=== PATIENT | female | born 1980 | race Caucasian/White ===

== ENCOUNTER 2019-03-19 12:39 | Outpatient (CLI) | payer SELFPAY ==
--- NOTE | 2019-03-19 12:44 | XR_ITS ---
WS: [id number] PELVIS AND RIGHT HIP HISTORY: RIGHT HIP PAIN COMPARISON: 01/31/2012 Right hip: No acute fracture or dislocation. No destructive bone lesions or soft tissue abnormality. Phlebolith in the RIGHT pelvis. Mild sclerosis involving the SI joints bilaterally. No definite erosi ons. XR/XR hip RT 2-3V wo/w pel* [id number] IMPRESSION: 1. Negative RIGHT hip. 2. Minimal degenerative changes bilateral SI joints.
== END 2019-03-19 12:40 | disposition home or self-care (01) ==
LOC: WPI 12:40
PROVIDERS: Family Provider Internal Medicine; Visit Provider Nurse Practitioner Family
DX: M16.11 Unilateral primary osteoarthritis, right hip (principal); G95.89 Other specified diseases of spinal cord; M25.551 Pain in right hip; R10.2 Pelvic and perineal pain
CPT/HCPCS: 73502

== ENCOUNTER 2019-09-11 09:36 | Emergency (ER) | payer SELFPAY ==
[2019-09-11 09:46] VITALS: BP 126/86; PULSE 92; RESP 18; TEMP 36.6; O2SAT 99; BMI 37.1
--- NOTE | 2019-09-11 10:16 | ED_ITS ---
HPI - Headache General: Chief Complaint: Headache Stated Complaint: H/A X 7 WEKKS Time Seen by Provider: 09/11/19 09:59 Source: patient Mode of arrival: ambulatory Limitations: no limitations History of Present Illness: HPI Narrative: PRATER x 7 weeks Onset description: like a thunderclap Quality & Timing: sharp Relieving factors: dark room Review of Systems General: Reports: 10 or more systems reviewed and unremarkable except in HPI and below Eyes: Reports: eye discomfort (left eye) Neuro: Reports: headache(s); Denies: numbness in extremities, weakness in extremities, difficulty walking, dizziness or seizure-like activity PFS ED PFSH: Social History Smoking and tobacco status: former smoker Physical Exam Const: COMMON NORMALS: no acute distress, patient oriented x3, no limitations and alert GENERAL APPEARANCE: cooperative and comfortable ORIENTATION/CONSCIOUSNESS: Yes awake, Yes oriented to person, Yes oriented to place and Yes oriented to time HENMT: COMMON NORMALS: normocephalic, atraumatic, external ears normal, EAC's normal, TM's normal bilaterally and Normal external nose present HEAD & SCALP: normal to inspection, normocephalic and atraumatic FACE & SINUS: normal facial exam, sinuses nontender and face symmetric NOSE: Normal external nose present, Normal nares present and No nasal discharge present EXTERNAL EAR: Yes external ears normal EXTERNAL AUDITORY CANAL: EAC's normal TYMPANIC MEMBRANE: TM's normal bilaterally MOUTH: Normal oral and palatal mucosa present, lip normal and tongue normal THROAT: posterior oropharynx normal, tonsils normal and uvula midline Eye: COMMON NORMALS: Equal, round and reactive pupils present, EOMs intact josias aterally and conjunctivae normal GENERAL EYE: appearance normal, both eyes and all related structures and normal light reflex EYELID: eyelid abnormality (difficulty with opening/closing; drooping ) left upper eyelid CONJUNCTIVA: Yes conjunctivae normal PUPIL: Yes Equal, round and reactive pupils present EOM: Yes EOM abnormal DIRECT OPHTHALMOSCOPY: Yes normal light reflex Neck/C-Spine: COMMON NORMALS: full ROM, no lymphadenopathy, supple, no meningeal signs, no JVD and Thyroid normal GENERAL: Yes normal visual inspection THYROID: Thyroid normal CERVICAL SPINE: Yes cervical ROM normal and Yes normal cervical lordosis Lymph: LYMPHATIC: no lymphadenopathy noted Chest: COMMONS NORMALS: normal inspection of the chest and normal palpation of entire chest wall Resp: COMMON NORMALS: normal respiratory effort, No retractions and clear to auscultation bilaterally AUSCULTATION: clear to auscultation bilaterally Cardio: COMMON NORMALS: no JVD, regular rate, regular rhythm, S1 normal heart sound present, S2 normal heart sound present, No gallops present (Cardio), No clicks present (Cardio), No murmurs present (Cardio), No rub (Cardio) and Peripheral pulses 2+ throughout RATE: regular rate RHYTHM: regular rhythm HEART SOUNDS: S1 normal heart sound present and S2 normal heart sound present PERIPHERAL PULSES: Peripheral pulses 2+ throughout GI: COMMON NORMALS: Normal to inspection, nondistended, normoactive bowel sounds present, Soft to palpation, non-tender and no masses PALPATION: Yes Soft to palpation : COMMON NORMALS: Yes no CVA tenderness and Yes normal external appearance BLADDER/KIDNEY EXAM: Yes no CVA tenderness Back/Pelvis: COMMON NORMALS: no CVA tenderness, thoracic and lumbar spine normal to inspection, no thoracic nor lumbar tenderness and thoraco-lumbar ROM normal Extremity: COMMON NORMALS: normal to inspection, full ROM, capillary refill normal, no joint enlargement, no clubbing, cyanosis or edema, no calf tenderness and no pedal edema GENERAL: Yes normal exam except as noted Neuro: COMMON NORMALS: patient oriented x3, moves all extremities, no focal motor deficits, no sensory deficits noted and gait normal SENSORIUM/ORIENTATION: Yes alert, Yes oriented to person, Yes oriented to place and Yes oriented to time MENINGEAL SIGNS: Yes no meningeal signs Psych: COMMON NORMALS: mental status grossly normal, Normal thought process present, cooperative, normal affect, speech normal and activity/motor behavior normal SPEECH: Yes normal speech THOUGHT PROCESS: Normal thought process present Skin: COMMON NORMALS: no rashes or lesions noted, no wounds and turgor normal GENERAL SKIN EXAM: no rashes or lesions noted and turgor normal Course ED course: Pt presents with PRATER that has lasted approximately 7 weeks. She has a hx of migraines but has not had any for 6 years. States this is present almost constantly with only a little relief. Notes also that her left eye has some drooping and difficulty with movement. Overall, neurologically she is intact. CT head ordered and migraine cocktail. Reevaluation(s): Reevaluation #1: Pt ct head reveals extensive sinusitis. We will refer to ENT for further tx and will do a round of steroids with antibx. Proceed with DC. Time: 11:59 Vital Signs: Vital signs: Vital Signs Temperature 97.8 F 09/11/19 09:46 Pulse Rate 92 09/11/19 09:46 Respiratory Rate 18 09/11/19 09:46 Blood Pressure 126/86 09/11/19 09:46 Pulse Oximetry 99 09/11/19 09:46 MDM - Headache Imaging Data^: CT Head: Radiologist's impression: [address] [id number] [address] Scan Report Signed Patient: Liliam Fragoso Unit #: [id number] : 1980 Age/Sex: 38 / F ADM Date: 09/11/19 Loc: ER Room/Bed: Attending Dr: Ordering Provider/Ordering MD: Sofia Ritchie NP Date of Service: 09/11/19 Procedure(s): CT head wo con* [id number] Accession Number(s): [id number] Report Number: [id number] WS: [id number] CT HEAD NONCONTRAST HISTORY: severe PRATER / NV TECHNIQUE: Contiguous axial imaging performed through the brain in 2.5 mm zack ging. Bone and soft tissue windows. Sagittal and coronal reformats reviewed. All CT scans at [facility] use at least one of these dose optimization techniques: automated exposure control; mA and/or kV adjustment per patient size (includes targeted exams where dose is matched to clinical indication); or iterative reconstruction. DLP: 763.37 mGy.cm COMPARISON: None available. No acute intracranial hemorrhage, midline shift or mass effect. No atrophy or prior infarcts or herniation. Ventricles: Normal size with no hydrocephalus. Paranasal sinuses: Extensive mucoperiosteal thickening within the visualized sinuses, most significant involving the ethmoid air cells and sphenoid sinuses. Mastoid air cells: Well pneumatized. Calvarium and scalp: Skull is intact with no soft tissue edema or swelling. CT/CT head wo con* [id number] IMPRESSION: 1. Negative head CT. 2. Extensive sinusitis sphenoid and ethmoid air cells. Dictated By: Yesenia Huang DO Signed By: Yesenia Huang DO Signed Date/Time: 08/17 09/04 1153 DD/ 1152 Discharge Plan Discharge Patient Disposition: Home, Self-Care Clinical Impression: Headache, Sinusitis Condition: Stable Prescriptions: New Medrol (Cruzito) 4 mg tablets,dose pack See Rx Instructions .ROUTE .COMPLEX Qty: 21 RF: 0 Cornelia Allergy 180 mg tablet 180 mg PO DAILY Qty: 20 RF: 0 doxycycline hyclate 100 mg capsule 100 mg PO BID 10 Days Qty: 20 RF: 0 No Action Nexium 40 mg Capsule,Delayed Release(Dr/Ec) 40 mg PO DAILY RF: 0 Pulmicort 0.25 mg/2 mL Suspension For Nebulization 0.25 mg INHALATION BID RF: 0 montelukast 10 mg Tablet 10 mg PO DAILY RF: 0 naproxen 500 mg tablet 500 mg PO Q6H PRN (Reason: Pain) RF: 0 Referrals: OSCAR BENSON DO [Primary Care Provider] - Isidro Lacy MD [Physician] - Discharge Diet: Usual diet Discharge Activity: Resume usual activity Coding Level of Care Code ED Senior Ios Developer for Chg Fwd Exam Comprehensive
--- NOTE | 2019-09-11 10:26 | CT_ITS ---
WS: [id number] CT HEAD NONCONTRAST HISTORY: severe PRATER / NV TECHNIQUE: Contiguous axial imaging performed through the brain in 2.5 mm imaging. Bone and soft tiss ue windows. Sagittal and coronal reformats reviewed. All CT scans at [facility] use at ast one of these dose optimization techniques: automated exposure control; mA and/or kV adjustment pe r patient size (includes targeted exams where dose is matched to clinical indication); or iterative r econstruction. DLP: 763.37 mGy.cm COMPARISON: None available. No acute intracranial hemorrhage, midline shift or mass effect. No atrophy or prior infarcts or herniation. Ventricles: Normal size with no hydrocephalus. Paranasal sinuses: Extensive mucoperiosteal thickening within the visualized sinuses, most significan t involving the ethmoid air cells and sphenoid sinuses. Mastoid air cells: Well pneumatized. Calvarium and scalp: Skull is intact with no soft tissue edema or swelling. CT/CT head wo con* [id number] IMPRESSION: 1. Negative head CT. 2. Extensive sinusitis sphenoid and ethmoid air cells.
[2019-09-11] MEDS: sodium chloride 0.9% 500 ML IV (10:34)
[2019-09-11] MEDS: diphenhydrAMINE 50 mg/mL SDV 1mL 25 MG IVP (10:36)
[2019-09-11] MEDS: dexamethasone 4 mg/mL INJ 8 MG IVP (10:39)
[2019-09-11] MEDS: ketorolac 30 mg/mL INJ IVP (10:40)
[2019-09-11] MEDS: metoclopramide 5 mg/mL SDV 2 mL 10 MG IVP (10:41)
[2019-09-11 12:27] VITALS: BP 100/74; PULSE 94; RESP 18; O2SAT 95
== END 2019-09-11 12:26 | disposition home or self-care (01) ==
PROVIDERS: Emergency Provider Nurse Practitioner Family; PCP Internal Medicine
DX: R51 Headache (principal); J32.9 Chronic sinusitis, unspecified; Z87.891 Personal history of nicotine dependence
CPT/HCPCS: 12345; 70450; 96361; 96374; 96375; 99283; J1100; J1200; J1885; J2765; J7040

== ENCOUNTER 2019-10-02 20:07 | Emergency (ER) | payer SELFPAY ==
[2019-10-02 20:22] VITALS: BP 123/82; PULSE 70; RESP 18; TEMP 36.7; O2SAT 98; BMI 37.1
--- NOTE | 2019-10-02 20:40 | W.ED.HA ---
HPI - Headache General: Chief Complaint: Headache Stated Complaint: headache Time Seen by Provider: 10/02/19 20:40 Source: patient Mode of arrival: ambulatory Limitations: no limitations History of Present Illness: HPI Narrative: 38-year-old female comes in today with complaints of left parietal headache. Patient states that she has a history of migraines but had not had them for quite a long time. In August she had to come into the ER for headache and was diagnosed with sinusitis. Patient states that she took steroids and antibiotics and has been put on antihistamines along with her routine medications. Patient reports for the last 3 days she has had a recurrence of her headache with exacerbation. Patient appears well. Patient appears in no acute distress. Patient does appear in mild to moderate pain. MD elicited complaint: headache Review of Systems General: Reports: 10 or more systems reviewed and unremarkable except in HPI and below Neuro: Reports: headache(s) [facility] PFSH: Social History Smoking and tobacco status: former smoker Physical Exam Const: COMMON NORMALS: no acute distress and patient oriented x3 GENERAL APPEARANCE: cooperative HENMT: COMMON NORMALS: normocephalic, TM's normal bilaterally and Normal external nose present HEAD & SCALP: normal to inspection and normocephalic NOSE: Normal external nose present TYMPANIC MEMBRANE: TM's normal bilaterally MOUTH: Normal oral and palatal mucosa present THROAT: posterior oropharynx normal Eye: GENERAL EYE: appearance normal, both eyes and all related structures Neck/C-Spine: COMMON NORMALS: full ROM Lymph: LYMPHATIC: no lymphadenopathy noted Chest: COMMONS NORMALS: normal inspection of the chest Resp: COMMON NORMALS: normal respiratory effort EFFORT & INSPECTION: Yes able to speak in complete sentences Cardio: COMMON NORMALS: regular rate and regular rhythm RATE: regular rate RHYTHM: regular rhythm GI: COMMON NORMALS: non-tender Back/Pelvis: COMMON NORMALS: thoracic and lumbar spine normal to inspection Extremity: COMMON NORMALS: normal to inspection Neuro: COMMON NORMALS: patient oriented x3 and moves all extremities Psych: COMMON NORMALS: mental status grossly normal and cooperative Skin: COMMON NORMALS: no rashes or lesions noted GENERAL SKIN EXAM: no rashes or lesions noted Course Vital Signs: Vital signs: Vital Signs Temperature 98.1 F 10/02/19 20:22 Pulse Rate 70 10/02/19 20:22 Respiratory Rate 18 10/02/19 20:22 Blood Pressure 123/82 10/02/19 20:22 Pulse Oximetry 98 10/02/19 20:22 MDM - Headache MDM Narrative: Medical decision making narrative: Patient comes in today with complaints of headache. Patient appears well. Patient has no focal neural deficits. No sinus tenderness. Bilateral tympanic membranes are clear. Posterior pharynx shows some clear drainage. No anterior lymphadenopathy. Lungs are clear to auscultation. No meningismus is noted. Differential diagnosis includes migraine headache, tension headache, malingering. Patient was treated for migraine headache with Reglan and Benadryl, and Toradol and dexamethasone. Patient had good results for headache relief. Patient was released to home to continue routine care. Patient reports understanding of care plan and need for follow-up. Discharge Plan Discharge Patient Disposition: Home, Self-Care Clinical Impression: Migraine Qualifiers: Migraine type: unspecified Status migrainosus presence: without status migrainosus Intractability: not intractable Qualified Code(s): G43.909 - Migraine, unspecified, not intractable, without status migrainosus Condition: Stable Prescriptions: No Action esomeprazole magnesium [Nexium] 40 mg Capsule,Delayed Release(Dr/Ec) 40 mg PO DAILY RF: 0 budesonide [Pulmicort] 0.25 mg/2 mL Suspension For Nebulization 0.25 mg INHALATION BID RF: 0 montelukast 10 mg Tablet 10 mg PO DAILY RF: 0 naproxen 500 mg tablet 500 mg PO Q6H PRN (Reason: Pain) RF: 0 fexofenadine [Cornelia Allergy] 180 mg tablet 180 mg PO DAILY Qty: 20 RF: 0 albuterol sulfate 90 mcg/actuation Hfa Aerosol Inhaler 1 puff INHALATION QID PRN (Reason: Shortness Of Breath) RF: 0 Ipatropiam [place] See Rx Instructions .ROUTE .COMPLEX RF: 0 Discharge Orders: Discharge Order (Routine); Ordered 10/02/19 Ordered By: Chente Antonio Referrals: OSCAR BENSON DO [Primary Care Provider] - Discharge Diet: Usual diet Discharge Activity: Increase activity as tolerated Patient Instructions: Acute Headache (ED) Activity Restrictions/Additional Instructions: Home and rest. Drink plenty of water. Continue with routine medications. Follow-up with primary care. Return to the ER as needed for new concerns. Coding Level of Care Code ED Water Resources Technical Officer for Chg Fwd Exam Comprehensive
[2019-10-02] MEDS: metoclopramide 5 mg/mL SDV 2 mL 10 MG IVP (21:39)
[2019-10-02] MEDS: diphenhydrAMINE 50 mg/mL SDV 1mL 25 MG IVP (21:45)
[2019-10-02] MEDS: dexamethasone 10 mg/mL INJ IVP (21:45)
[2019-10-02] MEDS: ketorolac 30 mg/mL INJ 15 MG IVP (21:46)
[2019-10-02] MEDS: sodium chloride 0.9% 500 ML 999 ML IV (21:46)
--- NOTE | 2019-10-02 22:11 | PC.NURSE ---
PT FEELS BETTER AFTER MEDS AND FLUIDS GIVEN.
[2019-10-02 22:18] VITALS: BP 141/74; PULSE 69; RESP 17; O2SAT 96
== END 2019-10-02 22:19 | disposition home or self-care (01) ==
PROVIDERS: Emergency Provider Nurse Practitioner Family; PCP Internal Medicine
DX: G43.909 Migraine, unspecified, not intractable, without status migrainosus (principal); Z87.891 Personal history of nicotine dependence
CPT/HCPCS: 12345; 96374; 96375; 99282; 99283; J1100; J1200; J1885; J2765; J7040

== ENCOUNTER 2019-11-28 10:38 | Emergency (ER) | payer SELFPAY ==
--- NOTE | 2019-11-28 10:47 | XRR_ITS ---
PROCEDURE INFORMATION: Exam: XR Chest, 1 View Exam date and time: 11/28/2019 10:49 AM Age: 39 years old Clinical indication: Cough and dyspnea; Additional info: Dyspnea/cough TECHNIQUE: Imaging protocol: XR of the chest Views: 1 view. COMPARISON: CR Chest 1 [place] [id number] 02/19/2019 8:53 PM FINDINGS: Lungs: Unremarkable. No consolidation. Pleural space: Unremarkable. No evidence of pleural effusion or pneumothorax. Heart/Mediastinum: Unremarkable. No cardiomegaly. Bones/joints: Unremarkable. XR/XR chest 1V portable [id number] IMPRESSION: No acute findings.
[2019-11-28 10:58] VITALS: BP 114/78; PULSE 94; RESP 20; TEMP 36.4; O2SAT 98; BMI 40.3
--- NOTE | 2019-11-28 10:59 | ED_ITS ---
HPI - SOB/Dyspnea General: Chief Complaint: Shortness of Breath/Dyspnea Stated Complaint: COUGH, SOB Time Seen by Provider: 11/28/19 10:44 History of Present Illness: HPI Narrative: 39-year-old female presents with complaints of cough for the last 2 days. She has had some myalgias and some shortness of breath. She was started on steroids and antibiotics and a topical cream for her foot recently prednisone Bactrim and mupirocin she describes some open wounds. She has not had any vomiting or diarrhea has had some nausea headaches myalgias. She does have a history of some COPD. Her was swabbed earlier this week and has not gotten the results yet. MD elicited complaint: cough Pertinent past history: COPD Onset (ago): day(s) Timing: constant Severity: moderate Exacerbating factors: exertion and coughing Relieving factors: rest and bronchodilators Known history of: COPD Associated symptoms: Reports chest congestion and cough; Deny abdominal pain, chest pain, diaphoresis, dizziness, extremity pain, fever(s), hemoptysis, lightheadedness, myalgias, nausea, orthopnea, palpitations, paresthesias, polydipsia, polyuria, rash, sense of impending doom, syncope or vomiting Treatment prior to arrival: bronchodilator Review of Systems Const: Denies: fever(s) or diaphoresis ENMT: Denies: throat pain, ear or mastoid pain, nasal discharge or nasal congestion Card: Denies: chest pain, palpitations, lightheadedness, syncope or orthopnea Resp: Reports: chest congestion; Denies: hemoptysis GI: Denies: abdominal pain, nausea or vomiting : Denies: flank pain, difficulty voiding, dysuria, urinary frequency or urinary urgency Musc: Denies: extremity pain Skin/Breast: Denies: rash or pruritus Neuro: Denies: dizziness Endo: Denies: polyuria or polydipsia PFS ED PFSH: Social History Smoking and tobacco status: former smoker Physical Exam Const: COMMON NORMALS: no acute distress GENERAL APPEARANCE: cooperative and comfortable ORIENTATION/CONSCIOUSNESS: Yes awake, Yes oriented to person, Yes oriented to place and Yes oriented to time HENMT: COMMON NORMALS: normocephalic, atraumatic and hearing grossly normal bilaterally HEAD & SCALP: normocephalic and atraumatic Eye: COMMON NORMALS: Equal, round and reactive pupils present, EOMs intact bilaterally, conjunctivae normal and no scleral icterus CONJUNCTIVA: Yes conjunctivae normal PUPIL: Yes Equal, round and reactive pupils present Neck/C-Spine: COMMON NORMALS: full ROM, no lymphadenopathy, supple and no JVD Lymph: LYMPHATIC: no lymphadenopathy noted and no lymphedema noted Resp: COMMON NORMALS: normal respiratory effort, No retractions, No use of accessory muscles and clear to auscultation bilaterally AUSCULTATION: clear to auscultation bilaterally Cardio: COMMON NORMALS: no JVD, regular rate, regular rhythm and No murmurs present (Cardio) RATE: regular rate RHYTHM: regular rhythm GI: COMMON NORMALS: Soft to palpation and No hepatosplenomegaly present AUSCULTATION: Yes normoactive bowel sounds PALPATION: Yes Soft to palpation, No Tenderness to palpation present (GI), No Guarding due to palpation present (GI) and Yes No hepatosplenomegaly present Extremity: COMMON NORMALS: normal to inspection, capillary refill normal, no clubbing, cyanosis or edema, no calf tenderness and no pedal edema Neuro: SENSORIUM/ORIENTATION: Yes oriented to person, Yes oriented to place an d Yes oriented to time Skin: COMMON NORMALS: no rashes or lesions noted GENERAL SKIN EXAM: no r ashes or lesions noted Course Vital Signs: Vital signs: Vital Signs Temperature 97.6 F 11/28/19 10:58 Pulse Rate 86 11/28/19 12:05 Respiratory Rate 18 11/28/19 12:05 Blood Pressure 116/45 11/28/19 12:05 Pulse Oximetry 97 11/28/19 12:05 MDM - SOB/Dyspnea MDM Narrative: Medical decision making narrative: Discharge home patient is stable at this time vital signs are good COVID-19 testing pending as patient to remain self quarantined until results are available Lab Data: Labs: Lab Results 11/28/19 11/28/19 11/28/19 Range/Units 11:23 11:23 11:51 WBC 12.5 H (4.0-10.0) 10^3/ uL RBC 4.66 (4.1-5.3) 10^6/u L Hgb 14.0 (11.5-15.3) g/dL Hct 42.2 (37.0-47.0) % MCV 90.6 (81-99) fL MCH 30.0 (28.0-34.0) pg MCHC 33.2 (30.0-36.0) g/dL RDW 11.9 L (12.1-15.1) % Plt Count 350 (130-400) 10^3/c mm MPV 9.9 (7.4-10.4) fL Neut % (Auto) 78.0 % Lymph % (Auto) 13.5 % [place] % (Auto) 7.1 % Eos % (Auto) 0.6 % Baso % (Auto) 0.4 % Neut # (Auto) 9.77 H (1.8-7.7) 10^3/u L Lymph # (Auto) 1.7 (0.8-4.8) 10^3/u L [place] # (Auto) 0.9 (0.2-0.9) 10^3/u L Eos # (Auto) 0.1 (0.0-0.8) 10^3/u L Baso # (Auto) 0.1 (0.0-0.1) 10^3/u L Nucleated RBC % (a uto) 0 % Nucleated RBCs # 0.0 /100WBC Sodium 135 L (136-145) mmol/L Potassium 4.1 (3.5-5.1) mmol/L Chloride 102 (98-107) mmol/L Carbon Dioxide 22 (22-29) mmol/L Anion Gap 15.1 (5-19) BUN 15 (6-20) mg/dL Creatinine 0.7 (0.5-0.9) mg/dL GFR Calculation 92.7 (90-130) mL/min Glucose 94 (65-115) mg/dL Calculated Osmolal ity 276 L (285-295) mOsm/k g Calcium 8.6 (8.5-10.5) mg/dL Total Bilirubin 0.2 (0.15-1.2) mg/dL AST 15 (0-32) U/L ALT 15 (0-33) U/L Alkaline Phosphata se 82 (35-105) IU/L Total Protein 6.7 (6.6-8.7) g/dL Albumin 4.1 (3.5-5.2) g/dL Globulin 2.6 (1.3-4.6) g/dL SARS-CoV-2 RNA (RT -PCR) Not detected (NOT DETECTED) Discharge Plan Discharge Patient Disposition: Home Clinical Impression: Suspected 2019-nCoV infection Condition: Stable Prescriptions: No Action prednisone 20 mg Tablet 20 mg PO BID RF: 0 sulfamethoxazole-trimethoprim 800-160 mg Tablet 1 tab PO BID RF: 0 Lasix 20 mg Tablet 20 mg PO DAILY RF: 0 mupirocin 2 % Ointment Kit 1 applic TOPICAL BID RF: 0 esomeprazole magnesium [Nexium] 40 mg Capsule,Delayed Release(Dr/Ec) 40 mg PO DAILY RF: 0 budesonide [Pulmicort] 0.25 mg/2 mL Suspension For Nebulization 0.25 mg INHALATION BID RF: 0 montelukast 10 mg Tablet 10 mg PO DAILY RF: 0 naproxen 500 mg tablet 500 mg PO Q6H PRN (Reason: Pain) RF: 0 fexofenadine [Cornelia Allergy] 180 mg tablet 180 mg PO DAILY Qty: 20 RF: 0 albuterol sulfate 90 mcg/actuation Hfa Aerosol Inhaler 1 puff INHALATION QID PRN (Reason: Shortness Of Breath) RF: 0 Ipatropiam [place] See Rx Instructions .ROUTE .COMPLEX RF: 0 Discharge Orders: Discharge Order (Routine); Ordered 11/28/19 Ordered By: Faheem Reid Referrals: Varsha Mccain DO [Primary Care Provider] - Discharge Diet: Usual diet Discharge Activity: Limit activity as instructed Activity Restrictions/Additional Instructions: Your tested for COVID-19. We asked that you remain self quarantine until the results are back. We will call you soon as they are available. If you have any worsening shortness of breath return to the emergency room. Discharge Date/Time: 11/28/19 12:07 Coding Level of Care Code ED Special Events Driver for Maxwell Fwkehinde Exam Comprehensive
[2019-11-28 11:35] VITALS: BP 104/87; PULSE 88; RESP 18; O2SAT 98
[2019-11-28 11:45] LABS: Basophils # 0.1 10^3/uL (0.0-0.1); Basophils % 0.4 %; Eosinophils # 0.1 10^3/uL (0.0-0.8); Eosinophils % 0.6 %; Hematocrit 42.2 % (37.0-47.0); Lymphocytes # 1.7 10^3/uL (0.8-4.8); Lymphocytes % 13.5 %; Mean Corpuscular HGB Conc 33.2 g/dL (30.0-36.0); Mean Corpuscular Volume 90.6 fL (81-99); Mean Platelet Volume 9.9 fL (7.4-10.4); Monocytes # 0.9 10^3/uL (0.2-0.9); Monocytes % 7.1 %; Neutrophils # 9.77 10^3/uL (1.8-7.7); Nucleated Red Blood Cells % 0 %; Platelet Count 350 10^3/cmm (130-400); Red Blood Count 4.66 10^6/uL (4.1-5.3); Red Cell Distribution Width 11.9 % (12.1-15.1); White Blood Count 12.5 10^3/uL (4.0-10.0)
[2019-11-28 11:56] LABS: Alanine Aminotransferase 15 U/L (0-33); Albumin Level 4.1 g/dL (3.5-5.2); Alkaline Phosphatase 82 IU/L (35-105); Anion Gap 15.1 (5-19); Aspartate Amino Transferase 15 U/L (0-32); Blood Urea Nitrogen 15 mg/dL (6-20); Calcium 8.6 mg/dL (8.5-10.5); Carbon Dioxide 22 mmol/L (22-29); Chloride 102 mmol/L (98-107); Globulin 2.6 g/dL (1.3-4.6); Glomerular Filtration Rate 92.7 mL/min (90-130); Glucose 94 mg/dL (65-115); Osmolality Calculated 276 mOsm/kg (285-295); Potassium 4.1 mmol/L (3.5-5.1); Sodium 135 mmol/L (136-145); Total Bilirubin 0.2 mg/dL (0.15-1.2); Total Protein 6.7 g/dL (6.6-8.7)
--- NOTE | 2019-11-28 11:56 | PC.NURSE ---
[facility] COVID swab obtained and sent to lab
[2019-11-28 12:05] VITALS: BP 116/45; PULSE 86; RESP 18; O2SAT 97
[2019-11-30 15:13] LABS: Quest SARS-CoV-2 RNA NOT DETECTED (NOT DETECTED)
== END 2019-11-28 12:07 | disposition home or self-care (01) ==
PROVIDERS: Emergency Provider Family Medicine; PCP Internal Medicine
DX: R05 Cough (principal); R06.02 Shortness of breath; Z87.891 Personal history of nicotine dependence
CPT/HCPCS: 12345; 36415; 71045; 80053; 85025; 87635; 99281; 99283

== ENCOUNTER 2020-03-27 20:58 | Emergency (ER) | payer MEDICAID, SELFPAY ==
[2020-03-27 21:11] VITALS: BP 137/82; PULSE 102; RESP 14; TEMP 36.4; O2SAT 97; BMI 40.3
[2020-03-27 21:28] VITALS: BP 142/107; PULSE 83; RESP 16; O2SAT 97
[2020-03-27] MEDS: sodium chloride 0.9% 500 ML 999 ML IV (21:42)
[2020-03-27] MEDS: dexamethasone 4 mg/mL INJ 8 MG IVP (21:42)
[2020-03-27] MEDS: diphenhydrAMINE 50 mg/mL SDV 1mL 25 MG IVP (21:45)
[2020-03-27] MEDS: metoclopramide 5 mg/mL SDV 2 mL 10 MG IVP (21:46)
[2020-03-27] MEDS: ketorolac 30 mg/mL INJ IVP (21:47)
--- NOTE | 2020-03-27 22:29 | ED_ITS ---
HPI - Headache General: Chief Complaint: Headache Stated Complaint: SEVERE HEADACHE Time Seen by Provider: 03/27/20 21:23 History of Present Illness: HPI Narrative: 39 year old female presents to the ED with MHA - reports present x 24 hours - similar to previous MHA - PRATER not improved with use of Naproxen. MD elicited complaint: headache Pertinent past history: migraines Onset (ago): day(s) (1) Onset description: gradually Location: diffuse, maxillary and band-like Severity: moderate Pain scale (0-10): 5 Quality & Timing: aching, throbbing, squeezing and constant Exacerbating factors: light and noise Relieving factors: NSAIDs Context: occurred at rest Associated symptoms: Reports nausea, photophobia and sound sensitivity; Deny chest pain, confusion, diaphoresis, fever(s), malaise, rash or vomiting Treatments prior to arrival: other (Naproxen) Review of Systems General: Reports: 10 or more systems reviewed and unremarkable except in HPI and below Const: Denies: fever(s), chills, fatigue, malaise or diaphoresis Eyes: Denies: blurry vision, eye discomfort, eye redness or yellow eyes ENMT: Denies: throat pain, dental pain or disequilibrium Card: Denies: chest pain, palpitations or irregular heart rhythm Resp: Denies: dyspnea, productive cough, non-productive cough or wheezing GI: Reports: nausea; Denies: abdominal pain, vomiting, early satiety, diarrhea or constipation : Denies: difficulty voiding or dysuria Musc: Denies: neck pain, back pain, joint pain or joint swelling Skin/Breast: Denies: rash or pruritus Neuro: Denies: headache(s), weakness in extremities, sensory changes, difficulty walking, dizziness, vertigo, confusion, behavioral changes or Slurred speech present Psych: Reports: difficulty concentrating (due to Headache); Denies: anxiety, depression or change in appetite Ruben/Lymph: Denies: easy bruising PFSH ED PFSH: Family History Father Anesthesia complication Heart disease Hyperlipidemia Hypertension Grandfather Diabetes maternal Grandmother Diabetes maternal Breast cancer maternal, diagnosed in her 40's Stroke paternal Thyroid condition maternal Daughter No problems noted. 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 opiates, last used opiates in 2010, Physical Exam Const: COMMON NORMALS: no acute distress, patient oriented x3, healthy appearing, alert and well nourished EXAM LIMITATIONS: no altered mental status, no behavioral limitations and no physical limitations GENERAL APPEARANCE: cooperative, comfortable, well kempt, well developed and well hydrated; not ill appearing and not frail appearing NUTRITIONAL APPEARANCE: overweight ORIENTATION/CONSCIOUSNESS: Yes awake, Yes oriented to person, Yes oriented to place and Yes oriented to time; not confused HENMT: COMMON NORMALS: normocephalic, atraumatic, hearing grossly normal bilaterally, EAC's normal, TM's normal bilaterally, Normal external nose present, moist oral mucous membranes and oropharynx normal HEAD & SCALP: normal to inspection, normocephalic, atraumatic and scalp tenderness; no contusion, no hematoma and no laceration FACE & SINUS: normal facial exam, face symmetric and sinus tenderness maxillary NOSE: Normal external nose present EXTERNAL AUDITORY CANAL: EAC's normal TYMPANIC MEMBRANE: TM's normal bilaterally MOUTH: Normal oral and palatal mucosa present THROAT: posterior oropharynx normal Eye: COMMON NORMALS: Equal, round and reactive pupils present and EOMs intact bilaterally GENERAL EYE: appearance normal, both eyes and all related structures PERIORBITAL: periorbital findings normal EYELID: eyelids normal PUPIL: Yes Equal, round and reactive pupils present DIRECT OPHTHALMOSCOPY: Yes photophobia Neck/C-Spine: COMMON NORMALS: full ROM, no lymphadenopathy and supple GENERAL: Yes normal visual inspection and Yes trachea midline CERVICAL SPINE: Yes cervical ROM normal Lymph: LYMPHATIC: no lymphadenopathy noted Chest: COMMONS NORMALS: normal inspection of the chest and normal palpation of entire chest wall Resp: COMMON NORMALS: normal respiratory effort, No retractions, No use of accessory muscles and clear to auscultation bilaterally EFFORT & INSPECTION: Yes able to speak in complete sentences AUSCULTATION: clear to auscultation bilaterally Cardio: COMMON NORMALS: regular rate, regular rhythm, S1 normal heart sound present, S2 normal heart sound present and Peripheral pulses 2+ throughout RATE: regular rate RHYTHM: regular rhythm HEART SOUNDS: S1 normal heart sound present and S2 normal heart sound present PERIPHERAL PULSES: Peripheral pulses 2+ throughout GI: COMMON NORMALS: Normal to inspection, nondistended, normoactive bowel sounds present, Soft to palpation and non-tender INSPECTION: Yes normal to inspection and Yes central obesity PALPATION: Yes Soft to palpation : COMMON NORMALS: Yes no CVA tenderness BLADDER/KIDNEY EXAM: Yes no CVA tenderness Back/Pelvis: COMMON NORMALS: no CVA tenderness, thoracic and lumbar spine normal to inspection, no thoracic nor lumbar tenderness and thoraco-lumbar ROM normal Extremity: COMMON NORMALS: normal to inspection and capillary refill normal Neuro: COMMON NORMALS: patient oriented x3 and no focal motor deficits SENSORIUM/ORIENTATION: Yes alert, Yes oriented to person, Yes oriented to place and Yes oriented to time SPEECH: speech normal GAIT: Yes Normal gait present MOTOR EXAM: 5/5 motor strength present throughout Right pupil size (mm): 4 Left pupil size (mm): 4 Psych: COMMON NORMALS: mental status grossly normal, Normal thought process present and cooperative APPEARANCE: Yes well kempt ACTIVITY/MOTOR BEHAVIOR: Yes appropriate eye contact THOUGHT PROCESS: Normal thought process present Skin: COMMON NORMALS: no rashes or lesions noted and turgor normal GENERAL SKIN EXAM: no rashes or lesions noted and turgor normal Course ED course: Patient treated with Toradol, Reglan, Benadryl, and dexamethasone, headache resolved. She is requesting to go home if she feels better. She also received 500 cc normal saline here in the ED. Nausea was resolved. She wants to go home and go to bed. Advised to return to the emergency department if she developed worsening pain. Vital Signs: Vital signs: Vital Signs Temperature 97.6 F 03/27/20 21:11 Pulse Rate 84 03/27/20 22:41 Respiratory Rate 16 03/27/20 22:41 Blood Pressure 132/87 03/27/20 22:41 Pulse Oximetry 97 03/27/20 22:41 Discharge Plan Discharge Patient Disposition: Home Clinical Impression: Migraine aura, persistent, intractable Condition: Stable Prescriptions: No Action multivitamin Tablet 1 tab PO DAILY RF: 0 mupirocin 2 % Ointment Kit 1 applic TOPICAL BID RF: 0 esomeprazole magnesium [Nexium] 40 mg Capsule,Delayed Release(Dr/Ec) 40 mg PO DAILY RF: 0 budesonide [Pulmicort] 0.25 mg/2 mL Suspension For Nebulization 0.25 mg INHALATION BID RF: 0 montelukast 10 mg Tablet 10 mg PO DAILY RF: 0 naproxen 500 mg tablet 500 mg PO Q6H PRN (Reason: Pain) RF: 0 fexofenadine [Cornelia Allergy] 180 mg tablet 180 mg PO DAILY Qty: 20 RF: 0 albuterol sulfate 90 mcg/actuation Hfa Aerosol Inhaler 1 puff INHALATION QID PRN (Reason: Shortness Of Breath) RF: 0 Ipatropiam [place] See Rx Instructions .ROUTE .COMPLEX RF: 0 Discharge Orders: Discharge ED (Routine); Ordered 03/27/20 Ordered By: Betty Marino Referrals: Varsha Mccain, [Primary Care Provider] - Discharge Diet: Usual diet Discharge Activity: Limit activity as instructed Patient Instructions: Migraine Headache (ED) Activity Restrictions/Additional Instructions: Return to the emergency department if you develop the worst headache of your life Rest at home today Clear liquid diet then advance as tolerated to help with nausea and upset stomach Coding Level of Care Code ED 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
[2020-03-27 22:41] VITALS: BP 132/87; PULSE 84; RESP 16; O2SAT 97
== END 2020-03-27 22:42 | disposition home or self-care (01) ==
PROVIDERS: Emergency Provider Nurse Practitioner Family; PCP Internal Medicine
DX: G43.519 Persistent migraine aura without cerebral infarction, intractable, without status migrainosus (principal); Z87.891 Personal history of nicotine dependence
CPT/HCPCS: 12345; 96374; 96375; 99283; J1100; J1200; J1885; J2765; J7040

== ENCOUNTER 2020-08-03 07:20 | Emergency (ER) | payer MEDICAID, SELFPAY ==
[2020-08-03 07:29] VITALS: BP 115/95; PULSE 89; RESP 18; TEMP 36.6; O2SAT 97; BMI 37.1
--- NOTE | 2020-08-03 07:29 | W.ED.SOB ---
HPI - SOB/Dyspnea General: Stated Complaint: vomiting blood, sob Time Seen by Provider: 08/03/20 07:24 PFSH ED PFSH: Family History Father Anesthesia complication Heart disease Hyperlipidemia Hypertension Grandfather Diabetes maternal Grandmother Diabetes maternal Breast cancer maternal, diagnosed in her 40's Stroke paternal Thyroid condition maternal Daughter No problems noted. 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 opiates, last used opiates in 2010, Discharge Plan Discharge Prescriptions: No Action multivitamin Tablet 1 tab PO DAILY RF: 0 mupirocin 2 % Ointment Kit 1 applic TOPICAL BID RF: 0 esomeprazole magnesium [Nexium] 40 mg Capsule,Delayed Release(Dr/Ec) 40 mg PO DAILY RF: 0 budesonide [Pulmicort] 0.25 mg/2 mL Suspension For Nebulization 0.25 mg INHALATION BID RF: 0 montelukast 10 mg Tablet 10 mg PO DAILY RF: 0 naproxen 500 mg tablet 500 mg PO Q6H PRN (Reason: Pain) RF: 0 fexofenadine [Cornelia Allergy] 180 mg tablet 180 mg PO DAILY Qty: 20 RF: 0 albuterol sulfate 90 mcg/actuation Hfa Aerosol Inhaler 1 puff INHALATION QID PRN (Reason: Shortness Of Breath) RF: 0 Ipatropiam [place] See Rx Instructions .ROUTE .COMPLEX RF: 0 Coding Level of Care Code ED 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
--- NOTE | 2020-08-03 07:44 | XR_ITS ---
WS: [id number] Portable AP upright chest, 08/03/2020 Clinical Data: SOB; possible hemoptysis Comparison: Portable chest, 11/28/2019. Findings: No nodules, masses or effusions are seen. The heart is normal. The pulmonary vascularity is not increased. No pneumonia or pneumothorax is seen. XR/XR chest 1V portable [id number] Impression: Negative chest.
--- NOTE | 2020-08-03 07:46 | W.ED.GIBLEED ---
HPI - GI Bleed General: Chief complaint: GI Bleed Stated complaint: vomiting blood, sob Time Seen by Provider: 08/03/20 07:24 Source: patient Mode of arrival: ambulatory Limitations: no limitations History of Present Illness: HPI Narrative: Patient is a 39-year-old female who presents to ED today with a complaint of what she believes was blood in an episode of emesis that occurred this morning. She states this morning she became nauseous and had an episode of vomit that was blood-streaked but also had a little bit of black in it . She does complain of some mild epigastric pain. No heavy or long-term NSAID use. She states she used to drink alcohol many many years ago but nothing recently. No history of GI bleeds. She is not on anticoagulation. She tells me over the past 3 days she has noticed her diarrhea is black in color. She states diarrhea is normal for her ever since she had a cholecystectomy. Patient got triaged as a short of breath as well however patient denies this. She tells me she has a history of COPD and states her breathing is at baseline. MD complaint: blood streaked emesis and other (reports black diarrhea) Onset (ago): day(s) Pain Consistency: intermittent Severity: moderate Relieving factors: none Exacerbating factors: none Associated symptoms: Reports abdominal pain, nausea and vomiting; Denies chills, fever(s), headache(s), malaise, rash or syncope Treatments Prior to Arrival: none Review of Systems Const: Denies: fever(s), chills, body aches, change in appetite, change in weight, fatigue or malaise Eyes: Denies: change in vision or blurry vision ENMT: Denies: throat pain, odynophagia, nasal discharge or nasal congestion Card: Denies: chest pain, palpitations, irregular heart rhythm, edema, swelling of feet/ankles, lightheadedness, syncope, pre-syncope, dyspnea on exertion or orthopnea Resp: Reports: dyspnea (chronic-reports COPD/asthma; at baseline), productive cough (chronic) and chest congestion (chronic); Denies: pain on inspiration, change in phlegm color or hemoptysis GI: Reports: abdominal pain, nausea, vomiting, hematemesis, diarrhea and other (watery black stool); Denies: heartburn, early satiety, constipation, bloating, belching, pain on defecation, rectal pain, rectal swelling, rectal itching, hematochezia or mucus in stool : Denies: flank pain, difficulty voiding, dysuria, urinary frequency, urinary urgency or urinary hesitancy Musc: Denies: neck pain, back pain, extremity pain, extremity swelling, joint pain or joint swelling Skin/Breast: Denies: rash Neuro: Denies: headache(s), numbness in extremities, weakness in extremities, sensory changes, lack of coordination, difficulty walking, frequent falls, dizziness, confusion or Slurred speech present PFS ED PFSH: Surgical History S/P cholecystectomy laparoscopic, 04/16/2018 Family History Father Anesthesia complication Heart disease Hyperlipidemia Hypertension Grandfather Diabetes maternal Grandmother Diabetes maternal Breast cancer maternal, diagnosed in her 40's Stroke paternal Thyroid condition maternal Daughter No problems noted. 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 opiates, last used opiates in 2010, Physical Exam Const: COMMON NORMALS: no acute distress, patient oriented x3, no limitations and alert NUTRITIONAL APPEARANCE: obese morbidly obese ORIENTATION/CONSCIOUSNESS: Yes awake, Yes oriented to person, Yes oriented to place and Yes oriented to time HENMT: COMMON NORMALS: normocephalic and atraumatic HEAD & SCALP: normocephalic and atraumatic Chest: COMMONS NORMALS: normal inspection of the chest and normal palpation of entire chest wall Resp: COMMON NORMALS: normal respiratory effort and clear to auscultation bilaterally AUSCULTATION: clear to auscultation bilaterally Cardio: COMMON NORMALS: regular rate and regular rhythm RATE: regular rate RHYTHM: regular rhythm GI: COMMON NORMALS: Normal to inspection, nondistended, normoactive bowel sounds present, Soft to palpation, No hepatosplenomegaly present and no masses PALPATION: Yes Soft to palpation, Yes Tenderness to palpation present (GI) (mainly to epigastric; mild RUQ, mild suprapubic; non-surgical abdomen ) and Yes No hepatosplenomegaly present RECTAL EXAM: heme negative stool OTHER: diarrhea visualized and brown in color; hemoccult negative : COMMON NORMALS: Yes no CVA tenderness BLADDER/KIDNEY EXAM: Yes no CVA tenderness Back/Pelvis: COMMON NORMALS: no CVA tenderness, thoracic and lumbar spine normal to inspection, no thoracic nor lumbar tenderness and thoraco-lumbar ROM normal Extremity: COMMON NORMALS: normal to inspection and full ROM GENERAL: Yes normal exam except as noted Neuro: J[place]ES[place]O COMA SCALE: document GCS findings [place] coma scale eye opening: Spontaneous [place] coma scale verbal response: Orientated [place] coma scale motor response: Obey commands [place] coma scale total score: 15 COMMON NORMALS: patient oriented x3, CN's II-XII intact bilaterally, moves all extremities, no focal motor deficits, no sensory deficits noted and gait normal SENSORIUM/ORIENTATION: Yes alert, Yes oriented to person, Yes oriented to place and Yes oriented to time Skin: NARRATIVE SKIN EXAM: erythematous papular rash to dorsal R forearm and bilateral legs that she states has been present over 8 months now TRAUMA: no lacerations or abrasions Course ED course: Of note patient screened positive on her triage depression/SI screen. She tells me she has a history of bipolar and suicidal thoughts are always in the back of my head . She tells me she does not feel suicidal now. She knows she would never act on these thoughts. She does have a previous attempt 8 mo ago after a family member was diagnosed with cancer. I have consulted with Dr. Gonzalez and he will come evaluate patient. Consultations: Consultation #1: Dr. Gonzalez-will come evaluate patient in ED Vital Signs: Vital signs: Vital Signs Temperature 97.8 F 08/03/20 07:29 Pulse Rate 93 08/03/20 12:35 Respiratory Rate 18 08/03/20 12:35 Blood Pressure 123/87 08/03/20 12:35 Pulse Oximetry 99 08/03/20 12:35 MDM - GI Bleed MDM Narrative: Medical decision making narrative: Patient's vital signs are completely normal. She has a normal H&H. Her stool was hemocculted here and negative. She has had no episodes of bloody emesis here. Abdomen is non-surgical. Discussed placing a referral to GI for evaluation for endoscopy/colonoscopy however patient states she would like to follow-up with PCP Dr. Adán mendoza. Remainder of labs are normal. UA is negative. Will place patient on Carafate and Prilosec. Return to ED precautions discussed. Dr. Gonzalez has evaluated patient in the ED. Please refer to his note for specific details regarding his assessment. We will have CM set her up with services at [facility] and give her information regarding the intake assessment process. Return to ED precautions given. Lab Data: Labs: Lab Results 08/03/20 08/03/20 08/03/20 Range/Units 08:04 08:04 09:26 WBC 11.5 H (4.0-10.0) 10^3/ uL RBC 4.96 (4.1-5.3) 10^6/u L Hgb 14.7 (11.5-15.3) g/dL Hct 43.7 (37.0-47.0) % MCV 88.1 (81-99) fL MCH 29.6 (28.0-34.0) pg MCHC 33.6 (30.0-36.0) g/dL RDW 12.2 (12.1-15.1) % Plt Count 388 (130-400) 10^3/c mm MPV 9.7 (7.4-10.4) fL Neut % (Auto) 78.4 % Lymph % (Auto) 13.5 % [place] % (Auto) 7.1 % Eos % (Auto) 0.3 % Baso % (Auto) 0.4 % Neut # (Auto) 9.02 H (1.8-7.7) 10^3/u L Lymph # (Auto) 1.6 (0.8-4.8) 10^3/u L [place] # (Auto) 0.8 (0.2-0.9) 10^3/u L Eos # (Auto) 0.0 (0.0-0.8) 10^3/u L Baso # (Auto) 0.1 (0.0-0.1) 10^3/u L Nucleated RBC % (a uto) 0 % Nucleated RBCs # 0.0 /100WBC Sodium 138 (136-145) mmol/L Potassium 4.3 (3.5-5.1) mmol/L Chloride 105 (98-107) mmol/L Carbon Dioxide 22 (22-29) mmol/L Anion Gap 15.3 (5-19) BUN 9 (6-20) mg/dL Creatinine 0.6 (0.5-0.9) mg/dL GFR Calculation 110.7 (90-130) mL/min Glucose 110 (65-115) mg/dL Calculated Osmolal ity 285 (285-295) mOsm/k g Calcium 8.4 L (8.5-10.5) mg/dL Total Bilirubin 0.4 (0.15-1.2) mg/dL AST 17 (0-32) U/L ALT 15 (0-33) U/L Alkaline Phosphata se 96 (35-105) IU/L Total Protein 7.3 (6.6-8.7) g/dL Albumin 4.2 (3.5-5.2) g/dL Globulin 3.1 (1.3-4.6) g/dL Lipase 22 (13-60) U/L Urine Color Yellow (Yellow) Urine Appearance Clear (CLEAR) Urine pH 5 (5-7) Ur Specific Gravit y 1.020 (1.005-1.030) Urine Protein Neg (Negative) Urine Glucose (UA) Norm (Normal) Urine Ketones Negative (Negative) Urine Blood Neg (Negative) Urine Nitrate Negative (Negative) Urine Bilirubin Neg (Negative) Urine Urobilinogen Norm (Negative) mg/dL Ur Leukocyte Bhumi ase Negative (Negative) Imaging Data^: CXR: Radiologist's impression: [address] [id number] ReportSigned Patient: Liliam Fragoso #: [id number]: [id number]#:[id number]/Sex: 39 / FADM Date: 08/03/20Loc: ERRoom/Bed:Attending Dr: Ordering Provider/Ordering MD: Day Sales Date of Service: 08/03/20 Procedure(s): XR chest 1V portable [id number] Accession Number(s): [id number] Report Number: [id number] WS: [id number] Portable AP upright chest, 08/03/2020 Clinical Data: SOB; possible hemoptysis Comparison: Portable chest, 11/28/2019. Findings: No nodules, masses or effusions are seen. The heart is normal. The pulmonary vascularity is not increased. No pneumonia or pneumothorax is seen. XR/XR chest 1V portable [id number] Impression: Negative chest. Dictated By:Sarah Gregory MDSigned By:Sarah Gregory MDSigned Date/Time:08/03/20807DD/ 6 Discharge Plan Discharge Patient Disposition: Home Clinical Impression: Hematemesis Qualifiers: Nausea presence: with nausea Qualified Code(s): K92.0 - Hematemesis Condition: Stable Prescriptions: New Carafate 1 gram tablet 1 g PO TID 28 Days Qty: 84 RF: 0 omeprazole 20 mg capsule,delayed release(DR/EC) 20 mg PO DAILY 28 Days Qty: 28 RF: 0 Discontinued esomeprazole magnesium [Nexium] 40 mg Capsule,Delayed Release(Dr/Ec) 40 mg PO DAILY RF: 0 No Action multivitamin Tablet 1 tab PO DAILY RF: 0 mupirocin 2 % Ointment Kit 1 applic TOPICAL BID RF: 0 budesonide [Pulmicort] 0.25 mg/2 mL Suspension For Nebulization 0.25 mg INHALATION BID RF: 0 montelukast 10 mg Tablet 10 mg PO DAILY RF: 0 naproxen 500 mg tablet 500 mg PO Q6H PRN (Reason: Pain) RF: 0 fexofenadine [Cornelia Allergy] 180 mg tablet 180 mg PO DAILY Qty: 20 RF: 0 albuterol sulfate 90 mcg/actuation Hfa Aerosol Inhaler 1 puff INHALATION QID PRN (Reason: Shortness Of Breath) RF: 0 Ipatropiam [place] See Rx Instructions .ROUTE .COMPLEX RF: 0 Discharge Orders: Discharge ED (Routine); Ordered 08/03/20 Ordered By: Day Sales Referrals: Varsha Mccain DO [Primary Care Provider] - Activity Restrictions/Additional Instructions: As we discussed please follow-up with your primary care provider as soon as possible so they can re-evaluate you and refer you to general surgery if indicated. You may return to the emergency department for severe abdominal pain, repetitive episodes of bloody vomit, bloody or black stools, fevers, severe chest pain or shortness of breath or any other concerns you may have. 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
--- NOTE | 2020-08-03 07:47 | PC.NURSE ---
ED provider notified and discussed positive screening with PT. Pt states to nursing staff and ED provider she has NO suicidal thoughts. Pt is not on suicide watch at this time at order of ED provider. will continue to monitor.
[2020-08-03] MEDS: lidocaine 2% viscous 15 ML, aluminum-mag hydrox-simethicon 30 ML, sucralfate oral liq 1 GM PO (08:10)
[2020-08-03 08:12] VITALS: BP 138/89; PULSE 87; RESP 18; O2SAT 98
[2020-08-03 08:14] LABS: Basophils # 0.1 10^3/uL (0.0-0.1); Basophils % 0.4 %; Eosinophils % 0.3 %; Hematocrit 43.7 % (37.0-47.0); Hemoglobin 14.7 g/dL (11.5-15.3); Lymphocytes # 1.6 10^3/uL (0.8-4.8); Lymphocytes % 13.5 %; Mean Corpuscular HGB Conc 33.6 g/dL (30.0-36.0); Mean Corpuscular Hemoglobin 29.6 pg (28.0-34.0); Mean Corpuscular Volume 88.1 fL (81-99); Mean Platelet Volume 9.7 fL (7.4-10.4); Monocytes # 0.8 10^3/uL (0.2-0.9); Monocytes % 7.1 %; Neutrophils # 9.02 10^3/uL (1.8-7.7); Neutrophils % 78.4 %; Nucleated Red Blood Cells % 0 %; Platelet Count 388 10^3/cmm (130-400); Red Blood Count 4.96 10^6/uL (4.1-5.3); Red Cell Distribution Width 12.2 % (12.1-15.1); White Blood Count 11.5 10^3/uL (4.0-10.0)
[2020-08-03 08:33] LABS: Alanine Aminotransferase 15 U/L (0-33); Albumin Level 4.2 g/dL (3.5-5.2); Alkaline Phosphatase 96 IU/L (35-105); Anion Gap 15.3 (5-19); Aspartate Amino Transferase 17 U/L (0-32); Blood Urea Nitrogen 9 mg/dL (6-20); Calcium 8.4 mg/dL (8.5-10.5); Carbon Dioxide 22 mmol/L (22-29); Chloride 105 mmol/L (98-107); Creatinine Clr Calc Pharmacy 152.1154; Globulin 3.1 g/dL (1.3-4.6); Glomerular Filtration Rate 110.7 mL/min (90-130); Glucose 110 mg/dL (65-115); Lipase 22 U/L (13-60); Osmolality Calculated 285 mOsm/kg (285-295); Potassium 4.3 mmol/L (3.5-5.1); Sodium 138 mmol/L (136-145); Total Bilirubin 0.4 mg/dL (0.15-1.2); Total Protein 7.3 g/dL (6.6-8.7)
[2020-08-03 09:33] LABS: Add Urine Microscopic? NO; Charge for UA Resulting for Rev
[2020-08-03 09:43] LABS: Bilirubin Urine Neg (Negative); Blood Urine Neg (Negative); Glucose Urine UA Norm (Normal); Ketones Urine Negative (Negative); Leukocyte Esterase Urine Negative (Negative); Nitrate Urine Negative (Negative); Protein Urine Neg (Negative); Urine Appearance Clear (CLEAR); Urine Color Yellow (Yellow); Urobilinogen Urine Norm (Negative); pH Urine 5 (5-7)
--- NOTE | 2020-08-03 12:00 | PM.PSYCN ---
Providers/Reason for Consult Consulting Physican/Specialty*: Bijan Gonzalez DO Reason for Consult*: History of suicidal thoughts 8 months ago Requesting Physcian: GOLD Yoder Primary Care Provider: Varsha Mccain DO Psych Consult HPI History of Present Illness Liliam Fragoso is a 39 year old female with history of bipolar disorder, cutting behavior, chronic passive suicidal ideation presented to the emergency department with complaint of hematemesis and epigastric discomfort. Patient had no active psychiatric symptoms or complaints and has not been on any psychiatric medication for approximately 7 years although reports intermittent cutting behaviors since age 11 with no history of suicide attempts but reports suicidal gestures to include ingesting food with nuts 18 months ago to try to induce an allergic reaction because she was upset with the family member but states that she quickly made herself throw up and had no intentions of ending her life. Psychiatry consulted because patient answered that she had had suicidal thoughts with no active intent or plan 8 months ago when she became upset and states that she had thoughts of cutting herself. Patient currently denying any suicidal ideation or thoughts about self-harm and reports that she has chronic passive suicidal thoughts but states that she never has had any intention of ending her life. She reports having a history of bipolar 2 disorder and states that she has had hypomanic episodes in the past going back to age 21 in which she would stay up with little need for sleep and worsening impulse control leading to out of control spending and increased goal directed behavior. She reports most recent episode being several weeks ago in which she had put together a few 1000-piece puzzles over the course of a couple days. She denies any recent major depressive episodes or sustained low mood states causing significant impairment. Patient does report having mood lability as well as difficulty with interpersonal relationships and is somewhat labile during interview with intermittent crying and quickly reconstituting and reports unstable self-image and lifelong cutting behaviors and many other traits consistent with borderline personality structure. Psychiatric review of systems is otherwise negative. She reports past history of longstanding methamphetamine use between [id number] every couple of weeks as well as ongoing marijuana use for pain. She reports good family support and states that she recently had her Medicaid reinstated and is looking to reestablish care for mental health counseling. Review of Systems General: Reports: 10 or more systems reviewed and unremarkable except in HPI and below PFSH NPU PFSH: Surgical History S/P cholecystectomy laparoscopic, 04/16/2018 Family History Father Anesthesia complication Heart disease Hyperlipidemia Hypertension Grandfather Diabetes maternal Grandmother Diabetes maternal Breast cancer maternal, diagnosed in her 40's Stroke paternal Thyroid condition maternal Daughter No problems noted. 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 opiates, last used opiates in 2010, Other Psychiatric History: Other Psychiatric History: Reports past mental health treatment but states no contact for past 7 years for medication management Reports seeing a counselor 2 to 3 years ago at [facility] Per above, cutting behavior since age 11 Denies any history of suicide attempts but does report past suicidal gestures Mental Status Exam MSE Comments: Obese, tired appearing, unkempt, sitting up on gurney, calm, cooperative, interactive, good eye contact Psychomotor activity is neither increased or decreased, no agitation Speech is normal rate and volume, spontaneous, clear articulation, not pressured I am okay, for range of affect, patient somewhat labile intermittently crying while sharing history but quickly reconstituting and smiling throughout portions of interview Alert, oriented to person, place, time, situation Memory and concentration appear to be intact per interview Intellectual functioning appears to be average based on vocabulary, interview Thought process, linear, no flight of ideas, no looseness of association Thought content, no delusions, no hallucinations, no suicidal or homicidal ideation Insight and judgment appear to be intact Vitals/I&O/Wt Last Vital Signs Temp 97.8 F 08/03/20 07:29 Pulse 87 08/03/20 08:12 Resp 18 08/03/20 08:12 BP 138/89 08/03/20 08:12 Pulse Ox 98 08/03/20 08:12 Weight last 48 hrs Weight 104.326 kg A&P Assessment and plan (1) No psychiatric diagnosis or condition present: Status: Acute Additional A&P Information Patient with history of chronic passive suicidal ideation but no active intent or plan presented with hematemesis and epigastric discomfort answered on screening questionnaire that she had passive suicidal ideation with no active intent or plan 8 months ago with no subsequent suicidal thoughts or sustained mood symptoms. Patient has history of bipolar 2 disorder although currently does not demonstrate any nicci or hypomania and currently does not demonstrate any stigmata consistent with depression. Patient has past history of polysubstance abuse and continues to use cannabis on a near daily basis although states no use of methamphetamine for over 3 years. Patient has not been on any psychotropic medication for over 7 years and states that she last saw a counselor 2 to 3 years ago with no significant impairment and no hospitalization. Patient does demonstrate maladaptive coping and appears to have some borderline traits to include mood and affect lability and interpersonal difficulties with longstanding history of cutting behavior as a means to maladaptive to cope with mismatches between her expectations and reality. Patient clearly communicates that she has no intent of ending her life and cites multiple reasons to include family/grandchildren. Low to moderate risk of harm to self given no current and no recent suicidal ideation and no active psychiatric symptoms as well as no history of suicide attempts although patient does have past history of polysubstance abuse and ongoing near daily cannabis use which may lead to unexpected, impulsive behavior in the context of her history of maladaptive coping with cutting behavior. Risk mitigation would include providing resources for outpatient therapy/counseling targeting resting her borderline traits, mood and affect lability and interpersonal dynamics as well as education on risk involved with ongoing use of substances which may lead to disinhibition. Patient was able to communicate her understanding of the need to abstain from the use of substances as well as the need for compliance with counseling/therapy targeting the development of more adaptive coping strategies as well as the need for reevaluation on an outpatient basis for any medications to address mood and affect lability and reported past hypomanic episodes. More commonly, suicide risk is typically increased with individuals demonstrating strong personality traits/disorders when they perceive that their medical issues to include worsening pain/somatic complaints are not addressed whether real or imagined. Outpatient primary care follow-up would also further mitigate this risk. Psychiatric hospitalization is not indicated at this time, outpatient counseling targeting the development of more adaptive coping strategies as well as outpatient medication management evaluation for the need to restart any medication of the least restrictive and appropriate level of care at this time. RECOMMEND social work assistant/gearcase assembler provide resources for outpatient counseling/therapy, medication management follow-up. Psychiatry will sign off at this time. Attestations NPU Medical Necessity Statement*: Psychiatric hospitalization is not indicated per above Time Spent in Patient Care: Greater than 35 minutes (>than 50% of time spent in counselling and/or direct pt care on unit). Coding Level of Care Code Acute Controls Engineer for [facility] Fwd Diagnoses No psychiatric diagnosis or condition present
[2020-08-03 12:35] VITALS: BP 123/87; PULSE 93; RESP 18; O2SAT 99
--- NOTE | 2020-08-04 14:59 | DCPLANNER ---
records manager had message to speak with patient about services at [facility]. records manager spoke with patient and explained to patient about how to start services at [facility]. records manager will mail patient the new patient paperwork to fill out and return to [facility].
== END 2020-08-03 12:36 | disposition home or self-care (01) ==
PROVIDERS: Emergency Provider Physician Assistant; PCP Internal Medicine
DX: K92.0 Hematemesis (principal); Z87.891 Personal history of nicotine dependence
CPT/HCPCS: 71045; 80053; 81003; 83690; 85025; 99283

== ENCOUNTER 2020-09-05 19:35 | Emergency (ER) | payer MEDICAID, SELFPAY ==
[2020-09-05 19:46] VITALS: BP 115/80; PULSE 84; RESP 18; TEMP 36.8; O2SAT 95; BMI 37.1
[2020-09-05 20:33] VITALS: PULSE 78
--- NOTE | 2020-09-05 20:34 | ED_ITS ---
HPI - Extremity Problem General: Chief complaint: Extremity Injury, Lower Stated complaint: Hurt Ankle Time Seen by Provider: 09/05/20 20:08 History of Present Illness: HPI Narrative: Patient is a 39-year-old female comes to the ED with left ankle injury. Patient says she rolled her ankle on Saturday. Patient says she was on a float trip when she stepped out of the boat and rolled her ankle. Says the pain was not too bad at first but today when she woke up she had increased swelling in her right ankle and it hurts for her to put weight on it. She denies any reinjury to right ankle since Saturday. She rates her pain currently a 5 out of 10 and says that she has been taking naproxen and ibuprofen at home. She says here in the ED she does not need any current pain meds and says her pain is tolerable right now. Associated symptoms: Deny chest pain, fever(s) or rash Review of Systems Const: Denies: fever(s), chills or fatigue Eyes: Denies: change in vision or eye discomfort ENMT: Denies: throat pain, odynophagia, nasal discharge or nasal congestion Card: Denies: chest pain, palpitations, edema, swelling of feet/ankles, dyspnea on exertion or orthopnea Resp: Denies: dyspnea, productive cough or non-productive cough GI: Denies: abdominal pain, nausea, vomiting, diarrhea, constipation or hematochezia : Denies: flank pain, dysuria or hematuria Musc: Reports: extremity pain (right ankle) and extremity swelling (right ankle); Denies: neck pain or back pain Skin/Breast: Denies: rash or new lesions Neuro: Denies: headache(s), numbness in extremities or weakness in extremities [facility] PFSH: Surgical History S/P cholecystectomy laparoscopic, 04/16/2018 Family History Father Anesthesia complication Heart disease Hyperlipidemia Hypertension Grandfather Diabetes maternal Grandmother Diabetes maternal Breast cancer maternal, diagnosed in her 40's Stroke paternal Thyroid condition maternal Daughter No problems noted. 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 opiates, last used opiates in 2010, Physical Exam Const: COMMON NORMALS: no acute distress, patient oriented x3 and alert GENERAL APPEARANCE: cooperative and comfortable HENMT: COMMON NORMALS: normocephalic HEAD & SCALP: normocephalic MOUTH: Normal oral and palatal mucosa present THROAT: posterior oropharynx normal and uvula midline Neck/C-Spine: COMMON NORMALS: supple GENERAL: Yes normal visual inspection Resp: COMMON NORMALS: normal respiratory effort, No retractions, No use of accessory muscles and clear to auscultation bilaterally AUSCULTATION: clear to auscultation bilaterally Cardio: COMMON NORMALS: regular rate, regular rhythm, S1 normal heart sound present, S2 normal heart sound present, No gallops present (Cardio), No clicks present (Cardio), No murmurs present (Cardio) and Peripheral pulses 2+ throughout RATE: regular rate RHYTHM: regular rhythm HEART SOUNDS: S1 normal heart sound present and S2 normal heart sound present PERIPHERAL PULSES: Peripheral pulses 2+ throughout GI: COMMON NORMALS: Normal to inspection, nondistended, normoactive bowel sounds present, Soft to palpation, non-tender and no masses PALPATION: Yes Soft to palpation : COMMON NORMALS: Yes no CVA tenderness BLADDER/KIDNEY EXAM: Yes no CVA tenderness Back/Pelvis: COMMON NORMALS: no CVA tenderness Extremity: GENERAL: Yes normal exam except as noted RIGHT LOWER EXTREMITY: Yes foot & digits Right ankle: Yes inspection (No visible deformity seen., Some ecchymosis and edema around the ankle), Yes palpation (Tenderness to palpation over the anterior aspect of lateral malleolus), Yes ROM (Minimal due to pain) and Yes neurovascular exam ( intact) Neuro: COMMON NORMALS: patient oriented x3 and moves all extremities SENSORIUM/ORIENTATION: Yes alert Skin: GENERAL SKIN EXAM: dry skin Course Vital Signs: Vital signs: Vital Signs Temperature 98.3 F 09/05/20 19:46 Pulse Rate 77 09/05/20 21:57 Respiratory Rate 18 09/05/20 21:57 Blood Pressure 118/70 09/05/20 21:57 Pulse Oximetry 98 09/05/20 21:57 MDM - Extremity (Nontraumatic) MDM Narrative: Medical decision making narrative: Patient is a 39-year-old female comes to the ED with right ankle injury. Exam findings right ankle showed no signs of deformity. There is some swelling and ecchymosis noted around the ankle. Neurovascular intact. X-ray of right ankle showed no acute fractures or findings. Patient diagnosed with right ankle sprain and discharged home with crutches. Return to ED precautions given. Follow-up with PCP in 7 to 10 days reevaluation. Patient was to agree with plan. Imaging Data^: Xray Ortho: Attestation: I personally reviewed and interpreted this imaging study as follows: Radiologist's impression: [address] [id number] ReportSigned Patient: Liliam Fragoso #: [id number]: [id number]#:[id number]/Sex: 39 / FADM Date: 09/05/20Loc: ERRoom/Bed:Attending Dr: Ordering Provider/Ordering MD: Jose Duarte Date of Service: 09/05/20 Procedure(s): XR ankle RT min 3V* [id number] Accession Number(s): [id number] Report Number: [id number] PROCEDURE INFORMATION: Exam: XR Right Ankle Exam date and time: 09/05/2020 8:45 PM Age: 39 years old Clinical indication: Injury or trauma; Fall; Sprain or strain; Ankle; Right; Injury date: 09/03/2020; Injury details: Pain and swelling; Additional info: Ankle injury with pain and swelling TECHNIQUE: Imaging protocol: XR Right ankle. Views: 3 or more views. COMPARISON: No relevant prior studies available. FINDINGS: No acute fracture or dislocation is demonstrated. There are small plantar and posterior calcaneal enthesophytes. XR/XR ankle RT min 3V* [id number] IMPRESSION: No acute osseous abnormality is demonstrated. Dictated By:Kayley Cano MDSigned By:Kayley Cano MDSigned Date/Time:09/05/20 2233DD/ 2231 Discharge Plan Discharge Patient Disposition: Home Clinical Impression: Ankle sprain and strain Condition: Stable Prescriptions: No Action multivitamin Tablet 1 tab PO DAILY RF: 0 mupirocin 2 % Ointment Kit 1 applic TOPICAL BID RF: 0 budesonide [Pulmicort] 0.25 mg/2 mL Suspension For Nebulization 0.25 mg INHALATION BID RF: 0 montelukast 10 mg Tablet 10 mg PO DAILY RF: 0 naproxen 500 mg tablet 500 mg PO Q6H PRN (Reason: Pain) RF: 0 fexofenadine [Cornelia Allergy] 180 mg tablet 180 mg PO DAILY Qty: 20 RF: 0 albuterol sulfate 90 mcg/actuation Hfa Aerosol Inhaler 1 puff INHALATION QID PRN (Reason: Shortness Of Breath) RF: 0 Ipatropiam Cody See Rx Instructions .ROUTE .COMPLEX RF: 0 Discharge Orders: Discharge ED (Routine); Ordered 09/05/20 Ordered By: Jose Duarte Referrals: Varsha Mccain DO [Primary Care Provider] - Discharge Diet: Regular Discharge Activity: Increase activity as tolerated and Use walker/crutches as instructed Patient Instructions: Ankle Sprain (ED), Ankle Exercises (GEN) Activity Restrictions/Additional Instructions: Follow-up with medical provider as directed. Use crutches for 2 to 3 days to limit weightbearing and allow for healing. Make sure you do your ankle exercises daily to help with range of motion and healing. Rest, ice and elevate right leg as well. Take medications as prescribed. Return to the ER or your medical provider if condition worsens. Please read and understand discharge instructions. Thank you for choosing [facility] for your healthcare needs today. Please realize this is an emergency room and that we are providing you with a medical screening exam and this may not be complete and all inclusive of all the testing and or work up that you may need to determine your ailment or severity of your illness. It is very important that you follow up as instructed or that you return to the Emergency Department should you have concerns or if your condition changes or worsens in any way. Coding Level of Care Code ED Juice Standardizer for [facility] Fwd Exam Comprehensive
--- NOTE | 2020-09-05 20:45 | XRR_ITS ---
PROCEDURE INFORMATION: Exam: XR Right Ankle Exam date and time: 09/05/2020 8:45 PM Age: 39 years old Clinical indication: Injury or trauma; Fall; Sprain or strain; Ankle; Right; Injury date: 09/03/2020; Injury details: Pain and swelling; Additional info: Ankle injury with pain and swelling TECHNIQUE: Imaging protocol: XR Right ankle. Views: 3 or more views. COMPARISON: No relevant prior studies available. FINDINGS: No acute fracture or dislocation is demonstrated. There are small plantar and posterior calcaneal enthesophytes. XR/XR ankle RT min 3V* [id number] IMPRESSION: No acute osseous abnormality is demonstrated.
[2020-09-05 21:57] VITALS: BP 118/70; PULSE 77; RESP 18; O2SAT 98
== END 2020-09-05 21:57 | disposition home or self-care (01) ==
PROVIDERS: Emergency Provider Physician Assistant; PCP Internal Medicine
DX: S93.402A Sprain of unspecified ligament of left ankle, initial encounter (principal); S96.912A Strain of unspecified muscle and tendon at ankle and foot level, left foot, initial encounter; Z87.891 Personal history of nicotine dependence; X50.1XXA Overexertion from prolonged static or awkward postures, initial encounter
CPT/HCPCS: 73610; 99283; E0114

== ENCOUNTER 2020-10-17 14:16 | Outpatient (CLI) | payer MEDICAID, SELFPAY ==
[2020-10-17 14:37] LABS: Basophils # 0.1 10^3/uL (0.0-0.1); Basophils % 0.4 %; Eosinophils # 0.1 10^3/uL (0.0-0.8); Eosinophils % 0.9 %; Hematocrit 42.1 % (37.0-47.0); Hemoglobin 13.8 g/dL (11.5-15.3); Lymphocytes % 16.6 %; Mean Corpuscular HGB Conc 32.8 g/dL (30.0-36.0); Mean Corpuscular Hemoglobin 29.8 pg (28.0-34.0); Mean Corpuscular Volume 90.9 fL (81-99); Mean Platelet Volume 10.1 fL (7.4-10.4); Monocytes # 0.9 10^3/uL (0.2-0.9); Monocytes % 7.6 %; Neutrophils # 8.97 10^3/uL (1.8-7.7); Neutrophils % 73.9 %; Nucleated Red Blood Cells % 0 %; Platelet Count 388 10^3/cmm (130-400); Red Blood Count 4.63 10^6/uL (4.1-5.3); Red Cell Distribution Width 12.3 % (12.1-15.1); White Blood Count 12.1 10^3/uL (4.0-10.0)
[2020-10-18 10:03] LABS: Alpha 1 Antitrypsin 178 mg/dL (83-199)
[2020-10-18 16:17] LABS: Alternaria Alternata (M6) Ige <0.10 kU/L; Alternaria Class 0; Bermuda Class 0; Bermuda Grass (G2) Ige <0.10 kU/L; Cat Dander (E1) Ige <0.10 kU/L; Cat Dander Class 0; Common Ragweed (Short) (W1) Ig <0.10 kU/L; D. Farinae Class 0; Dermatophagoides Class 0; Dermatophagoides Farinae (D2) <0.10 kU/L; Dermatophagoides Pteronyssinus <0.10 kU/L; Dog Dander (E5) Ige <0.10 kU/L; Dog Dander Class 0; Elm (T8) Ige <0.10 kU/L; Elm Class 0; English Plantain (W9) Ige <0.10 kU/L; English Plantain Class 0; House Dust (Greer) (H1) Ige <0.10 kU/L; House Dust (Hollister- Stier) <0.10 kU/L; House Dust Class 0; Immunoglobulin E 8 kU/L (<OR=114); Johnson Grass (G10) Ige <0.10 kU/L; Johnson Grass Cl 0; June Grass Class 0; June Grass(Kentucky Blue) (G8) <0.10 kU/L; Lamb'S Quarters (Goose Foot) <0.10 kU/L; Lamb'S Quarters Class 0; Maple (Box Elder) (T1) Ige <0.10 kU/L; Maple Class 0; Meadow Fescue (G4) Ige <0.10 kU/L; Meadow Fescue Class 0; Mucor Racemosus Class 0; Oak (T7) Ige <0.10 kU/L; Oak Class 0; Orchard Grass (Cocksfoot) (G3) <0.10 kU/L; Penicillium Class 0; Penicillium Notatum (M1) Ige <0.10 kU/L; Perennial Rye Grass (G5) Ige <0.10 kU/L; Perennial Rye Grass Class 0; Ragweeed Class 0; Rough Marsh Elder (W16) Ige <0.10 kU/L; Rough Marsh Elder Class 0; Sweet Vernal Class 0; Sweet Vernal Grass (G1) Ige <0.10 kU/L; Timothy Grass (G6) Ige <0.10 kU/L; Timothy Grass Class 0
[2020-10-21 15:02] LABS: Aspergillus Fumigatus, Igg Ab, 20.9 mg/L (<=102)
== END 2020-10-17 14:17 | disposition home or self-care (01) ==
PROVIDERS: PCP Internal Medicine; Visit Provider Internal Medicine Pulmonary Disease
DX: J44.9 Chronic obstructive pulmonary disease, unspecified (principal); R06.02 Shortness of breath
CPT/HCPCS: 36415; 82103; 82785; 85025; 86003

== ENCOUNTER 2020-11-12 20:22 | Emergency (ER) | payer MEDICAID, SELFPAY ==
[2020-11-12 20:31] VITALS: BP 107/75; PULSE 93; RESP 18; TEMP 36.9; O2SAT 96; BMI 37.1
--- NOTE | 2020-11-12 23:22 | ED_ITS ---
HPI - Abdominal Pain General: Chief Complaint: Abdominal Pain Stated Complaint: GROIN PAIN Time Seen by Provider: 11/12/20 23:21 History of Present Illness: HPI narrative: 39-year-old female comes in today with some complaints of left lower quadrant/inguinal area pain. Patient reports that occasionally she will feel something protrude out that reduces easily. Patient reports that for the last day she has been having coughing a lot more and has had more tenderness and discomfort to the area. Patient appears well. Patient appears no acute distress. Patient has had her tubes tied and also has a history of ovarian cyst. Related Data: Date of Last Menstrual Period: 10/28/20 Review of Systems General: Reports: 10 or more systems reviewed and unremarkable except in HPI and below GI: Reports: abdominal pain PFSH ED PFSH: Medical History (Updated 11/13/20 @ 02:15 by NORBERTO Murillo) Asthma-COPD overlap syndrome COVID-19 Surgical History S/P cholecystectomy laparoscopic, 04/16/2018 Family History Father Anesthesia complication Heart disease Hyperlipidemia Hypertension Grandfather Diabetes maternal Grandmother Diabetes maternal Breast cancer maternal, diagnosed in her 40's Stroke paternal Thyroid condition maternal Daughter No problems noted. Family/Other Diabetes maternal uncle Ovarian cancer maternal aunt Bleeding disorder paternal Uterine cancer maternal great great aunt Mother Stroke Denies family history of Clotting disorder Social History Smoking and tobacco status: former smoker Quit status (tobacco): has quit using tobacco Year quit tobacco: 2018 Former quit date comment: Hx of 3 PPD x 30 Years Second hand smoke exposure: No Smoking risk assessment/counseling performed?: No Alcohol intake: current Alcohol intake frequency: holidays/special occasions only Alcohol type: hard liquor Counseling given: No Desire information about substance/drug rehabilitation?: No Counseling given: No Other details last substance use: 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 opiates, last used opiates in 2010, Lives independently: Yes Household members: family Marital status: Single Current occupational status: unemployed History of recent travel: No Current gender identity: Female Female Reproductive History: Date of last menstrual period: 10/28/20 Physical Exam Const: COMMON NORMALS: no acute distress and patient oriented x3 GENERAL APPEARANCE: cooperative HENMT: COMMON NORMALS: normocephalic and Normal external nose present HEAD & SCALP: normal to inspection and normocephalic NOSE: Normal external nose present MOUTH: Normal oral and palatal mucosa present Eye: GENERAL EYE: appearance normal, both eyes and all related structures Neck/C-Spine: COMMON NORMALS: full ROM Chest: COMMONS NORMALS: normal inspection of the chest Resp: COMMON NORMALS: normal respiratory effort EFFORT & INSPECTION: Yes able to speak in complete sentences AUSCULTATION: wheezes Cardio: COMMON NORMALS: regular rate and regular rhythm RATE: regular rate RHYTHM: regular rhythm GI: PALPATION: Yes Tenderness to palpation present (GI) (Tenderness noted to the left lower quadrant inguinal area, no hernia noted) Details: LLQ : COMMON NORMALS: Yes no CVA tenderness BLADDER/KIDNEY EXAM: Yes no CVA tenderness Back/Pelvis: COMMON NORMALS: no CVA tenderness and thoracic and lumbar spine normal to inspection Extremity: COMMON NORMALS: normal to inspection Neuro: COMMON NORMALS: patient oriented x3 and moves all extremities Psych: COMMON NORMALS: mental status grossly normal and cooperative Skin: COMMON NORMALS: no rashes or lesions noted GENERAL SKIN EXAM: no rashes or lesions noted Course Vital Signs: Vital signs: Vital Signs Temperature 98.1 F 11/13/20 02:36 Pulse Rate 78 11/13/20 02:36 Respiratory Rate 18 11/13/20 02:36 Blood Pressure 118/64 11/13/20 02:36 Pulse Oximetry 96 11/13/20 02:36 MDM - Abdominal Pain MDM Narrative: Medical decision making narrative: 39-year-old female comes in today with complaints of left lower quadrant abdominal pain. Patient reports that she has felt an area of protrusion that reduces when pressure is applied. Patient was concerned she may have a hernia that has become incarcerated due to it being more painful now. On exam patient is alert oriented. Abdomen soft and there is some tenderness in the left lower abdomen inguinal area. No palpable nodule or hernia is noted. No sign of redness or induration is noted to the skin. Differential diagnosis includes but not limited to abscess, hernia with incarcerated bowel, bowel obstruction. Laboratory values were normal. CT of the abdomen pelvis noted no hernia. It was noted on CT patient did have some small cyst to the left ovary and a small amount of fluid in the cul-de-sac. I suspect patient probably had a small ruptured ovarian cyst. There was no sign of a incarcerated hernia at this time so suggested patient follow-up with primary care as needed. Return to the ER for worsening pain or new concerns. Patient reported understanding and agreed to plan. Lab Data: Labs: Lab Results 11/13/20 11/13/20 Range/Units 00:01 00:01 WBC 8.3 (4.0-10.0) 10^3/ uL RBC 4.57 (4.1-5.3) 10^6/u L Hgb 13.5 (11.5-15.3) g/dL Hct 40.7 (37.0-47.0) % MCV 89.1 (81-99) fl MCH 29.5 (28.0-34.0) pg MCHC 33.2 (30.0-36.0) g/dL RDW 12.0 L (12.1-15.1) % Plt Count 334 (130-400) 10^3/c mm MPV 10.0 (7.4-10.4) fL Neut % (Auto) 68.8 % Lymph % (Auto) 18.0 % Wilkin % (Auto) 10.7 % Eos % (Auto) 1.4 % Baso % (Auto) 0.7 % Neut # (Auto) 5.74 (1.8-7.7) 10^3/u L Lymph # (Auto) 1.5 (0.8-4.8) 10^3/u L Wilkin # (Auto) 0.9 (0.2-0.9) 10^3/u L Eos # (Auto) 0.1 (0.0-0.8) 10^3/u L Baso # (Auto) 0.1 (0.0-0.1) 10^3/u L Nucleated RBC % (a uto) 0 % Nucleated RBCs # 0.0 /100WBC Sodium 137 (136-145) mmol/L Potassium 3.9 (3.5-5.1) mmol/L Chloride 102 (98-107) mmol/L Carbon Dioxide 26 (22-29) mmol/L Anion Gap 12.9 (5-19) BUN 10 (6-20) mg/dL Creatinine 0.6 (0.5-0.9) mg/dL GFR Calculation 110.7 (90-130) mL/min Glucose 102 (65-115) mg/dL Calculated Osmolal ity 283 L (285-295) mOsm/k g Calcium 9.0 (8.5-10.5) mg/dL Total Bilirubin 0.2 (0.15-1.2) mg/dL AST 20 (0-32) U/L ALT 12 (0-33) U/L Alkaline Phosphata se 97 (35-105) IU/L Total Protein 6.9 (6.6-8.7) g/dL Albumin 3.9 (3.5-5.2) g/dL Globulin 3.0 (1.3-4.6) g/dL Discharge Plan Discharge Patient Disposition: Home Clinical Impression: Ovarian cyst Qualifiers: Laterality: left Qualified Code(s): N83.202 - Unspecified ovarian cyst, left side Abdominal pain Qualifiers: Abdominal location: left lower quadrant Qualified Code(s): R10.32 - Left lower quadrant pain Condition: Stable Prescriptions: No Action multivitamin Tablet 1 tab PO DAILY RF: 0 budesonide-formoterol [Symbicort] 160-4.5 mcg/actuation HFA aerosol inhaler 2 puff inhalation BID RF: 0 ipratropium-albuterol 0.5 mg-3 mg(2.5 mg base)/3 mL solution for nebulization 3 ml inhalation Q4H PRN (Reason: wheezing) Qty: 90 RF: 3 Spiriva with HandiHaler 18 mcg capsule, w/inhalation device 1 cap inhalation DAILY Qty: 30 RF: 3 mupirocin 2 % Ointment Kit 1 applic TOPICAL BID RF: 0 montelukast 10 mg Tablet 10 mg PO DAILY RF: 0 naproxen 500 mg tablet 500 mg PO Q6H PRN (Reason: Pain) RF: 0 fexofenadine [Cornelia Allergy] 180 mg tablet 180 mg PO DAILY Qty: 20 RF: 0 albuterol sulfate 90 mcg/actuation Hfa Aerosol Inhaler 1 puff INHALATION QID PRN (Reason: Shortness Of Breath) RF: 0 Discharge Orders: Discharge ED (Routine); Ordered 11/13/20 Ordered By: Chente Antonio Referrals: Varsha Mccain DO [Primary Care Provider] - Discharge Diet: Usual diet Discharge Activity: Increase activity as tolerated Patient Instructions: Abdominal Pain (ED), Opioid Safety Activity Restrictions/Additional Instructions: Drink plenty of fluids. Continue with routine care for asthma. Use warm moist packs to the area of pain. Return to the ER for high fever or blood in vomit or stool. Follow-up with primary care for further instructions and evaluation. 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
[2020-11-12 23:25] VITALS: BP 108/70; PULSE 93; RESP 17; O2SAT 97
--- NOTE | 2020-11-12 23:35 | CTR_ITS ---
PROCEDURE INFORMATION: Exam: CT Abdomen And Pelvis With Contrast Exam date and time: 11/12/2020 11:35 PM Age: 39 years old Clinical indication: Abdominal pain; Localized; Left lower quadrant (llq); Prior surgery; Surgery date: 6+ months; Surgery type: Gb; Additional info: Left inguinal tenderness, concern for hernia TECHNIQUE: Imaging protocol: Computed tomography of the abdomen and pelvis with contrast. Radiation optimization: All CT scans at this facility use at least one of these dose optimization techniques: automated exposure control; mA and/or kV adjustment per patient size (includes targeted exams where dose is matched to clinical indication); or iterative reconstruction. Contrast material: OMNI 300; Contrast volume: 95 ml; Contrast route: INTRAVENOUS (IV); COMPARISON: CT abdomen pelvis w con* [id number] 04/03/2018 3:06 PM RADIATION DOSE METRICS: Total DLP (mGy-cm): 1733.63 FINDINGS: Lungs: The lung bases are clear. Liver: Unremarkable. Gallbladder and bile ducts: Prior cholecystectomy, no significant biliary tree dilation. Pancreas: Unremarkable. Spleen: Unremarkable. Adrenal glands: Unremarkable. Kidneys and ureters: Small right intrarenal calculus. No hydronephrosis of either kidney. No visible ureteral calculus. No perinephric fluid. Possible subcentimeter cyst in in each kidney, too small to accurately characterize by CT. Larger on the left measures 8-9 mm. No significant interval change. Stomach and bowel: There are no CT findings to strongly suggest diverticulitis. Appendix: The appendix is visualized and appears normal. Intraperitoneal space: No free air, ascites, or bowel distention. Vasculature: No evidence for abdominal aortic aneurysm. Lymph nodes: No retroperitoneal adenopathy. Urinary bladder: Possibly some mild diffuse urinary bladder wall thickening. Evaluation is somewhat limited, as the bladder is not well distended. While nonspecific, this could indicate evidence for cystitis. Please correlate clinically. Reproductive: The left ovary contains two 11-12 mm dominant follicles versus very small cysts. Significance unlikely due to small size. Trace amount of cul-de-sac fluid. Bones/joints: No significant acute finding. Soft tissues: Small umbilical hernia, containing only fat, similar to the prior exam. No definite evidence for left lower quadrant ventral abdominal or femoral/inguinal region hernia. CT/CT abdomen pelvis w con* [id number] IMPRESSION: 1. No free air or bowel distention. 2. No definite evidence for left lower quadrant ventral abdominal or femoral/inguinal region hernia. 3. Small umbilical hernia, containing only fat, similar to the prior exam. 4. No CT findings to strongly suggest diverticulitis. 5. Normal appendix. 6. Small right intrarenal calculus. No hydronephrosis of either kidney. No visible ureteral calculus. 7. Possible mild urinary bladder wall thickening, see above. 8. The left ovary contains two 11-12 mm dominant follicles versus very small cysts. Significance unlikely due to small size. Trace amount of cul-de-sac fluid. 9. Other findings discussed above. COMMENTS: Consistent with the [place] [employer]'s Incidental Findings Committee white paper (J Am Casey Radiol 2018): Any incidental renal lesion less than 1 cm or classified as too small to characterize, or any incidental cystic renal lesion characterized as simple-appearing, is likely benign. No follow-up imaging is recommended for these lesions per consensus recommendations based on imaging criteria. Radiation Dose CTDIVOL = (mGy): DLP = 1733.63 (mGy-cm)
[2020-11-13 00:10] LABS: Basophils # 0.1 10^3/uL (0.0-0.1); Basophils % 0.7 %; Eosinophils # 0.1 10^3/uL (0.0-0.8); Eosinophils % 1.4 %; Hematocrit 40.7 % (37.0-47.0); Hemoglobin 13.5 g/dL (11.5-15.3); Lymphocytes # 1.5 10^3/uL (0.8-4.8); Mean Corpuscular HGB Conc 33.2 g/dL (30.0-36.0); Mean Corpuscular Hemoglobin 29.5 pg (28.0-34.0); Mean Corpuscular Volume 89.1 fl (81-99); Monocytes # 0.9 10^3/uL (0.2-0.9); Monocytes % 10.7 %; Neutrophils # 5.74 10^3/uL (1.8-7.7); Neutrophils % 68.8 %; Nucleated Red Blood Cells % 0 %; Platelet Count 334 10^3/cmm (130-400); Red Blood Count 4.57 10^6/uL (4.1-5.3); White Blood Count 8.3 10^3/uL (4.0-10.0)
[2020-11-13 00:31] LABS: Alanine Aminotransferase 12 U/L (0-33); Albumin Level 3.9 g/dL (3.5-5.2); Alkaline Phosphatase 97 IU/L (35-105); Anion Gap 12.9 (5-19); Aspartate Amino Transferase 20 U/L (0-32); Blood Urea Nitrogen 10 mg/dL (6-20); Carbon Dioxide 26 mmol/L (22-29); Chloride 102 mmol/L (98-107); Creatinine Clr Calc Pharmacy 152.1154; Glomerular Filtration Rate 110.7 mL/min (90-130); Glucose 102 mg/dL (65-115); Osmolality Calculated 283 mOsm/kg (285-295); Potassium 3.9 mmol/L (3.5-5.1); Sodium 137 mmol/L (136-145); Total Bilirubin 0.2 mg/dL (0.15-1.2); Total Protein 6.9 g/dL (6.6-8.7)
[2020-11-13] MEDS: iohexol 300 mg/mL 100 mL Btl IV (01:02)
[2020-11-13 02:36] VITALS: BP 118/64; PULSE 78; RESP 18; TEMP 36.7; O2SAT 96
== END 2020-11-13 02:38 | disposition home or self-care (01) ==
PROVIDERS: Emergency Provider Nurse Practitioner Family; PCP Internal Medicine
DX: N83.202 Unspecified ovarian cyst, left side (principal); R10.32 Left lower quadrant pain; Z87.891 Personal history of nicotine dependence
CPT/HCPCS: 74177; 80053; 85025; 99282; Q9967

== ENCOUNTER → 2020-12-08 09:30 | Outpatient (BNVA) | payer MEDICAID, SELFPAY | PROVIDERS: PCP Internal Medicine; Visit Provider Internal Medicine Pulmonary Disease | DX: J44.9 Chronic obstructive pulmonary disease, unspecified (principal); Z20.822 Contact with and (suspected) exposure to COVID-19 | CPT/HCPCS: 87635 ==

== ENCOUNTER 2020-12-14 08:18 | Outpatient (CLI) | payer MEDICAID, SELFPAY ==
--- NOTE | 2020-12-14 10:43 | PFTS_ITS ---
Date of Study:12/14/20 Date of Dictation: 12/14/2020 MECHANICS: Postbronchodilator forced vital capacity (FVC) is normal. Postbronchodilator forced expiratory volume in one second (FEV1) is reduced 67%. FEV1/FVC is reduced. There is significant broncho-dilator response FLOW VOLUME LOOP: Severe sloping of expiratory limb suggestive of airway obstruction . LUNG VOLUMES: Total lung capacity (TLC) is normal. Residual volume (RV) is normal . DIFFUSING CAPACITY FOR CARBON MONOXIDE: Normal . INTERPRETATION: The pulmonary function tests suggestive of moderate airflow obstruction with significant bronchodilator response. Lung volumes and gas transfer are normal. Please correlate clinically. MTDD
== END 2020-12-14 08:19 | disposition home or self-care (01) ==
LOC: RT 08:20
PROVIDERS: PCP Internal Medicine; Visit Provider Internal Medicine Pulmonary Disease
DX: J44.9 Chronic obstructive pulmonary disease, unspecified (principal)
CPT/HCPCS: 94060; 94618; 94726; 94729; J7611

== ENCOUNTER 2021-05-06 00:05 | Emergency (ER) | payer MEDICAID, SELFPAY ==
[2021-05-06 00:09] VITALS: PULSE 123; RESP 20; TEMP 36.4; O2SAT 97; BMI 38.7
--- NOTE | 2021-05-06 00:37 | USR_ITS ---
PROCEDURE INFORMATION: Exam: US Duplex Right Lower Extremity Veins, Limited Exam date and time: 05/06/2021 12:37 AM Age: 40 years old Clinical indication: Pain; Leg, lower; Right; Additional info: Right leg pain-no injury, posterior thigh tenderness TECHNIQUE: Imaging protocol: Real-time Duplex ultrasound of the Right Lower Extremity with 2-D chao scale, color Doppler flow and spectral waveform analysis with image documentation. Limited exam was focused on the right lower extremity veins. COMPARISON: US pelvic with transvaginal 07/30/2018 9:27 AM FINDINGS: Right deep veins: Unremarkable. The common femoral, femoral, proximal profunda femoral and popliteal veins are patent without thrombus. Normal Doppler waveforms. Normal compressibility and/or augmentation response. Right superficial veins: Unremarkable. Saphenofemoral junction is patent without thrombus. Soft tissues: Unremarkable. US/[place] [id number] IMPRESSION: No evidence of deep vein thrombosis.
--- NOTE | 2021-05-06 00:37 | XRR_ITS ---
PROCEDURE INFORMATION: Exam: XR Chest Exam date and time: 05/06/2021 12:37 AM Age: 40 years old Clinical indication: Other: Syncope; Patient HX: Syncopal episode. History of copd. TECHNIQUE: Imaging protocol: XR of the chest. Views: 1 view. COMPARISON: CR XR chest 1V portable [id number] 08/03/2020 7:45 AM FINDINGS: Lungs: Unremarkable. No consolidation. Pleural spaces: Unremarkable. No pleural effusion. No pneumothorax. Heart/Mediastinum: Unremarkable. No cardiomegaly. Bones/joints: Unremarkable. XR/XR chest 1V portable [id number] IMPRESSION: No acute findings.
--- NOTE | 2021-05-06 00:37 | ECG_ITS ---
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 Measurements Intervals [place] Rate: 83 P: 58 AR: 126 QRS: 71 QRSD: 89 T: 70 QT: 326 QTc: 383 Interpretive Statements SINUS RHYTHM Compared to ECG 02/19/2019 20:31:19 Sinus arrhythmia no longer present Electronically Signed On 05-08-2021 12:16:09 ASW/ASUW TACTICAL AIR CONTROLLER by Saad Womack M.D. [id number]
--- NOTE | 2021-05-06 00:39 | W.ED.GENADLT ---
HPI - General Adult General: Chief complaint: General Medical Stated complaint: Rt leg pain, fall Time Seen by Provider: 05/06/21 00:08 History of Present Illness: Patient is a 40-year-old female who comes to the ED with multiple complaints. Past medical history of asthma. Patient says she started having right leg pain today. Denies any injury to cause right leg pain. She says the pain is in the back of her thigh just above knee and radiates upwards. She also states she had a syncopal episode just prior to arrival. She was standing at the kitchen sink doing some dishes and then blacked out. was next to her and he was able to lower her onto the ground. She did not fall and hit head. Endorses having some dizziness that she describes as feeling like she is out on a boat and rocking with the waves. denies any chest pain, shortness of breath, diaphoresis or any other symptoms since syncopal episode. Patient admits to marijuana use and smokes some marijuana before coming to the ED. Associated symptoms: Reports syncope; Deny chest pain, dyspnea, headache(s), nausea, rash, palpitations or vomiting Review of Systems Const: Denies: fever(s), chills or fatigue Eyes: Denies: change in vision or eye discomfort ENMT: Denies: throat pain, odynophagia, nasal discharge or nasal congestion Card: Reports: syncope; Denies: chest pain, palpitations, edema, swelling of feet/ankles, dyspnea on exertion or orthopnea Resp: Denies: dyspnea, productive cough or non-productive cough GI: Denies: abdominal pain, nausea, vomiting, diarrhea, constipation or hematochezia : Denies: flank pain, dysuria or hematuria Musc: Reports: extremity pain (non-traumatic posterior thigh pain); Denies: neck pain, back pain or extremity swelling Skin/Breast: Denies: rash or new lesions Neuro: Reports: dizziness; Denies: headache(s), numbness in extremities or weakness in extremities [facility] ED PFSH: Medical History Allergies Asthma-COPD overlap syndrome COVID-19 Surgical History H/O laparoscopy 08/27/2018- Diagnostic laparoscopy, fulguration of endometriotic lesions and lysis of adhesions per Dr. Yousif at [facility] H/O tubal ligation S/P cholecystectomy laparoscopic, 04/16/2018 S/P cryotherapy of skin lesion for cervical dysplasia S/P tonsillectomy Family History Father Anesthesia complication Heart disease Hyperlipidemia Hypertension Grandfather Diabetes maternal Grandmother Diabetes maternal Breast cancer maternal, diagnosed in her 40's Stroke paternal Thyroid condition maternal Daughter No problems noted. Family/Other Diabetes maternal uncle Ovarian cancer maternal aunt Bleeding disorder paternal Uterine cancer maternal great great aunt Mother Stroke Denies family history of Clotting disorder Social History Quit status (tobacco): has quit using tobacco Year quit tobacco: 2017 Former quit date comment: Hx of 3 PPD x 30 Years Second hand smoke exposure: No Smoking risk assessment/counseling performed?: No Alcohol intake: current Alcohol intake frequency: holidays/special occasions only Alcohol type: hard liquor Counseling given: No Desire information about substance/drug rehabilitation?: No Counseling given: No Other details last substance use: 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 opiates, last used opiates in 2010, Lives independently: Yes Household members: family Marital status: Single Current occupational status: unemployed History of recent travel: No Current gender identity: Female Female Reproductive History: Date of last menstrual period: 10/28/20 Physical Exam Const: COMMON NORMALS: no acute distress, patient oriented x3 and alert GENERAL APPEARANCE: cooperative and comfortable HENMT: COMMON NORMALS: normocephalic HEAD & SCALP: normocephalic MOUTH: Normal oral and palatal mucosa present THROAT: posterior oropharynx normal and uvula midline Neck/C-Spine: COMMON NORMALS: supple GENERAL: Yes normal visual inspection Resp: COMMON NORMALS: normal respiratory effort, No retractions, No use of accessory muscles and clear to auscultation bilaterally AUSCULTATION: clear to auscultation bilaterally Cardio: COMMON NORMALS: regular rate, regular rhythm, S1 normal heart sound present, S2 normal heart sound present, No gallops present (Cardio), No clicks present (Cardio), No murmurs present (Cardio) and Peripheral pulses 2+ throughout RATE: regular rate RHYTHM: regular rhythm HEART SOUNDS: S1 normal heart sound present and S2 normal heart sound present PERIPHERAL PULSES: Peripheral pulses 2+ throughout GI: COMMON NORMALS: Normal to inspection, nondistended, normoactive bowel sounds present, Soft to palpation, non-tender and no masses PALPATION: Yes Soft to palpation : COMMON NORMALS: Yes no CVA tenderness BLADDER/KIDNEY EXAM: Yes no CVA tenderness Back/Pelvis: COMMON NORMALS: no CVA tenderness Extremity: COMMON NORMALS: no pedal edema NARRATIVE EXTREMITY EXAM: Tenderness of right posterior thigh just behind the knee Neuro: COMMON NORMALS: patient oriented x3 and moves all extremities SENSORIUM/ORIENTATION: Yes alert Skin: GENERAL SKIN EXAM: dry skin Course Vital Signs: Vital signs: Vital Signs Temperature 97.6 F 05/06/21 00:09 Pulse Rate 123 H 05/06/21 00:09 Respiratory Rate 20 H 05/06/21 00:09 Pulse Oximetry 97 05/06/21 00:09 [facility] - General Adult Medical Decision Making Patient is a 40-year-old female comes to the ED with syncopal episode and nontraumatic right leg pain. Denies any fall or head trauma current syncopal episode. Denies any chest pain, shortness of breath. Patient admits to marijuana use and smokes some marijuana before coming to the ED. Pulse 123 and the rest of vitals are stable. Exam is benign. EKG showed normal sinus rhythm with no ST segment elevation or depression seen. Chest x-ray shows no acute findings. CT of head shows no acute findings. CBC, CMP and troponins were negative. Ultrasound venous duplex of the right lower extremity showed no DVTs or blood clots. Patient was given IV fluids while here in the ED. patient diagnosed with syncope and discharged home. She is to follow-up with her PCP early next week. Return to ED precautions given. Patient understood and agree with plan. Lab Data I reviewed the patient's lab results. : 05/06/21 00:55 05/06/21 00:55 Radiology Impressions Chest X-Ray 05/06/21 00:37 IMPRESSION: No acute findings. Venous Duplex 05/06/21 00:37 IMPRESSION: No evidence of deep vein thrombosis. Head CT 05/06/21 00:44 IMPRESSION: There are no acute intracranial findings. Laboratory Results WBC 9.5 10^3/uL (4.0-10.0) 05/06/21 00:55 RBC 4.69 10^6/uL (4.1-5.3) 05/06/21 00:55 Hgb 13.7 g/dL (11.5-15.3) 05/06/21 00:55 Hct 40.8 % (37.0-47.0) 05/06/21 00:55 MCV 87.0 fl (81-99) 05/06/21 00:55 MCH 29.2 pg (28.0-34.0) 05/06/21 00:55 MCHC 33.6 g/dL (30.0-36.0) 05/06/21 00:55 RDW 11.9 % (12.1-15.1) L 05/06/21 00:55 Plt Count 324 10^3/cmm (130-400) 05/06/21 00:55 MPV 10.2 fL (7.4-10.4) 05/06/21 00:55 Neut % (Auto) 62.6 % 05/06/21 00:55 Lymph % (Auto) 26.1 % 05/06/21 00:55 [place] % (Auto) 8.1 % 05/06/21 00:55 Eos % (Auto) 2.5 % 05/06/21 00:55 Baso % (Auto) 0.5 % 05/06/21 00:55 Neut # (Auto) 5.95 10^3/uL (1.8-7.7) 05/06/21 00:55 Lymph # (Auto) 2.5 10^3/uL (0.8-4.8) 05/06/21 00:55 [place] # (Auto) 0.8 10^3/uL (0.2-0.9) 05/06/21 00:55 Eos # (Auto) 0.2 10^3/uL (0.0-0.8) 05/06/21 00:55 Baso # (Auto) 0.1 10^3/uL (0.0-0.1) 05/06/21 00:55 Nucleated RBC % (auto) 0 % 05/06/21 00:55 Nucleated RBCs # 0.0 /100WBC 05/06/21 00:55 Sodium 136 mmol/L (136-145) 05/06/21 00:55 Potassium 3.6 mmol/L (3.5-5.1) 05/06/21 00:55 Chloride 101 mmol/L (98-107) 05/06/21 00:55 Carbon Dioxide 23 mmol/L (22-29) 05/06/21 00:55 Anion Gap 15.6 (5-19) 05/06/21 00:55 BUN 12 mg/dL (6-20) 05/06/21 00:55 Creatinine 0.7 mg/dL (0.5-0.9) 05/06/21 00:55 GFR Calculation 92.2 mL/min (90-130) 05/06/21 00:55 Glucose 113 mg/dL (65-115) 05/06/21 00:55 Calcium 9.5 mg/dL (8.5-10.5) 05/06/21 00:55 Total Bilirubin 0.2 mg/dL (0.15-1.2) 05/06/21 00:55 AST 11 U/L (0-32) 05/06/21 00:55 ALT 13 U/L (0-33) 05/06/21 00:55 Alkaline Phosphatase 76 IU/L (35-105) 05/06/21 00:55 Troponin T Baseline 6 ng/L (0-10) 05/06/21 00:55 Total Protein 6.6 g/dL (6.6-8.7) 05/06/21 00:55 Albumin 4.3 g/dL (3.5-5.2) 05/06/21 00:55 Globulin 2.3 g/dL (1.3-4.6) 05/06/21 00:55 EKG Data EKG 1: EKG interpretation date: 05/06/21 EKG interpretation time: 00:55 Interpretation: Normal sinus rhythm, no ST segment elevation or depression seen. 83 bpm. Computer generated interpretation: Chest X-Ray 05/06/21 00:37 IMPRESSION: No acute findings. Venous Duplex 05/06/21 00:37 IMPRESSION: No evidence of deep vein thrombosis. Head CT 05/06/21 00:44 IMPRESSION: There are no acute intracranial findings. Discharge Plan Discharge Patient Disposition: Home Clinical Impression: Syncope Qualifiers: Syncope type: vasovagal syncope Qualified Code(s): R55 - Syncope and collapse Condition: Stable Prescriptions: No Action triamcinolone acetonide 0.1 % ointment 1 applic topical BID Qty: 80 2RF Rx Instructions: to hands and feet BID alt. with clobetasol as needed for flares no more than 2 wks/mo mupirocin 2 % ointment 1 applic topical BID Qty: 22 1RF Rx Instructions: Apply to yellow crusty areas until healed clobetasol 0.05 % ointment 1 applic topical BID 14 Days Qty: 60 2RF Rx Instructions: to affected areas on hands and feet no more than 2 wks/mo prn alternating with triamcinolone permethrin 5 % cream 1 applic topical .q 7 days Qty: 60 1RF Rx Instructions: Apply from neck down to feet. Leave on overnight and rinse in the morning. Repeat in 1 week multivitamin Tablet 1 tab PO DAILY 0RF budesonide-formoterol [Symbicort] 160-4.5 mcg/actuation HFA aerosol inhaler 2 puff inhalation BID 0RF ipratropium-albuterol 0.5 mg-3 mg(2.5 mg base)/3 mL solution for nebulization 3 ml inhalation Q4H PRN (Reason: wheezing) Qty: 90 3RF Spiriva with HandiHaler 18 mcg capsule, w/inhalation device 1 cap inhalation DAILY Qty: 30 3RF Rx Instructions: puncture 1 cap using device; one dose = 2 inhalations mupirocin 2 % Ointment Kit 1 applic TOPICAL BID 0RF montelukast 10 mg Tablet 10 mg PO DAILY 0RF naproxen 500 mg tablet 500 mg PO Q6H PRN (Reason: Pain) 0RF fexofenadine [Cornelia Allergy] 180 mg tablet 180 mg PO DAILY Qty: 20 0RF albuterol sulfate 90 mcg/actuation Hfa Aerosol Inhaler 1 puff INHALATION QID PRN (Reason: Shortness Of Breath) 0RF Discharge Orders: Discharge ED (Routine); Ordered 05/06/21 Ordered By: Jose Duarte Referrals: Varsha Mccain DO [Primary Care Provider] - Discharge Diet: Regular Discharge Activity: Increase activity as tolerated Patient Instructions: Syncope (DC) Activity Restrictions/Additional Instructions: Follow-up with your PCP in the next 3 to 5 days for reevaluation. Continue taking all home medications as previously prescribed. Return to the ER or your medical provider if condition worsens. Please read and understand discharge instructions. Thank you for choosing [facility] for your healthcare needs today. Please realize this is an emergency room and that we are providing you with a medical screening exam and this may not be complete and all inclusive of all the testing and or work up that you may need to determine your ailment or severity of your illness. It is very important that you follow up as instructed or that you return to the Emergency Department should you have concerns or if your condition changes or worsens in any way. Coding Level of Care Code ED [employer] for [employer] Exam Comprehensive
--- NOTE | 2021-05-06 00:44 | CTR_ITS ---
PROCEDURE INFORMATION: Exam: CT Head Without Contrast Exam date and time: 05/06/2021 12:44 AM Age: 40 years old Clinical indication: Dizziness and syncope and collapse; Patient HX: Syncopal episode. C/O dizziness. ; Additional info: Dizziness and syncopal episode TECHNIQUE: Imaging protocol: Computed tomography of the head without contrast. Radiation optimization: All CT scans at this facility use at least one of these dose optimization techniques: automated exposure control; mA and/or kV adjustment per patient size (includes targeted exams where dose is matched to clinical indication); or iterative reconstruction. COMPARISON: CT head wo con* [id number] 09/11/2019 11:02 AM RADIATION DOSE METRICS: Total DLP (mGy-cm): 781.63 FINDINGS: Brain: Normal. No hemorrhage. Unremarkable white matter. No mass effect. Cerebral ventricles: No ventriculomegaly. Paranasal sinuses: Mucosal thickening and fluid is seen within the ethmoidal sinuses bilaterally. Mastoid air cells: Visualized mastoid air cells are well aerated. Bones/joints: Unremarkable. No acute fracture. Soft tissues: Unremarkable. CT/CT head wo con* [id number] IMPRESSION: There are no acute intracranial findings.
[2021-05-06] MEDS: sodium chloride 0.9% 1,000 ML 999 ML IV (01:01)
[2021-05-06 01:20] LABS: Basophils # 0.1 10^3/uL (0.0-0.1); Basophils % 0.5 %; Eosinophils # 0.2 10^3/uL (0.0-0.8); Eosinophils % 2.5 %; Hematocrit 40.8 % (37.0-47.0); Hemoglobin 13.7 g/dL (11.5-15.3); Lymphocytes # 2.5 10^3/uL (0.8-4.8); Lymphocytes % 26.1 %; Mean Corpuscular HGB Conc 33.6 g/dL (30.0-36.0); Mean Corpuscular Hemoglobin 29.2 pg (28.0-34.0); Mean Platelet Volume 10.2 fL (7.4-10.4); Monocytes # 0.8 10^3/uL (0.2-0.9); Monocytes % 8.1 %; Neutrophils # 5.95 10^3/uL (1.8-7.7); Neutrophils % 62.6 %; Nucleated Red Blood Cells % 0 %; Platelet Count 324 10^3/cmm (130-400); Red Blood Count 4.69 10^6/uL (4.1-5.3); Red Cell Distribution Width 11.9 % (12.1-15.1); White Blood Count 9.5 10^3/uL (4.0-10.0)
[2021-05-06 01:38] LABS: Troponin(5th) Baseline 6 ng/L (0-10)
[2021-05-06 01:42] LABS: Alanine Aminotransferase 13 U/L (0-33); Albumin Level 4.3 g/dL (3.5-5.2); Alkaline Phosphatase 76 IU/L (35-105); Anion Gap 15.6 (5-19); Aspartate Amino Transferase 11 U/L (0-32); Blood Urea Nitrogen 12 mg/dL (6-20); Calcium 9.5 mg/dL (8.5-10.5); Carbon Dioxide 23 mmol/L (22-29); Chloride 101 mmol/L (98-107); Globulin 2.3 g/dL (1.3-4.6); Glomerular Filtration Rate 92.2 mL/min (90-130); Glucose 113 mg/dL (65-115); Osmolality Calculated 283 mOsm/kg (285-295); Potassium 3.6 mmol/L (3.5-5.1); Sodium 136 mmol/L (136-145); Total Bilirubin 0.2 mg/dL (0.15-1.2); Total Protein 6.6 g/dL (6.6-8.7)
[2021-05-06 02:10] VITALS: BP 106/87; PULSE 85; RESP 14; O2SAT 98
== END 2021-05-06 02:12 | disposition home or self-care (01) ==
PROVIDERS: Emergency Provider Physician Assistant; PCP Internal Medicine
DX: R55 Syncope and collapse (principal); Z87.891 Personal history of nicotine dependence; J44.9 Chronic obstructive pulmonary disease, unspecified
CPT/HCPCS: 70450; 71045; 80053; 84484; 85025; 93005; 93971; 96360; 99283; J7030

== ENCOUNTER 2021-06-22 09:55 | Outpatient (CLI) | payer MEDICAID, SELFPAY ==
--- NOTE | 2021-06-22 10:21 | XR_ITS ---
WS: [id number] LEFT SHOULDER: 3 VIEW(S) TECHNIQUE: Internal and external rotation with Y view. HISTORY: PAIN IN LEFT SHOULDER COMPARISON: None available. No fracture or dislocation or soft tissue abnormality. Mild narrowing of the AC joint. No healing fracture. No callus formation. XR/XR shoulder LT min 2V* [id number] IMPRESSION: Mild AC joint arthritis. No healing or healed fracture identified.
== END 2021-06-22 09:56 | disposition home or self-care (01) ==
PROVIDERS: PCP Internal Medicine; Visit Provider Nurse Practitioner Family
DX: M19.012 Primary osteoarthritis, left shoulder (principal)
CPT/HCPCS: 73030

== ENCOUNTER 2021-08-07 19:07 | Emergency (ER) | payer MEDICAID, SELFPAY ==
[2021-08-07 19:11] VITALS: BP 146/104; PULSE 109; RESP 20; O2SAT 98; BMI 41.9
--- NOTE | 2021-08-07 19:16 | W.ED.CHESTPA ---
HPI - Chest Pain General: Chief Complaint: Chest Pain Stated Complaint: D/CP Time Seen by Provider: 08/07/21 19:09 History of Present Illness: Ms. Fragoso is a 40-year-old lady with history of environmental allergies, asthma COPD overlap syndrome, and marijuana use who presents to the emergency department due to shortness of breath. Overall she has had increased shortness of breath than baseline for a number of weeks now. She was previously diagnosed with pneumonia and treated with antibiotics. Additionally she was treated for asthma exacerbation though she was undergoing patch testing for allergies and therefore cannot do steroids. Despite home treatments her shortness of breath has been worse over the past week and continues to worsen. She has new symptoms including tightness across her chest and pain in her back. She additionally feels worse when laying down which is not typical of her symptoms at baseline. Overall intensity symptoms moderate to severe. Course has been worsening. No other specific changes in health, exacerbating, or alleviating factors identified. Onset (ago): day(s) Timing of current episode: increasing Pain location: substernal Severity: moderate Quality: tightness and heaviness Exacerbating factors: supine Review of Systems General: Reports: 10 or more systems reviewed and unremarkable except in HPI and below PFSH ED PFSH: Medical History Allergies Asthma-COPD overlap syndrome COVID-19 Surgical History H/O laparoscopy 08/27/2018- Diagnostic laparoscopy, fulguration of endometriotic lesions and lysis of adhesions per Dr. Yousif at [facility] H/O tubal ligation S/P cholecystectomy laparoscopic, 04/16/2018 S/P cryotherapy of skin lesion for cervical dysplasia S/P tonsillectomy Family History Father Anesthesia complication Heart disease Hyperlipidemia Hypertension Grandfather Diabetes maternal Grandmother Diabetes maternal Breast cancer maternal, diagnosed in her 40's Stroke paternal Thyroid condition maternal Daughter No problems noted. Family/Other Diabetes maternal uncle Ovarian cancer maternal aunt Bleeding disorder paternal Uterine cancer maternal great great aunt Mother Stroke Denies family history of Clotting disorder Social History Smoking and tobacco status: former smoker Quit status (tobacco): has quit using tobacco Year quit tobacco: 2018 Former quit date comment: Hx of 3 PPD x 30 Years Second hand smoke exposure: No Smoking risk assessment/counseling performed?: No Alcohol intake: current Alcohol intake frequency: holidays/special occasions only Alcohol type: hard liquor Counseling given: No Desire information about substance/drug rehabilitation?: No Counseling given: No Other details last substance use: 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 opiates, last used opiates in 2010, Lives independently: Yes Household members: family Marital status: Single Current occupational status: unemployed History of recent travel: No Current gender identity: Female Female Reproductive History: Date of last menstrual period: 10/28/20 Physical Exam Const: COMMON NORMALS: alert GENERAL APPEARANCE: cooperative, well developed and ill appearing (Mildly) HENMT: COMMON NORMALS: normocephalic and atraumatic HEAD & SCALP: normocephalic and atraumatic THROAT: posterior oropharynx normal Eye: COMMON NORMALS: conjunctivae normal CONJUNCTIVA: Yes conjunctivae normal SCLERA: sclerae normal Neck/C-Spine: COMMON NORMALS: supple GENERAL: Yes trachea midline Resp: EFFORT & INSPECTION: Yes able to speak in complete sentences and Yes tachypneic AUSCULTATION: diminished lung sounds Cardio: COMMON NORMALS: regular rhythm RATE: tachycardic RHYTHM: regular rhythm GI: COMMON NORMALS: Soft to palpation PALPATION: Yes Soft to palpation and No Tenderness to palpation present (GI) PERCUSSION: normal to percussion Extremity: GENERAL: Yes normal exam except as noted and No edema Neuro: COMMON NORMALS: moves all extremities SENSORIUM/ORIENTATION: Yes alert and No Orientation impaired Psych: COMMON NORMALS: mental status grossly normal and Normal thought process present THOUGHT PROCESS: Normal thought process present Course ED course: - Patient was seen and evaluated by me at bedside - Patient placed on cardiac monitors, IV access obtained - Initial evaluation notable for exam as above. - Labs and xrays personally interpreted by me. EKG notable for sinus tachycardia without ST segment abnormalities. -Steroids and RT treatment ordered - Labs notable for leukocytosis, normal hemoglobin. Metabolic panel without acute electrolyte derangement. - Imaging notable for no lobar consolidation or pneumothorax - Upon serial reexamination after treatment the patient was significantly improved - Based on patient history, evaluation, and testing as interpreted the most likely cause of the patient's condition is shortness of breath likely secondary to underlying COPD exacerbation. Also chest pain of uncertain etiology. - The results of ED evaluation were discussed with the patient including prescriptions and/or symptomatic cares (if applicable) including appropriate and responsible use, followup plan, and return precautions. The patient verbalized understanding and felt safe for discharge. - Patient discharged in satisfactory condition. Note: Click bubbles or prepopulated johnson in note writing are used for assistance with data collection and billing and are inherently more limited than narrative and other text portions of this note. Please use narrative for additional clinical history and defer to narrative/free test for any case of contradictory information. If information appears in only free text or click bubble it should be considered present or absent as reported. Please contact note writer producer for clarifications of clinical information or contradictory information. MDM is a brief summary, contradictory or erroneous seeming information should be clarified and full note should be reviewed. Vital Signs: Vital signs: Vital Signs Temperature 98.1 F 08/07/21 22:53 Pulse Rate 94 08/07/21 22:53 Respiratory Rate 18 08/07/21 22:53 Blood Pressure 122/73 08/07/21 22:53 Pulse Oximetry 98 08/07/21 22:53 MDM - Chest Pain Medical Decision Making 40-year-old lady with history of COPD presenting with shortness of breath and chest pain. Patient improved after symptom treatment. No significant abnormality identified on laboratory studies to explain symptoms. Troponins negative. Will be treated with COPD exacerbation. Low risk by heart score. Satisfactory for outpatient management. Medical Records I reviewed the patient's medical records. Lab Data I reviewed the patient's lab results. : 08/07/21 19:24 08/07/21 19:24 Radiology Impressions Chest X-Ray 08/07/21 20:17 IMPRESSION: No acute findings. Laboratory Results WBC 12.8 10^3/uL (4.0-10.0) H 08/07/21 19:24 RBC 4.64 10^6/uL (4.1-5.3) 08/07/21 19:24 Hgb 13.7 g/dL (11.5-15.3) 08/07/21 19:24 Hct 40.6 % (37.0-47.0) 08/07/21 19:24 MCV 87.5 fl (81-99) 08/07/21 19:24 MCH 29.5 pg (28.0-34.0) 08/07/21 19: MCHC 33.7 g/dL (30.0-36.0) 08/07/21 19: RDW 12.0 % (12.1-15.1) L 08/07/21 19: Plt Count 369 10^3/cmm (130-400) 08/07/21 19: MPV 10.2 fL (7.4-10.4) 08/07/21 19:24 Neut % (Auto) 75.5 % 08/07/21 19: Lymph % (Auto) 14.8 % 08/07/21 19: [place] % (Auto) 8.5 % 08/07/21 19: Eos % (Auto) 0.4 % 08/07/21 19: Baso % (Auto) 0.4 % 08/07/21: Neut # (Auto) 9.66 10^3/uL (1.8-7.7) H 08/07/21 19: Lymph # (Auto) 1.9 10^3/uL (0.8-4.8) 08/07/21 19:24 [place] # (Auto) 1.1 10^3/uL (0.2-0.9) H 08/07/21 19: Eos # (Auto) 0.1 10^3/uL (0.0-0.8) 08/07/21 19: Baso # (Auto) 0.1 10^3/uL (0.0-0.1) 08/07/21: Nucleated RBC % (auto) 0 % 08/07/21 19: Nucleated RBCs # 0.0 /100WBC 08/07/21 19:24 PT 13.30 SECONDS (12.1-14.9) 08/07/21 19:47 INR 0.98 (0.8-1.2) 08/07/21: APTT 31.1 SECONDS (23.9-36.7) 08/07/21 19: D-Dimer 0.40 ug/mIFEU (0-0.59) 08/07/21 19:47 Sodium 136 mmol/L (136-145) 08/07/21 19:24 Potassium 3.7 mmol/L (3.5-5.1) 08/07/21 19:24 Chloride 100 mmol/L (98-107) 08/07/21 19:24 Carbon Dioxide 26 mmol/L (22-29) 08/07/21 19:24 Anion Gap 13.7 (5-19) 08/07/21 19:24 BUN 10 mg/dL (6-20) 08/07/21 19:24 Creatinine 0.6 mg/dL (0.5-0.9) 08/07/21 19:24 GFR Calculation 110.2 mL/min (90-130) 08/07/21 19:24 Glucose 121 mg/dL (65-115) H 08/07/21 19:24 Calculated Osmolality 282 mOsm/kg (285-295) L 08/07/21 19:24 Calcium 8.8 mg/dL (8.5-10.5) 08/07/21 19:24 Total Bilirubin 0.3 mg/dL (0.15-1.2) 08/07/21 19:24 AST 12 U/L (0-32) 08/07/21 19:24 ALT 14 U/L (0-33) 08/07/21 19:24 Alkaline Phosphatase 100 IU/L (35-105) 08/07/21 19:24 Troponin T Baseline 6 ng/L (0-10) 08/07/21 19:24 Troponin T 120 Minute 6.00 ng/L (0-10) 08/07/21 21:35 Delta Troponin T 0 ABS# (0-10) 08/07/21 21:35 NT-Pro-B Natriuret Pep 41 pg/mL (0-125) 08/07/21 19:24 Total Protein 7.1 g/dL (6.6-8.7) 08/07/21 19:24 Albumin 4.1 g/dL (3.5-5.2) 08/07/21 19:24 Globulin 3.0 g/dL (1.3-4.6) 08/07/21 19:24 Lipase 24 U/L (13-60) 08/07/21 19:24 Discharge Plan Discharge Patient Disposition: Home Clinical Impression: Shortness of breath, Chest pain Condition: Stable Prescriptions: New albuterol sulfate 90 mcg/actuation HFA aerosol inhaler 2 inh inhalation Q4H PRN (Reason: shortness of breath or wheezing) Qty: 8.5 0RF Rx Instructions: until breathing returns to target peak flow/parameters No Action triamcinolone acetonide 0.1 % ointment 1 applic topical BID Qty: 80 2RF Rx Instructions: to hands and feet BID alt. with clobetasol as needed for flares no more than 2 wks/mo clobetasol 0.05 % ointment 1 applic topical BID 14 Days Qty: 60 2RF Rx Instructions: to affected areas on hands and feet no more than 2 wks/mo prn alternating with triamcinolone multivitamin Tablet 1 tab PO DAILY 0RF budesonide-formoterol [Symbicort] 160-4.5 mcg/actuation HFA aerosol inhaler 2 puff inhalation BID 0RF ipratropium-albuterol 0.5 mg-3 mg(2.5 mg base)/3 mL solution for nebulization 3 ml inhalation Q4H PRN (Reason: wheezing) Qty: 90 3RF Spiriva with HandiHaler 18 mcg capsule, w/inhalation device 1 cap inhalation DAILY Qty: 30 3RF Rx Instructions: puncture 1 cap using device; one dose = 2 inhalations oxybutynin chloride 10 mg tablet extended release 24hr 10 mg PO DAILY 0RF pimecrolimus [Elidel] 1 % cream 1 applic topical BID Qty: 60 3RF Rx Instructions: to hands BID prn montelukast 10 mg Tablet 10 mg PO DAILY 0RF fexofenadine [Cornelia Allergy] 180 mg tablet 180 mg PO DAILY Qty: 20 0RF albuterol sulfate 90 mcg/actuation Hfa Aerosol Inhaler 1 puff INHALATION QID PRN (Reason: Shortness Of Breath) 0RF Discharge Orders: Discharge ED (Routine); Ordered 08/07/21 Ordered By: Ubaldo Weiner Referrals: Varsha Mccain, [Primary Care Provider] - Discharge Diet: Usual diet Discharge Activity: Increase activity as tolerated Patient Instructions: Chest Pain (ED), Shortness of Breath (ED) Activity Restrictions/Additional Instructions: Thank you for visiting the emergency department. You were seen evaluated for shortness of breath and chest pain. The exact cause of your symptoms is unclear though given your underlying asthma/COPD and recent previous treatment you will be treated again for exacerbation. Please use albuterol inhaler 2 puffs scheduled every 4 hours for the next 24 hours followed by 2 puffs every 6 hours for 24 hours followed by 2 puffs every 8 hours for 24 hours and then resume normal schedule. Please follow-up with your primary care provider. Please return to the emergency department for worsening symptoms or anything else that you are concerned about a feel needs emergency department evaluation. Coding Level of Care Code ED Survey Supervisor for Maxwell Baker Exam Comprehensive
--- NOTE | 2021-08-07 19:34 | ECG_ITS ---
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 Measurements Intervals Albin Rate: 102 P: 85 MN: 124 QRS: 84 QRSD: 90 T: 81 QT: 332 QTc: 433 Interpretive Statements SINUS TACHYCARDIA POSSIBLE LEFT ATRIAL ENLARGEMENT [-0.1mV P-WAVE IN V1/V2] ABNORMAL RHYTHM ECG Compared to ECG 05/06/2021 00:49:51 Sinus rhythm no longer present Electronically Signed On 08-08-2021 18:44:49 CDT by Jadyn Donis M.D. [email or web address]
[2021-08-07 19:45] LABS: Basophils # 0.1 10^3/uL (0.0-0.1); Basophils % 0.4 %; Eosinophils # 0.1 10^3/uL (0.0-0.8); Eosinophils % 0.4 %; Hematocrit 40.6 % (37.0-47.0); Hemoglobin 13.7 g/dL (11.5-15.3); Lymphocytes # 1.9 10^3/uL (0.8-4.8); Lymphocytes % 14.8 %; Mean Corpuscular HGB Conc 33.7 g/dL (30.0-36.0); Mean Corpuscular Hemoglobin 29.5 pg (28.0-34.0); Mean Corpuscular Volume 87.5 fl (81-99); Mean Platelet Volume 10.2 fL (7.4-10.4); Monocytes # 1.1 10^3/uL (0.2-0.9); Monocytes % 8.5 %; Neutrophils # 9.66 10^3/uL (1.8-7.7); Neutrophils % 75.5 %; Nucleated Red Blood Cells % 0 %; Platelet Count 369 10^3/cmm (130-400); Red Blood Count 4.64 10^6/uL (4.1-5.3); White Blood Count 12.8 10^3/uL (4.0-10.0)
[2021-08-07] MEDS: ipratropium-albuterol 3 mL Neb INHALATION (20:01)
[2021-08-07 20:02] VITALS: PULSE 89; RESP 16; O2SAT 97
[2021-08-07 20:02] LABS: Troponin(5th) Baseline 6 ng/L (0-10)
[2021-08-07 20:07] LABS: Alanine Aminotransferase 14 U/L (0-33); Albumin Level 4.1 g/dL (3.5-5.2); Alkaline Phosphatase 100 IU/L (35-105); Anion Gap 13.7 (5-19); Aspartate Amino Transferase 12 U/L (0-32); Blood Urea Nitrogen 10 mg/dL (6-20); Calcium 8.8 mg/dL (8.5-10.5); Carbon Dioxide 26 mmol/L (22-29); Chloride 100 mmol/L (98-107); Glomerular Filtration Rate 110.2 mL/min (90-130); Glucose 121 mg/dL (65-115); Lipase 24 U/L (13-60); NT Pro B Type Natriuretic Pept 41 pg/mL (0-125); Osmolality Calculated 282 mOsm/kg (285-295); Potassium 3.7 mmol/L (3.5-5.1); Sodium 136 mmol/L (136-145); Total Bilirubin 0.3 mg/dL (0.15-1.2); Total Protein 7.1 g/dL (6.6-8.7)
[2021-08-07 20:13] LABS: INR 0.98 (0.8-1.2)
--- NOTE | 2021-08-07 20:17 | XRR_ITS ---
PROCEDURE INFORMATION: Exam: XR Chest Exam date and time: 08/07/2021 8:37 PM Age: 40 years old Clinical indication: Cough and shortness of breath; Additional info: Cough, SOB TECHNIQUE: Imaging protocol: XR of the chest. Views: 1 view. COMPARISON: CR XR chest 1V portable [id number] 05/06/2021 12:48 AM FINDINGS: Lungs: Unremarkable. No consolidation. Pleural spaces: Unremarkable. No pleural effusion. No pneumothorax. Heart/Mediastinum: Unremarkable. No cardiomegaly. Bones/joints: Unremarkable. XR/XR chest 1V portable [id number] IMPRESSION: No acute findings.
[2021-08-07 20:48] LABS: Partial Thromboplastin Time 31.1 SECONDS (23.9-36.7)
[2021-08-07 22:21] LABS: Troponin 5 2HR Delta 0 ABS# (0-10)
[2021-08-07] MEDS: ketorolac 30 mg/mL INJ 15 MG IVP (22:34)
[2021-08-07 22:53] VITALS: BP 122/73; PULSE 94; RESP 18; TEMP 36.7; O2SAT 98
== END 2021-08-07 22:55 | disposition home or self-care (01) ==
PROVIDERS: Emergency Provider Emergency Medicine; PCP Internal Medicine
DX: J44.9 Chronic obstructive pulmonary disease, unspecified (principal); R07.9 Chest pain, unspecified; R06.02 Shortness of breath; Z87.891 Personal history of nicotine dependence
CPT/HCPCS: 71045; 80053; 83690; 83880; 84484; 85025; 85378; 85610; 85730; 93005; 94640; 96374; 96375; 99285; J1885; J2930

== ENCOUNTER → 2021-09-12 14:05 | Outpatient (BNVA) | payer MEDICAID, SELFPAY | PROVIDERS: PCP Internal Medicine; Visit Provider Obstetrics & Gynecology | DX: Z12.39 Encounter for other screening for malignant neoplasm of breast (principal); Z12.4 Encounter for screening for malignant neoplasm of cervix | CPT/HCPCS: 87624 ==

== ENCOUNTER 2021-09-19 10:13 | Outpatient (CLI) | payer MEDICAID, SELFPAY ==
--- NOTE | 2021-09-19 10:41 | XRR_ITS ---
PROCEDURE INFORMATION: Exam: XR Cervical Spine Exam date and time: 09/19/2021 10:52 AM Age: 40 years old Clinical indication: Patient HX: History--pendoulous breast causing back pain and neck pain; Additional info: Pendulous breast TECHNIQUE: Imaging protocol: Radiologic exam of the cervical spine. Views: 4 or 5 views. COMPARISON: CR XR thoracic spine min 4V [id number] 09/19/2021 10:49 AM FINDINGS: Bones/joints: No acute fracture. Normal alignment. Disc height loss with moderate endplate degenerative changes centered in the C5-C7 segment. Soft tissues: Unremarkable. XR/XR cervical spine 4-5V [id number] IMPRESSION: Moderate DJD centered in the C5-C7 segment.
--- NOTE | 2021-09-19 10:41 | XRR_ITS ---
PROCEDURE INFORMATION: Exam: XR Thoracic Spine Exam date and time: 09/19/2021 10:49 AM Age: 40 years old Clinical indication: Pain in thoracic spine; Patient HX: History--pendoulous breast causing back pain and neck pain; Additional info: Pendulous breast TECHNIQUE: Imaging protocol: Radiologic exam of the thoracic spine. Views: 3 views. COMPARISON: CR (CHEST, ) 08/07/2021 8:37 PM FINDINGS: Bones/joints: No acute fracture. Normal alignment. Vertebral body and disc heights are preserved. Mild endplate degenerative changes noted in the lower thoracic spine. Soft tissues: Unremarkable. XR/XR thoracic spine min 4V [id number] IMPRESSION: Mild degenerative changes in the lower thoracic spine.
== END 2021-09-19 10:14 | disposition home or self-care (01) ==
PROVIDERS: PCP Nurse Practitioner Family; Visit Provider Nurse Practitioner Family
DX: N64.89 Other specified disorders of breast (principal); M47.894 Other spondylosis, thoracic region; M47.892 Other spondylosis, cervical region; M54.6 Pain in thoracic spine; M54.2 Cervicalgia
CPT/HCPCS: 72050; 72074

== ENCOUNTER 2021-09-28 08:06 | Outpatient (CLI) | payer MEDICAID, SELFPAY ==
--- NOTE | 2021-09-28 08:18 | CT_ITS ---
WS: [id number] CT HEAD NONCONTRAST HISTORY: LOSS OF CONSCIOUSNESS/DIZZY SPELLS TECHNIQUE: Contiguous axial imaging performed through the brain in 2.5 mm imaging. Bone and soft tiss ue windows. Sagittal and coronal reformats reviewed. All CT scans at [facility] use at least one of these dose optimization techniques: automated exposure control; mA and/or kV adjustment per pa tient size (includes targeted exams where dose is matched to clinical indication); or iterative recon struction. DLP: 1035.98 mGy.cm COMPARISON: None available. No acute intracranial hemorrhage, midline shift or mass effect. No atrophy or prior infarcts or herniation. No colloid cyst or obstruction of the third ventricle. Ventricles: Normal size with no hydrocephalus. Paranasal sinuses: As visualized are clear. Mastoid air cells: Well pneumatized. Calvarium and scalp: Skull is intact with no soft tissue edema or swelling. CT/CT head wo con* [id number] IMPRESSION: Negative head CT.
== END 2021-09-28 08:07 | disposition home or self-care (01) ==
LOC: RAD 08:06
PROVIDERS: PCP Nurse Practitioner Family; Visit Provider Nurse Practitioner Family
DX: R42 Dizziness and giddiness (principal); R40.20 Unspecified coma
CPT/HCPCS: 70450

== ENCOUNTER 2021-10-04 11:56 | Outpatient (CLI) | payer MEDICAID, SELFPAY ==
--- NOTE | 2021-10-04 12:03 | MM_ITS ---
WS: [id number] BILATERAL SCREENING DIGITAL BREAST TOMOSYNTHESIS MAMMOGRAM WITH CAD HISTORY: Screening exam. COMPARISON: 01/09/2019 Bilateral CC and MLO views with tomosynthesis and synthetic mammography submitted. Computer aided det ection analyzed. Breast composition: There are scattered areas of fibroglandular density. No suspicious masses, microc alcifications or architectural distortion. MM/[place] [id number] IMPRESSION: BI-RADS: 1-Negative FOLLOW UP: 1 Year Follow-up
== END 2021-10-04 11:57 | disposition home or self-care (01) ==
LOC: RAD 11:58
PROVIDERS: PCP Nurse Practitioner Family; Visit Provider Obstetrics & Gynecology
DX: Z12.31 Encounter for screening mammogram for malignant neoplasm of breast (principal)
CPT/HCPCS: 77063; 77067

== ENCOUNTER 2021-12-07 15:13 | Emergency (ER) | payer MEDICAID, SELFPAY ==
--- NOTE | 2021-12-07 15:17 | XRR_ITS ---
PROCEDURE INFORMATION: Exam: XR Right Foot Exam date and time: 12/07/2021 3:56 PM Age: 41 years old Clinical indication: Right; Patient HX: Pain, blisters on foot and ankle TECHNIQUE: Imaging protocol: Radiologic exam of the Right foot. Views: 3 or more views. COMPARISON: CR XR ankle RT min 3V* [id number] 12/07/2021 3:52 PM FINDINGS: Bones/joints: Normal. Soft tissues: Normal. XR/XR foot RT min 3V* [id number] IMPRESSION: No acute findings.
--- NOTE | 2021-12-07 15:17 | XR_ITS ---
WS: [id number] Right ankle, 3 views, 12/07/2021 Clinical Data: pain Comparison: Right ankle, 09/05/2020 Findings: No fractures or dislocations are seen. The ankle mortise is normal. The talus and calcaneus are unrem arkable. No soft tissue swelling over the medial or lateral malleolus is seen. There is a plantar spur and an Achilles spur. XR/XR ankle RT min 3V* [id number] Impression: Negative right ankle.
[2021-12-07 15:28] VITALS: BP 142/84; PULSE 95; RESP 16; TEMP 36.9; O2SAT 98; BMI 37.4
--- NOTE | 2021-12-07 15:40 | ED_ITS ---
HPI - Extremity Injury (Lower) General: Chief Complaint: Extremity Injury, Lower Stated Complaint: right foot/ankle pain Time Seen by Provider: 12/07/21 15:34 History of Present Illness: 41-year-old female comes in today with complaints of crusting tender lesions to the right ankle. Patient reports noticing lesion starting 2 days ago. Patient since then has been using mupirocin ointment with minimal improvement. Patient denies any high fevers. Patient denies diabetes. Review of Systems Const: Denies: fever(s) Skin/Breast: Reports: sores PFSH ED PFSH: Medical History Allergies Asthma-COPD overlap syndrome COVID-19 Surgical History H/O laparoscopy 08/27/2018- Diagnostic laparoscopy, fulguration of endometriotic lesions and lysis of adhesions per Dr. Yousif at [facility] H/O tubal ligation S/P cholecystectomy laparoscopic, 04/16/2018 S/P cryotherapy of skin lesion for cervical dysplasia S/P tonsillectomy Family History Father Anesthesia complication Heart disease Hyperlipidemia Hypertension Grandfather Diabetes maternal Grandmother Diabetes maternal Breast cancer maternal, diagnosed in her 40's Stroke paternal Thyroid condition maternal Daughter No problems noted. 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, last used opiates in 2010, Current occupational status: unemployed Current gender identity: Female Female Reproductive History: Date of last menstrual period: 10/28/20 Physical Exam Const: COMMON NORMALS: alert HENMT: COMMON NORMALS: normocephalic HEAD & SCALP: normocephalic Neck/C-Spine: COMMON NORMALS: full ROM Resp: COMMON NORMALS: normal respiratory effort and clear to auscultation bilaterally AUSCULTATION: clear to auscultation bilaterally Cardio: COMMON NORMALS: regular rate and regular rhythm RATE: regular rate RHYTHM: regular rhythm Extremity: COMMON NORMALS: full ROM RIGHT LOWER EXTREMITY: Yes foot & digits (Large keratotic plaque with scattered honey crusted lesions) Right ankle: Yes inspection, Yes palpation and Yes ROM Neuro: SENSORIUM/ORIENTATION: Yes alert Skin: NARRATIVE SKIN EXAM: On exam patient has a large keratotic plaque area to the right lateral ankle suggestive of psoriasis. Within the plaque patient has several satellite l esions with honey crusting drainage and some mild erythema. Patient reports a history of eczema. LESIONS: lesion noted (Right ankle.) Course Vital Signs: Vital signs: Vital Signs Temperature 98.4 F 12/07/21 15:28 Pulse Rate 95 12/07/21 15:28 Respiratory Rate 16 12/07/21 15:28 Blood Pressure 142/84 12/07/21 15:28 Pulse Oximetry 98 12/07/21 15:28 Oxygen Delivery Me thod 12/07/21 15:28 MDM - Extremity Injury (Lower) Medical Decision Making Patient comes in today with complaints of draining lesions to the eczematous area of her right ankle. On exam the area appears more like a psoriatic plaque although it may be chronic eczema. Within this plaque there is erythematous honey crusted lesion. Differential diagnosis includes but not limited to cellulitis, impetigo, folliculitis, infected wound. We will start patient on clindamycin to cover for staph and other bacterial and allergy. Patient will continue with her mupirocin ointment. Patient stated understanding of care plan and need for follow-up or return to the ER. Discharge Plan Discharge Patient Disposition: Home Clinical Impression: Impetigo Condition: Stable Prescriptions: New clindamycin HCl 150 mg capsule 450 mg PO Q8H 7 Days Qty: 63 0RF No Action multivitamin Tablet 1 tab PO DAILY budesonide-formoterol [Symbicort] 160-4.5 mcg/actuation HFA aerosol inhaler 2 puff inhalation BID ipratropium-albuterol 0.5 mg-3 mg(2.5 mg base)/3 mL solution for nebulization 3 ml inhalation Q4H PRN (Reason: wheezing) Qty: 90 3RF Spiriva with HandiHaler 18 mcg capsule, w/inhalation device 1 cap inhalation DAILY Qty: 30 3RF Rx Instructions: puncture 1 cap using device; one dose = 2 inhalations oxybutynin chloride 10 mg tablet extended release 24hr 10 mg PO DAILY duloxetine 30 mg capsule,delayed release(DR/EC) PO clobetasol 0.05 % ointment 1 applic topical BID 14 Days Qty: 60 2RF Rx Instructions: to affected areas on hands and feet no more than 2 wks/mo prn alternating with triamcinolone triamcinolone acetonide 0.1 % ointment 1 applic topical BID Qty: 80 2RF Rx Instructions: to hands and feet BID alt. with clobetasol as needed for flares no more than 2 wks/mo pimecrolimus [Elidel] 1 % cream 1 applic topical BID Qty: 60 3RF Rx Instructions: to hands BID prn sucralfate [Carafate] 1 gram tablet 1 g PO TID PRN montelukast 10 mg Tablet 10 mg PO DAILY fexofenadine [Cornelia Allergy] 180 mg tablet 180 mg PO DAILY Qty: 20 0RF albuterol sulfate 90 mcg/actuation HFA aerosol inhaler 2 inh inhalation Q4H PRN (Reason: shortness of breath or wheezing) Qty: 8.5 0RF Rx Instructions: until breathing returns to target peak flow/parameters Discharge Orders: Discharge ED (Routine); Ordered 12/07/21 Ordered By: Chente Antonio Referrals: Zayda Keating DO [Primary Care Provider] - Discharge Diet: Usual diet Discharge Activity: Increase activity as tolerated Patient Instructions: Impetigo (ED) Activity Restrictions/Additional Instructions: Home and rest. Gently wash the wound twice a day with mild soap and water. Apply antibiotic ointment after each cleansing. Take antibiotic 3 capsules 3 times a day for the next 7 days. Drink plenty of water with medication. Monitor for worsening symptoms such as increasing redness, streaking up the leg, fevers greater than 100.4. Coding Level of Care Code ED Electrician Crane Maintenance for Maxwell Baker
[2021-12-07] MEDS: clindamycin 150 mg Capsule 450 MG PO (16:17)
[2021-12-07 16:30] VITALS: BP 116/77; PULSE 98; RESP 16; TEMP 36.9; O2SAT 98
== END 2021-12-07 16:31 | disposition home or self-care (01) ==
PROVIDERS: Emergency Provider Nurse Practitioner Family; PCP Family Medicine
DX: L01.00 Impetigo, unspecified (principal); Z87.891 Personal history of nicotine dependence
CPT/HCPCS: 73610; 73630; 99283

== ENCOUNTER 2022-01-03 21:16 | Emergency (ER) | payer MEDICAID, SELFPAY ==
[2022-01-03 21:34] VITALS: BP 103/67; PULSE 77; RESP 16; TEMP 36.8; O2SAT 96; BMI 37.3
[2022-01-03] MEDS: clindamycin 150 mg Capsule 300 MG PO (22:59)
--- NOTE | 2022-01-04 09:58 | W.ED.WOUNDLC ---
HPI - Wound/Laceration General: Chief Complaint: Wound/Laceration Stated Complaint: post surgery incision open/leaking - right breast Time Seen by Provider: 01/03/22 22:04 History of Present Illness: 41 yo female patient presents to ER with wound pain and leakage 2 weeks post op from breast reduction. Pt states she is noticing yellow oozing from an area on her surgical site. Pt denies any fever. Pt denies any other complaints Associated symptoms: Denies chills, fever(s), nausea, syncope or vomiting Review of Systems Const: Denies: fever(s), chills, body aches, change in appetite, change in weight, fatigue, malaise or diaphoresis Eyes: Denies: change in vision, blurry vision, blind spots, photophobia, eye discomfort, eye discharge, eye redness, floaters or seeing flashes ENMT: Denies: throat pain, uvular edema, enlarged tonsils, odynophagia, hoarseness, mouth pain, swelling of lips/tongue, oral sores, bleeding gums, dental pain, dry mouth, ear or mastoid pain, ear discharge, change in hearing, tinnitus, disequilibrium, nasal discharge, nasal congestion, post nasal drip or sinus pain Card: Denies: chest pain, palpitations, irregular heart rhythm, edema, swelling of feet/ankles, lightheadedness, syncope, pre-syncope, dyspnea on exertion, orthopnea, leg pain with exertion or acrocyanosis Resp: Denies: dyspnea, productive cough, non-productive cough, wheezing, stridor, pain on inspiration, change in phlegm color, hemoptysis or chest congestion GI: Denies: abdominal pain, nausea, vomiting, hematemesis, dysphagia, diarrhea, constipation, GI cramping, change in bowel habits or rectal pain : Denies: flank pain, difficulty voiding, dysuria, urinary frequency, urinary urgency, urinary hesitancy or hematuria Musc: Denies: neck pain, back pain, extremity pain, extremity swelling, joint pain, joint swelling, joint redness, joint warmth or deformity Skin/Breast: Denies: pruritus, erythema, sores, new lesions, changes in skin color or dry skin Neuro: Denies: headache(s), numbness in extremities, weakness in extremities, sensory changes, lack of coordination, difficulty walking, frequent falls, dizziness, vertigo, confusion, behavioral changes, Slurred speech present, difficulty communicating thoughts or seizure-like activity Psych: Denies: anxiety, depression, suicidal ideation or homicidal ideation Endo: Denies: polyuria, polydipsia, tired all the time, cold intolerance, excessive sweating, flushing, hot flashes or heat intolerance Ruben/Lymph: Denies: easy bruising, easy bleeding, petechiae, purpura, enlarged lymph nodes or tender lymph nodes All/Imm: Denies: urticaria, throat swelling, tongue swelling, facial swelling, acute wheezing or itchy eyes PFSH ED PFSH: Medical History Allergies Asthma-COPD overlap syndrome COVID-19 Surgical History H/O laparoscopy 08/27/2018- Diagnostic laparoscopy, fulguration of endometriotic lesions and lysis of adhesions per Dr. Yousif at [facility] H/O tubal ligation S/P cholecystectomy laparoscopic, 04/16/2018 S/P cryotherapy of skin lesion for cervical dysplasia S/P tonsillectomy Family History Father Anesthesia complication Heart disease Hyperlipidemia Hypertension Grandfather Diabetes maternal Grandmother Diabetes maternal Breast cancer maternal, diagnosed in her 40's Stroke paternal Thyroid condition maternal Daughter No problems noted. 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, last used opiates in 2010, Current occupational status: unemployed Current gender identity: Female Female Reproductive History: Date of last menstrual period: 10/28/20 Physical Exam Const: COMMON NORMALS: no acute distress, patient oriented x3, healthy appearing, alert and well nourished GENERAL APPEARANCE: cooperative, comfortable, well kempt and well developed; not ill appearing ORIENTATION/CONSCIOUSNESS: Yes awake, Yes oriented to person, Yes oriented to place and Yes oriented to time HENMT: THROAT: no uvular edema Neck/C-Spine: COMMON NORMALS: full ROM, no lymphadenopathy, supple, no meningeal signs, no JVD and Thyroid normal GENERAL: Yes normal visual inspection and Yes trachea midline THYROID: Thyroid normal CERVICAL SPINE: Yes cervical ROM normal Lymph: LYMPHATIC: no lymphadenopathy noted and no lymphedema noted Chest: COMMONS NORMALS: normal inspection of the chest and normal palpation of entire chest wall Resp: COMMON NORMALS: normal respiratory effort, No retractions, No use of accessory muscles and clear to auscultation bilaterally EFFORT & INSPECTION: Yes able to speak in complete sentences and Yes symmetric chest movement AUSCULTATION: clear to auscultation bilaterally Cardio: COMMON NORMALS: no JVD, regular rate and regular rhythm RATE: regular rate RHYTHM: regular rhythm Neuro: COMMON NORMALS: patient oriented x3, CN's II-XII intact bilaterally, moves all extremities, no focal motor deficits, no sensory deficits noted, deep tendon reflexes 2+ bilaterally and gait normal SENSORIUM/ORIENTATION: Yes alert, Yes oriented to person, Yes oriented to place and Yes oriented to time MENINGEAL SIGNS: Yes no meningeal signs CRANIAL NERVES: Yes CN normal except as noted SPEECH: speech normal GAIT: Yes Normal gait present SENSORY EXAM: Yes extremities MOTOR EXAM: 5/5 motor strength present throughout Psych: COMMON NORMALS: mental status grossly normal, Normal thought process present, cooperative, normal affect, speech normal, activity/motor behavior normal, denies hallucinations, denies homicidal ideation and denies suicidal ideation APPEARANCE: Yes grossly normal and Yes well kempt ATTITUDE: Yes calm ACTIVITY/MOTOR BEHAVIOR: Yes appropriate eye contact SPEECH: Yes normal speech THOUGHT PROCESS: Normal thought process present THOUGHT CONTENT: Yes Normal thought content present ATTENTION/CONCENTRATION: Yes attention grossly intact MEMORY/COGNITION: Yes memory grossly intact INSIGHT: Good insight present (Psych) JUDGEMENT: Good judgement present (Psych) Skin: COMMON NORMALS: no rashes or lesions noted, turgor normal, no jaundice, no petechiae and no mottling GENERAL SKIN EXAM: no rashes or lesions noted and turgor normal Course Vital Signs: Vital signs: Vital Signs Temperature 98.3 F 01/03/22 21:34 Pulse Rate 77 01/03/22 21:34 Respiratory Rate 16 01/03/22 21:34 Blood Pressure 103/67 01/03/22 21:34 Pulse Oximetry 96 01/03/22 21:34 Oxygen Delivery Me thod 01/03/22 21:34 MDM - Wound/Laceration Medical Decision Making Patient is well appearing non toxic and in n Medical Records Patient is well appearing non toxic and in no acute distress. 41 yo female patient presents to ER with wound pain and leakage 2 weeks post op from breast reduction. Pt states she is noticing yellow oozing from an area on her surgical site. Pt denies any fever. Pt denies any other complaints Pt does have some purulent drainage from a dmall area on right breast and left nipple and surgical site there no surrounding erythema. I will start patient onantibiotics and have her follow up with surgeon. there is no evidence of abscess. Discharge Plan Discharge Patient Disposition: Home Clinical Impression: Skin infection Condition: Stable Prescriptions: New clindamycin HCl 300 mg capsule 300 mg PO BID 7 Days Qty: 14 0RF No Action multivitamin Tablet 1 tab PO DAILY budesonide-formoterol [Symbicort] 160-4.5 mcg/actuation HFA aerosol inhaler 2 puff inhalation BID ipratropium-albuterol 0.5 mg-3 mg(2.5 mg base)/3 mL solution for nebulization 3 ml inhalation Q4H PRN (Reason: wheezing) Qty: 90 3RF Spiriva with HandiHaler 18 mcg capsule, w/inhalation device 1 cap inhalation DAILY Qty: 30 3RF Rx Instructions: puncture 1 cap using device; one dose = 2 inhalations oxybutynin chloride 10 mg tablet extended release 24hr 10 mg PO DAILY duloxetine 30 mg capsule,delayed release(DR/EC) PO clobetasol 0.05 % ointment 1 applic topical BID 14 Days Qty: 60 2RF Rx Instructions: to affected areas on hands and feet no more than 2 wks/mo prn alternating with triamcinolone triamcinolone acetonide 0.1 % ointment 1 applic topical BID Qty: 80 2RF Rx Instructions: to hands and feet BID alt. with clobetasol as needed for flares no more than 2 wks/mo pimecrolimus [Elidel] 1 % cream 1 applic topical BID Qty: 60 3RF Rx Instructions: to hands BID prn sucralfate [Carafate] 1 gram tablet 1 g PO TID PRN montelukast 10 mg Tablet 10 mg PO DAILY fexofenadine [Cornelia Allergy] 180 mg tablet 180 mg PO DAILY Qty: 20 0RF albuterol sulfate 90 mcg/actuation HFA aerosol inhaler 2 inh inhalation Q4H PRN (Reason: shortness of breath or wheezing) Qty: 8.5 0RF Rx Instructions: until breathing returns to target peak flow/parameters Discharge Orders: Discharge ED (Routine); Ordered 01/03/22 Ordered By: Araceli Brownlee Referrals: Zayda Keating DO [Primary Care Provider] - Discharge Diet: Advance as tolerated Discharge Activity: Increase activity as tolerated Patient Instructions: Opioid Safety, Pain Management Activity Restrictions/Additional Instructions: Please take your medications as prescribed Please keep your follow up appointment as scheduled Please keep post op site clean and dry Return to ER with any worsening of symptoms Coding Level of Care Code ED Perfect Binder Operator for Maxwell Baker
== END 2022-01-03 23:14 | disposition home or self-care (01) ==
PROVIDERS: Emergency Provider Registered Nurse; PCP Family Medicine
DX: T81.41XA Infection following a procedure, superficial incisional surgical site, initial encounter (principal); Z87.891 Personal history of nicotine dependence
CPT/HCPCS: 99283

== ENCOUNTER → 2022-01-30 12:35 | Outpatient (BNVA) | payer MEDICAID, SELFPAY | PROVIDERS: PCP Family Medicine; Visit Provider Registered Nurse Neonatal Intensive Care | DX: R50.9 Fever, unspecified (principal); J10.1 Influenza due to other identified influenza virus with other respiratory manifestations | CPT/HCPCS: 87400 ==

== ENCOUNTER 2022-05-18 14:07 | Outpatient (CLI) | payer MEDICAID, SELFPAY ==
[2022-05-18 14:41] LABS: Basophils % 0.3 %; Eosinophils % 0.2 %; Hematocrit 39.2 % (37.0-47.0); Hemoglobin 12.9 g/dL (11.5-15.3); Lymphocytes # 2.6 10^3/uL (0.8-4.8); Lymphocytes % 21.1 %; Mean Corpuscular HGB Conc 32.9 g/dL (30.0-36.0); Mean Corpuscular Hemoglobin 28.5 pg (28.0-34.0); Mean Corpuscular Volume 86.5 fl (81-99); Mean Platelet Volume 9.6 fL (7.4-10.4); Monocytes # 0.5 10^3/uL (0.2-0.9); Monocytes % 4.4 %; Neutrophils % 73.7 %; Nucleated Red Blood Cells % 0 %; Platelet Count 364 10^3/cmm (130-400); Red Blood Count 4.53 10^6/uL (4.1-5.3); White Blood Count 12.2 10^3/uL (4.0-10.0)
[2022-05-18 14:56] LABS: Alanine Aminotransferase 11 U/L (0-33); Albumin Level 4.1 g/dL (3.5-5.2); Alkaline Phosphatase 94 U/L (35-105); Anion Gap 15.8 (5-19); Aspartate Amino Transferase 11 U/L (0-32); Blood Urea Nitrogen 11 mg/dL (6-20); Calcium 8.9 mg/dL (8.5-10.5); Carbon Dioxide 24 mmol/L (22-29); Chloride 102 mmol/L (98-107); Globulin 2.6 g/dL (1.3-4.6); Glomerular Filtration Rate 109.6 mL/min (90-130); Glucose 142 mg/dL (65-115); Osmolality Calculated 288 mOsm/kg (285-295); Potassium 3.8 mmol/L (3.5-5.1); Sodium 138 mmol/L (136-145); Total Bilirubin 0.2 mg/dL (0.15-1.2); Total Protein 6.7 g/dL (6.6-8.7)
[2022-05-18 15:25] LABS: HIV 1 & 2 Antibody Non-Reactive (Non-Reactiv); HIV 1 & 2 Antigen Non-Reactive (Non-Reactiv)
[2022-05-18 15:26] LABS: Hepatitis A Antibody IgM Non-Reactive (Nonreactive); Hepatitis B Core AB, Total Non-Reactive (Nonreactive); Hepatitis B Surface AB 3.5 (11.5-1000); Hepatitis B Surface Antigen Non-Reactive (Nonreactive); Hepatitis C Virus Antibody Non-Reactive (Nonreactive)
[2022-05-21 12:29] LABS: Quantiferon Mitogen >10.00 IU/mL; Quantiferon Nil 0.02 IU/mL; Quantiferon TB Gold NEGATIVE (NEGATIVE)
== END 2022-05-18 14:08 | disposition home or self-care (01) ==
LOC: LAB 14:11
PROVIDERS: PCP Family Medicine; Visit Provider Dermatology
DX: L20.9 Atopic dermatitis, unspecified (principal); Z79.899 Other long term (current) drug therapy
CPT/HCPCS: 36415; 80053; 85025; 86480; 86705; 86706; 86709; 86803; 87340; 87806

== ENCOUNTER 2022-06-02 16:21 | Emergency (ER) | payer MEDICAID, SELFPAY ==
[2022-06-02] VITALS (8 sets, daily range): BP systolic 111–162; BP diastolic 79–98; PULSE 76–98; RESP 16–20; TEMP 36.7; O2SAT 92–96; BMI 35.2
--- NOTE | 2022-06-02 16:30 | ECG_ITS ---
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
--- NOTE | 2022-06-02 18:24 | XRR_ITS ---
PROCEDURE INFORMATION: Exam: XR Chest Exam date and time: 06/02/2022 6:32 PM Age: 41 years old Clinical indication: Pain; Chest pressure; Additional info: Cp TECHNIQUE: Imaging protocol: Radiologic exam of the chest. Views: 1 view. COMPARISON: CR XR chest 1V portable [id number] 08/07/2021 8:37 PM FINDINGS: Lungs: Unremarkable. No consolidation. Pleural spaces: Unremarkable. No pleural effusion. No pneumothorax. Heart/Mediastinum: Unremarkable. No cardiomegaly. Bones/joints: Unremarkable. XR/XR chest 1V portable [id number] IMPRESSION: No acute findings.
--- NOTE | 2022-06-02 18:26 | W.ED.CHESTPA ---
HPI - Chest Pain General: Chief Complaint: Chest Pain Stated Complaint: CP, SOB Time Seen by Provider: 06/02/22 18:11 Source: patient History of Present Illness: 41-year-old female with no prior history of coronary disease. She does have a history of asthma and anxiety. She presents with greater than 24 hours of episodic pain to the chest. She says it feels like someone is trying to pull the front of her chest through the backside of her chest. It radiates into her right arm. She is short of breath with this. She still wheezing. She just got off 2 weeks of prednisone 4 days ago. No fevers. No sputum production. MD complaint: chest pain Pertinent past history: asthma Onset (ago): hour(s) Timing of current episode: episodic Prior episodes: Yes Onset: during rest Pain location: substernal Pain radiation: right arm Severity: moderate Quality: tearing Relieving factors: nothing Exacerbating factors: nothing Associated symptoms: Reports dyspnea; Deny abdominal pain, diaphoresis, fever(s), leg edema, nausea or vomiting Review of Systems Const: Denies: fever(s) or diaphoresis ENMT: Denies: throat pain Card: Denies: chest pain Resp: Reports: dyspnea GI: Denies: abdominal pain, nausea or vomiting Neuro: Denies: headache(s) PFSH ED PFSH: Medical History Allergies Asthma-COPD overlap syndrome COVID-19 Surgical History H/O laparoscopy 08/27/2018- Diagnostic laparoscopy, fulguration of endometriotic lesions and lysis of adhesions per Dr. Yousif at [facility] H/O tubal ligation Hx of breast reduction, elective S/P cholecystectomy laparoscopic, 04/16/2018 S/P cryotherapy of skin lesion for cervical dysplasia S/P tonsillectomy Family History Father Anesthesia complication Heart disease Hyperlipidemia Hypertension Grandfather Diabetes maternal Grandmother Diabetes maternal Breast cancer maternal, diagnosed in her 40's Stroke paternal Thyroid condition maternal Daughter No problems noted. 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, last used opiates in 2010, Current occupational status: unemployed Current gender identity: Female Physical Exam Const: COMMON NORMALS: no acute distress GENERAL APPEARANCE: cooperative; not ill appearing and not frail appearing HENMT: COMMON NORMALS: normocephalic, atraumatic and Normal external nose present HEAD & SCALP: normocephalic and atraumatic FACE & SINUS: normal facial exam and face symmetric NOSE: Normal external nose present Eye: COMMON NORMALS: Equal, round and reactive pupils present and EOMs intact bilaterally PUPIL: Yes Equal, round and reactive pupils present Neck/C-Spine: GENERAL: Yes trachea midline Chest: CHEST: Yes Symmetrical chest wall rise Resp: COMMON NORMALS: normal respiratory effort, No retractions, No use of accessory muscles and clear to auscultation bilaterally AUSCULTATION: clear to auscultation bilaterally Cardio: COMMON NORMALS: regular rate and regular rhythm RATE: regular rate RHYTHM: regular rhythm GI: COMMON NORMALS: Normal to inspection, nondistended, normoactive bowel sounds present Extremity: COMMON NORMALS: no pedal edema Neuro: JOSESITO COMA SCALE: document GCS findings Josesito coma scale eye opening: Spontaneous Josesito coma scale verbal response: Orientated Josesito coma scale motor response: Obey commands [place] coma scale total score: 15 SENSORY EXAM: Yes extremities (intact) Psych: COMMON NORMALS: speech normal SPEECH: Yes normal speech Skin: COMMON NORMALS: no rashes or lesions noted GENERAL SKIN EXAM: no rashes or lesions noted Course Vital Signs: Vital signs: Vital Signs Temperature 98.0 F 06/02/22 16:26 Pulse Rate 76 06/02/22 20:36 Respiratory Rate 18 06/02/22 20:36 Blood Pressure 111/81 06/02/22 20:36 Pulse Oximetry 92 06/02/22 20:36 Oxygen Delivery Me thod 06/02/22 20:32 [facility] - Chest Pain Medical Decision Making 41-year-old female here with intermittent chest pain. Her vitals are good. Chest x-ray is normal. White blood cell count is 12. Troponin is 6. BNP is 36. She is not hypoxic and nontachycardic. She is wheezing on exam and a nebulizer treatment was ordered. Her chest is quite tender on exam. This is likely chest wall inflammation, possibly related to her asthma. She will be given short course of tramadol given her aspirin allergy and acetaminophen allergy. To return if worsening. Lab Data 06/02/22 18:35 06/02/22 18:35 Radiology Impressions Chest X-Ray 06/02/22 18:24 IMPRESSION: No acute findings. Laboratory Results WBC 12.2 10^3/uL (4.0-10.0) H 06/02/22 18:35 RBC 4.70 10^6/uL (4.1-5.3) 06/02/22 18:35 Hgb 13.8 g/dL (11.5-15.3) 06/02/22 18:35 Hct 42.1 % (37.0-47.0) 06/02/22 18:35 MCV 89.6 fl (81-99) 06/02/22 18:35 MCH 29.4 pg (28.0-34.0) 06/02/22 18:35 MCHC 32.8 g/dL (30.0-36.0) 06/02/22 18:35 RDW 12.4 % (12.1-15.1) 06/02/22 18:35 Plt Count 324 10^3/cmm (130-400) 06/02/22 18:35 MPV 10.2 fL (7.4-10.4) 06/02/22 18:35 Neut % (Auto) 68.3 % 06/02/22 18:35 Lymph % (Auto) 22.7 % 06/02/22 18:35 Brooks % (Auto) 7.6 % 06/02/22 18:35 Eos % (Auto) 0.7 % 06/02/22 18:35 Baso % (Auto) 0.5 % 06/02/22 18:35 Neut # (Auto) 8.33 10^3/uL (1.8-7.7) H 06/02/22 18:35 Lymph # (Auto) 2.8 10^3/uL (0.8-4.8) 06/02/22 18:35 Brooks # (Auto) 0.9 10^3/uL (0.2-0.9) 06/02/22 18:35 Eos # (Auto) 0.1 10^3/uL (0.0-0.8) 06/02/22 18:35 Baso # (Auto) 0.1 10^3/uL (0.0-0.1) 06/02/22 18:35 Nucleated RBC % (auto) 0 % 06/02/22 18:35 Nucleated RBCs # 0.0 /100WBC 06/02/22 18:35 Sodium 138 mmol/L (136-145) 06/02/22 18:35 Potassium 4.2 mmol/L (3.5-5.1) 06/02/22 18:35 Chloride 100 mmol/L (98-107) 06/02/22 18:35 Carbon Dioxide 27 mmol/L (22-29) 06/02/22 18:35 Anion Gap 15.2 (5-19) 06/02/22 18:35 BUN 13 mg/dL (6-20) 06/02/22 18:35 Creatinine 0.6 mg/dL (0.5-0.9) 06/02/22 18:35 GFR Calculation 109.6 mL/min (90-130) 06/02/22 18:35 Glucose 105 mg/dL (65-115) 06/02/22 18:35 Calculated Osmolality 286 mOsm/kg (285-295) 06/02/22 18:35 Calcium 9.5 mg/dL (8.5-10.5) 06/02/22 18:35 Total Bilirubin 0.2 mg/dL (0.15-1.2) 06/02/22 18:35 AST 11 U/L (0-32) 06/02/22 18:35 ALT 14 U/L (0-33) 06/02/22 18:35 Alkaline Phosphatase 82 U/L (35-105) 06/02/22 18:35 Troponin T Baseline 6 ng/L (0-10) 06/02/22 18:35 Troponin T 120 Minute 6.00 ng/L (0-10) 06/02/22 20:20 Delta Troponin T 0 ABS# (0-10) 06/02/22 20:20 NT-Pro-B Natriuret Pep 36 pg/mL (0-125) 06/02/22 18:35 Total Protein 6.6 g/dL (6.6-8.7) 06/02/22 18:35 Albumin 4.3 g/dL (3.5-5.2) 06/02/22 18:35 Globulin 2.3 g/dL (1.3-4.6) 06/02/22 18:35 Discharge Plan Discharge Patient Disposition: Home Clinical Impression: Atypical chest pain, Acute costochondritis Condition: Stable Prescriptions: New tramadol 50 mg tablet 50 mg PO Q8H PRN (Reason: pain) Qty: 10 0RF No Action multivitamin Tablet 1 tab PO DAILY ipratropium-albuterol 0.5 mg-3 mg(2.5 mg base)/3 mL solution for nebulization 3 ml inhalation Q4H PRN (Reason: wheezing) Qty: 90 3RF Spiriva with HandiHaler 18 mcg capsule, w/inhalation device 1 cap inhalation DAILY Qty: 30 3RF Rx Instructions: puncture 1 cap using device; one dose = 2 inhalations lidocaine-epinephrine 1 %-1:100,000 solution 1 ml SUBCUT ONCE Qty: 20 0RF pimecrolimus [Elidel] 1 % cream 1 applic topical BID Qty: 60 3RF Rx Instructions: to hands BID prn sucralfate [Carafate] 1 gram tablet 1 g PO TID PRN prednisone 20 mg tablet 20 mg PO DAILY budesonide [Pulmicort] 0.5 mg/2 mL suspension for nebulization 0.5 mg inhalation DAILY triamcinolone acetonide 0.1 % ointment 1 applic topical BID Qty: 80 2RF Rx Instructions: to hands and feet BID alt. with clobetasol as needed for flares no more than 2 wks/mo clobetasol 0.05 % ointment 1 applic topical BID 14 Days Qty: 60 2RF Rx Instructions: to affected areas on hands and feet no more than 2 wks/mo prn alternating with triamcinolone Dupixent Pen 300 mg/2 mL pen injector 600 mg SUBCUT ONCE Qty: 4 0RF Rx Instructions: Loading dose: inject 600mg SC divided in 2 sites x 1 Dupixent Pen 300 mg/2 mL pen injector 300 mg SUBCUT .q2 weeks Qty: 4 4RF Rx Instructions: For maintenance starting 2 weeks after loading dose Adbry 150 mg/mL syringe 300 mg SUBCUT Q14D Qty: 4 2RF Rx Instructions: 600mg divided in 4 sites on day 1. then 300mg divided in 2 sites every 2 weeks montelukast 10 mg Tablet 10 mg PO DAILY fexofenadine [Cornelia Allergy] 180 mg tablet 180 mg PO DAILY Qty: 20 0RF albuterol sulfate 90 mcg/actuation HFA aerosol inhaler 2 inh inhalation Q4H PRN (Reason: shortness of breath or wheezing) Qty: 8.5 0RF Rx Instructions: until breathing returns to target peak flow/parameters Discharge Orders: Discharge ED (Routine); Ordered 06/02/22 Ordered By: Brian Riddle Referrals: Zayda Keating DO [Primary Care Provider] - 1-3 days Patient Instructions: Chest Pain (ED), Chest Wall Pain (ED), Opioid Safety, Pain Management Activity Restrictions/Additional Instructions: Return for worsening pain despite treatment, worsening shortness of breath, fever, other concerning symptoms. Coding Level of Care Code ED Unix Consultant for Maxwell Baker
--- NOTE | 2022-06-02 18:48 | PC.NURSE ---
PT PLACED ON CONTINUOUS SPO2, NIBP, AND CM.
[2022-06-02] MEDS: morphine 4 mg/mL SDV 1 mL IVP (18:49)
[2022-06-02] MEDS: ondansetron 2 mg/ML SDV 2 mL 4 MG IVP (18:49)
--- NOTE | 2022-06-02 18:56 | PC.NURSE ---
REPORT GIVEN TO NARAYAN CLEMENTE ASSUMED CARE.
[2022-06-02 18:57] LABS: Basophils # 0.1 10^3/uL (0.0-0.1); Basophils % 0.5 %; Eosinophils # 0.1 10^3/uL (0.0-0.8); Eosinophils % 0.7 %; Hematocrit 42.1 % (37.0-47.0); Hemoglobin 13.8 g/dL (11.5-15.3); Lymphocytes # 2.8 10^3/uL (0.8-4.8); Lymphocytes % 22.7 %; Mean Corpuscular HGB Conc 32.8 g/dL (30.0-36.0); Mean Corpuscular Hemoglobin 29.4 pg (28.0-34.0); Mean Corpuscular Volume 89.6 fl (81-99); Mean Platelet Volume 10.2 fL (7.4-10.4); Monocytes # 0.9 10^3/uL (0.2-0.9); Monocytes % 7.6 %; Neutrophils # 8.33 10^3/uL (1.8-7.7); Neutrophils % 68.3 %; Nucleated Red Blood Cells % 0 %; Platelet Count 324 10^3/cmm (130-400); Red Cell Distribution Width 12.4 % (12.1-15.1); White Blood Count 12.2 10^3/uL (4.0-10.0)
[2022-06-02 19:26] LABS: Troponin(5th) Baseline 6 ng/L (0-10)
[2022-06-02 19:32] LABS: Alanine Aminotransferase 14 U/L (0-33); Albumin Level 4.3 g/dL (3.5-5.2); Alkaline Phosphatase 82 U/L (35-105); Anion Gap 15.2 (5-19); Aspartate Amino Transferase 11 U/L (0-32); Blood Urea Nitrogen 13 mg/dL (6-20); Calcium 9.5 mg/dL (8.5-10.5); Carbon Dioxide 27 mmol/L (22-29); Chloride 100 mmol/L (98-107); Creatinine Clr Calc Pharmacy 149.9847; Globulin 2.3 g/dL (1.3-4.6); Glomerular Filtration Rate 109.6 mL/min (90-130); Glucose 105 mg/dL (65-115); NT Pro B Type Natriuretic Pept 36 pg/mL (0-125); Osmolality Calculated 286 mOsm/kg (285-295); Potassium 4.2 mmol/L (3.5-5.1); Sodium 138 mmol/L (136-145); Total Bilirubin 0.2 mg/dL (0.15-1.2); Total Protein 6.6 g/dL (6.6-8.7)
[2022-06-02] MEDS: ipratropium-albuterol 3 mL Neb INHALATION (20:25)
--- NOTE | 2022-06-02 20:41 | ECG_ITS ---
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
[2022-06-02 20:52] LABS: Troponin 5 2HR Delta 0 ABS# (0-10)
== END 2022-06-02 21:07 | disposition home or self-care (01) ==
PROVIDERS: Emergency Provider Emergency Medicine; PCP Family Medicine
DX: M94.0 Chondrocostal junction syndrome [Tietze] (principal); I25.10 Atherosclerotic heart disease of native coronary artery without angina pectoris; J45.909 Unspecified asthma, uncomplicated
CPT/HCPCS: 36415; 71045; 80053; 83880; 84484; 85025; 93005; 94640; 96374; 96375; 99285; J2270; J2405

== ENCOUNTER 2022-06-13 21:05 | Emergency (ER) | payer MEDICAID, SELFPAY ==
[2022-06-13 21:09] VITALS: BP 117/81; PULSE 88; RESP 16; TEMP 37; O2SAT 98; BMI 36.8
--- NOTE | 2022-06-13 21:10 | XRR_ITS ---
PROCEDURE INFORMATION: Exam: XR Left Ankle Exam date and time: 06/13/2022 9:19 PM Age: 41 years old Clinical indication: Injury or trauma; Fall TECHNIQUE: Imaging protocol: Radiologic exam of the left ankle. Views: 3 or more views. COMPARISON: No relevant prior studies available. FINDINGS: Bones/joints: There is a well corticated calcific body distal to the tip of the lateral malleolus which could be small accessory ossicle or old ununited avulsion fragment. There is small plantar calcaneal spur. No acute fracture is identified. Soft tissues: There is mild soft tissue swelling in the region. XR/XR ankle LT min 3V* [id number] IMPRESSION: No acute fracture is identified.
--- NOTE | 2022-06-13 23:08 | ED_ITS ---
HPI - Extremity Problem General: Chief complaint: Extremity Injury, Lower Stated complaint: fall,left ankle injury, right buttock pain, Time Seen by Provider: 06/13/22 22:08 History of Present Illness: 41-year-old female comes in today for evaluation of injury sustained during a fall. Patient was walking out in the rehman for spouse when she twisted her left ankle causing her to fall and rolled down an embankment. Patient suffered some abrasions and bruises. Incident occurred ab out 2 hours prior to arrival to the ER. Patient appears nontoxic. Patient appears in moderate pain. Patient has a history of asthma. Associated symptoms: Deny chest pain or fever(s) Review of Systems Const: Denies: fever(s) Card: Denies: chest pain Resp: Denies: dyspnea Musc: Reports: extremity pain Skin/Breast: Reports: new lesions PFSH ED PFSH: Medical History Allergies Asthma-COPD overlap syndrome COVID-19 Surgical History H/O laparoscopy 08/27/2018- Diagnostic laparoscopy, fulguration of endometriotic lesions and lysis of adhesions per Dr. Yousif at [facility] H/O tubal ligation Hx of breast reduction, elective S/P cholecystectomy laparoscopic, 04/16/2018 S/P cryotherapy of skin lesion for cervical dysplasia S/P tonsillectomy Family History Father Anesthesia complication Heart disease Hyperlipidemia Hypertension Grandfather Diabetes maternal Grandmother Diabetes maternal Breast cancer maternal, diagnosed in her 40's Stroke paternal Thyroid condition maternal Daughter No problems noted. 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, last used opiates in 2010, Current occupational status: unemployed Current gender identity: Female Physical Exam Const: COMMON NORMALS: alert HENMT: COMMON NORMALS: normocephalic HEAD & SCALP: normocephalic Neck/C-Spine: COMMON NORMALS: full ROM Resp: COMMON NORMALS: normal respiratory effort and clear to auscultation bilaterally AUSCULTATION: clear to auscultation bilaterally Cardio: COMMON NORMALS: regular rate and regular rhythm RATE: regular rate RHYTHM: regular rhythm Back/Pelvis: COMMON NORMALS: thoracic and lumbar spine normal to inspection Extremity: RIGHT LOWER EXTREMITY: Yes hip joint (Hematoma to the right buttocks) Right hip: Yes ROM (Normal range of motion) LEFT LOWER EXTREMITY: Yes foot & digits (Guarded range of motion, lateral swelling and abrasion) Left foot and digits: Yes inspection, Yes palpation and Yes ROM Neuro: SENSORIUM/ORIENTATION: Yes alert Skin: TRAUMA: abrasion (Multiple abrasions to elbows, knees, ankle) Course Vital Signs: Vital signs: Vital Signs Temperature 98.6 F 06/13/22 21:09 Pulse Rate 88 06/13/22 21:09 Respiratory Rate 16 06/13/22 21:09 Blood Pressure 117/81 06/13/22 21:09 Pulse Oximetry 98 06/13/22 21:09 Oxygen Delivery Me thod 06/13/22 21:09 MDM - Extremity (Nontraumatic) Medical Decision Making Patient comes in for evaluation of a fall and roll down in the basement. On exam patient has a hematoma to her right buttocks. Patient also has an abrasion to her left lateral ankle swelling. Patient is guarded with weightbearing to the left ankle. Patient also has some various abrasions to her knees and elbows. No signs of obvious deformity is noted. Distal pulses and cap refill is intact. Differential diagnosis includes fracture, contusions, sprain, dislocation. X-ray of the ankle was negative for fracture. Reviewed exam with patient with recommendations for treatment of abrasions with bacitracin ointment. Recommend use of naproxen that she can tolerate for her pain and inflammation. Patient also requested something stronger which she is able to tolerate tramadol. Prescriptions were written and given to patient with recommendations for follow-up for persistent or worsening symptoms. Patient stated understanding. Lab Data Radiology Impressions Ankle X-Ray 06/13/22 21:10 IMPRESSION: No acute fracture is identified. Discharge Plan Discharge Patient Disposition: Home Clinical Impression: Abrasions of multiple sites Ankle sprain Qualifiers: Encounter type: initial encounter Involved ligament of ankle: unspecified ligament Laterality: left Qualified Code(s): S93.402A - Sprain of unspecified ligament of left ankle, initial encounter Traumatic hematoma of buttock Qualifiers: Encounter type: initial encounter Qualified Code(s): S30.0XXA - Contusion of lower back and pelvis, initial encounter Condition: Stable Prescriptions: New naproxen 500 mg tablet 500 mg PO BID PRN (Reason: pain) Qty: 20 0RF tramadol 50 mg tablet 50 mg PO Q6H PRN (Reason: pain (scale score 7-10)) Qty: 10 0RF bacitracin 500 unit/gram ointment 1 applic topical BID Qty: 28.4 2RF No Action multivitamin Tablet 1 tab PO DAILY ipratropium-albuterol 0.5 mg-3 mg(2.5 mg base)/3 mL solution for nebulization 3 ml inhalation Q4H PRN (Reason: wheezing) Qty: 90 3RF Spiriva with HandiHaler 18 mcg capsule, w/inhalation device 1 cap inhalation DAILY Qty: 30 3RF Rx Instructions: puncture 1 cap using device; one dose = 2 inhalations lidocaine-epinephrine 1 %-1:100,000 solution 1 ml SUBCUT ONCE Qty: 20 0RF methotrexate sodium 2.5 mg tablet 7.5 mg PO .once weekly Qty: 12 0RF Rx Instructions: Take 3 tabs PO once weekly folic acid 1 mg tablet 1 mg PO DAILY Qty: 30 2RF Rx Instructions: Take 1 tab by mouth daily on days not taking the methotrexate (6 days/week) pimecrolimus [Elidel] 1 % cream 1 applic topical BID Qty: 60 3RF Rx Instructions: to hands BID prn sucralfate [Carafate] 1 gram tablet 1 g PO TID PRN prednisone 20 mg tablet 20 mg PO DAILY budesonide [Pulmicort] 0.5 mg/2 mL suspension for nebulization 0.5 mg inhalation DAILY triamcinolone acetonide 0.1 % ointment 1 applic topical BID Qty: 80 2RF Rx Instructions: to hands and feet BID alt. with clobetasol as needed for flares no more than 2 wks/mo clobetasol 0.05 % ointment 1 applic topical BID 14 Days Qty: 60 2RF Rx Instructions: to affected areas on hands and feet no more than 2 wks/mo prn alternating with triamcinolone montelukast 10 mg Tablet 10 mg PO DAILY fexofenadine [Cornelia Allergy] 180 mg tablet 180 mg PO DAILY Qty: 20 0RF albuterol sulfate 90 mcg/actuation HFA aerosol inhaler 2 inh inhalation Q4H PRN (Reason: shortness of breath or wheezing) Qty: 8.5 0RF Rx Instructions: until breathing returns to target peak flow/parameters tramadol 50 mg tablet 50 mg PO Q8H PRN (Reason: pain) Qty: 10 0RF Discharge Orders: Discharge ED (Routine); Ordered 06/13/22 Ordered By: Chente Antonio Referrals: Rusty Lane MD [Primary Care Provider] - Discharge Diet: Usual diet Discharge Activity: Increase activity as tolerated Patient Instructions: Ankle Sprain (ED), Abrasion (ED) Activity Restrictions/Additional Instructions: Use ice and heat to the areas of pain for comfort. Use naproxen to help control pain routinely. Use tramadol for severe pain. Drink plenty of water with medication. Use elastic bandage to ankle and crutches until he can bear weight comfortably on the ankle. Use ice to the bruising. Use antibiotic ointment bacitracin to the abrasions until healed. Follow-up with primary care in 1 week for recheck. Return to ED for new concerns. Coding Level of Care Code ED Warp Tying Machine Tender for Maxwell Baker
[2022-06-13] MEDS: TRAMadol 50 mg Tablet PO (23:22)
[2022-06-13] MEDS: ketorolac 30 mg/mL INJ IM (23:22)
[2022-06-13 23:35] VITALS: BP 132/96; PULSE 116; RESP 18
== END 2022-06-13 23:36 | disposition home or self-care (01) ==
PROVIDERS: Emergency Provider Nurse Practitioner Family; PCP Family Medicine Adult Medicine
DX: S93.402A Sprain of unspecified ligament of left ankle, initial encounter (principal); S30.0XXA Contusion of lower back and pelvis, initial encounter; S90.512A Abrasion, left ankle, initial encounter; S80.212A Abrasion, left knee, initial encounter; S80.211A Abrasion, right knee, initial encounter; S50.312A Abrasion of left elbow, initial encounter; S50.311A Abrasion of right elbow, initial encounter; Z87.891 Personal history of nicotine dependence; W17.81XA Fall down embankment (hill), initial encounter
CPT/HCPCS: 73610; 96372; 99284; E0114; J1885

== ENCOUNTER → 2022-08-23 08:02 | Outpatient (BNVA) | payer MEDICAID, SELFPAY | PROVIDERS: PCP Family Medicine Adult Medicine; Visit Provider Psychiatry & Neurology Neurology | DX: R25.2 Cramp and spasm (principal); R41.3 Other amnesia | CPT/HCPCS: 36415; 82306; 82607; 82746; 83090; 83735; 83921; 84155; 84165; 84439; 84443; 84481; 86140; 86160; 86162; 86235; 86255; 86334; 86376; 86431; 86617; 86780 ==

== ENCOUNTER 2022-09-14 07:29 | Outpatient (CLI) | payer MEDICAID, SELFPAY ==
--- NOTE | 2022-09-14 07:45 | USCV_ITS ---
Liliam Fragoso Age: 41 Gender: F : 1980 Exam Date: 09/14/2022 07:52 Ordering Phys: Jason Levy MD Technologist: CT Exam Location: [facility]_ Indication: memory problems, dizziness Risk Factors: Previous Vascular Surgery: Right Brachial BP: / Left Brachial BP: / Right Left Velocity (cm/s) Spectral Plaque Velocity (cm/s) Spectral Plaque Syst/Diast Broadening Syst/Diast Broadening 126.00/27.10 Prox CCA 135.00/ 29.00 127.30/35.20 Mid CCA 126.90/ 31.40 108.30/29.80 Distal CCA 112.70/ 31.40 101.20/44.40 Prox ICA 115.00/ 39.60 102.20/37.40 Mid ICA 95.20 / 38.30 98.90/ 40.60 Distal ICA 105.70/ 37.00 120.50 ECA 112.70 0.80 ICA/CCA 0.85 Antegrade Vertebral Antegrade 42.90/ 12.70 cm/s 59.30/ 19.00 cm/s Tri Subclavian Tri 124.0 178.3 0 0 FINDINGS Comparison: none available. No significant elevation of systolic or diastolic velocities. Waveforms are normal. No significant amount of calcified plaque or intimal thickening identified. Antegrade vertebral arteries. CONCLUSIONS Normal carotid doppler ultrasound. Dr. Yesenia Huang DO (Electronically Signed) Final Date: 14 September 2022 08:24 S
--- NOTE | 2022-09-14 11:00 | MR_ITS ---
WS: [id number] MRI HEAD WITH CONTRAST TECHNIQUE: Sagittal T1, T2 axial, T2 axial FLAIR, axial susceptibility weighted imaging, axial diffus ion weighted images, and coronal T2 images were obtained. Pre and post-T1 axial and post T1 coronal i mages. ADC and FSPGR images. CLINICAL INFORMATION: R25.2 - Cramp and spasm COMPARISON: CT head September 28, 2021 FINDINGS: No evidence of restricted diffusion to suggest acute ischemia. Ventricular system and basal cisterns are patent. No hemosiderin on susceptibly weighted images. Mild patchy supratentorial periventricular and subcortical white matter changes nonspecific in a patient this age. Normal posterior fossa. Normal vascular flow voids at the skull base. No extra axial fluid collection s. No mass or mass effect. Paranasal sinuses are well aerated. Mastoid air cells are well aerated. No hemosiderin on susceptibly weighted images. Normal optic chiasm and pituitary infundibulum. Temporal lobes and hippocampal formations are normal in appearance. No abnormal gadolinium enhancement. Normal visualized dural venous sinuses. MR/MR head wo/w con [id number] IMPRESSION: 1. No evidence of restricted diffusion to suggest acute ischemia. 2. Mild patchy supratentorial white matter changes nonspecific in a patient th is age but can be seen with hypertension, diabetes, collagen vascular disease, and less likely demyelinating disease. Corpus callosum appears normal. 3. No abnormal gadolinium enhancement. 4. No significant parenchymal volume loss. 5. No hemosiderin on susceptibly weighted images.
[2022-09-14] MEDS: gadobenate dimeglumine 20 mL vial IV (11:29)
== END 2022-09-14 07:30 | disposition home or self-care (01) ==
PROVIDERS: PCP Family Medicine Adult Medicine; Visit Provider Psychiatry & Neurology Neurology
DX: R25.2 Cramp and spasm (principal); R41.3 Other amnesia; M79.609 Pain in unspecified limb; R20.2 Paresthesia of skin; R56.9 Unspecified convulsions; R90.82 White matter disease, unspecified
CPT/HCPCS: 36415; 70553; 82306; 82607; 82746; 83090; 83735; 83921; 84155; 84165; 84439; 84443; 84481; 86140; 86160; 86162; 86235; 86255; 86334; 86376; 86431; 86617; 86780; 93880; A9577

== ENCOUNTER 2022-10-09 10:54 | Outpatient (CLI) | payer MEDICAID, SELFPAY ==
--- NOTE | 2022-10-09 11:00 | MM_ITS ---
WS: [id number] BILATERAL SCREENING DIGITAL TOMOSYNTHESIS MAMMOGRAM WITH CAD HISTORY: SCREENING COMPARISON: 10/04/2021 and 01/09/2019 Bilateral CC and MLO views with tomosynthesis and synthetic mammography submitted. Computer aided det ection analyzed. Breast composition: There are scattered areas of fibroglandular density. No suspicious masses, microc alcifications or architectural distortion. MM/[place] [id number] IMPRESSION: BI-RADS: 1-Negative FOLLOW UP: 1 Year Follow-up
== END 2022-10-09 10:55 | disposition home or self-care (01) ==
LOC: RAD 10:55 → MOBLMAM 10:58
PROVIDERS: PCP Family Medicine Adult Medicine; Visit Provider Family Medicine Adult Medicine
DX: Z12.31 Encounter for screening mammogram for malignant neoplasm of breast (principal)
CPT/HCPCS: 77063; 77067

== ENCOUNTER → 2022-10-10 15:25 | Outpatient (BNVA) | payer MEDICAID, SELFPAY | PROVIDERS: PCP Family Medicine Adult Medicine; Visit Provider Obstetrics & Gynecology | DX: N93.9 Abnormal uterine and vaginal bleeding, unspecified (principal); D25.9 Leiomyoma of uterus, unspecified | CPT/HCPCS: 76830 ==

== ENCOUNTER 2022-10-17 16:52 | Emergency (ER) | payer MEDICAID, SELFPAY ==
[2022-10-17 16:57] VITALS: BP 156/92; PULSE 88; RESP 20; O2SAT 98
--- NOTE | 2022-10-17 17:48 | XRR_ITS ---
PROCEDURE INFORMATION: Exam: XR Chest Exam date and time: 10/17/2022 5:57 PM Age: 41 years old Clinical indication: Pain; Chest pressure; Additional info: Cp TECHNIQUE: Imaging protocol: Radiologic exam of the chest. Views: 1 view. COMPARISON: CR XR chest 1V portable [id number] 06/02/2022 6:32 PM FINDINGS: Lungs: Unremarkable. No consolidation. Pleural spaces: Unremarkable. No pleural effusion. No pneumothorax. Heart/Mediastinum: Unremarkable. No cardiomegaly. Bones/joints: Unremarkable. XR/XR chest 1V portable [id number] IMPRESSION: No acute findings.
--- NOTE | 2022-10-17 17:48 | ECG_ITS ---
[facility] Test Date: 2022-10-17 Pat Name: Liliam Fragoso Department: Room: Gender: Female Creative Writer: : 1980 Requested By: Jenny Gary Order Number: [id number] Noé MD: Jadyn Donis M.D. Measurements Intervals [place] Rate: 78 P: 61 WA: 135 QRS: 71 QRSD: 89 T: 70 QT: 357 QTc: 408 Interpretive Statements SINUS RHYTHM WITH SINUS ARRHYTHMIA Compared to ECG 06/02/2022 20:41:00 No significant changes Electronically Signed On 10-17-2022 23:27:07 CDT by Jadyn Donis M.D. [id number]
[2022-10-17 18:38] LABS: Basophils # 0.1 10^3/uL (0.0-0.1); Basophils % 0.7 %; Eosinophils % 0.4 %; Hematocrit 40.3 % (37.0-47.0); Hemoglobin 13.6 g/dL (11.5-15.3); Lymphocytes # 2.2 10^3/uL (0.8-4.8); Mean Corpuscular HGB Conc 33.7 g/dL (30.0-36.0); Mean Corpuscular Hemoglobin 29.4 pg (28.0-34.0); Mean Corpuscular Volume 87.2 fl (81-99); Mean Platelet Volume 9.8 fL (7.4-10.4); Monocytes # 0.7 10^3/uL (0.2-0.9); Monocytes % 7.2 %; Neutrophils % 69.5 %; Nucleated Red Blood Cells % 0 %; Platelet Count 365 10^3/cmm (130-400); Red Blood Count 4.62 10^6/uL (4.1-5.3); White Blood Count 10.1 10^3/uL (4.0-10.0)
[2022-10-17 18:50] LABS: INR 0.98 (0.8-1.2)
[2022-10-17 18:59] LABS: Alanine Aminotransferase 10 U/L (0-33); Albumin Level 4.1 g/dL (3.5-5.2); Alkaline Phosphatase 88 U/L (35-105); Anion Gap 14.1 (5-19); Aspartate Amino Transferase 10 U/L (0-32); Blood Urea Nitrogen 10 mg/dL (6-20); Calcium 9.3 mg/dL (8.5-10.5); Carbon Dioxide 25 mmol/L (22-29); Chloride 105 mmol/L (98-107); Globulin 2.1 g/dL (1.3-4.6); Glomerular Filtration Rate 109.6 mL/min (90-130); Glucose 93 mg/dL (65-115); Osmolality Calculated 289 mOsm/kg (285-295); Potassium 4.1 mmol/L (3.5-5.1); Sodium 140 mmol/L (136-145); Total Bilirubin 0.2 mg/dL (0.15-1.2); Total Protein 6.2 g/dL (6.6-8.7)
[2022-10-17 19:02] LABS: Troponin(5th) Baseline 6 ng/L (0-10)
--- NOTE | 2022-10-17 21:11 | ED_ITS ---
HPI - Chest Pain General: Chief Complaint: Chest Pain Stated Complaint: chest pain Time Seen by Provider: 10/17/22 21:02 History of Present Illness: Patient is a 41-year-old female comes to the ED with chest pain. Patient has a history of anxiety and is bipolar. She has been under a lot of emotional stress this past week. She states that today she was having a tough conversation while sitting with her at around 2:30 PM today and she started developing chest pain. She describes the chest pain as a ripping/tearing pain in the middle of her chest. Here in the ED she rates the pain currently a 2 out of 10. She says the chest pain was not like any of her past anxiety attacks. She thinks that the chest pain is likely due to a lot of emotional stress but wanted to get checked out just to make sure it is not cardiac related. Denies any other symptoms. Associated symptoms: Deny abdominal pain, dyspnea, fever(s), nausea, palpi tations or vomiting Review of Systems Const: Denies: fever(s), chills or fatigue Eyes: Denies: change in vision or eye discomfort ENMT: Denies: throat pain, odynophagia, nasal discharge or nasal congestion Card: Reports: chest pain; Denies: palpitations, edema, swelling of feet/ankles, dyspnea on exertion or orthopnea Resp: Denies: dyspnea, productive cough or non-productive cough GI: Denies: abdominal pain, nausea, vomiting, diarrhea, constipation or hematochezia : Denies: flank pain, dysuria or hematuria Musc: Denies: neck pain, back pain or extremity swelling Skin/Breast: Denies: rash or new lesions Neuro: Denies: headache(s), numbness in extremities or weakness in extremities PFSH ED PFSH: Medical History Allergies Anxiety and depression Asthma-COPD overlap syndrome Atopic dermatitis in adult Bipolar 2 disorder COVID-19 Endometriosis determined by laparoscopy Mixed urge and stress incontinence Smoker Quit cigarettes in 2018 Surgical History H/O laparoscopy 08/27/2018- Diagnostic laparoscopy, fulguration of endometriotic lesions and lysis of adhesions per Dr. Yousif at [facility] H/O tubal ligation Hx of breast reduction, elective S/P cholecystectomy laparoscopic, 04/16/2018 S/P cryotherapy of skin lesion for cervical dysplasia S/P tonsillectomy Family History Father Anesthesia complication Heart disease Hyperlipidemia Hypertension Grandfather Diabetes maternal Grandmother Diabetes maternal Breast cancer maternal, diagnosed in her 40's Stroke paternal Thyroid condition maternal Daughter No problems noted. Family/Other Diabetes maternal uncle Ovarian cancer maternal aunt Bleeding disorder paternal Uterine cancer maternal great great aunt Mother Stroke Denies family history of Clotting disorder Social History Smoking and tobacco status: former smoker Quit status (tobacco): has quit using tobacco Second hand smoke exposure: No Smoking risk assessment/counseling performed?: No Alcohol intake: current Alcohol intake frequency: holidays/special occasions only Alcohol type: wine Desire information about alcohol rehabilitation?: No Counseling given: No Substance/Drug Use: current Substance/Drug use frequency: daily Desire information about substance/drug rehabilitation?: No Counseling given: No Other details last substance use: 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 opiates, last used opiates in 2010, Current occupational status: unemployed Do you think of yourself as: Straight/Heterosexual Current gender identity: Female Physical Exam Const: COMMON NORMALS: no acute distress, patient oriented x3 and alert OTHER: Patient got a little tearful when talking about some of her current family/relationship issues. HENMT: COMMON NORMALS: normocephalic HEAD & SCALP: normocephalic MOUTH: Normal oral and palatal mucosa present THROAT: posterior oropharynx normal and uvula midline Neck/C-Spine: COMMON NORMALS: supple GENERAL: Yes normal visual inspection Resp: COMMON NORMALS: normal respiratory effort, No retractions, No use of accessory muscles and clear to auscultation bilaterally AUSCULTATION: clear to auscultation bilaterally Cardio: COMMON NORMALS: regular rate, regular rhythm, S1 normal heart sound present, S2 normal heart sound present, No gallops present (Cardio), No clicks present (Cardio), No murmurs present (Cardio) and Peripheral pulses 2+ throughout RATE: regular rate RHYTHM: regular rhythm HEART SOUNDS: S1 normal heart sound present and S2 normal heart sound present PERIPHERAL PULSES: Peripheral pulses 2+ throughout GI: COMMON NORMALS: Normal to inspection, nondistended, normoactive bowel sounds present, Soft to palpation, non-tender and no masses PALPATION: Yes Soft to palpation : COMMON NORMALS: Yes no CVA tenderness BLADDER/KIDNEY EXAM: Yes no CVA tenderness Back/Pelvis: COMMON NORMALS: no CVA tenderness Extremity: COMMON NORMALS: normal to inspection Neuro: COMMON NORMALS: patient oriented x3 SENSORIUM/ORIENTATION: Yes alert GAIT: Yes Normal gait present Skin: GENERAL SKIN EXAM: dry skin Course Vital Signs: Vital signs: Vital Signs Pulse Rate 74 10/17/22 22:30 Respiratory Rate 24 H 10/17/22 22:30 Blood Pressure 123/87 10/17/22 22:30 Pulse Oximetry 100 10/17/22 22:30 Oxygen Delivery Me thod Room Air 10/17/22 22:02 MDM - Chest Pain Medical Decision Making Patient is a 41-year-old female comes to the ED with chest pain. Patient has a history of anxiety and is bipolar. She has been under a lot of emotional stress this past week. She states that today she was having a tough conversation while sitting with her at around 2:30 PM today and she started developing chest pain. She describes the chest pain as a ripping/tearing pain in the middle of her chest. Here in the ED she rates the pain currently a 2 out of 10. She says the chest pain was not like any of her past anxiety attacks. She thinks that the chest pain is likely due to a lot of emotional stress but wanted to get checked out just to make sure it is not cardiac related. Denies any other symptoms. Vital stable. Exam of patient is benign she appears nontoxic and in no acute distress or pain. She does get a little tearful when talking about some of her family issues. Rest of exam is benign. Labs are all unr emarkable. Troponin negative. Chest x-ray shows no acute findings. EKG shows sinus rhythm with no ST segment elevation or depression seen. I placed order with case management for patient be referred to high school social studies tutor for follow-up. She was diagnosed with atypical chest pain and was stable for discharge home. Strict return ED precautions given. Patient understood and agreed with plan. Dr. Gary reviewed case and agreed with plan. Lab Data I reviewed the patient's lab results. 10/17/22 18:19 10/17/22 18:19 Radiology Impressions Chest X-Ray 10/17/22 17:48 IMPRESSION: No acute findings. Laboratory Results WBC 10.1 10^3/uL (4.0-10.0) H 10/17/22 18:19 RBC 4.62 10^6/uL (4.1-5.3) 10/17/22 18:19 Hgb 13.6 g/dL (11.5-15.3) 10/17/22 18:19 Hct 40.3 % (37.0-47.0) 10/17/22 18:19 MCV 87.2 fl (81-99) 10/17/22 18:19 MCH 29.4 pg (28.0-34.0) 10/17/22 18:19 MCHC 33.7 g/dL (30.0-36.0) 10/17/22 18:19 RDW 12.0 % (12.1-15.1) L 10/17/22 18:19 Plt Count 365 10^3/cmm (130-400) 10/17/22 18:19 MPV 9.8 fL (7.4-10.4) 10/17/22 18:19 Neut % (Auto) 69.5 % 10/17/22 18:19 Lymph % (Auto) 22.0 % 10/17/22 18:19 [place] % (Auto) 7.2 % 10/17/22 18:19 Eos % (Auto) 0.4 % 10/17/22 18:19 Baso % (Auto) 0.7 % 10/17/22 18:19 Neut # (Auto) 7.00 10^3/uL (1.8-7.7) 10/17/22 18:19 Lymph # (Auto) 2.2 10^3/uL (0.8-4.8) 10/17/22 18:19 [place] # (Auto) 0.7 10^3/uL (0.2-0.9) 10/17/22 18:19 Eos # (Auto) 0.0 10^3/uL (0.0-0.8) 10/17/22 18:19 Baso # (Auto) 0.1 10^3/uL (0.0-0.1) 10/17/22 18:19 Nucleated RBC % (auto) 0 % 10/17/22 18:19 Nucleated RBCs # 0.0 /100WBC 10/17/22 18:19 PT 13.30 SECONDS (12.1-14.9) 10/17/22 18:19 INR 0.98 (0.8-1.2) 10/17/22 18:19 Sodium 140 mmol/L (136-145) 10/17/22 18:19 Potassium 4.1 mmol/L (3.5-5.1) 10/17/22 18:19 Chloride 105 mmol/L (98-107) 10/17/22 18:19 Carbon Dioxide 25 mmol/L (22-29) 10/17/22 18:19 Anion Gap 14.1 (5-19) 10/17/22 18:19 BUN 10 mg/dL (6-20) 10/17/22 18:19 Creatinine 0.6 mg/dL (0.5-0.9) 10/17/22 18:19 GFR Calculation 109.6 mL/min (90-130) 10/17/22 18:19 Glucose 93 mg/dL (65-115) 10/17/22 18:19 Calculated Osmolality 289 mOsm/kg (285-295) 10/17/22 18:19 Calcium 9.3 mg/dL (8.5-10.5) 10/17/22 18:19 Total Bilirubin 0.2 mg/dL (0.15-1.2) 10/17/22 18:19 AST 10 U/L (0-32) 10/17/22 18:19 ALT 10 U/L (0-33) 10/17/22 18:19 Alkaline Phosphatase 88 U/L (35-105) 10/17/22 18:19 Troponin T Baseline 6 ng/L (0-10) 10/17/22 18:19 Troponin T 120 Minute 6.00 ng/L (0-10) 10/17/22 21:22 Delta Troponin T 0 ABS# (0-10) 10/17/22 21:22 Total Protein 6.2 g/dL (6.6-8.7) L 10/17/22 18:19 Albumin 4.1 g/dL (3.5-5.2) 10/17/22 18:19 Globulin 2.1 g/dL (1.3-4.6) 10/17/22 18:19 EKG Data EKG 1: EKG interpretation date: 10/17/22 Interpretation: Sinus rhythm, no ST segment elevation or depression seen, 78 bpm Discharge Plan Discharge Patient Disposition: Home Clinical Impression: Atypical chest pain Condition: Stable Prescriptions: No Action ipratropium-albuterol 0.5 mg-3 mg(2.5 mg base)/3 mL solution for nebulization 3 ml inhalation Q4H PRN (Reason: wheezing) Qty: 90 3RF pantoprazole [Protonix] 20 mg tablet,delayed release (DR/EC) 20 mg PO DAILY epinephrine 0.3 mg/0.3 mL auto-injector 0.3 mg IM Q4H PRN lidocaine-epinephrine 1 %-1:100,000 solution 1 ml SUBCUT ONCE Qty: 20 0RF sucralfate [Carafate] 1 gram tablet 1 g PO TID PRN budesonide [Pulmicort] 0.5 mg/2 mL suspension for nebulization 0.5 mg inhalation DAILY Spiriva Respimat 2.5 mcg/actuation mist 2 puff inhalation DAILY triamcinolone acetonide 0.1 % ointment 1 applic topical BID Qty: 80 2RF Rx Instructions: to hands and feet BID alt. with clobetasol as needed for flares no more than 2 wks/mo clobetasol 0.05 % ointment 1 applic topical BID 14 Days Qty: 60 2RF Rx Instructions: to affected areas on hands and feet no more than 2 wks/mo prn alternating with triamcinolone Adbry 150 mg/mL syringe 300 mg SUBCUT Q14D Qty: 4 2RF Rx Instructions: 600mg divided in 4 sites on day 1. then 300mg divided in 2 sites every 2 weeks albuterol sulfate 90 mcg/actuation HFA aerosol inhaler 2 inh inhalation Q4H PRN (Reason: shortness of breath or wheezing) Qty: 8.5 0RF Rx Instructions: until breathing returns to target peak flow/parameters montelukast 10 mg Tablet 10 mg PO DAILY fexofenadine [Cornelia Allergy] 180 mg tablet 180 mg PO DAILY Qty: 20 0RF naproxen 500 mg tablet 500 mg PO BID PRN (Reason: pain) Qty: 20 0RF Discharge Orders: Discharge ED (Routine); Ordered 10/17/22 Ordered By: Jose Duarte Referrals: Rusty Lane MD [Primary Care Provider] - Discharge Diet: Regular Discharge Activity: Increase activity as tolerated Patient Instructions: Chest Pain (ED) Activity Restrictions/Additional Instructions: Follow-up with medical provider as directed. Case management should be contacted in the next several days to set up an appointment with high school social studies tutor for follow-up. Continue taking all home medications as previously prescribed. Return to the ER or your medical provider if condition worsens. Please read and understand discharge instructions. Thank you for choosing [facility] for your healthcare needs today. Please realize this is an emergency room and that we are providing you with a medical screening exam and this may not be complete and all inclusive of all the testing and or work up that you may need to determine your ailment or severity of your illness. It is very important that you follow up as instructed or that you return to the Emergency Department should you have concerns or if your c ondition changes or worsens in any way. Coding Level of Care Code ED Tab Cutting Machine Operator for Maxwell Baker
[2022-10-17 22:02] VITALS: BP 131/76; PULSE 82; RESP 21; O2SAT 98
[2022-10-17 22:12] LABS: Troponin 5 2HR Delta 0 ABS# (0-10)
[2022-10-17 22:30] VITALS: BP 123/87; PULSE 74; RESP 24; O2SAT 100
--- NOTE | 2022-10-17 23:48 | ECG_ITS ---
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 Measurements Intervals [place] Rate: 59 P: 59 WA: 143 QRS: 79 QRSD: 87 T: 67 QT: 392 QTc: 390 Interpretive Statements SINUS BRADYCARDIA WITH SINUS ARRHYTHMIA Compared to ECG 10/17/2022 17:06:07 Sinus rhythm no longer present Electronically Signed On 10-17-2022 23:38:28 CDT by Jadyn Donis M.D. [id number]
--- NOTE | 2022-10-18 12:20 | DCPLANNER ---
Addendum entered by Hina Galan 11/16/22 10:40: This appointment has been rescheduled Addendum entered by Hina Galan 10/23/22 07:46: Patient has a follow up appointment scheduled for October at 11:[address] Donis at [facility]. Original Note: manager studio had message to schedule a follow up appointment for patient with cardiology. manager studio sent patients information to the front office staff at [facility]. Patients information will be printed and reviewed. Clinic will call patient with appointment information.
== END 2022-10-17 22:35 | disposition home or self-care (01) ==
PROVIDERS: Emergency Medicine; Emergency Provider Physician Assistant; PCP Family Medicine Adult Medicine
DX: R07.89 Other chest pain (principal); F41.9 Anxiety disorder, unspecified; J44.9 Chronic obstructive pulmonary disease, unspecified; Z79.899 Other long term (current) drug therapy; Z86.16 Personal history of COVID-19; Z87.891 Personal history of nicotine dependence
CPT/HCPCS: 36415; 71045; 80053; 84484; 85025; 85610; 93005; 99285

== ENCOUNTER 2022-11-08 06:56 | Outpatient (CLI) | payer MEDICAID, SELFPAY ==
--- NOTE | 2022-11-08 07:15 | MR_ITS ---
WS: [id number] MRA ANGIOGRAPHY [place] RESERVATION OF GOMEZ HISTORY: R53.1 - Weakness COMPARISON: 09/14/2022 TECHNIQUE: 3-D MR angiography is performed of the false pass of Gomez. All images are reviewed including source images. Distal vertebral and basilar arteries are intact with no significant stenosis or plaque. Posterior ce rebral arteries are normal course and caliber. Posterior communicating arteries are both patent. Pers istent circulation on the LEFT. Intracranial portion of the internal carotid arteries are normal course and caliber. No significant a therosclerosis, stenosis or aneurysm identified. Middle and anterior cerebral arteries are both paten t with no significant disease. Anterior communicating artery is also normal. IMPRESSION: Normal MRA false pass of Gomez.
== END 2022-11-08 06:57 | disposition home or self-care (01) ==
LOC: RAD 06:57
PROVIDERS: PCP Family Medicine Adult Medicine; Visit Provider Psychiatry & Neurology Neurology
DX: R53.1 Weakness (principal); R29.6 Repeated falls; R56.9 Unspecified convulsions
CPT/HCPCS: 70544

== ENCOUNTER 2022-12-06 06:43 | Outpatient (CLI) | payer MEDICAID, SELFPAY ==
--- NOTE | 2022-12-06 07:00 | USCV_ITS ---
Liliam Fragoso Age: 42 Gender: F : 1980 Exam Date: 12/06/2022 07:13 Ordering Phys: Jadyn Donis MD ([email or web address]) Technologist: TRENT [place] [facility] [place]ication: CHEST PAIN BP: 112 / 70 HR: 68 Rhythm: Sinus Technical Quality: Suboptimal MEASUREMENTS (Male / Female) Normal Values 2D ECHO LVOT Diameter 2.0 cm LV Ejection Fraction MOD 2C 59.2 % LV Ejection Fraction 2C AL 60.4 % LA Diameter 2.6 cm LA Width 2.3 cm LA Height 3.9 cm RA Width 3.1 cm RA Height 3.7 cm Aorta at Sinotubular Diameter 2.2 cm IVC Diameter 1.2 cm M-MODE Aortic Annulus Diameter 2.8 cm LA Ao Ratio MM 1.0 MV E Point Septal Separation 0.5 cm DOPPLER AV Peak Velocity 115.0 cm/s LVOT Peak Velocity 102.0 cm/s AV Area Cont Eq vti 3.1 cm squared AV Area Cont Eq pk 2.8 cm squared MV Peak Velocity 82.0 cm/s MV Area PHT 3.2 cm squared Mitral E to A Ratio 1.4 MV E' Velocity 42.5 cm/s Mitral E to MV E' Ratio 4.4 Mitral E to LV E' Lateral Ratio 3.7 Mitral E to LV E' Septal Ratio 5.5 TR Peak Velocity 196.8 cm/s TR Peak Gradient 15.5 mmHg TR Mean Velocity 149.1 cm/s TR Mean Gradient 9.6 mmHg TR Velocity Time Integral 49.1 cm TV Peak E Velocity 60.0 cm/s Right Atrial Pressure 3.0 mmHg Pulmonary Artery Systolic Pressu 18.5 mmHg FINDINGS Left Ventricle Normal left ventricular size and systolic function, EF 57 %. No regional wall motion abnormalities. Right Ventricle The right ventricle is normal in size and function. Right Atrium The right atrium is normal in size. Left Atrium The left atrium is normal in size. Mitral Valve No gross abnormalities noted Aortic Valve No gross abnormalities noted Tricuspid Valve No gross abnormalities noted Pulmonic Valve Structurally normal pulmonic valve without significant stenosis. There is no pulmonic regurgitation. Pericardium No pericardial effusion. Aorta Normal ascending aorta dimension. IVC The inferior vena cava appears normal. CONCLUSIONS Normal left ventricular size and systolic function, EF 57 %. No regional wall motion abnormalities. Normal cardiac chamber sizes. No gross valvular abnormalities noted. Technically difficult study because of the poor ultrasonic window. Possibly small to moderate pericardial effusion Dr Jadyn Donis MD FACC (Electronically Signed) Final Date: 07 December 2022 15:58 S
== END 2022-12-06 06:44 | disposition home or self-care (01) ==
PROVIDERS: PCP Family Medicine Adult Medicine; Visit Provider Internal Medicine Cardiovascular Disease
DX: R06.09 Other forms of dyspnea (principal); R07.9 Chest pain, unspecified
CPT/HCPCS: 93306

== ENCOUNTER 2023-03-18 19:12 | Emergency (ER) | payer MEDICAID, SELFPAY ==
[2023-03-18 19:24] VITALS: BP 155/108; PULSE 101; RESP 16; TEMP 36.6; O2SAT 98; BMI 38.0
[2023-03-18 19:47] VITALS: PULSE 100; RESP 18; O2SAT 97
--- NOTE | 2023-03-18 19:52 | CTR_ITS ---
PROCEDURE INFORMATION: Exam: CT Cervical Spine Without Contrast Exam date and time: 03/18/2023 8:12 PM Age: 42 years old Clinical indication: Injury or trauma; Fall; Concussion/head injury; Additional info: Fall, pain TECHNIQUE: Imaging protocol: Computed tomography of the cervical spine without contrast. Axial, coronal and sagittal reformatted images were created and reviewed. Radiation optimization: All CT scans at this facility use at least one of these dose optimization techniques: automated exposure control; mA and/or kV adjustment per patient size (includes targeted exams where dose is matched to clinical indication); or iterative reconstruction. REPORTING DATA: Count of CT and Cardiac NM exams in prior 12 months: This patient has received 0 known CTs and 0 known cardiac nuclear medicine studies in the 12 months prior to the current study. COMPARISON: CR XR cervical spine 4-5V [id number] 09/19/2021 10:52 AM RADIATION DOSE METRICS: Total DLP (mGy-cm): 615.17 FINDINGS: Bones/joints: Straightening of the normal cervical lordosis. No CT evidence of acute fracture, dislocation or subluxation. Alignment anatomic. Minimal levoscoliosis. Vertebral body heights maintained. Mild multilevel degenerative changes, characterized by disc space narrowing, osteophytosis and uncovertebral and facet joint hypertrophy. Mild multilevel spinal canal and neural foraminal narrowing, predominantly at C5-C6 and C6-C7 on the left. Lungs: Grossly unremarkable. Soft tissues: Grossly unremarkable. CT/CT cervical spin wo con* [id number] IMPRESSION: 1. No CT evidence of acute cervical spine traumatic injury. 2. Additional findings, as above.
--- NOTE | 2023-03-18 19:52 | CTR_ITS ---
PROCEDURE INFORMATION: Exam: CT Chest With Contrast; Diagnostic Exam date and time: 03/18/2023 8:15 PM Age: 42 years old Clinical indication: Injury or trauma; Fall; Abdominal wall; Blunt trauma (contusions or hematomas); Additional info: Fall, pain TECHNIQUE: Imaging protocol: Diagnostic computed tomography of the chest with contrast. Axial, coronal and sagittal reformatted images were created and reviewed. Radiation optimization: All CT scans at this facility use at least one of these dose optimization techniques: automated exposure control; mA and/or kV adjustment per patient size (includes targeted exams where dose is matched to clinical indication); or iterative reconstruction. Contrast material: OMNI 350; Contrast volume: 100 ml; Contrast route: INTRAVENOUS (IV); REPORTING DATA: Count of CT and Cardiac NM exams in prior 12 months: This patient has received 0 known CTs and 0 known cardiac nuclear medicine studies in the 12 months prior to the current study. COMPARISON: CR XR chest 1V portable [id number] 10/17/2022 5:57 PM RADIATION DOSE METRICS: Total DLP (mGy-cm): 1526.49 FINDINGS: Lungs: Unremarkable. No consolidation. No mass. Pleural spaces: Unremarkable. No pneumothorax. No pleural effusion. Heart: No cardiomegaly. Trace pericardial effusion. Lymph nodes: No pathologically enlarged lymph nodes. Vasculature: Unremarkable. No aortic aneurysm. Diaphragm: Elevated left hemidiaphragm. Bones/joints: No acute osseous abnormality. Mild degenerative changes. Soft tissues: Unremarkable. PROCEDURE INFORMATION: Exam: CT Abdomen And Pelvis With Contrast Exam date and time: 03/18/2023 8:15 PM Age: 42 years old Clinical indication: Injury or trauma; Fall; Abdominal wall; Blunt trauma (contusions or hematomas); Additional info: Fall, pain TECHNIQUE: Imaging protocol: Computed tomography of the abdomen and pelvis with contrast. Axial, coronal and sagittal reformatted images were created and reviewed. Radiation optimization: All CT scans at this facility use at least one of these dose optimization techniques: automated exposure control; mA and/or kV adjustment per patient size (includes targeted exams where dose is matched to clinical indication); or iterative reconstruction. Contrast material: OMNI 350; Contrast volume: 100 ml; Contrast route: INTRAVENOUS (IV); REPORTING DATA: Count of CT and Cardiac NM exams in prior 12 months: This patient has received 0 known CTs and 0 known cardiac nuclear medicine studies in the 12 months prior to the current study. COMPARISON: CT abdomen pelvis w con* [id number] 11/13/2020 12:57 AM RADIATION DOSE METRICS: Total DLP (mGy-cm): 1526.49 FINDINGS: Liver: Unremarkable. Gallbladder and bile ducts: Status post cholecystectomy. No biliary ductal dilatation. Pancreas: Unremarkable. Spleen: Unremarkable. Adrenal glands: Normal. No mass. Kidneys and ureters: Subcentimeter low-density renal lesions, measuring up to 7 mm, too small to characterize. Nonobstructing right renal calculus. No hydronephrosis. Stomach and bowel: No bowel wall thickening. No obstruction. No pneumatosis. Appendix: Normal. Intraperitoneal space: No free fluid. No organized fluid collection. No free air. Vasculature: Unremarkable. No aneurysm. Lymph nodes: No pathologically enlarged lymph nodes. Urinary bladder: Unremarkable as visualized. Reproductive: Unremarkable. Bones/joints: No acute osseous abnormality. Mild degenerative changes. Soft tissues: Diastasis of the rectus abdominis musculature with a small associated fat containing umbilical hernia. CT/CT chest abdpel w/*[id number] IMPRESSION: 1. No CT evidence of acute intrathoracic traumatic injury. 2. Additional findings, as above. IMPRESSION: 1. No CT evidence of acute intra-abdominal or pelvic traumatic injury. 2. Additional findings, as above. COMMENTS: Consistent with the [employer]'s Incidental Findings Committee white paper (J Am Casey Radiol 2018): Any incidental renal lesion less than 1 cm or classified as too small to characterize, or any incidental cystic renal lesion characterized as simple-appearing, is likely benign. No follow-up imaging is recommended for these lesions per consensus recommendations based on imaging criteria.
--- NOTE | 2023-03-18 19:52 | CTR_ITS ---
PROCEDURE INFORMATION: Exam: CT Head Without Contrast Exam date and time: 03/18/2023 8:09 PM Age: 42 years old Clinical indication: Injury or trauma; Fall; Concussion/head injury; Consciousness not specified; Additional info: Fall, pain TECHNIQUE: Imaging protocol: Computed tomography of the head without contrast. Axial, coronal and sagittal reformatted images were created and reviewed. Radiation optimization: All CT scans at this facility use at least one of these dose optimization techniques: automated exposure control; mA and/or kV adjustment per patient size (includes targeted exams where dose is matched to clinical indication); or iterative reconstruction. REPORTING DATA: Count of CT and Cardiac NM exams in prior 12 months: This patient has received 0 known CTs and 0 known cardiac nuclear medicine studies in the 12 months prior to the current study. COMPARISON: MR angio head wo con [id number] 11/08/2022 7:06 AM RADIATION DOSE METRICS: Total DLP (mGy-cm): 947.18 FINDINGS: Brain: No CT evidence of acute intracranial hemorrhage or acute territorial infarction. No significant mass effect or midline shift. Basal cisterns patent. Cerebral ventricles: Normal in size and configuration. Paranasal sinuses: Unremarkable. No fluid levels. Mastoid air cells: Grossly unremarkable. Bones/joints: No acute osseous abnormality. Soft tissues: Grossly unremarkable. CT/CT head wo con* [id number] IMPRESSION: No CT evidence of acute intracranial pathology.
[2023-03-18] MEDS: iohexol 350 mg/mL 500 mL Btl (per mL) IV (20:19)
[2023-03-18 20:25] VITALS: BP 150/74
--- NOTE | 2023-03-18 20:43 | ED_ITS ---
HPI - Fall General: Chief Complaint: Fall Stated Complaint: fall head back legs Time Seen by Provider: 03/18/23 19:26 History of Present Illness: Patient is a 42-year-old female that presents to the emergency department with complaints of head neck rib and hip pain. Onset of symptoms this evening after a fall from standing. Patient states she was getting out of the bathtub and does not recall events clearly. She states her memory is like a skipping DVD . She denies anticoagulant use. Patient reports pain in his head, neck, ribs, bilateral shoulders, right hip. She was ambulatory here Associated symptoms-after fall: Reports neck pain; Denies abdominal pain, chest pain, confusion, difficulty walking, headache(s) or hematuria Review of Systems General: Reports: 10 or more systems reviewed and unremarkable except in HPI and below Const: Denies: fever(s), chills, change in appetite, change in weight, fatigue or malaise Eyes: Denies: change in vision, eye discomfort, eye discharge or eye redness ENMT: Denies: throat pain, enlarged tonsils, odynophagia, hoarseness, ear or mastoid pain, ear discharge, change in hearing, tinnitus, nasal discharge, nasal congestion, post nasal drip or sinus pain Card: Denies: chest pain, palpitations, irregular heart rhythm, edema, dyspnea on exertion, orthopnea or leg pain with exertion Resp: Denies: dyspnea, productive cough, non-productive cough, wheezing, stridor or chest congestion GI: Denies: abdominal pain, nausea, vomiting, dysphagia, diarrhea, constipation, bloating, GI cramping or hematochezia : Denies: flank pain, difficulty voiding, dysuria, urinary frequency, urinary urgency, urinary hesitancy, oliguria or hematuria Musc: Reports: neck pain, back pain, extremity pain and joint pain; Denies: joint swelling, joint redness, joint warmth or muscle weakness Skin/Breast: Denies: rash, pruritus, erythema, photosensitivity or new lesions Neuro: Reports: frequent falls; Denies: headache(s), numbness in extremities, weakness in extremities, sensory changes, lack of coordination, difficulty walking, dizziness, confusion, Slurred speech present, difficulty communicating thoughts, seizure-like activity or involuntary movements Endo: Denies: polyuria, polydipsia or tired all the time Ruben/Lymph: Denies: easy bruising or easy bleeding PFSH ED PFSH: Medical History BMI 40.0-44.9, adult Pain in left leg Upper respiratory infection with cough and congestion Falls frequently Family history of brain aneurysm Family history of aneurysm Headache Mixed urge and stress incontinence Anxiety and depression Bipolar 2 disorder Endometriosis determined by laparoscopy Atopic dermatitis in adult Marijuana smoker Smoker Quit cigarettes in 2018, still Marijuana Asthma-COPD overlap syndrome Surgical History Hx of breast reduction, elective S/P tonsillectomy H/O tubal ligation H/O laparoscopy 08/27/2018- Diagnostic laparoscopy, fulguration of endometriotic lesions and lysis of adhesions per Dr. Yousif at [facility] S/P cryotherapy of skin lesion for cervical dysplasia S/P cholecystectomy laparoscopic, 04/16/2018 Family History Father Anesthesia complication Heart disease Hyperlipidemia Hypertension Grandfather , Due to Aneurysm Diabetes maternal Aneurysm Grandmother Diabetes maternal Breast cancer maternal, diagnosed in her 40's Stroke paternal Thyroid disease maternal Daughter No problems noted. Family/Other Diabetes maternal uncle Ovarian cancer maternal aunt Bleeding disorder paternal Uterine cancer maternal great great aunt Mother Stroke Denies family history of Clotting disorder Social History Smoking and tobacco/nicotine status: former use of tobacco/nicotine Quit status (tobacco/nicotine): has quit using Second hand smoke exposure: No Alcohol intake: current Alcohol intake frequency: holidays/special occasions only Alcohol type: wine Substance/Drug Use: current Substance/Drug use frequency: daily Current occupational status: unemployed Do you think of yourself as: Straight/Heterosexual Current gender identity: Female Physical Exam Const: COMMON NORMALS: no acute distress, patient oriented x3 and alert GENERAL APPEARANCE: cooperative ORIENTATION/CONSCIOUSNESS: Yes awake, Yes oriented to person, Yes oriented to place and Yes oriented to time HENMT: COMMON NORMALS: normocephalic and atraumatic HEAD & SCALP: normocephalic and atraumatic FACE & SINUS: normal facial exam MOUTH: Normal oral and palatal mucosa present THROAT: posterior oropharynx normal Eye: COMMON NORMALS: Equal, round and reactive pupils present, EOMs intact bilaterally, conjunctivae normal and no scleral icterus GENERAL EYE: appearance normal, both eyes and all related structures ALIGNMENT: Yes alignment normal PERIORBITAL: periorbital findings normal CONJUNCTIVA: Yes conjunctivae normal PUPIL: Yes Equal, round and reactive pupils present Neck/C-Spine: COMMON NORMALS: full ROM GENERAL: Yes normal visual inspection OTHER: No midline cervical tenderness to palpation however she has paraspinous muscle tightness and discomfort with palpation Lymph: LYMPHATIC: no lymphadenopathy noted Chest: COMMONS NORMALS: normal inspection of the chest Breast/axilla inspection: Yes no chest deformity, asymmetry, normal contours, no nodules, masses, tenderness Resp: COMMON NORMALS: normal respiratory effort, No retractions, No use of accessory muscles and clear to auscultation bilaterally EFFORT & INSPECTION: Yes able to speak in complete sentences and Yes symmetric chest movement AUSCULTATION: clear to auscultation bilaterally Cardio: COMMON NORMALS: regular rate, regular rhythm and Peripheral pulses 2+ throughout RATE: regular rate RHYTHM: regular rhythm PERIPHERAL PULSES: Peripheral pulses 2+ throughout GI: COMMON NORMALS: Normal to inspection, nondistended, normoactive bowel sounds present, Soft to palpation, non-tender and No hepatosplenomegaly present INSPECTION: Yes normal to inspection AUSCULTATION: Yes normoactive bowel sounds PALPATION: Yes Soft to palpation and Yes No hepatosplenomegaly present RECTAL EXAM: deferred Back/Pelvis: COMMON NORMALS: thoracic and lumbar spine normal to inspection, thoraco-lumbar ROM normal and straight leg raise negative bilaterally OTHER: Patient has tenderness over scapula and shoulders. Denies tenderness over humerus elbows or forearms She has tenderness over the right lateral hip She has no pain in pelvis with internal/external rotation of legs Full active range of motion of shoulders and elbows She is nontender to palpation over the chest but has some muscle tenderness over her back. She describes rib inferior chest wall but no crepitus felt Extremity: COMMON NORMALS: normal to inspection GENERAL: Yes normal exam except as noted OTHER: Bilateral upper extremity: Skin is clean dry intact She has tenderness to anterior shoulders Full active range of motion of shoulder, elbow, wrist. Is able to give a thumbs up, make an okay sign, cross fingers, abduct fingers and make a fist Sensation intact light touch in axillary, radial, median, ulnar nerve distribution Radial pulses palpable and cap refills less than 3 seconds Bilateral lower extremities: Patient has tenderness to palpation over right groin and lateral hip No tender to palpation of the left hip Patient is able to internally externally rotate the legs without pain She is able to flex her hip flexor extend her leg, dorsiflex plantarflex her ankle and dorsiflex great toe Sensation intact to light touch medial, lateral, dorsal, plantar surface of the foot and first webspace DP pulses palpable and cap refills less than 3 seconds Neuro: COMMON NORMALS: patient oriented x3 SENSORIUM/ORIENTATION: Yes alert, Yes oriented to person, Yes oriented to place and Yes oriented to time CRANIAL NERVES: Yes CN normal except as noted Psych: COMMON NORMALS: mental status grossly normal, Normal thought process present, cooperative, activity/motor behavior normal, denies homicidal ideation and denies suicidal ideation THOUGHT PROCESS: Normal thought process present Skin: COMMON NORMALS: no rashes or lesions noted, no wounds and turgor normal GENERAL SKIN EXAM: no rashes or lesions noted and turgor normal Course Vital Signs: Vital signs: Vital Signs Temperature 98 F 03/18/23 19:24 Pulse Rate 105 H 03/18/23 21:56 Respiratory Rate 17 03/18/23 21:56 Blood Pressure 117/92 03/18/23 21:56 Pulse Oximetry 97 03/18/23 21:56 Oxygen Delivery Me thod Room Air 03/18/23 21:56 MDM - Fall Medical Decision Making Patient was evaluated in the emergency department for multiple complaints f ollowing a fall in which there was a questionable LOC. She underwent CT head, cervical spine, chest abdomen pelvis along with bilateral shoulders. Exams were grossly unremarkable. Her CT did reveal subcentimeter renal lesions. This is an incidental finding. She also has a number of nonobstructing renal calculi. I provided a copy of the report to the patient and have advised her to follow-up with her primary care doctor. She verbalizes understanding The only XR that has not been read 5 radiologist is the left shoulder x-ray. Acute fractures identified on that. Reviewed all diagnostics with the patient. She does have a neurologist that she has been seen for these frequent falls. I encouraged her to follow-up with her primary care as needed but also discussed with neurology as needed. Patient is going to be given a dose of Toradol. She does have an aspirin allergy but tolerates other NSAIDs. Patient is going to use rest, NSAIDs and follow-up as needed. All questions answered Lab Data Radiology Impressions Cervical Spine CT 03/18/23 19:[address]: [address] evidence of acute cervical spine traumatic injury. 2. Additional findings, as above. Chest/Abdomen/Pelvis CT 03/18/23 19:52 IMPRESSION: 1. No CT evidence of acute intrathoracic traumatic injury. 2. Additional findings, as above. IMPRESSION: 1. No CT evidence of acute intra-abdominal or pelvic traumatic injury. 2. Additional findings, as above. COMMENTS: Consistent with the [employer]'s Incidental Findings Committee white paper (J Am Casey Radiol 2018): Any incidental renal lesion less than 1 cm or classified as too small to characterize, or any incidental cystic renal lesion characterized as simple-appearing, is likely benign. No follow-up imaging is recommended for these lesions per consensus recommendations based on imaging criteria. Head CT 03/18/23 19:52 IMPRESSION: No CT evidence of acute intracranial pathology. Shoulder X-Ray 03/18/23 20:45 IMPRESSION: No acute radiographic findings. All radiology interpretation(s) finalized by discharge Discharge Plan Discharge Patient Disposition: Home Clinical Impression: Falls frequently, Fall, Contusion, Concussion Condition: Stable Prescriptions: No Action ipratropium-albuterol 0.5 mg-3 mg(2.5 mg base)/3 mL solution for nebulization 3 ml inhalation Q4H PRN (Reason: wheezing) Qty: 90 3RF pantoprazole [Protonix] 20 mg tablet,delayed release (DR/EC) 20 mg PO DAILY epinephrine 0.3 mg/0.3 mL auto-injector 0.3 mg IM Q4H PRN sucralfate [Carafate] 1 gram tablet 1 g PO TID PRN budesonide [Pulmicort] 0.5 mg/2 mL suspension for nebulization 0.5 mg inhalation DAILY Spiriva Respimat 2.5 mcg/actuation mist 2 puff inhalation DAILY pimecrolimus [Elidel] 1 % cream 1 applic topical BID Gaviscon 95-358 mg/15 mL suspension 15 ml PO DAILY lidocaine 4 % adhesive patch,medicated 1 patch topical DAILY PRN ciclopirox 0.77 % gel 1 applic topical BID clarithromycin 500 mg tablet 500 mg PO BID Qty: 14 0RF Rx Instructions: make cause metal taste benzonatate 150 mg capsule 150 mg PO TID PRN (Reason: cough) Qty: 30 0RF triamcinolone acetonide 0.1 % ointment 1 applic topical BID Qty: 80 2RF Rx Instructions: to hands and feet BID alt. with clobetasol as needed for flares no more than 2 wks/mo clobetasol 0.05 % ointment 1 applic topical BID 14 Days Qty: 60 2RF Rx Instructions: to affected areas on hands and feet no more than 2 wks/mo prn alternating with triamcinolone Adbry 150 mg/mL syringe 300 mg SUBCUT Q14D Qty: 4 2RF Rx Instructions: 600mg divided in 4 sites on day 1. then 300mg divided in 2 sites every 2 weeks albuterol sulfate 90 mcg/actuation HFA aerosol inhaler 2 inh inhalation Q4H PRN (Reason: shortness of breath or wheezing) Qty: 8.5 0RF Rx Instructions: until breathing returns to target peak flow/parameters montelukast 10 mg Tablet 10 mg PO DAILY fexofenadine [Cornelia Allergy] 180 mg tablet 180 mg PO DAILY Qty: 20 0RF naproxen 500 mg tablet 500 mg PO BID PRN (Reason: pain) Qty: 20 0RF Discharge Orders: Discharge ED (Routine); Ordered 03/18/23 Ordered By: Fuad Mckay [facility] [place] [facility] [place] Referrals: Rusty Lane MD [Primary Care Provider] - Discharge Diet: Advance as tolerated Discharge Activity: Resume usual activity Patient Instructions: Pain Management, Fall Prevention (ED), Concussion/Head Injury - Adult, Contusion in Adults (ED) Activity Restrictions/Additional Instructions: Please follow-up with your primary care. Please return to the emergency department for new concerning or worsening symptoms. You do have incidental findings on your CT abdomen and pelvis which reveals small renal lesions that are too small to characterize. Need to follow-up with your primary care doctor to further evaluate. Copies of your x-rays and CT reports have been provided Coding Level of Care Code ED Collection Manager for Maxwell Baker
--- NOTE | 2023-03-18 20:45 | XRR_ITS ---
PROCEDURE INFORMATION: Exam: XR Right Shoulder Exam date and time: 03/18/2023 9:03 PM Age: 42 years old Clinical indication: Injury or trauma; Fall; Blunt trauma (contusions or hematomas); Shoulder; Right; Additional info: Pain TECHNIQUE: Imaging protocol: Radiologic exam of the right shoulder. Views: 2 or more views. COMPARISON: CT chest abdpel w/*[id number] 03/18/2023 8:15 PM FINDINGS: Bones/joints: No radiographic evidence of acute fracture or dislocation. Alignment anatomic. Joint spaces preserved. Soft tissues: Grossly unremarkable. XR/XR shoulder RT min 2V* [id number] IMPRESSION: No acute radiographic findings.
--- NOTE | 2023-03-18 20:45 | XRR_ITS ---
PROCEDURE INFORMATION: Exam: XR Left Shoulder Exam date and time: 03/18/2023 9:06 PM Age: 42 years old Clinical indication: Injury or trauma; Fall; Blunt trauma (contusions or hematomas); Shoulder; Left; Additional info: Pain TECHNIQUE: Imaging protocol: Radiologic exam of the left shoulder. Views: 2 or more views. COMPARISON: CT chest abdpel w/*[id number] 03/18/2023 8:15 PM FINDINGS: Bones/joints: No fracture. Mild degenerative changes in the left acromioclavicular joint. Soft tissues: Normal. XR/XR shoulder LT min 2V* [id number] IMPRESSION: No fracture.
[2023-03-18 21:56] VITALS: BP 117/92; PULSE 105; RESP 17; O2SAT 97
[2023-03-18 22:00] VITALS: O2SAT 98
[2023-03-18] MEDS: ketorolac 30 mg/mL INJ IVP (22:04)
[2023-03-18 22:12] VITALS: BP 150/108; PULSE 100; RESP 17; O2SAT 96
== END 2023-03-18 22:14 | disposition home or self-care (01) ==
PROVIDERS: Emergency Provider Nurse Practitioner; PCP Family Medicine Adult Medicine
DX: S06.0XAA Concussion with loss of consciousness status unknown, initial encounter (principal); S70.01XA Contusion of right hip, initial encounter; S20.211A Contusion of right front wall of thorax, initial encounter; W18.2XXA Fall in (into) shower or empty bathtub, initial encounter; J44.9 Chronic obstructive pulmonary disease, unspecified; Z87.891 Personal history of nicotine dependence
CPT/HCPCS: 70450; 71260; 72125; 73030; 74177; 96374; 99285; J1885; Q9967

== ENCOUNTER 2023-04-30 14:15 | Outpatient (CLI) | payer MEDICAID, SELFPAY ==
--- NOTE | 2023-04-30 14:18 | MM_ITS ---
WS: [id number] DIAGNOSTIC LEFT DIGITAL TOMOSYNTHESIS MAMMOGRAPHY WITH CAD. LEFT breast ultrasound, limited HISTORY: N63.20 - Unspecified lump in the left breast, unspecified... COMPARISON: 10/09/2022, 10/04/2021 Technique: CC, MLO and ML views. Spot compression LEFT CC and MLO. Breast composition: There are scattered areas of fibroglandular density. There is a band of asymmetry in the central LEFT breast extending towards the chest wall. This is closely associated with the mar kers placed at the area of pain and nodularity. This may be associated with the mammoplasty scar site . These changes are very similar to prior studies. LEFT breast ultrasound, limited. Ultrasound is directed along the 9:00 axis at the area of pain. There is no abnormality identified. N o shadowing. No solid or cystic mass. IMPRESSION: MM/[place] [id number] BI-RADS: 2-Benign FOLLOW UP: 1 Year Follow-up No mammographic or ultrasound abnormality noted in the area of pain.
--- NOTE | 2023-04-30 15:30 | US_ITS ---
WS: [id number] DIAGNOSTIC LEFT DIGITAL TOMOSYNTHESIS MAMMOGRAPHY WITH CAD. LEFT breast ultrasound, limited HISTORY: N63.20 - Unspecified lump in the left breast, unspecified... COMPARISON: 10/09/2022, 10/04/2021 Technique: CC, MLO and ML views. Spot compression LEFT CC and MLO. Breast composition: There are scattered areas of fibroglandular density. There is a band of asymmetry in the central LEFT breast extending towards the chest wall. This is closely associated with the mar kers placed at the area of pain and nodularity. This may be associated with the mammoplasty scar site . These changes are very similar to prior studies. LEFT breast ultrasound, limited. Ultrasound is directed along the 9:00 axis at the area of pain. There is no abnormality identified. N o shadowing. No solid or cystic mass. IMPRESSION: US/US breast LT limited* [id number] BI-RADS: 2-Benign FOLLOW UP: 1 Year Follow-up No mammographic or ultrasound abnormality noted in the area of pain.
== END 2023-04-30 14:16 | disposition home or self-care (01) ==
LOC: RAD 14:15
PROVIDERS: PCP Family Medicine Adult Medicine; Visit Provider Obstetrics & Gynecology
DX: N63.25 Unspecified lump in the left breast, overlapping quadrants (principal); R92.322 Mammographic fibroglandular density, left breast; N64.89 Other specified disorders of breast; Z98.890 Other specified postprocedural states
CPT/HCPCS: 76642; 77061; G0279

== ENCOUNTER → 2023-06-13 12:40 | Outpatient (BNVA) | payer MEDICAID, SELFPAY | PROVIDERS: PCP Family Medicine Adult Medicine; Visit Provider Internal Medicine Cardiovascular Disease | DX: R07.9 Chest pain, unspecified (principal) | CPT/HCPCS: 93005 ==

== ENCOUNTER 2023-08-02 10:11 | Emergency (ER) | payer MEDICAID, SELFPAY ==
[2023-08-02 10:16] VITALS: BP 123/84; PULSE 104; RESP 20; TEMP 36.6; O2SAT 97; BMI 39.3
--- NOTE | 2023-08-02 11:01 | CT_ITS ---
WS: [id number] CT ABDOMEN PELVIS TECHNIQUE: Contrast-enhanced CT of the abdomen and pelvis with coronal and sagittal reformatted image s. CLINICAL INFORMATION: abdominal pain, diarrhea, +hemoccult COMPARISON: None. DLP: 1124.[address] scans at [facility] use at least one of these dose optimization techniques: automated e xposure control; mA and/or kV adjustment per patient size (includes targeted exams where dose is matc hed to clinical indication); or iterative reconstruction. FINDINGS: Normal appendix the RIGHT lower quadrant. No evidence of acute appendicitis. Diffuse fatty infiltrati on of the liver. Cholecystectomy clips. Mild splenomegaly. Normal GE junction. Normal portal vein and splenic vein. Normal pancreas. Cholecystectomy clips. Lung bases are well aerated. A few small subce ntimeter nodules in the RIGHT middle lobe and LEFT lower lobe. Adrenal glands are normal. Normal renal parenchymal enhancement. No hydronephrosis in either kidney. Normal caliber abdominal aorta. Celiac and SMA are patent. Few sigmoid diverticuli. Few prominent lymph nodes along the central mesentery and RIGHT lower quadra nt. Mild diffuse thickening with induration and submucosal enhancement involving the RIGHT hepatic fl exure and transverse colon extending to the LEFT descending colon. Recommend correlation for infectio us or inflammatory colitis symptoms. Tiny fat-containing umbilical hernia. No other acute findings. CT/CT abdomen pelvis w con* [id number] IMPRESSION: 1. Suggestion of mild infectious or inflammatory colitis involving the hepatic flexure transverse colon and descending LEFT colon. 2. Normal appendix. 3. No hydronephrosis in either kidney. 4. A few small subcentimeter nodules in the RIGHT middle lobe and LEFT lower l obe. Recommend 6-month chest CT follow-up 5. No other acute findings.
--- NOTE | 2023-08-02 11:02 | ED_ITS ---
HPI - Nausea/Vomiting/Diarrhea 2 General: Chief complaint: GI Bleed Stated complaint: diarrhea Time Seen by Provider: 08/02/23 10:13 Source: patient Mode of arrival: ambulatory Limitations: no limitations History of Present Illness: Patient is a 42-year-old female presents to ED today with complaint of nausea, vomiting, diarrhea, and abdominal pain. Patient states symptoms been present over the past 5 days. She states she will vomit anytime she attempts to eat anything. Patient states she is having a watery diarrhea stool proximately every 2-3 hours. She states yesterday the diarrhea seem to be dark/black in color which concerned her thus prompting her emergency evaluation today. She is complaining of diffuse abdominal pain. She rates this is fairly constant with exacerbations in the cramping prior to defecation. She has not been running fevers. No history of GI bleed. She is not on anticoagulation. She is not having any urinary symptoms. MD elicited complaint: nausea, vomiting, diarrhea and abdominal pain Onset (ago): day(s) Description of diarrhea: watery and other (black) Associated nausea: Yes Associated abdominal pain: Yes Location of pain: Diffuse Radiation: diffuse Pain consistency: constant Severity: moderate Quality: cramping Exacerbating factors: eating Relieving factors: none Associated symtoms: Reports no associated symptoms and nausea; Denies change in vision, chest pain, dizziness, dysuria, fatigue, headache(s), malaise, palpitations or syncope Review of Systems 2 Const: Denies: fever(s), chills, body aches, fatigue or malaise Eyes: Denies: change in vision or blurry vision Card: Denies: chest pain, palpitations, irregular heart rhythm, lightheadedness, syncope or dyspnea on exertion Resp: Denies: dyspnea, productive cough or pain on inspiration GI: Reports: abdominal pain, nausea, vomiting, diarrhea, GI cramping and melena; Denies: heartburn or rectal pain : Denies: flank pain, difficulty voiding, dysuria, urinary frequency or urinary urgency Musc: Denies: neck pain, back pain, extremity pain or joint pain Skin/Breast: Denies: rash Neuro: Denies: headache(s) or dizziness PFSH ED 2 PFSH: Medical History Dysequilibrium Muscle weakness of extremity Bursitis of right shoulder Endometriosis determined by laparoscopy Bilateral lower extremity edema Bilateral leg cramps Fibroids, intramural BMI 40.0-44.9, adult Family history of brain aneurysm Family history of aneurysm Headache Mixed urge and stress incontinence Anxiety and depression Bipolar 2 disorder Atopic dermatitis in adult Marijuana smoker Smoker Quit cigarettes in 2018, still Marijuana Asthma-COPD overlap syndrome Surgical History Hx of breast reduction, elective S/P tonsillectomy H/O tubal ligation H/O laparoscopy 08/27/2018- Diagnostic laparoscopy, fulguration of endometriotic lesions and lysis of adhesions per Dr. Yousif at [facility] S/P cryotherapy of skin lesion for cervical dysplasia S/P cholecystectomy laparoscopic, 04/16/2018 Family History Father Anesthesia complication Heart disease Hyperlipidemia Hypertension Grandfather , Due to Aneurysm Diabetes maternal Aneurysm Grandmother Diabetes maternal Breast cancer maternal, diagnosed in her 40's Stroke paternal Thyroid disease maternal Daughter No problems noted. Family/Other Diabetes maternal uncle Ovarian cancer maternal aunt Bleeding disorder paternal Uterine cancer maternal great great aunt Mother Stroke Denies family history of Clotting disorder Social History Smoking and tobacco/nicotine status: former use of tobacco/nicotine Quit status (tobacco/nicotine): has quit using Second hand smoke exposure: No Alcohol intake: current Alcohol intake frequency: holidays/special occasions only Alcohol type: wine Substance/Drug Use: current Substance/Drug use frequency: daily Current occupational status: unemployed Do you think of yourself as: Straight/Heterosexual Current gender identity: Female Female Reproductive History: Date of last menstrual period: 07/31/23 Physical Exam 2 Const: COMMON NORMALS: no acute distress, patient oriented x3, no limitations, alert and well nourished GENERAL APPEARANCE: cooperative NUTRITIONAL APPEARANCE: obese ORIENTATION/CONSCIOUSNESS: Yes awake, Yes oriented to person, Yes oriented to place and Yes oriented to time HENMT: COMMON NORMALS: normocephalic and atraumatic HEAD & SCALP: normal to inspection, normocephalic and atraumatic Eye: COMMON NORMALS: no scleral icterus Neck/C-Spine: COMMON NORMALS: full ROM, no lymphadenopathy, supple and no meningeal signs Chest: COMMONS NORMALS: normal inspection of the chest Resp: COMMON NORMALS: normal respiratory effort and clear to auscultation bilaterally AUSCULTATION: clear to auscultation bilaterally Cardio: COMMON NORMALS: regular rate and regular rhythm RATE: regular rate RHYTHM: regular rhythm GI: COMMON NORMALS: Normal to inspection, nondistended, normoactive bowel sounds present, Soft to palpation and no masses INSPECTION: Yes normal to inspection AUSCULTATION: Yes normoactive bowel sounds PALPATION: Yes Soft to palpation, Yes Tenderness to palpation present (GI) (diffusely), No Guarding due to palpation present (GI) and No Rigid due to palpation : COMMON NORMALS: Yes no CVA tenderness BLADDER/KIDNEY EXAM: Yes no CVA tenderness Back/Pelvis: COMMON NORMALS: no CVA tenderness and thoracic and lumbar spine normal to inspection Extremity: COMMON NORMALS: normal to inspection GENERAL: Yes normal exam except as noted Neuro: JOSESITO COMA SCALE: document GCS findings Josesito coma scale eye opening: Spontaneous Josesito coma scale verbal response: Orientated Josesito coma scale motor response: Obey commands [place] coma scale total score: 15 COMMON NORMALS: patient oriented x3, moves all extremities, no focal motor deficits and no sensory deficits noted SENSORIUM/ORIENTATION: Yes alert, Yes oriented to person, Yes oriented to place and Yes oriented to time MENINGEAL SIGNS: Yes no meningeal signs Skin: COMMON NORMALS: no rashes or lesions noted GENERAL SKIN EXAM: no rashes or lesions noted Course 2 Vital Signs: Vital signs: Vital Signs Temperature 97.9 F 08/02/23 10:16 Pulse Rate 100 08/02/23 11:41 Respiratory Rate 20 H 08/02/23 10:16 Blood Pressure 142/86 08/02/23 11:41 Pulse Oximetry 96 08/02/23 11:41 Oxygen Delivery Me thod Room Air 08/02/23 11:41 MDM - Nausea/Vomiting/Diarrhea Medical Decision Making Patient is a 42-year-old here for nausea, vomiting, diarrhea, abdominal pain. Her vital signs are stable upon arrival. Blood work overall is unremarkable-H/H normal. Her UA most likely contaminated with blood given her current menstrual cycle but did have 2+ leuks and 15-25 WBCs. Squamous cells were actually low (0-4) so she still could have infection. CT scan showing inflammatory/infectious colitis. She will be placed on Cipro and Flagyl for this. Cipro cover for the possible UTI. Will culture her urine. Incidentaloma's regarding lung nodules found-patient made aware of these and will follow up with legal referee. Will have her follow up with general surgery for possible need for EGD/colonoscopy. Return precautions given. Medical Records I reviewed the patient's medical records. Lab Data I reviewed the patient's lab results. 08/02/23 10:50 08/02/23 10:50 Radiology Impressions Abdomen/Pelvis CT 08/02/23 11:01 IMPRESSION: 1. Suggestion of mild infectious or inflammatory colitis involving the hepatic flexure transverse colon and descending LEFT colon. 2. Normal appendix. 3. No hydronephrosis in either kidney. 4. A few small subcentimeter nodules in the RIGHT middle lobe and LEFT lower lobe. Recommend 6-month chest CT follow-up 5. No other acute findings. Laboratory Results WBC 11.47 10^3/uL (3.29-11.43) H 08/02/23 10:50 RBC 5.00 10^6/uL (3.85-5.65) 08/02/23 10:50 Hgb 14.30 g/dL (11.27-16.99) 08/02/23 10:50 Hct 42.1 % (36-47) 08/02/23 10:50 MCV 84.2 fl (85-98) L 08/02/23 10:50 MCH 28.6 pg (27-33) 08/02/23 10:50 MCHC 34.0 g/dL (30-55) 08/02/23 10:50 RDW 12.4 % (12.1-15.1) 08/02/23 10:50 Plt Count 356 10^3/cmm (157-399) 08/02/23 10:50 MPV 9.6 fL (7.4-10.4) 08/02/23 10:50 Neut % (Auto) 82.4 % 08/02/23 10:50 Lymph % (Auto) 8.5 % 08/02/23 10:50 Guthrie % (Auto) 8.5 % 08/02/23 10:50 Eos % (Auto) 0.1 % 08/02/23 10:50 Baso % (Auto) 0.3 % 08/02/23 10:50 Neut # (Auto) 9.47 10^3/uL (1.8-7.7) H 08/02/23 10:50 Lymph # (Auto) 1.0 10^3/uL (0.8-4.8) 08/02/23 10:50 Guthrie # (Auto) 1.0 10^3/uL (0.2-0.9) H 08/02/23 10:50 Eos # (Auto) 0.0 10^3/uL (0.0-0.8) 08/02/23 10:50 Baso # (Auto) 0.0 10^3/uL (0.0-0.1) 08/02/23 10:50 Nucleated RBC % (auto) 0 % 08/02/23 10:50 Nucleated RBCs # 0.0 /100WBC 08/02/23 10:50 Sodium 137 mmol/L (136-145) 08/02/23 10:50 Potassium 3.5 mmol/L (3.5-5.1) 08/02/23 10:50 Chloride 102 mmol/L (98-107) 08/02/23 10:50 Carbon Dioxide 22 mmol/L (22-29) 08/02/23 10:50 Anion Gap 16.5 (5-19) 08/02/23 10:50 BUN 12 mg/dL (6-20) 08/02/23 10:50 Creatinine 0.7 mg/dL (0.5-0.9) 08/02/23 10:50 GFR Calculation 91.3 mL/min (90-130) 08/02/23 10:50 Glucose 103 mg/dL (65-115) 08/02/23 10:50 Calculated Osmolality 284 mOsm/kg (285-295) L 08/02/23 10:50 Calcium 9.0 mg/dL (8.5-10.5) 08/02/23 10:50 Total Bilirubin 0.4 mg/dL (0.15-1.2) 08/02/23 10:50 AST 14 U/L (0-32) 08/02/23 10:50 ALT 15 U/L (0-33) 08/02/23 10:50 Alkaline Phosphatase 99 U/L (35-105) 08/02/23 10:50 Total Protein 7.3 g/dL (6.6-8.7) 08/02/23 10:50 Albumin 4.2 g/dL (3.5-5.2) 08/02/23 10:50 Globulin 3.1 g/dL (1.3-4.6) 08/02/23 10:50 Lipase 25 U/L (13-60) 08/02/23 10:50 HCG, Qual Negative (Negative) 08/02/23 10:50 Urine Color Yellow (Yellow) 08/02/23 11:24 Urine Appearance Cloudy (CLEAR) A 08/02/23 11:24 Urine pH 5 (5-7) 08/02/23 11:24 Ur Specific [place] 1.025 (1.005-1.030) 08/02/23 11:24 Urine Protein 1+ (Negative) H 08/02/23 11:24 Urine Glucose (UA) Norm (Normal) 08/02/23 11:24 Urine Ketones 1+ (Negative) H 08/02/23 11:24 Urine Blood 3+ (Negative) H 08/02/23 11:24 Urine Nitrate Negative (Negative) 08/02/23 11:24 Urine Bilirubin 1+ (Negative) H 08/02/23 11:24 Urine Urobilinogen Norm mg/dL (Negative) 08/02/23 11:24 Ur Leukocyte Esterase 2+ (Negative) H 08/02/23 11:24 Urine RBC >100 /hpf (0-2) H 08/02/23 11:24 Urine WBC 15-25 /hpf (0-5) H 08/02/23 11:24 Ur Squamous Epith Cells 0-4 /hpf (0-5) H 08/02/23 11:24 Amorphous Sediment Not Reportable 08/02/23 11:24 Urine Bacteria 1+ /hpf (NONE) H 08/02/23 11:24 All radiology interpretation(s) finalized by discharge Discharge Plan Discharge Patient Disposition: Home Clinical Impression: Colitis Acute cystitis Qualifiers: Hematuria presence: with hematuria Qualified Code(s): N30.01 - Acute cystitis with hematuria Condition: Stable Prescriptions: New metronidazole 500 mg tablet 500 mg PO BID 7 Days Qty: 14 0RF Cipro 500 mg tablet 500 mg PO Q12H Qty: 14 0RF ondansetron 4 mg tablet,disintegrating 4 mg PO Q8H PRN (Reason: nausea and vomiting) Qty: 14 0RF No Action ipratropium-albuterol 0.5 mg-3 mg(2.5 mg base)/3 mL solution for nebulization 3 ml inhalation Q4H PRN (Reason: wheezing) Qty: 90 3RF pantoprazole [Protonix] 20 mg tablet,delayed release (DR/EC) 20 mg PO DAILY epinephrine 0.3 mg/0.3 mL auto-injector 0.3 mg IM Q4H PRN (Reason: Allergic Reaction) cholecalciferol (vitamin D3) [Vitamin D3] 125 mcg (5,000 unit) tablet 125 mcg PO DAILY loratadine 10 mg tablet 10 mg PO DAILY Qty: 90 2RF clobetasol 0.05 % ointment 1 applic topical BID budesonide [Pulmicort] 0.5 mg/2 mL suspension for nebulization 0.5 mg inhalation DAILY pimecrolimus [Elidel] 1 % cream 1 applic topical BID Gaviscon 95-358 mg/15 mL suspension 15 ml PO DAILY lidocaine 4 % adhesive patch,medicated 1 patch topical DAILY PRN (Reason: Pain) ciclopirox 0.77 % gel 1 applic topical BID potassium chloride 8 mEq capsule, extended release 8 meq PO DAILY Qty: 30 5RF Adbry 150 mg/mL syringe 300 mg SUBCUT Q14D Qty: 4 2RF Rx Instructions: 600mg divided in 4 sites on day 1. then 300mg divided in 2 sites every 2 weeks albuterol sulfate 90 mcg/actuation HFA aerosol inhaler 2 inh inhalation Q4H PRN (Reason: shortness of breath or wheezing) Qty: 8.5 0RF montelukast 10 mg Tablet 10 mg PO QPM naproxen 500 mg tablet 500 mg PO BID PRN (Reason: pain) Qty: 20 0RF ropinirole 1 mg tablet 1 mg PO BID amlodipine 2.5 mg tablet 2.5 mg PO DAILY furosemide 20 mg tablet 20 mg PO QAM Discharge Orders: Discharge ED (Routine); Ordered 08/02/23 Ordered By: Day Sales Referrals: Rusty Lane MD [Primary Care Provider] - Patient Instructions: Gastrointestinal Bleeding (ED), Urinary Tract Infection in Women (DC), Colitis (ED) Activity Restrictions/Additional Instructions: As we discussed your CT scan today showing infectious/inflammatory colitis. I am placing you on 2 different antibiotics for this. The antibiotics will also cover for the urinary tract infection that your urine looks suspicious for. You need to return to the emergency department for worsening abdominal pain, fevers, inability to hold down your antibiotics, continued black or bloody stools. We will have case management set you up with general surgery for further evaluation and possible need for EGD/colonoscopy. As we discussed there were some incidental findings on your CT scan involving the lung nodules to your right and left lungs. They are recommending 6-month chest CT follow-up. Please discuss this with your primary care provider or legal referee. 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
[2023-08-02 11:05] LABS: Basophils % 0.3 %; Eosinophils % 0.1 %; Hematocrit 42.1 % (36-47); Lymphocytes % 8.5 %; Mean Corpuscular Hemoglobin 28.6 pg (27-33); Mean Corpuscular Volume 84.2 fl (85-98); Mean Platelet Volume 9.6 fL (7.4-10.4); Monocytes % 8.5 %; Neutrophils # 9.47 10^3/uL (1.8-7.7); Neutrophils % 82.4 %; Nucleated Red Blood Cells % 0 %; Platelet Count 356 10^3/cmm (157-399); Red Cell Distribution Width 12.4 % (12.1-15.1); White Blood Count 11.47 10^3/uL (3.29-11.43)
[2023-08-02] MEDS: iohexol 350 mg/mL 500 mL Btl (per mL) IV (11:12)
[2023-08-02 11:21] LABS: Alanine Aminotransferase 15 U/L (0-33); Albumin Level 4.2 g/dL (3.5-5.2); Alkaline Phosphatase 99 U/L (35-105); Anion Gap 16.5 (5-19); Aspartate Amino Transferase 14 U/L (0-32); Blood Urea Nitrogen 12 mg/dL (6-20); Carbon Dioxide 22 mmol/L (22-29); Chloride 102 mmol/L (98-107); Creatinine Clr Calc Pharmacy 130.5694; Globulin 3.1 g/dL (1.3-4.6); Glomerular Filtration Rate 91.3 mL/min (90-130); Glucose 103 mg/dL (65-115); Lipase 25 U/L (13-60); Osmolality Calculated 284 mOsm/kg (285-295); Potassium 3.5 mmol/L (3.5-5.1); Sodium 137 mmol/L (136-145); Total Bilirubin 0.4 mg/dL (0.15-1.2); Total Protein 7.3 g/dL (6.6-8.7)
[2023-08-02 11:22] LABS: HCG, Serum Qual Negative (Negative)
[2023-08-02] MEDS: sodium chloride 0.9% 1,000 ML 999 ML IV (11:39)
[2023-08-02 11:41] VITALS: BP 142/86; PULSE 100; O2SAT 96
[2023-08-02 12:01] LABS: Add Urine Microscopic? YES; Bilirubin Urine 1+ (Negative); Blood Urine 3+ (Negative); Glucose Urine UA Norm (Normal); Ketones Urine 1+ (Negative); Leukocyte Esterase Urine 2+ (Negative); Nitrate Urine Negative (Negative); Protein Urine 1+ (Negative); Specific Gravity, Urine 1.025 (1.005-1.030); Urine Appearance Cloudy (CLEAR); Urine Color Yellow (Yellow); Urobilinogen Urine Norm (Negative); pH Urine 5 (5-7)
[2023-08-02 12:04] LABS: Add Urine Culture? Yes; Bacteria Urine 1+ /hpf; RBC Urine >100 /hpf (0-2); Squamous Epithelial Cell Urine 0-4 /hpf (0-5); WBC Urine 15-25 /hpf (0-5)
[2023-08-02 12:39] VITALS: BP 121/89; PULSE 93; O2SAT 97
--- NOTE | 2023-08-05 05:54 | DCPLANNER ---
message sent to Gen surgery for follow up
== END 2023-08-02 12:40 | disposition home or self-care (01) ==
PROVIDERS: Emergency Provider Physician Assistant; PCP Family Medicine Adult Medicine
DX: N30.01 Acute cystitis with hematuria (principal); Z87.891 Personal history of nicotine dependence
CPT/HCPCS: 74177; 80053; 81001; 83690; 84703; 85025; 87086; 99285; J7030; Q9967

== ENCOUNTER 2023-08-28 08:38 | Outpatient (CLI) | payer MEDICAID, SELFPAY ==
--- NOTE | 2023-08-28 08:45 | MR_ITS ---
WS: [id number] MRI THORACIC SPINE with and without contrast HISTORY: R56.9 - Unspecified convulsions COMPARISON: None available. TECHNIQUE: Multiplanar sequences are performed in sagittal and axial planes. Postcontrast imaging 20 mL MultiHance. Survey image demonstrates C5-6 small central disc protrusion contacting the cervical cord. Mild long curvature RIGHT scoliosis of the thoracic spine. No fractures or marrow edema. Disc spaces are well-maintained. Signal within the cord is normal. There are no masses. No cord atrophy or enlarg ement. Conus tapers normally towards L1. No discitis or osteomyelitis. No nerve sheath tumor or abnor mal enhancement. Paravertebral soft tissues are negative. No central or foraminal stenosis. No disc p rotrusions. There is very slight facet joint arthritis in the mid to lower thoracic spine. Greatest a t T11-12. MR/MR thoracic spine wo/w [id number] IMPRESSION: 1. Mild RIGHT curvature thoracic spine. 2. No cord atrophy or enlargement. No mass. 3. No significant central or foraminal stenosis. 4. Central C5-6 disc protrusion contacting the cervical cord.
[2023-08-28] MEDS: gadobenate dimeglumine 20 mL vial IV (09:19)
== END 2023-08-28 08:39 | disposition home or self-care (01) ==
LOC: RAD 08:38
PROVIDERS: PCP Family Medicine Adult Medicine; Visit Provider Psychiatry & Neurology Neurology
DX: R56.9 Unspecified convulsions (principal); R51.9 Headache, unspecified; M50.20 Other cervical disc displacement, unspecified cervical region
CPT/HCPCS: 72157; A9577

== ENCOUNTER 2023-09-17 15:22 | Observation (INO) | payer MEDICAID, SELFPAY ==
[2023-09-12 10:53] LABS: Add Urine Microscopic? NO; Charge for UA Resulting for Rev
[2023-09-12 10:57] LABS: Urine Appearance Clear (CLEAR); Urine Color Yellow (Yellow)
[2023-09-12 10:58] LABS: Bilirubin Urine Neg (Negative); Blood Urine Neg (Negative); Glucose Urine UA Norm (Normal); Ketones Urine Negative (Negative); Leukocyte Esterase Urine Negative (Negative); Nitrate Urine Negative (Negative); Protein Urine Neg (Negative); Specific Gravity, Urine 1.015 (1.005-1.030); Urobilinogen Urine Norm (Negative); pH Urine 6 (5-7)
[2023-09-12 10:59] LABS: Basophils % 0.4 %; Eosinophils # 0.1 10^3/uL (0.0-0.8); Eosinophils % 0.5 %; Hematocrit 40.3 % (36-47); Lymphocytes # 1.5 10^3/uL (0.8-4.8); Lymphocytes % 16.7 %; Mean Corpuscular HGB Conc 32.8 g/dL (30-55); Mean Corpuscular Hemoglobin 27.7 pg (27-33); Mean Corpuscular Volume 84.7 fl (85-98); Mean Platelet Volume 9.3 fL (7.4-10.4); Monocytes # 0.6 10^3/uL (0.2-0.9); Monocytes % 6.2 %; Neutrophils # 6.92 10^3/uL (1.8-7.7); Neutrophils % 75.9 %; Nucleated Red Blood Cells % 0 %; Platelet Count 351 10^3/cmm (157-399); Red Blood Count 4.76 10^6/uL (3.85-5.65); Red Cell Distribution Width 11.9 % (12.1-15.1); White Blood Count 9.14 10^3/uL (3.29-11.43)
[2023-09-12 11:00] LABS: OR HCG Qualitative Urine Negative (Negative)
[2023-09-12 11:28] LABS: Alanine Aminotransferase 21 U/L (0-33); Albumin Level 4.3 g/dL (3.5-5.2); Alkaline Phosphatase 104 U/L (35-105); Anion Gap 13.4 (5-19); Aspartate Amino Transferase 12 U/L (0-32); Blood Urea Nitrogen 10 mg/dL (6-20); Carbon Dioxide 28 mmol/L (22-29); Chloride 101 mmol/L (98-107); Globulin 2.9 g/dL (1.3-4.6); Glomerular Filtration Rate 91.3 mL/min (90-130); Glucose 100 mg/dL (65-115); Osmolality Calculated 285 mOsm/kg (285-295); Potassium 4.4 mmol/L (3.5-5.1); Sodium 138 mmol/L (136-145); Total Bilirubin 0.3 mg/dL (0.15-1.2); Total Protein 7.2 g/dL (6.6-8.7)
[2023-09-17] VITALS (18 sets, daily range): BP systolic 101–146; BP diastolic 61–89; PULSE 77–112; RESP 16–22; TEMP 36.4–37.7; O2SAT 94–98; BMI 40.3
[2023-09-17 12:48] LABS: OR HCG Qualitative Urine Negative (Negative)
--- NOTE | 2023-09-17 13:20 | ANES.PREANE2 ---
Pre-Anesthetic Assessment Height/Weight: Height 1.68 m Weight 113.398 kg Temp Pulse Resp BP Pulse Ox O2 Del Method 97.6 F 83 16 101/66 96 Room Air 09/17/23 13:01 09/17/23 13:09/17/23 13:01 09/17/23 13:01 09/17/23 13:01 09/17/23 13:01 Preop Diagnosis: Uterine fibroid, abnormal uterine bleeding, cystocele, urinary incontinence Operation Date: 09/17/23 14:05 Proposed Procedures p Total Vaginal Hysterectomy, Bilateral salpingo-oophorectomy(Not Applicable) - Juan Francisco Yousif MD s Anterior Repair Anterior Colporrhaphy(Not Applicable) - Juan Francisco Yousif MD s Sling Single Incision Midurethral Sling(Not Applicable) - Juan Francisco Yousif MD Familial anesthetic complications: none Was Beta Estefania taken within 24 hours: N/A Was Clonidine taken within 24 hours: N/A Last intake: Intake Last Liquid Date 09/17/23 Last Liquid Time 08:00 Last Solid Date 09/16/23 Last Solid Time 19:00 Social Tobacco (Smokes tiffanie) and No alcohol Exam alert, oriented x 3 and regular rate & rhythm Airway Submandibular: within normal limits Cervical ROM: within normal limits Mallampati: Class II Dentition: chipped (lower) and false (upper) Pulmonary Asthma and Chronic Obstructive Pulmonary Disease CV/HEM Hypertension GI Gastroesophageal Reflux Disease Metabolic Diabetes Mellitus and Morbid Obesity Neuropsych Anxiety, Depression and Seizure Anesthetic Plan ASA status: 3 Anesthesia: General Other: PONV Medications/Allergies Home Medications Medication Instructions Recorded Confirmed Last Taken Type montelukast 10 mg tablet 10 mg PO QPM 09/11/19 09/12/23 09/16/23 History ipratropium 0.5 mg-albuterol 3 mg 3 ml inhalation Q4H PRN wheezing 10/17/20 09/12/23 09/17/23 Rx (2.5 mg base)/3 mL nebulization #90 mL soln budesonide 0.5 mg/2 mL suspension 0.5 mg inhalation DAILY 05/18/22 09/12/23 09/17/23 History for nebulization (Pulmicort) tralokinumab-ldrm 150 mg/mL 300 mg (2 mL) SUBCUT Q14D #4 mL 06/26/22 09/12/2309/10/24 Rx subcutaneous syringe (Adbry) epinephrine 0.3 mg/0.3 mL 0.3 mg IM Q4H PRN Allergic Reaction 09/14/22 09/12/23 Unknown History injection, auto-injector pimecrolimus 1 % topical cream 1 applic topical BID 10/22/22 09/12/23 08/02/23 History (Elidel) ciclopirox 0.77 % topical gel 1 applic topical BID 11/27/22 09/12/23 08/02/23 History loratadine 10 mg tablet 10 mg PO DAILY #90 tabs 03/20/23 09/12/23 09/12/23 Rx albuterol sulfate 90 mcg/actuation 2 inh inhalation Q4H PRN shortness 05/10/23 09/12/23 09/17/23 Rx aerosol inhaler of breath or wheezing #8.5 grams potassium chloride 8 mEq 8 meq PO DAILY #30 caps 06/05/23 09/12/23 09/16/23 Rx capsule,extended release clobetasol 0.05 % topical ointment 1 applic topical BID 07/17/23 09/12/23 08/02/23 History amlodipine 2.5 mg tablet 2.5 mg PO DAILY 08/02/23 09/12/23 09/17/23 History furosemide 20 mg tablet 20 mg PO QAM 08/02/23 09/12/23 09/16/23 History ondansetron 4 mg disintegrating 4 mg PO Q8H PRN nausea and 08/02/23 09/12/23 09/09/23 Rx tablet vomiting #14 tabs ropinirole 1 mg tablet 1 mg PO BID 08/02/23 09/12/23 09/12/23 History bisacodyl 5 mg tablet,delayed 5 mg PO DAILY #4 tabs 08/19/23 09/12/23 Unknown Rx release (Dulcolax (bisacodyl)) magnesium citrate 300 ml PO DAILY PRN constipation 08/19/23 09/12/23 Unknown Rx #296 mL pantoprazole 40 mg tablet,delayed 40 mg PO BID 6 weeks #84 tabs 08/19/23 09/12/23 09/17/23 Rx release (Protonix) oxycodone 5 mg tablet 5 mg PO Q8H PRN pain 30 days #60 08/29/23 09/12/23 09/17/23 Rx tabs hydroxyzine HCl 25 mg tablet 25 mg PO TID anxiety #270 tabs 09/10/23 09/12/23 09/17/23 Rx benzonatate 200 mg capsule 200 mg PO PRN cough 09/12/23 09/12/23 Unknown History cholecalciferol (vitamin D3) 125 125 mcg PO DAILY 09/12/23 09/12/23 09/12/23 History mcg (5,000 unit) tablet (Vitamin D3) triamcinolone acetonide 0.1 % 1 applic topical DAILY PRN flare 09/12/23 09/12/23 09/12/23 History topical ointment Allergies Allergy/AdvReac Type Severity Reaction Status Date / Time acetaminophen Allergy ALGY-Anaphy Verified 09/09/23 08:31 laxis aspirin Allergy ALGY-Difficulty Verified 09/09/23 08:31 Breathing Bleach (Sodium Hypochlorite) Allergy asthma Verified 09/09/23 08:31 attack calamine Allergy ALGY-Difficulty Verified 09/09/23 08:31 Breathing nut - unspecified Allergy ALGY-Difficulty Verified 09/09/23 08:31 Swallowing Penicillins Allergy ALGY-Anaphy Verified 09/09/23 08:31 laxis shellfish derived Allergy ALGY-Swell Verified 09/09/23 08:31 Lip/Tongue/Throat sulfamethoxazole Allergy ALGY-Rash Verified 09/09/23 08:31 [From Bactrim] trimethoprim [From Bactrim] Allergy ALGY-Rash Verified 09/09/23 08:31 methotrexate AdvReac ADR-Diarrhe Verified 09/09/23 08:31 a chlorine Allergy hives Uncoded 09/09/23 08:31 [facility] Anesthesia Medical History Lung nodule seen on imaging study Muscle weakness of extremity Dysequilibrium Bursitis of right shoulder Endometriosis determined by laparoscopy Bilateral lower extremity edema Bilateral leg cramps Fibroids, intramural BMI 40.0-44.9, adult Family history of brain aneurysm Family history of aneurysm Headache Mixed urge and stress incontinence Anxiety and depression Bipolar 2 disorder Atopic dermatitis in adult Marijuana smoker Smoker Quit cigarettes in 2018, still Marijuana Asthma-COPD overlap syndrome Surgical History Hx of colonoscopy 2007 Hx of breast reduction, elective S/P tonsillectomy H/O tubal ligation H/O laparoscopy 08/27/2018- Diagnostic laparoscopy, fulguration of endometriotic lesions and lysis of adhesions per Dr. Yousif at [facility] S/P cryotherapy of skin lesion for cervical dysplasia S/P cholecystectomy laparoscopic, 04/16/2018 Family History Father Anesthesia complication Heart disease Hyperlipidemia Hypertension Grandfather , Due to Aneurysm Diabetes maternal Aneurysm Grandmother Diabetes maternal Breast cancer maternal, diagnosed in her 40's Stroke paternal Thyroid disease maternal Daughter No problems noted. Family/Other Diabetes maternal uncle Ovarian cancer maternal aunt Bleeding disorder paternal Uterine cancer maternal great great aunt Mother Stroke Denies family history of Clotting disorder Social History Smoking and tobacco/nicotine status: former use of tobacco/nicotine Quit status (tobacco/nicotine): has quit using Second hand smoke exposure: No Alcohol intake: current Alcohol intake frequency: holidays/special occasions only Alcohol type: wine Substance/Drug Use: current Substance/Drug use frequency: daily Current occupational status: unemployed Do you think of yourself as: Straight/Heterosexual Current gender identity: Female Female Reproductive History Date of last menstrual period: 08/28/23 Data Anesthesia 09/12/23 10:55 09/12/23 10:55 Cardiac Studies: Echocardiogram 12/06/22 Cardiac Event Monitor 11/28/22
[2023-09-17] MEDS: sodium chloride 0.9% 500 ML IV (13:26)
[2023-09-17] MEDS: diphenhydrAMINE 50 mg/mL SDV 1mL 12.5 MG IVP (13:35)
[2023-09-17] MEDS: ondansetron 2 mg/ML SDV 2 mL 4 MG IVP (13:35)
[2023-09-17] MEDS: fentaNYL 50 mcg/mL INJ 2mL IVP (13:56)
[2023-09-17] MEDS: sodium chloride 0.9% 1,000 ML 30 ML IV (13:57)
[2023-09-17] MEDS: vancomycin 1,000 MG in sodium chloride 0.9% 250 ML 250 MG IV (14:05)
--- NOTE | 2023-09-17 15:32 | W.PM.OPSUD ---
Surgery/Procedure H&P Update DATE OF PROCEDURE: September 17, 2023 DATE H&P PERFORMED: 09/09/23 H&P UPDATE INFORMATION: I have reviewed H&P completed within last 30 days, I have examined patient prior to procedure and No changes to prior documentation PREOP DIAGNOSIS: Uterine fibroid, abnormal uterine bleeding, cystocele, urinary incontinence PLANNED PROCEDURE: Operation Date: 09/17/23 14:05 Proposed Procedures p Total Vaginal Hysterectomy, Bilateral salpingo-oophorectomy(Not Applicable) - Juan Francisco Yousif MD s Anterior Repair Anterior Colporrhaphy(Not Applicable) - Juan Francisco Yousif MD s Sling Single Incision Midurethral Sling(Not Applicable) - Juan Francisco Yousif MD
[2023-09-17] MEDS: levofloxacin-dextrose 5 % 500 MG/100 ML PREMIX 100 MG IV (15:36)
[2023-09-17] MEDS: lidocaine-epi 2% PF 1:200,000 20 mL SDV XX (16:23)
--- NOTE | 2023-09-17 17:39 | P.OP_ITS ---
Operative Report Date of procedure: September 17, 2023 Pre-op diagnosis: Uterine fibroid Abnormal uterine bleeding Cystocele Mixed incontinence Post-op diagnosis: same Procedure done: Total vaginal hysterectomy with right salpingo-oophorectomy Anterior colporrhaphy Mid urethral sling Cystoscopy Specimens removed/disposition: Uterus Right fallopian tube and ovary Surgeon: Juan Francisco Yousif MD Estimated blood loss (mL): 200 IV fluids (mL): 1,000 Urine output (mL): 500 Complications: None Findings: Enlarged uterus Procedure: After informed consent and risks, benefits, indications and alternatives reviewed with the patient was taken to the operating room. The patient was placed in dorsal lithotomy position prepped, and draped in the usual sterile fashion. The pre-procedure timeout verifying the correct patient, procedure, site and side, could not requirements was performed and acknowledge by the OR team. A Cosme catheter was placed. A Bookwalter vaginal retractor was placed into the vagina in usual manner visualize the cervix. Cervix was grasped with a single tooth tenaculum and circumferentially infiltrated with 2% lidocaine with epinephrine. Then cervix was circumferentially incised with bovie and the bladder was dissected off the pubovesical cervical fascia anteriorly with a sponge stick and Metzenbaum scissors. The anterior peritoneal reflection was identified and the anterior cul-de-sac was entered sharply with Metzenbaum scissors. The same procedure was performed posteriorly and a posterior colpotomy was made through the posterior cul-de-sac space without difficulty and the posterior blade of the Bookwalter vaginal retractor was advanced posteriorly into the cul-de-sac. At this time, the left and right uterosacral ligaments were isolated and ligated with 0 Vicryl. The LigaSure device was placed over the uterosacral ligaments on either side and was then used in a serial fashion up through the cardinal ligaments bilaterally cross-clamped, cut, and sealed with the LigaSure device. Finally, the uterine arteries were cross-clamped, cut, sealed and ligated with the LigaSure device. Hemostasis was assured. The broad ligaments were then serially clamped, sealed and cut with the LigaSure device on both sides. Excellent hemostasis was visualized. Both cornua were clamped, sealed and cut with the LigaSure device. Then the pedicles were then suture ligated with excellent hemostasis. The uterus was excised and submitted for pathologic evaluation. No other abnormalities were noted in the pelvic cavity. Then the right side Infundibular ligament was identified. The ureter was confirmed along the pelvic side wall and peristalsis was noted. The LigaSure device was then used to clamp, sealed and transcepted at middistance, again being sure to be clear of the ureter and the fallopian tube and ovary were removed. The left ovary and fallopian tube could not be identified and could not be excised. The peritoneum was then closed in a pursestring fashion with 0 Vicryl suture. The vaginal cuff angles were closed with [id number] #0 Vicryl suture on both sides and transfixed with the ipsilateral cardinal and uterosacral ligaments. The remainder of the vaginal cuff was closed with #0 Vicryl in a running locked fashion. Then the mid urethral sling was followed. A vertical midline incision was made beneath the midurethra, nearly 1.5 cm length. Careful submucosal dissection was performed bilaterally up to the interior portion of the inferior pubic ramus. The insertion of adductor longus tendon on the patient?s pubic ramus was identified as reference land brit. Palpated the notch along the internal edge of ischiopubic ramus where the adductor longus tendon and the inferior pubic ramus meet. The Altis single incision sling (SIS) was selected. Then the needle of the SIS inserted aiming at the location of this notch. One of the integrated self- fixating tips place onto the needle by sliding it over the end of the needle. The needle/sling assembly was inserted toward the location of identified reference notch making sure that the flat of the handle is perpendicular to the desired path. The needle was tracked along the posterior surface of the ischiopubic ramus until the midline brit on the mesh is approximately at the midline position under the urethra. The needle was removed and the same was repeated on the contralateral side until the appropriate sling tension under the urethra was achieved ensuring that the mesh lays flat. The needle was removed and vaginal incision was closed in a running interlocking fashion with 2-0 Vicryl. Then proceeded to perform the anterior colporrhaphy. An anterior repair was then performed. The medial portion of the anterior vaginal wall was grasped with two Allis clamps and the mucosa was infiltrated with the previous vasopressin solution. The Metzenbaum scissors were used to dissect and undermine a plane medially up to the point of reflexion anteriorly of the bladder. The vaginal mucosa was incised medially. This tissue was then grasped with Jocelyn clamps and dissected away with a combination of sharp and blunt dissection on both sides. A suture of 2-0 vicryl was then used to connect the lateral pubovesical connective tissue on either side together in a series of bites that was repeated in two layers. The excess vaginal mucosa was trimmed and the incision repaired with a locked suture of 0 vicryl. Bludigo IV was given. At this time, instruments were removed from the vagina at hemostasis assured. Then the Cosme catheter was removed and cystoscope was inserted. The bladder was filled with sterile water. Complete evaluation of the bladder mucosa was performed noting no lacerations, dimpling, tears, bleeding of the mucosa or muscular layers. Both ureteral orifices were identified. Prompt excretion of urine from both ureteral orifices was noted. Cystoscope was withdrawn. Cosme catheter was then placed yielding clear jay urine. A vaginal packing with Premarin cream was placed and the patient was taken out of dorsal lithotomy position and awakened from the general anesthesia. The patient tolerated the procedure well and was taken to the PACU recovery room in a stable condition. Sponge, lap, needle and instruments counts were correct x3.
--- NOTE | 2023-09-17 17:58 | ANE.PACU2 ---
Inpatient post-anesthesia follow up: Airway intact: Yes Vital signs: Temperature 97.6 F Pulse Rate 83 Respiratory Rate 16 Blood Pressure 101/66 Pulse Oximetry 96 Oxygen Delivery Me thod Room Air Oxygen Flow Rate Fraction of Inspir ed Oxygen Hydration adequate: Yes Nausea and vomiting: No Pain level: 3 Mental status: Baseline
[2023-09-17] MEDS: ketorolac 30 mg/mL INJ IVP (20:47)
[2023-09-17] MEDS: dextrose 5%-lactated ringers 1,000 ML 125 ML IV (20:47)
[2023-09-17] MEDS: montelukast sodium 10 mg Tablet PO (20:48)
[2023-09-17] MEDS: ropinirole 1 mg Tablet PO (20:48)
[2023-09-17] MEDS: pantoprazole DR 40 mg Tablet PO (20:48)
[2023-09-17] MEDS: docusate sodium 100 mg Capsule PO (20:48)
[2023-09-17] MEDS: hyDROXYzine 25 mg Capsule PO (20:49)
[2023-09-17] MEDS: oxyCODONE 5 mg IR Tab/Cap PO (23:59)
[2023-09-18] VITALS (8 sets, daily range): BP systolic 98–139; BP diastolic 59–88; PULSE 68–92; RESP 16–18; TEMP 36.4–37; O2SAT 94–99
[2023-09-18] MEDS: ketorolac 30 mg/mL INJ IVP ×2 (03:00→10:04)
[2023-09-18] MEDS: dextrose 5%-lactated ringers 1,000 ML 125 ML IV (03:03)
[2023-09-18] MEDS: FUROsemide 20 mg Tablet PO (05:22)
--- NOTE | 2023-09-18 06:04 | PC.NURSE ---
0515- Pt was informed that this nurse was to discontinue the olsen catheter and vaginal packing. Process explained and all questions answered. Pt tolerated the removal both well. Scant vaginal bleeding noted. Pt instructed to inform nurse when she was able to void so this nurse could perform a PVR (post-void residual). Pt states understanding.
[2023-09-18 06:17] LABS: Hematocrit 36.5 % (36-47); Mean Corpuscular HGB Conc 33.2 g/dL (30-55); Mean Corpuscular Hemoglobin 28.3 pg (27-33); Mean Corpuscular Volume 85.5 fl (85-98); Mean Platelet Volume 9.5 fL (7.4-10.4); Platelet Count 337 10^3/cmm (157-399); Red Blood Count 4.27 10^6/uL (3.85-5.65); Red Cell Distribution Width 12.1 % (12.1-15.1); White Blood Count 14.36 10^3/uL (3.29-11.43)
[2023-09-18] MEDS: ipratropium-albuterol 3 mL Neb INHALATION (07:44)
[2023-09-18] MEDS: budesonide 0.5 mg/2 mL Neb INHALATION (07:44)
[2023-09-18] MEDS: cholecalciferol (vitamin D3) 5,000 unit Tablet 5000 UNIT PO (10:02)
[2023-09-18] MEDS: bisacodyl 5 mg Tablet PO (10:02)
[2023-09-18] MEDS: hyDROXYzine 25 mg Capsule PO (10:02)
[2023-09-18] MEDS: pantoprazole DR 40 mg Tablet PO (10:03)
[2023-09-18] MEDS: loratadine 10 mg Tablet PO (10:03)
[2023-09-18] MEDS: docusate sodium 100 mg Capsule PO (10:03)
[2023-09-18] MEDS: ropinirole 1 mg Tablet PO (10:03)
--- NOTE | 2023-09-18 10:11 | PM.OBGYDC ---
Discharge Providers DESULFURIZER HAND Date of Admission: 09/17/23 15:22 Date of Discharge: 09/18/23 Attending Provider at Admission: Juan Francisco Yousif MD Attending Provider at Discharge: Juan Francisco Yousif MD Primary Care Provider: Rusty Lane MD Reason for Visit Reason for Visit: [id number] Hospital Course Hospital Course Mrs. Fragoso 42-year-old female admitted for planned total vaginal hysterectomy, anterior colporrhaphy, and mid urethral sling. The procedures were performed without complication. Overnight observation was uneventful. She is afebrile and hemodynamically stable postoperative day 1. PVR within normal limits. Tolerating diet well. Ambulating without difficulty. She was counseled regarding pelvic rest for 6 weeks (no sex, no tampons, no vaginal douches). Return to the emergency room if any fever, increased bleeding or pain. Physical Exam Narrative: GA: Alert and oriented ?3. HEENT: WNL. Heart: Regular rate and rhythm. Lungs: Clear to auscultation bilaterally. Abdomen: Bowel sounds present, nontender, minimal tenderness, incision clean and dry, no redness, pain or edema. CLINICAL INFORMATICS EDUCATOR: Spotting bleeding. Extremities: No edema, no cyanosis, no calves pain. Urinary Catheter Management: Cosme: Cath Placed During This Visit: yes, but has since been removed by the nurse Reason for Continuing Indwelling Catheter: Perioperative Use in Selected Surgeries Urinary Catheter Date of Insertion: 09/17/23 Urinary Catheter Time of Insertion: 16:00 Date Urinary Catheter Removed: 09/18/23 Time Urinary Catheter Discontinued: 05:15 History History History 9 Term 4 1 Miscarriages/Ectopic 4 Living Children 4 Discharge Data Studies Completed and Pending Pending at discharge Category Date Time Status Pathology: Surgical [PTH] Routine Pth 09/17/23 17:10 Received Laboratory Results WBC 14.36 10^3/uL (3.29-11.43) H 09/18/23 05:53 RBC 4.27 10^6/uL (3.85-5.65) 09/18/23 05:53 Hgb 12.10 g/dL (11.27-16.99) 09/18/23 05:53 Hct 36.5 % (36-47) 09/18/23 05:53 MCV 85.5 fl (85-98) 09/18/23 05:53 MCH 28.3 pg (27-33) 09/18/23 05:53 MCHC 33.2 g/dL (30-55) 09/18/23 05:53 RDW 12.1 % (12.1-15.1) 09/18/23 05:53 Plt Count 337 10^3/cmm (157-399) 09/18/23 05:53 MPV 9.5 fL (7.4-10.4) 09/18/23 05:53 Neut % (Auto) 75.9 % 09/12/23 10:55 Lymph % (Auto) 16.7 % 09/12/23 10:55 Henry % (Auto) 6.2 % 09/12/23 10:55 Eos % (Auto) 0.5 % 09/12/23 10:55 Baso % (Auto) 0.4 % 09/12/23 10:55 Neut # (Auto) 6.92 10^3/uL (1.8-7.7) 09/12/23 10:55 Lymph # (Auto) 1.5 10^3/uL (0.8-4.8) 09/12/23 10:55 Henry # (Auto) 0.6 10^3/uL (0.2-0.9) 09/12/23 10:55 Eos # (Auto) 0.1 10^3/uL (0.0-0.8) 09/12/23 10:55 Baso # (Auto) 0.0 10^3/uL (0.0-0.1) 09/12/23 10:55 Nucleated RBC % (auto) 0 % 09/12/23 10:55 Nucleated RBCs # 0.0 /100WBC 09/12/23 10:55 Sodium 138 mmol/L (136-145) 09/12/23 10:55 Potassium 4.4 mmol/L (3.5-5.1) 09/12/23 10:55 Chloride 101 mmol/L (98-107) 09/12/23 10:55 Carbon Dioxide 28 mmol/L (22-29) 09/12/23 10:55 Anion Gap 13.4 (5-19) 09/12/23 10:55 BUN 10 mg/dL (6-20) 09/12/23 10:55 Creatinine 0.7 mg/dL (0.5-0.9) 09/12/23 10:55 GFR Calculation 91.3 mL/min (90-130) 09/12/23 10:55 Glucose 100 mg/dL (65-115) 09/12/23 10:55 Calculated Osmolality 285 mOsm/kg (285-295) 09/12/23 10:55 Calcium 9.0 mg/dL (8.5-10.5) 09/12/23 10:55 Total Bilirubin 0.3 mg/dL (0.15-1.2) 09/12/23 10:55 AST 12 U/L (0-32) 09/12/23 10:55 ALT 21 U/L (0-33) 09/12/23 10:55 Alkaline Phosphatase 104 U/L (35-105) 09/12/23 10:55 Total Protein 7.2 g/dL (6.6-8.7) 09/12/23 10:55 Albumin 4.3 g/dL (3.5-5.2) 09/12/23 10:55 Globulin 2.9 g/dL (1.3-4.6) 09/12/23 10:55 Urine Color Yellow (Yellow) 09/12/23 10:24 Urine Appearance Clear (CLEAR) 09/12/23 10:24 Urine pH 6 (5-7) 09/12/23 10:24 Ur Specific Davison 1.015 (1.005-1.030) 09/12/23 10:24 Urine Protein Neg (Negative) 09/12/23 10:24 Urine Glucose (UA) Norm (Normal) 09/12/23 10:24 Urine Ketones Negative (Negative) 09/12/23 10:24 Urine Blood Neg (Negative) 09/12/23 10:24 Urine Nitrate Negative (Negative) 09/12/23 10:24 Urine Bilirubin Neg (Negative) 09/12/23 10:24 Urine Urobilinogen Norm mg/dL (Negative) 09/12/23 10:24 Ur Leukocyte Esterase Negative (Negative) 09/12/23 10:24 Urine HCG, Qual Negative (Negative) 09/17/23 12:40 Blood Type A Positive 09/17/23 13:15 Rho(D) Type Rh positive 09/17/23 13:15 Antibody Screen Negative 09/17/23 13:15 Vitals Last Vital Signs Temp 98.3 F 09/18/23 08:32 Pulse 77 09/18/23 08:32 Resp 18 09/18/23 08:32 BP 98/59 09/18/23 08:32 Pulse Ox 94 09/18/23 08:32 O2 Del Method Room Air 09/18/23 08:32 Results Labs OB ([facility]): Blood Type A Positive 09/17/23 Antibody Screen Negative 09/17/23 Hct 36.5 % (36-47) 09/18/23 Hgb 12.10 g/dL (11.27-16.99) 09/18/23 Rho(D) Type Rh positive 09/17/23 Plt Count 337 10^3/cmm (157-399) 09/18/23 Hep Bs Antigen Non-reactive (Nonreactive) 05/18/22 Hep B Core Total Ab Non-reactive (Nonreactive) 05/18/22 Hep Bs Antibody 3.5 (11.5-1000) L 05/18/22 Hepatitis C Antibody Non-reactive (Nonreactive) 05/18/22 T.pallidum Ab (FTA-ABS) Non-reactive (NON-REACTIVE) 08/23/22 HIV 1&2 Ab & HIV 1 Ag Non-reactive (Non-Reactiv) 05/18/22 TSH 1.73 uIU/mL (0.27-4.20) 08/23/22 Free T4 1.15 ng/dL (0.82-1.77) 08/23/22 HCG, Qual Negative (Negative) 08/02/23 Micro Urine Specimen 08/02/23 Pap Smear Interpret See note 09/12/21 Discharge Plan Discharge Patient Disposition: Home Condition: Stable Prescriptions: New oxycodone 10 mg tablet 10 mg PO Q12H PRN (Reason: pain) Qty: 30 0RF Continued ipratropium-albuterol 0.5 mg-3 mg(2.5 mg base)/3 mL solution for nebulization 3 ml inhalation Q4H PRN (Reason: wheezing) Qty: 90 3RF epinephrine 0.3 mg/0.3 mL auto-injector 0.3 mg IM Q4H PRN (Reason: Allergic Reaction) loratadine 10 mg tablet 10 mg PO DAILY Qty: 90 2RF clobetasol 0.05 % ointment 1 applic topical BID pantoprazole [Protonix] 40 mg tablet,delayed release (DR/EC) 40 mg PO BID 42 Days Qty: 84 1RF magnesium citrate Solution 300 ml PO DAILY PRN (Reason: constipation) Qty: 296 2RF Rx Instructions: take as directed for colonoscopy bisacodyl [Dulcolax (bisacodyl)] 5 mg tablet,delayed release (DR/EC) 5 mg PO DAILY Qty: 4 0RF Rx Instructions: take as directed for colonoscopy budesonide [Pulmicort] 0.5 mg/2 mL suspension for nebulization 0.5 mg inhalation DAILY pimecrolimus [Elidel] 1 % cream 1 applic topical BID ciclopirox 0.77 % gel 1 applic topical BID potassium chloride 8 mEq capsule, extended release 8 meq PO DAILY Qty: 30 5RF Adbry 150 mg/mL syringe 300 mg SUBCUT Q14D Qty: 4 2RF Rx Instructions: 600mg divided in 4 sites on day 1. then 300mg divided in 2 sites every 2 weeks albuterol sulfate 90 mcg/actuation HFA aerosol inhaler 2 inh inhalation Q4H PRN (Reason: shortness of breath or wheezing) Qty: 8.5 0RF oxycodone 5 mg tablet 5 mg PO Q8H PRN (Reason: pain) 30 Days Qty: 60 0RF Rx Instructions: Can refill on or after 30 days hydroxyzine HCl 25 mg tablet 25 mg PO TID Qty: 270 0RF Rx Instructions: Take 1 tab in the morning and 2 one hr before bedtime montelukast 10 mg Tablet 10 mg PO QPM ropinirole 1 mg tablet 1 mg PO BID amlodipine 2.5 mg tablet 2.5 mg PO DAILY furosemide 20 mg tablet 20 mg PO QAM ondansetron 4 mg tablet,disintegrating 4 mg PO Q8H PRN (Reason: nausea and vomiting) Qty: 14 0RF benzonatate 200 mg capsule 200 mg PO PRN triamcinolone acetonide 0.1 % Ointment 1 applic TOPICAL DAILY PRN (Reason: flare) Vitamin D3 125 mcg (5,000 unit) Tablet 125 mcg PO DAILY Discharge Orders: Discharge Order (Routine); Ordered 09/18/23 Ordered By: Juan Francisco Yousif Referrals: Juan Francisco Yousif MD [Physician] - 2 weeks Discharge Diet: Usual diet Discharge Activity: Limit activity as instructed Patient Instructions: Acute Wound Care (DC), Bladder Sling for Women (GEN), Vaginal Hysterectomy (GEN), Anterior Vaginal Repair (GEN), Opioid Safety, Post Anesthesia Care Activity Restrictions/Additional Instructions: 1. Please call [facility] on next working day to make your post-operative appointment in 2 weeks. 2. Please stay home until you come back to the clinic on first post-hospatilization check up. 3. Please follow instructions on your medications CAREFULLY. 4. If you have abdominal incision, do not cover it unless dressing is necessary because of drainage. OK to shower, but avoid bath. Leave steri-strips until they fall off. If they are still on one week after surgery, you may remove them. 5. If you had vaginal surgery or vaginal repair, Dr. Yousif may instruct you to take SITZ bath. 6. Yellow, blood tinged odorous vaginal discharge is usually normal after hysterectomy or vaginal surgeries. 7. No SEXUAL INTERCOURSE, tampons, or douches until you are completely released from the post-operative care. 8. Avoid constipation by eating right and maybe using some Metamucil or Milk of Magnesia. 9. All prescription refills are given during the working hours. Please do no wait till it runs out. Call the clinic at [phone] before your medication runs out. The clinic will get in touch with your doctor to prescribe medications if necessary. 10. Please remain within 40 mile radius from our hospital because emergencies do happen now and then during the post-operative period. 11. If you have stairs at home, take one step at a time slowly and minimize the number of trips. It helps to stay in one floor for the next few days. No lifting except what you can lift by one hand until you are released from the post-operative care. 12. Driving is discouraged until you are well healed. It may be 3-4 weeks before you feel strong enough to drive. You should be able to turn and look through the rear window without pain and you should be able to push the brake pedal very hard without pain before you drive. No fast rules, but SAFETY should be your primary concern. DO NOT drive if you are on sedating medications such as narcotics. 13. Call the clinic (during working hours) to make urgent appointment or go to the Emergency room, if any of the following occurs: i. Vaginal bleeding becomes heavy, more than a period. ii. Incision becomes red and sore, or drains pus. iii. Your TEMPERATURE is over 100.4F or you have chill. iv. IV site becomes red and swollen (a little ``knot?? is usually OK) v. Persistent nausea and vomiting vi. Persistent constipation or diarrhea vii. Rash or allergic reaction to medications. Discharge Attestations DESULFURIZER HAND Time Spent in Discharge Care*: greater than 30 min Coding Level of Care Code Acute Code for Chg Fwd
[2023-09-18] MEDS: amlodipine 5 mg Tablet 2.5 MG PO (10:12)
--- NOTE | 2023-09-18 12:33 | PC.NURSE ---
Discussed discharge orders with patient and spouse at 1227. Went over Dr. Yousif's instructions explicitly. Patient did verbalize understanding. Discussed medications with patient and spouse as well.
== END 2023-09-18 12:47 | disposition home or self-care (01) ==
LOC: MEDSURG 15:23
PROVIDERS: Anesthesiology; Admitting Provider Obstetrics & Gynecology; PCP Family Medicine Adult Medicine; Visit Provider Obstetrics & Gynecology
PROC: (CPT 57240; principal; 2023-09-17 13:55)
PROC: 0JQC0ZZ Repair Pelvic Region Subcutaneous Tissue and Fascia, Open Approach (ICD-10-PCS; CPT 57240; 2023-09-17 13:55)
PROC: (CPT 57288; 2023-09-17 13:55)
PROC: 0TJB8ZZ Inspection of Bladder, Via Natural or Artificial Opening Endoscopic (ICD-10-PCS; CPT 52000; 2023-09-17 13:55)
DX: D25.9 Leiomyoma of uterus, unspecified (principal); N81.10 Cystocele, unspecified; N39.46 Mixed incontinence; J44.9 Chronic obstructive pulmonary disease, unspecified; I10 Essential (primary) hypertension; K21.9 Gastro-esophageal reflux disease without esophagitis; E11.9 Type 2 diabetes mellitus without complications; E66.01 Morbid (severe) obesity due to excess calories; Z68.41 Body mass index [BMI] 40.0-44.9, adult; Z87.891 Personal history of nicotine dependence
CPT/HCPCS: 57240; 57288; 58262; 36415; 51702; 80053; 81003; 81025; 85025; 85027; 86850; 86900; 88307; 94640; C1713; G0378; J1200; J1885; J1956; J2250; J2405; J2704; J3010; J3370; J3490; J7030; J7040; J7050; J7121; J7626

== ENCOUNTER 2023-09-20 19:50 | Emergency (ER) | payer MEDICAID, SELFPAY ==
[2023-09-20 19:55] VITALS: BP 125/85; PULSE 100; RESP 16; TEMP 36.6; O2SAT 97; BMI 40.6
--- NOTE | 2023-09-20 20:18 | XRR_ITS ---
PROCEDURE INFORMATION: Exam: XR Abdomen Exam date and time: 09/20/2023 8:23 PM Age: 42 years old Clinical indication: Abdominal pain; Other: Ruq; Prior surgery; Surgery date: Post-operative (0-2 days); Surgery type: Complete hysterectomy; Additional info: Abd pain/mult abd surgeries TECHNIQUE: Imaging protocol: Radiologic exam of the abdomen. Views: Frontal supine view of the abdomen. 1 View. COMPARISON: CT abdomen pelvis w con* [id number] 08/02/2023 11:12 AM FINDINGS: Gastrointestinal tract: No small bowel dilation or free air identified. Organs: Absent gallbladder. Bones/joints: Unremarkable. XR/XR KUB portable [id number] IMPRESSION: No acute finding.
--- NOTE | 2023-09-20 20:23 | ED_ITS ---
HPI - General Adult 2 General: Chief complaint: General Medical Stated complaint: 4 day Post op having chills and feverish Time Seen by Provider: 09/20/23 20:11 Source: patient Mode of arrival: ambulatory Limitations: no limitations History of Present Illness: Patient is a 42-year-old female presenting to the emergency department complaining of fever onset today. Patient had anterior vaginal repair with bladder sling placement and vaginal hysterectomy on 09/[address] Yousif, states that she has been okay up until today when she started developing chills and subjective fever at home. She has not taken her temperature. She has been taking pain medications prescribed and states that she has still had abdominal pain, however it is to the right upper quadrant. She does have history of cholecystectomy. She has felt nauseous but has not thrown up. She states that she has had constant diarrhea, no blood. No vomiting at this time. No other symptoms to report at this time. MD complaint: Postop fever Onset (ago): hour(s) Associated symptoms: Reports nausea; Deny chest pain, dyspnea, headache(s), rash, palpitations or vomiting Review of Systems 2 General: Reports: 10 or more systems reviewed and unremarkable except in HPI and below Const: Reports: fever(s), chills and fatigue Eyes: Denies: change in vision ENMT: Denies: throat pain, ear or mastoid pain or nasal discharge Card: Denies: chest pain, palpitations, swelling of feet/ankles or lightheadedness Resp: Denies: dyspnea, productive cough or wheezing GI: Reports: abdominal pain, nausea and diarrhea; Denies: vomiting or constipation : Denies: flank pain, difficulty voiding, dysuria or urinary frequency Musc: Denies: neck pain, back pain or joint pain Skin/Breast: Denies: rash Neuro: Denies: headache(s), numbness in extremities or weakness in extremities PFSH ED 2 PFSH: Medical History Lung nodule seen on imaging study Muscle weakness of extremity Dysequilibrium Bursitis of right shoulder Endometriosis determined by laparoscopy Bilateral lower extremity edema Bilateral leg cramps Fibroids, intramural BMI 40.0-44.9, adult Family history of brain aneurysm Family history of aneurysm Headache Mixed urge and stress incontinence Anxiety and depression Bipolar 2 disorder Atopic dermatitis in adult Marijuana smoker Smoker Quit cigarettes in 2018, still Marijuana Asthma-COPD overlap syndrome Surgical History Hx of colonoscopy 2007 Hx of breast reduction, elective S/P tonsillectomy H/O tubal ligation H/O laparoscopy 08/27/2018- Diagnostic laparoscopy, fulguration of endometriotic lesions and lysis of adhesions per Dr. Yousif at [facility] S/P cryotherapy of skin lesion for cervical dysplasia S/P cholecystectomy laparoscopic, 04/16/2018 Family History Father Anesthesia complication Heart disease Hyperlipidemia Hypertension Grandfather , Due to Aneurysm Diabetes maternal Aneurysm Grandmother Diabetes maternal Breast cancer maternal, diagnosed in her 40's Stroke paternal Thyroid disease maternal Daughter No problems noted. Family/Other Diabetes maternal uncle Ovarian cancer maternal aunt Bleeding disorder paternal Uterine cancer maternal great great aunt Mother Stroke Denies family history of Clotting disorder Social History Smoking and tobacco/nicotine status: former use of tobacco/nicotine Quit status (tobacco/nicotine): has quit using Second hand smoke exposure: No Alcohol intake: current Alcohol intake frequency: holidays/special occasions only Alcohol type: wine Substance/Drug Use: current Substance/Drug use frequency: daily Current occupational status: unemployed Do you think of yourself as: Straight/Heterosexual Current gender identity: Female Physical Exam 2 Const: COMMON NORMALS: no acute distress, patient oriented x3, no limitations, alert and well nourished GENERAL APPEARANCE: cooperative and appears older than stated age NUTRITIONAL APPEARANCE: obese morbidly obese O RIENTATION/CONSCIOUSNESS: Yes awake HENMT: COMMON NORMALS: normocephalic, atraumatic, hearing grossly normal bilaterally, external ears normal, Normal external nose present, Normal nasal mucous membranes and turbinates present and moist oral mucous membranes HEAD & SCALP: normocephalic and atraumatic NOSE: Normal external nose present and Normal nasal mucous membranes and turbinates present EXTERNAL EAR: Yes external ears normal Eye: COMMON NORMALS: Equal, round and reactive pupils present, EOMs intact bilaterally, conjunctivae normal and normal visual johnson by confrontation C ONJUNCTIVA: Yes conjunctivae normal PUPIL: Yes Equal, round and reactive pupils present Neck/C-Spine: COMMON NORMALS: full ROM, supple, no meningeal signs and no JVD Resp: COMMON NORMALS: normal respiratory effort, No retractions, No use of accessory muscles and clear to auscultation bilaterally AUSCULTATION: clear to auscultation bilaterally, no crackles, no rales, no rhonchi and no wheezes Cardio: COMMON NORMALS: no JVD, regular rate, regular rhythm, S1 normal heart sound present, S2 normal heart sound present, No gallops present (Cardio), No clicks present (Cardio), No murmurs present (Cardio), No rub (Cardio) and Peripheral pulses 2+ throughout RATE: regular rate RHYTHM: regular rhythm HEART SOUNDS: S1 normal heart sound present and S2 normal heart sound present PERIPHERAL PULSES: Peripheral pulses 2+ throughout GI: COMMON NORMALS: Soft to palpation, No hepatosplenomegaly present and no masses INSPECTION: Yes central obesity AUSCULTATION: Yes normoactive bowel sounds PALPATION: Yes Soft to palpation, Yes Tenderness to palpation present (GI) (Right upper quadrant tenderness to palpation), No Guarding due to palpation present (GI), No Rigid due to palpation and Yes No hepatosplenomegaly present RECTAL EXAM: deferred : COMMON NORMALS: Yes no CVA tenderness BLADDER/KIDNEY EXAM: Yes no CVA tenderness Back/Pelvis: COMMON NORMALS: no CVA tenderness Extremity: COMMON NORMALS: normal to inspection and full ROM Neuro: COMMON NORMALS: patient oriented x3, moves all extremities, no focal motor deficits and no sensory deficits noted SENSORIUM/ORIENTATION: Yes alert MENINGEAL SIGNS: Yes no meningeal signs Psych: COMMON NORMALS: mental status grossly normal, cooperative and speech normal SPEECH: Yes normal speech Skin: COMMON NORMALS: no rashes or lesions noted GENERAL SKIN EXAM: no rashes or lesions noted Course 2 Vital Signs: Vital signs: Vital Signs Temperature 97.8 F 09/20/23 19:55 Pulse Rate 89 09/20/23 21:30 Respiratory Rate 16 09/20/23 21:30 Blood Pressure 138/81 09/20/23 21:30 Pulse Oximetry 100 09/20/23 21:30 Oxygen Delivery Me thod Room Air 09/20/23 21:30 MDM - General Adult Medical Decision Making Patient is 4 days postop removed from vaginal hysterectomy with sling placement. Symptoms reported were all related to illness/she stated she had nausea, diarrhea, and fever and chills at home. She does have history of cholecystectomy and was noting some abdominal pain. Her lab work shows either improvement from prior or is normal, as there are no signs of infection or blood loss anemia. Her urinalysis is negative. KUB was obtained to rule out any postop adhesions/bowel obstruction, this was negative. I discussed patient's care with Dr. Mendoza, who agrees with that patient can be discharged home at this time and follow-up with OB surgery as scheduled. I explained the patient that her lab work and imaging are all unremarkable and that her symptoms are likely physiologic and normal due to her period and postop timeframe. She has Zofran at home already I instructed her to drink plenty fluids. Strict return precautions were given and she does agree with discharge home at this time. She is can be discharged after IV fluids. Lab Data 09/20/23 20:26 09/20/23 20:26 Radiology Impressions KUB X-Ray 09/20/23 20:18 IMPRESSION: No acute finding. Laboratory Results WBC 12.48 10^3/uL (3.29-11.43) H 09/20/23 20: RBC 4.43 10^6/uL (3.85-5.65) 09/20/23 20: Hgb 12.60 g/dL (11.27-16.99) 09/20/23 20: Hct 37.6 % (36-47) 09/20/23 20: MCV 84.9 fl (85-98) L 09/20/23 20: MCH 28.4 pg (27-33) 09/20/23 20: MCHC 33.5 g/dL (30-55) 09/20/23 20:26 RDW 12.2 % (12.1-15.1) 09/20/23 20: Plt Count 332 10^3/cmm (157-399) 09/20/23 20: MPV 9.1 fL (7.4-10.4) 09/20/23 20:26 Neut % (Auto) 73.9 % 09/20/23 20: Lymph % (Auto) 17.1 % 09/20/23 20: [place] % (Auto) 7.1 % 09/20/23 20:26 Eos % (Auto) 1.0 % 09/20/23 20:26 Baso % (Auto) 0.5 % 09/20/23 20: Neut # (Auto) 9.22 10^3/uL (1.8-7.7) H 09/20/23 20:26 Lymph # (Auto) 2.1 10^3/uL (0.8-4.8) 09/20/23 20: [place] # (Auto) 0.9 10^3/uL (0.2-0.9) 09/20/23 20: Eos # (Auto) 0.1 10^3/uL (0.0-0.8) 09/20/23 20: Baso # (Auto) 0.1 10^3/uL (0.0-0.1) 09/20/23 20: Nucleated RBC % (auto) 0 % 09/20/23 20: Nucleated RBCs # 0.0 /100WBC 09/20/23 20: Sodium 139 mmol/L (136-145) 09/20/23 20: Potassium 3.6 mmol/L (3.5-5.1) 09/20/23 20: Chloride 101 mmol/L (98-107) 09/20/23 20: Carbon Dioxide 28 mmol/L (22-29) 09/20/23 20:26 Anion Gap 13.6 (5-19) 09/20/23 20:26 BUN 9 mg/dL (6-20) 09/20/23 20: Creatinine 0.6 mg/dL (0.5-0.9) 09/20/23 20:26 GFR Calculation 109.1 mL/min (90-130) 09/20/23 20:26 Glucose 96 mg/dL (65-115) 09/20/23 20: Calculated Osmolality 287 mOsm/kg (285-295) 09/20/23 20: Lactic Acid 1.0 mmol/L (0.5-2.2) 09/20/23 20: Calcium 9.0 mg/dL (8.5-10.5) 09/20/23 20: Total Bilirubin 0.4 mg/dL (0.15-1.2) 09/20/23 20:26 AST 24 U/L (0-32) 09/20/23 20:26 ALT 28 U/L (0-33) 09/20/23 20:26 Alkaline Phosphatase 106 U/L (35-105) H 09/20/23 20:26 C-Reactive Protein 16.1 mg/L (0.0-4.9) H 09/20/23 20:26 Total Protein 6.9 g/dL (6.6-8.7) 09/20/23 20: Albumin 4.2 g/dL (3.5-5.2) 09/20/23 20: Globulin 2.7 g/dL (1.3-4.6) 09/20/23 20: Lipase 23 U/L (13-60) 09/20/23 20:26 Procalcitonin 0.03 ng/mL (0-0.5) 09/20/23 20:26 Urine Color Yellow (Yellow) 09/20/23 21:10 Urine Appearance Clear (CLEAR) 09/20/23 21:10 Urine pH 9 (5-7) H 09/20/23 21:10 Ur Specific [place] 1.015 (1.005-1.030) 09/20/23 21:10 Urine Protein Neg (Negative) 09/20/23 21:10 Urine Glucose (UA) Norm (Normal) 09/20/23 21:10 Urine Ketones Negative (Negative) 09/20/23 21:10 Urine Blood Neg (Negative) 09/20/23 21:10 Urine Nitrate Negative (Negative) 09/20/23 21:10 Urine Bilirubin Neg (Negative) 09/20/23 21:10 Urine Urobilinogen Neg mg/dL (Negative) 09/20/23 21:10 Ur Leukocyte Esterase 1+ (Negative) H 09/20/23 21:10 Urine RBC 0-4 /hpf (0-2) H 09/20/23 21:10 Urine WBC 5-10 /hpf (0-5) H 09/20/23 21:10 Ur Squamous Epith Cells 5-10 /hpf (0-5) H 09/20/23 21:10 Amorphous Sediment Not Reportable 09/20/23 21:10 Urine Bacteria 1+ /hpf (NONE) H 09/20/23 21:10 All radiology interpretation(s) finalized by discharge Discharge Plan Discharge Patient Disposition: Home Clinical Impression: Postoperative nausea Condition: Stable Prescriptions: No Action ipratropium-albuterol 0.5 mg-3 mg(2.5 mg base)/3 mL solution for nebulization 3 ml inhalation Q4H PRN (Reason: wheezing) Qty: 90 3RF epinephrine 0.3 mg/0.3 mL auto-injector 0.3 mg IM Q4H PRN (Reason: Allergic Reaction) loratadine 10 mg tablet 10 mg PO DAILY Qty: 90 2RF clobetasol 0.05 % ointment 1 applic topical BID pantoprazole [Protonix] 40 mg tablet,delayed release (DR/EC) 40 mg PO BID 42 Days Qty: 84 1RF magnesium citrate Solution 300 ml PO DAILY PRN (Reason: constipation) Qty: 296 2RF Rx Instructions: take as directed for colonoscopy bisacodyl [Dulcolax (bisacodyl)] 5 mg tablet,delayed release (DR/EC) 5 mg PO DAILY Qty: 4 0RF Rx Instructions: take as directed for colonoscopy budesonide [Pulmicort] 0.5 mg/2 mL suspension for nebulization 0.5 mg inhalation DAILY pimecrolimus [Elidel] 1 % cream 1 applic topical BID ciclopirox 0.77 % gel 1 applic topical BID potassium chloride 8 mEq capsule, extended release 8 meq PO DAILY Qty: 30 5RF Adbry 150 mg/mL syringe 300 mg SUBCUT Q14D Qty: 4 2RF Rx Instructions: 600mg divided in 4 sites on day 1. then 300mg divided in 2 sites every 2 weeks albuterol sulfate 90 mcg/actuation HFA aerosol inhaler 2 inh inhalation Q4H PRN (Reason: shortness of breath or wheezing) Qty: 8.5 0RF oxycodone 5 mg tablet 5 mg PO Q8H PRN (Reason: pain) 30 Days Qty: 60 0RF Rx Instructions: Can refill on or after 30 days hydroxyzine HCl 25 mg tablet 25 mg PO TID Qty: 270 0RF Rx Instructions: Take 1 tab in the morning and 2 one hr before bedtime montelukast 10 mg Tablet 10 mg PO QPM ropinirole 1 mg tablet 1 mg PO BID amlodipine 2.5 mg tablet 2.5 mg PO DAILY furosemide 20 mg tablet 20 mg PO QAM ondansetron 4 mg tablet,disintegrating 4 mg PO Q8H PRN (Reason: nausea and vomiting) Qty: 14 0RF benzonatate 200 mg capsule 200 mg PO PRN triamcinolone acetonide 0.1 % Ointment 1 applic TOPICAL DAILY PRN (Reason: flare) Vitamin D3 125 mcg (5,000 unit) Tablet 125 mcg PO DAILY oxycodone 10 mg tablet 10 mg PO Q12H PRN (Reason: pain) Qty: 30 0RF Discharge Orders: Discharge ED (Routine); Ordered 09/20/23 Ordered By: Satish Burris Referrals: Rusty Lane MD [Primary Care Provider] - Discharge Diet: As Directed Discharge Activity: Increase activity as tolerated Patient Instructions: High Fiber Diet (ED), Opioid Safety, Pain Management Activity Restrictions/Additional Instructions: Zofran at home. Plenty of fluids. High-fiber diet. Imodium [id number] as needed. Please follow-up with Dr. Yousif as scheduled. Return with any new or worsening symptoms may have. 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
[2023-09-20 20:33] LABS: Basophils # 0.1 10^3/uL (0.0-0.1); Basophils % 0.5 %; Eosinophils # 0.1 10^3/uL (0.0-0.8); Hematocrit 37.6 % (36-47); Lymphocytes # 2.1 10^3/uL (0.8-4.8); Lymphocytes % 17.1 %; Mean Corpuscular HGB Conc 33.5 g/dL (30-55); Mean Corpuscular Hemoglobin 28.4 pg (27-33); Mean Corpuscular Volume 84.9 fl (85-98); Mean Platelet Volume 9.1 fL (7.4-10.4); Monocytes # 0.9 10^3/uL (0.2-0.9); Monocytes % 7.1 %; Neutrophils # 9.22 10^3/uL (1.8-7.7); Neutrophils % 73.9 %; Nucleated Red Blood Cells % 0 %; Platelet Count 332 10^3/cmm (157-399); Red Blood Count 4.43 10^6/uL (3.85-5.65); Red Cell Distribution Width 12.2 % (12.1-15.1); White Blood Count 12.48 10^3/uL (3.29-11.43)
[2023-09-20 20:50] LABS: Alanine Aminotransferase 28 U/L (0-33); Albumin Level 4.2 g/dL (3.5-5.2); Alkaline Phosphatase 106 U/L (35-105); Anion Gap 13.6 (5-19); Aspartate Amino Transferase 24 U/L (0-32); Blood Urea Nitrogen 9 mg/dL (6-20); C Reactive Protein 16.1 mg/L (0.0-4.9); Carbon Dioxide 28 mmol/L (22-29); Chloride 101 mmol/L (98-107); Creatinine Clr Calc Pharmacy 155.1701; Globulin 2.7 g/dL (1.3-4.6); Glomerular Filtration Rate 109.1 mL/min (90-130); Glucose 96 mg/dL (65-115); Lipase 23 U/L (13-60); Osmolality Calculated 287 mOsm/kg (285-295); Potassium 3.6 mmol/L (3.5-5.1); Sodium 139 mmol/L (136-145); Total Bilirubin 0.4 mg/dL (0.15-1.2); Total Protein 6.9 g/dL (6.6-8.7)
[2023-09-20 20:56] LABS: Procalcitonin 0.03 ng/mL (0-0.5)
[2023-09-20] MEDS: ondansetron 2 mg/ML SDV 2 mL 4 MG IVP (21:15)
[2023-09-20 21:30] VITALS: BP 138/81; PULSE 89; RESP 16; O2SAT 100
[2023-09-20] MEDS: sodium chloride 0.9% 1,000 ML 999 ML IV (21:30)
[2023-09-20 21:34] LABS: Urine Appearance Clear (CLEAR); Urine Color Yellow (Yellow)
[2023-09-20 21:35] LABS: Add Urine Microscopic? YES; Bacteria Urine 1+ /hpf; Bilirubin Urine Neg (Negative); Blood Urine Neg (Negative); Glucose Urine UA Norm (Normal); Ketones Urine Negative (Negative); Leukocyte Esterase Urine 1+ (Negative); Nitrate Urine Negative (Negative); Protein Urine Neg (Negative); RBC Urine 0-4 /hpf (0-2); Specific Gravity, Urine 1.015 (1.005-1.030); Urobilinogen Urine Neg (Negative); pH Urine 9 (5-7)
[2023-09-20 22:11] VITALS: BP 140/82; PULSE 86; RESP 16; TEMP 36.6; O2SAT 100
== END 2023-09-20 22:09 | disposition home or self-care (01) ==
PROVIDERS: Emergency Provider Physician Assistant; PCP Family Medicine Adult Medicine
DX: R11.0 Nausea (principal); J44.89 Other specified chronic obstructive pulmonary disease; Z79.899 Other long term (current) drug therapy; Z87.891 Personal history of nicotine dependence; Z90.710 Acquired absence of both cervix and uterus; Z90.49 Acquired absence of other specified parts of digestive tract
CPT/HCPCS: 36415; 74018; 80053; 81001; 83605; 83690; 84145; 85025; 86140; 96374; 99284; J2405; J7030

== ENCOUNTER 2023-10-02 05:58 | Day surgery (SDC) | payer MEDICAID, SELFPAY ==
[2023-10-02] VITALS (8 sets, daily range): BP systolic 104–154; BP diastolic 72–106; PULSE 79–97; RESP 14–20; TEMP 36.2–36.5; O2SAT 97–100; BMI 40.1
[2023-10-02] MEDS: sodium chloride 0.9% 1,000 ML 30 ML IV (06:21)
--- NOTE | 2023-10-02 06:29 | P.ANESASSM_ITS ---
Pre-Anesthetic Assessment Height/Weight: Height 1.68 m Weight 112.945 kg Temp Pulse Resp BP Pulse Ox O2 Del Method 97.7 F 91 16 104/72 97 Room Air 10/02/23 06:12 10/02/23 06:12 10/02/23 06:12 10/02/23 06:12 10/02/23 06:12 10/02/23 06:12 Operation Date: 10/02/23 07:00 Proposed Procedures p EGD 04042, 83575, G0105, K92.2, K21.9, K52.9(Not Applicable) - Alex Low DO s Colonoscopy(Not Applicable) - Alex Low DO Familial anesthetic complications: None Was Beta Estefania taken within 24 hours: N/A Was Clonidine taken within 24 hours: N/A Last intake: Intake Last Liquid Date 10/02/23 Last Liquid Time 00:00 Last Solid Date 09/30/23 Last Solid Time 20:00 Social Tobacco (THC daily) and No alcohol Exam alert, oriented x 3, clear to auscultation bilaterally and regular rate & rhythm Airway Submandibular: within normal limits Cervical ROM: within normal limits Mallampati: Class II Dentition: chipped and false History/ROS No significant history except as noted and No significant complaints Pulmonary Asthma, Chronic Obstructive Pulmonary Disease, Cough and Exertional Dyspnea Lung nodules, repeat CT next year CV/HEM Stable Angina and Hypertension CONCLUSIONS Normal left ventricular size and systolic function, EF 57 %. No regional wall motion abnormalities. Normal cardiac chamber sizes. No gross valvular abnormalities noted. Technically difficult study because of the poor ultrasonic window. Possibly small to moderate pericardial effusion Lesions on kidneys Hepatic None reported GI Gastroesophageal Reflux Disease Metabolic Morbid Obesity [facility] [place] Lower Back Pain, Osteoarthritis/DJD, Scoliosis and Weakness (Right sided weakness more than left) Neuropsych Anxiety, Depression, Neuropathy and Seizure (Following with meurology) Anesthetic Plan ASA status: 3 Anesthesia: Anesthesia Evaluation, General and MAC Risk of > 500 ml blood loss (7ml/kg in children): No Medications/Allergies Home Medications Medication Instructions Recorded Confirmed Last Taken Type montelukast 10 mg tablet 10 mg PO QPM 09/11/19 10/02/23 10/01/23 History ipratropium 0.5 mg-albuterol 3 mg 3 ml inhalation Q4H PRN wheezing 10/17/20 10/02/2324 Rx (2.5 mg base)/3 mL nebulization #90 mL soln budesonide 0.5 mg/2 mL suspension 0.5 mg inhalation DAILY 05/18/22 10/02/23 10/01/23 History for nebulization (Pulmicort) tralokinumab-ldrm 150 mg/mL 300 mg (2 mL) SUBCUT Q14D #4 mL 06/26/22 10/02/23 09/25/23 Rx subcutaneous syringe (Adbry) epinephrine 0.3 mg/0.3 mL 0.3 mg IM Q4H PRN Allergic Reaction 09/14/22 10/02/23 Unknown History injection, auto-injector pimecrolimus 1 % topical cream 1 applic topical BID 10/22/22 10/02/23 09/30/23 History (Elidel) ciclopirox 0.77 % topical gel 1 applic topical BID 11/27/22 10/02/23 09/30/23 History loratadine 10 mg tablet 10 mg PO DAILY #90 tabs 03/20/23 10/02/23 10/01/23 Rx albuterol sulfate 90 mcg/actuation 2 inh inhalation Q4H PRN shortness 05/10/23 10/02/23 09/28/23 Rx aerosol inhaler of breath or wheezing #8.5 grams potassium chloride 8 mEq 8 meq PO DAILY #30 caps 06/05/23 10/02/23 10/01/23 Rx capsule,extended release clobetasol 0.05 % topical ointment 1 applic topical BID 07/17/23 10/02/23 08/02/23 History amlodipine 2.5 mg tablet 2.5 mg PO DAILY 08/02/23 10/02/23 10/02/23 History furosemide 20 mg tablet 20 mg PO QAM 08/02/23 10/02/23 10/01/23 History ondansetron 4 mg disintegrating 4 mg PO Q8H PRN nausea and 08/02/23 10/02/23 09/29/23 Rx tablet vomiting #14 tabs ropinirole 1 mg tablet 1 mg PO BID 08/02/23 10/02/23 09/30/23 History bisacodyl 5 mg tablet,delayed 5 mg PO DAILY #4 tabs 08/19/23 10/02/23 09/30/23 Rx release (Dulcolax (bisacodyl)) magnesium citrate 300 ml PO DAILY PRN constipation 08/19/23 10/02/23 Unknown Rx #296 mL pantoprazole 40 mg tablet,delayed 40 mg PO BID 6 weeks #84 tabs 08/19/23 10/02/23 09/30/23 Rx release (Protonix) hydroxyzine HCl 25 mg tablet 25 mg PO TID anxiety #270 tabs 09/10/23 10/02/23 0 10/01/23 Rx benzonatate 200 mg capsule 200 mg PO PRN cough 09/12/23 10/02/23 09/30/23 History cholecalciferol (vitamin D3) 125 125 mcg PO DAILY 09/12/23 10/02/23 10/01/23 History mcg (5,000 unit) tablet (Vitamin D3) triamcinolone acetonide 0.1 % 1 applic topical DAILY PRN flare 09/12/23 10/02/23 09/30/23 History topical ointment oxycodone 5 mg tablet 5 mg PO Q8H PRN pain 14 days #40 09/27/23 10/02/23 10/02/23 Rx tabs Allergies Allergy/AdvReac Type Severity Reaction Status Date / Time acetaminophen Allergy ALGY-Anaphy Verified 09/30/23 08:51 laxis aspirin Allergy ALGY-Difficulty Verified 09/30/23 08:51 Breathing Bleach (Sodium Hypochlorite) Allergy asthma Verified 09/30/23 08:51 attack calamine Allergy ALGY-Difficulty Verified 09/30/23 08:51 Breathing nut - unspecified Allergy ALGY-Difficulty Verified 09/30/23 08:51 Swallowing Penicillins Allergy ALGY-Anaphy Verified 09/30/23 08:51 laxis shellfish derived Allergy ALGY-Swell Verified 09/30/23 08:51 Lip/Tongue/Throat sulfamethoxazole Allergy ALGY-Rash Verified 09/30/23 08:51 [From Bactrim] trimethoprim [From Bactrim] Allergy ALGY-Rash Verified 09/30/23 08:51 methotrexate AdvReac ADR-Diarrhe Verified 09/30/23 08:51 a chlorine Allergy hives Uncoded 09/30/23 08:51 Current Medications Generic Name Dose Route Start Last Admin Trade Name Freq PRN Reason Stop Dose Admin Sodium Chloride 1,000 mls @ 30 mls/hr 10/02/23 06:00 10/02/23 06:21 Sodium Chloride 0.9% IV 10/03/23 05:59 30 mls/hr .Q24H [place] Administration PFSH Anesthesia Medical History (Updated 09/28/23 @ 00:01 by MELISSA Swan) POP-Q stage 2 cystocele Surgery 09/17/[address] Yousif Lung nodule seen on imaging study Dysequilibrium Bursitis of right shoulder Bilateral lower extremity edema Bilateral leg cramps BMI 40.0-44.9, adult Family history of brain aneurysm Family history of aneurysm Mixed urge and stress incontinence Anxiety and depression Bipolar 2 disorder Atopic dermatitis in adult Marijuana smoker Smoker Quit cigarettes in 2018, still Marijuana Asthma-COPD overlap syndrome Surgical History (Updated 09/27/23 @ 14:[address] MD) S/P vaginal hysterectomy vaginal hysterectomy with Rt salpingo-oophorectomy 09/17/2023 Dr. Yousif with mid pelvic (lift)swing Hx of colonoscopy 2007 Hx of breast reduction, elective S/P tonsillectomy H/O tubal ligation H/O laparoscopy 08/27/2018- Diagnostic laparoscopy, fulguration of endometriotic lesions and lysis of adhesions per Dr. Yousif at [facility] S/P cryotherapy of skin lesion for cervical dysplasia S/P cholecystectomy laparoscopic, 04/16/2018 Family History Father Anesthesia complication Heart disease Hyperlipidemia Hypertension Grandfather , Due to Aneurysm Diabetes maternal Aneurysm Grandmother Diabetes maternal Breast cancer maternal, diagnosed in her 40's Stroke paternal Thyroid disease maternal Daughter No problems noted. Family/Other Diabetes maternal uncle Ovarian cancer maternal aunt Bleeding disorder paternal Uterine cancer maternal great great aunt Mother Stroke Denies family history of Clotting disorder Social History Smoking and tobacco/nicotine status: former use of tobacco/nicotine Quit status (tobacco/nicotine): has quit using Second hand smoke exposure: No Alcohol intake: current Alcohol intake frequency: holidays/special occasions only Alcohol type: wine Substance/Drug Use: current Substance/Drug use frequency: daily Current occupational status: unemployed Do you think of yourself as: Straight/Heterosexual Current gender identity: Female Data Anesthesia Cardiac Studies: Echocardiogram 12/06/22 Cardiac Event Monitor 11/28/22
--- NOTE | 2023-10-02 06:55 | PM.HP ---
Providers/Chief Complaint Primary Care Provider: Rusty Lane MD Chief Complaint: K92.2, K21.9, K52.9 History of Present Illness Liliam Fragoso is a 42 year old female Review of Systems General: Reports: 10 or more systems reviewed and unremarkable except in HPI and below Medications/Allergies Home Medications Medication Instructions Recorded Confirmed Last Taken Type montelukast 10 mg tablet 10 mg PO QPM 09/11/19 10/02/23 10/01/23 History ipratropium 0.5 mg-albuterol 3 mg 3 ml inhalation Q4H PRN wheezing 10/17/20 10/02/23 09/30/23 Rx (2.5 mg base)/3 mL nebulization #90 mL soln budesonide 0.5 mg/2 mL suspension 0.5 mg inhalation DAILY 05/18/22 10/02/23 10/01/23 History for nebulization (Pulmicort) tralokinumab-ldrm 150 mg/mL 300 mg (2 mL) SUBCUT Q14D #4 mL 06/26/22 10/02/23 09/25/23 Rx subcutaneous syringe (Adbry) epinephrine 0.3 mg/0.3 mL 0.3 mg IM Q4H PRN Allergic Reaction 09/14/22 10/02/23 Unknown History injection, auto-injector pimecrolimus 1 % topical cream 1 applic topical BID 10/22/22 10/02/23 09/30/23 History (Elidel) ciclopirox 0.77 % topical gel 1 applic topical BID 11/27/22 10/02/23 09/30/23 History loratadine 10 mg tablet 10 mg PO DAILY #90 tabs 03/20/23 10/02/23 10/01/23 Rx albuterol sulfate 90 mcg/actuation 2 inh inhalation Q4H PRN shortness 05/10/23 10/02/23 09/28/23 Rx aerosol inhaler of breath or wheezing #8.5 grams potassium chloride 8 mEq 8 meq PO DAILY #30 caps 06/05/23 10/02/23 10/01/23 Rx capsule,extended release clobetasol 0.05 % topical ointment 1 applic topical BID 07/17/23 10/02/23 08/02/23 History amlodipine 2.5 mg tablet 2.5 mg PO DAILY 08/02/23 10/02/23 10/02/23 History furosemide 20 mg tablet 20 mg PO QAM 08/02/23 10/02/23 10/01/23 History ondansetron 4 mg disintegrating 4 mg PO Q8H PRN nausea and 08/02/23 10/02/23 09/29/23 Rx tablet vomiting #14 tabs ropinirole 1 mg tablet 1 mg PO BID 08/02/23 10/02/23 09/30/23 History bisacodyl 5 mg tablet,delayed 5 mg PO DAILY #4 tabs 08/19/23 10/02/23 09/30/23 Rx release (Dulcolax (bisacodyl)) magnesium citrate 300 ml PO DAILY PRN constipation 08/19/23 10/02/23 Unknown Rx #296 mL pantoprazole 40 mg tablet,delayed 40 mg PO BID 6 weeks #84 tabs 08/19/23 10/02/23 09/30/23 Rx release (Protonix) hydroxyzine HCl 25 mg tablet 25 mg PO TID anxiety #270 tabs 09/10/23 10/02/23 10/01/23 Rx benzonatate 200 mg capsule 200 mg PO PRN cough 09/12/23 10/02/23 09/30/23 History cholecalciferol (vitamin D3) 125 125 mcg PO DAILY 09/12/23 10/02/23 10/01/23 History mcg (5,000 unit) tablet (Vitamin D3) triamcinolone acetonide 0.1 % 1 applic topical DAILY PRN flare 09/12/23 10/02/23 09/30/23 History topical ointment oxycodone 5 mg tablet 5 mg PO Q8H PRN pain 14 days #40 09/27/23 10/02/23 10/02/23 Rx tabs Allergies Allergy/AdvReac Type Severity Reaction Status Date / Time acetaminophen Allergy ALGY-Anaphy Verified 09/30/23 08:51 laxis aspirin Allergy ALGY-Difficulty Verified 09/30/23 08:51 Breathing Bleach (Sodium Hypochlorite) Allergy asthma Verified 09/30/23 08:51 attack calamine Allergy ALGY-Difficulty Verified 09/30/23 08:51 Breathing nut - unspecified Allergy ALGY-Difficulty Verified 09/30/23 08:51 Swallowing Penicillins Allergy ALGY-Anaphy Verified 09/30/23 08:51 laxis shellfish derived Allergy ALGY-Swell Verified 09/30/23 08:51 Lip/Tongue/Throat sulfamethoxazole Allergy ALGY-Rash Verified 09/30/23 08:51 [From Bactrim] trimethoprim [From Bactrim] Allergy ALGY-Rash Verified 09/30/23 08:51 methotrexate AdvReac ADR-Diarrhe Verified 09/30/23 08:51 a chlorine Allergy hives Uncoded 09/30/23 08:51 PFSH Acute PFSH: Medical History (Updated 09/28/23 @ 00:01 by MELISSA Swan) POP-Q stage 2 cystocele Surgery 09/17/[address] Yousif Lung nodule seen on imaging study Dysequilibrium Bursitis of right shoulder Bilateral lower extremity edema Bilateral leg cramps BMI 40.0-44.9, adult Family history of brain aneurysm Family history of aneurysm Mixed urge and stress incontinence Anxiety and depression Bipolar 2 disorder Atopic dermatitis in adult Marijuana smoker Smoker Quit cigarettes in 2018, still Marijuana Asthma-COPD overlap syndrome Surgical History (Updated 09/27/23 @ 14:[address] MD) S/P vaginal hysterectomy vaginal hysterectomy with Rt salpingo-oophorectomy 09/17/2023 Dr. Yousif with mid pelvic (lift)swing Hx of colonoscopy 2007 Hx of breast reduction, elective S/P tonsillectomy H/O tubal ligation H/O laparoscopy 08/27/2018- Diagnostic laparoscopy, fulguration of endometriotic lesions and lysis of adhesions per Dr. Yousif at [facility] S/P cryotherapy of skin lesion for cervical dysplasia S/P cholecystectomy laparoscopic, 04/16/2018 Family History Father Anesthesia complication Heart disease Hyperlipidemia Hypertension Grandfather , Due to Aneurysm Diabetes maternal Aneurysm Grandmother Diabetes maternal Breast cancer maternal, diagnosed in her 40's Stroke paternal Thyroid disease maternal Daughter No problems noted. Family/Other Diabetes maternal uncle Ovarian cancer maternal aunt Bleeding disorder paternal Uterine cancer maternal great great aunt Mother Stroke Denies family history of Clotting disorder Social History Smoking and tobacco/nicotine status: former use of tobacco/nicotine Quit status (tobacco/nicotine): has quit using Second hand smoke exposure: No Alcohol intake: current Alcohol intake frequency: holidays/special occasions only Alcohol type: wine Substance/Drug Use: current Substance/Drug use frequency: daily Current occupational status: unemployed Do you think of yourself as: Straight/Heterosexual Current gender identity: Female Vitals/I&O/Wt Last Vital Signs Temp 97.7 F 10/02/23 06:12 Pulse 91 10/02/23 06:12 Resp 16 10/02/23 06:12 BP 104/72 10/02/23 06:12 Pulse Ox 97 10/02/23 06:12 O2 Del Method Room Air 10/02/23 06:12 Weight last 48 hrs Weight 249 lb A&P Assessment and plan (1) GERD (gastroesophageal reflux disease): (2) Chronic diarrhea: Plan EGD Diagnostic colonoscopy with random biopsies Attestations Medical Necessity Statement*: Home Coding Level of Care Code Acute Code for Chg Fwd Diagnoses GERD (gastroesophageal reflux disease) K21.9 Chronic diarrhea K52.9
[2023-10-02] MEDS: EPINEPHrine 1 mg/mL INJ XX (07:12)
--- NOTE | 2023-10-02 08:04 | PC.NURSE ---
0734 - Patient shaking in bed, unresponsive, MARSHALL Anand at bedside. Patient has a history of seizures.
--- NOTE | 2023-10-02 08:06 | PC.NURSE ---
0750 - Patient on [facility], states I need to use the bathroom. Pt ambulated to bathroom x 2 assist. 0754 - patient had second seizure on toliet. shaking - non responsive. Anesthesia notified. 0756 - Seizure ended - patient assisted back to [facility] and placed on left side. Simple mask applied at 8 liters.
--- NOTE | 2023-10-02 08:27 | PM.MISC ---
Miscellaneous Note Purpose of Documentation: Seizure-like episodes Note: called twice to GI lab for reports of patient seizure. First episode was told patient had been shaking/shivering and lost consciousness/awareness. I arrived very shortly after versed had been administered and was told patient was already starting to respond. Patient did not appear to have any injuries such as bitten tongue. Instructed patient to be kept on O2 and monitored. Less than half an hour later called again for seizure, arrived to find patient sitting up on toilet, where she apparently was when he had the seizure, which she did not fall off of. She was awake and talking, though confused and with slow words. Both episodes showed no signs of desaturation while on her pulse ox or thereafter. No appreciably significant postictal state that I could determine with either episodes. Instructed to return patient to bed, pad bed with blankets, keep in left lafteral decubitus position, and on oxygen and pulse ox. Obtaining Utox (remote history drug use) and sending to ER for further evaluation and possible need for keppra loading.
--- NOTE | 2023-10-02 08:30 | PC.NURSE ---
0827 - Patient straight cath - sent urine to lab.
[2023-10-02 08:51] LABS: Amphetamines Screen Urine Negative (Negative); Barbiturates Screen Urine Negative (Negative); Benzodiazepines Screen Urine Negative (Negative); Cocaine Screen Urine Negative (Negative); Opiate Screen Urine Negative (Negative); PCP Screen Urine Negative (Negative); THC Screen Urine Positive (Negative)
--- NOTE | 2023-10-02 08:51 | PC.NURSE ---
0845 - Report called to ER - patient transported to ER with all personal belongings accompanied by signee.
[2023-10-02 10:21] LABS: C.Diff PCR (Lab) POSITIVE (Negative)
[2023-10-02 10:22] LABS: Clostridioides Difficile Toxin NEGATIVE (Negative)
--- NOTE | 2023-10-02 12:59 | PC.NURSE ---
0840 - Zofran 4 mg pulled - patient no longer nauseated.
== END 2023-10-02 08:45 | disposition home or self-care (01) ==
PROVIDERS: Anesthesiology; PCP Family Medicine Adult Medicine; Visit Provider Surgery
PROC: 0DJ08ZZ Inspection of Upper Intestinal Tract, Via Natural or Artificial Opening Endoscopic (ICD-10-PCS; CPT 43235; principal; 2023-10-02 07:00)
PROC: 0DJD8ZZ Inspection of Lower Intestinal Tract, Via Natural or Artificial Opening Endoscopic (ICD-10-PCS; CPT 45378; 2023-10-02 07:00)
DX: K52.9 Noninfective gastroenteritis and colitis, unspecified (principal); K21.9 Gastro-esophageal reflux disease without esophagitis; R56.9 Unspecified convulsions; Z87.891 Personal history of nicotine dependence; K31.7 Polyp of stomach and duodenum; J44.9 Chronic obstructive pulmonary disease, unspecified; E66.01 Morbid (severe) obesity due to excess calories; Z68.41 Body mass index [BMI] 40.0-44.9, adult
CPT/HCPCS: 43239; 45380; 80306; 82274; 83630; 87045; 87177; 87209; 87324; 87427; 87449; 87493; 88305; J0171; J2250; J2371; J2704; J7030

== ENCOUNTER 2023-10-02 08:48 | Emergency (ER) | payer MEDICAID, SELFPAY ==
[2023-10-02 08:50] VITALS: BP 127/74; PULSE 85; RESP 18; TEMP 36.8; O2SAT 96; BMI 40.5
[2023-10-02 09:25] VITALS: BP 123/74; PULSE 87; RESP 26; O2SAT 97
[2023-10-02 09:28] LABS: Basophils # 0.1 10^3/uL (0.0-0.1); Basophils % 0.5 %; Eosinophils # 0.1 10^3/uL (0.0-0.8); Eosinophils % 0.4 %; Hematocrit 39.8 % (36-47); Lymphocytes # 1.4 10^3/uL (0.8-4.8); Lymphocytes % 10.7 %; Mean Corpuscular HGB Conc 32.7 g/dL (30-55); Mean Corpuscular Volume 85.8 fl (85-98); Mean Platelet Volume 9.1 fL (7.4-10.4); Monocytes # 0.7 10^3/uL (0.2-0.9); Monocytes % 5.6 %; Neutrophils # 10.52 10^3/uL (1.8-7.7); Neutrophils % 82.5 %; Nucleated Red Blood Cells % 0 %; Platelet Count 331 10^3/cmm (157-399); Red Blood Count 4.64 10^6/uL (3.85-5.65); Red Cell Distribution Width 12.1 % (12.1-15.1); White Blood Count 12.74 10^3/uL (3.29-11.43)
[2023-10-02 09:41] LABS: Alanine Aminotransferase 15 U/L (0-33); Albumin Level 4.1 g/dL (3.5-5.2); Alkaline Phosphatase 109 U/L (35-105); Anion Gap 17.8 (5-19); Aspartate Amino Transferase 13 U/L (0-32); Blood Urea Nitrogen 11 mg/dL (6-20); Calcium 8.4 mg/dL (8.5-10.5); Carbon Dioxide 22 mmol/L (22-29); Chloride 103 mmol/L (98-107); Creatinine Clr Calc Pharmacy 116.1182; Globulin 3.1 g/dL (1.3-4.6); Glomerular Filtration Rate 78.3 mL/min (90-130); Glucose 101 mg/dL (65-115); Osmolality Calculated 288 mOsm/kg (285-295); Potassium 3.8 mmol/L (3.5-5.1); Sodium 139 mmol/L (136-145); Total Bilirubin 0.3 mg/dL (0.15-1.2); Total Protein 7.2 g/dL (6.6-8.7)
--- NOTE | 2023-10-02 09:52 | ED_ITS ---
HPI - Seizure 2 General: Chief Complaint: Seizure Stated Complaint: SEIZURE Time Seen by Provider: 10/02/23 08:51 Source: patient Mode of arrival: other (Gurney) History of Present Illness: HPI Narrative: 42-year-old female presents emergency ro om from the GI lab. She is a colonoscopy swelling after colonoscopy she had some kind of neurologic event is brief she did not have any postictal phase. She has seen neurology recently and there evaluating her for seizures. There was some concern that these were functional events. She is not postictal now. She relates 1 episode while she was lying in bed another while she was sitting on the toilet where she is count of became dazed for short period of time anesthesiology seen her after this she was not postictal MD complaint: possible seizure Onset (ago): minute(s) Witnessed: Yes - by Bystander Trauma: No Seizure History: Yes Place: gi lab Possible Precipitating Event: other (Anesthesia) Associated symptoms: Deny chest pain, chills, confusion, cough, diaphoresis, fever(s), anorexia, malaise, rash, short of breath, syncope or weakness Treatments prior to arrival: none Review of Systems 2 Const: Denies: fever(s), chills, malaise or diaphoresis Card: Denies: chest pain or syncope Resp: Denies: dyspnea GI: Denies: abdominal pain : Denies: dysuria, urinary frequency or urinary urgency Musc: Denies: neck pain or back pain Skin/Breast: Denies: rash Neuro: Denies: confusion PFSH ED 2 PFSH: Medical History POP-Q stage 2 cystocele Surgery 09/17/[address] Yousif Lung nodule seen on imaging study Dysequilibrium Bursitis of right shoulder Bilateral lower extremity edema Bilateral leg cramps BMI 40.0-44.9, adult Family history of brain aneurysm Family history of aneurysm Mixed urge and stress incontinence Anxiety and depression Bipolar 2 disorder Atopic dermatitis in adult Marijuana smoker Smoker Quit cigarettes in 2018, still Marijuana Asthma-COPD overlap syndrome Surgical History S/P vaginal hysterectomy vaginal hysterectomy with Rt salpingo-oophorectomy 09/17/2023 Dr. Yousif with mid pelvic (lift)swing Hx of colonoscopy 2007 Hx of breast reduction, elective S/P tonsillectomy H/O tubal ligation H/O laparoscopy 08/27/2018- Diagnostic laparoscopy, fulguration of endometriotic lesions and lysis of adhesions per Dr. Yousif at [facility] S/P cryotherapy of skin lesion for cervical dysplasia S/P cholecystectomy laparoscopic, 04/16/2018 Family History Father Anesthesia complication Heart disease Hyperlipidemia Hypertension Grandfather , Due to Aneurysm Diabetes maternal Aneurysm Grandmother Diabetes maternal Breast cancer maternal, diagnosed in her 40's Stroke paternal Thyroid disease maternal Daughter No problems noted. Family/Other Diabetes maternal uncle Ovarian cancer maternal aunt Bleeding disorder paternal Uterine cancer maternal great great aunt Mother Stroke Denies family history of Clotting disorder Social History Smoking and tobacco/nicotine status: former use of tobacco/nicotine Quit status (tobacco/nicotine): has quit using Second hand smoke exposure: No Alcohol intake: current Alcohol intake frequency: holidays/special occasions only Alcohol type: wine Substance/Drug Use: current Substance/Drug use frequency: daily Current occupational status: unemployed Do you think of yourself as: Straight/Heterosexual Current gender identity: Female Physical Exam 2 Const: COMMON NORMALS: no acute distress GENERAL APPEARANCE: cooperative and comfortable ORIENTATION/CONSCIOUSNESS: Yes awake, Yes oriented to person, Yes oriented to place and Yes oriented to time HENMT: COMMON NORMALS: normocephalic, atraumatic and hearing grossly normal bilaterally HEAD & SCALP: normocephalic and atraumatic Resp: COMMON NORMALS: normal respiratory effort, No retractions, No use of accessory muscles and clear to auscultation bilaterally AUSCULTATION: clear to auscultation bilaterally Cardio: COMMON NORMALS: regular rate, regular rhythm and No murmurs present (Cardio) RATE: regular rate RHYTHM: regular rhythm GI: COMMON NORMALS: Soft to palpation and No hepatosplenomegaly present A USCULTATION: Yes normoactive bowel sounds PALPATION: Yes Soft to palpation, No Tenderness to palpation present (GI), No Guarding due to palpation present (GI) and Yes No hepatosplenomegaly present Extremity: COMMON NORMALS: normal to inspection, capillary refill normal, no clubbing, cyanosis or edema, no calf tenderness and no pedal edema Neuro: SENSORIUM/ORIENTATION: Yes oriented to person, Yes oriented to place and Yes oriented to time Skin: COMMON NORMALS: no rashes or lesions noted GENERAL SKIN EXAM: no rashes or lesions noted Course 2 Vital Signs: Vital signs: Vital Signs Temperature 98.2 F 10/02/23 08:50 Pulse Rate 87 10/02/23 09:25 Respiratory Rate 26 H 10/02/23 09:25 Blood Pressure 123/74 10/02/23 09:25 Pulse Oximetry 97 10/02/23 09:25 Oxygen Delivery Me thod Room Air 10/02/23 08:50 MDM - Seizure MDM Narrative Medical decision making narrative: Patient seen and evaluated emergency room labs and imaging reviewed. She did complete her colonoscopy they called while she was in the emergency room that she had tested positive for C. difficile eye contact Dr. Low's not previously been treated he recommends vancomycin 125 4 times daily. Give her 14-day course she can follow-up to extend if needed. Recommend for now that she continue to follow-up through Dr. Levy to further evaluate these neurologic episodes reviewed Dr. Levy's note there but still evaluate whether not she having seizures or functional neurologic events. Anesthesia reported that there was no postictal phase with the events today Lab Data 10/02/23 09:19 10/02/23 09:19 Labs: Laboratory Results WBC 12.74 10^3/uL (3.29-11.43) H 10/02/23 09:19 RBC 4.64 10^6/uL (3.85-5.65) 10/02/23 09:19 Hgb 13.00 g/dL (11.27-16.99) 10/02/23 09:19 Hct 39.8 % (36-47) 10/02/23 09:19 MCV 85.8 fl (85-98) 10/02/23 09:19 MCH 28.0 pg (27-33) 10/02/23 09:19 MCHC 32.7 g/dL (30-55) 10/02/23 09:19 RDW 12.1 % (12.1-15.1) 10/02/23 09:19 Plt Count 331 10^3/cmm (157-399) 10/02/23 09:19 MPV 9.1 fL (7.4-10.4) 10/02/23 09:19 Neut % (Auto) 82.5 % 10/02/23 09:19 Lymph % (Auto) 10.7 % 10/02/23 09:19 [place] % (Auto) 5.6 % 10/02/23 09:19 Eos % (Auto) 0.4 % 10/02/23 09:19 Baso % (Auto) 0.5 % 10/02/23 09:19 Neut # (Auto) 10.52 10^3/uL (1.8-7.7) H 10/02/23 09:19 Lymph # (Auto) 1.4 10^3/uL (0.8-4.8) 10/02/23 09:19 [place] # (Auto) 0.7 10^3/uL (0.2-0.9) 10/02/23 09:19 Eos # (Auto) 0.1 10^3/uL (0.0-0.8) 10/02/23 09:19 Baso # (Auto) 0.1 10^3/uL (0.0-0.1) 10/02/23 09:19 Nucleated RBC % (auto) 0 % 10/02/23 09:19 Nucleated RBCs # 0.0 /100WBC 10/02/23 09:19 Sodium 139 mmol/L (136-145) 10/02/23 09:19 Potassium 3.8 mmol/L (3.5-5.1) 10/02/23 09:19 Chloride 103 mmol/L (98-107) 10/02/23 09:19 Carbon Dioxide 22 mmol/L (22-29) 10/02/23 09:19 Anion Gap 17.8 (5-19) 10/02/23 09:19 BUN 11 mg/dL (6-20) 10/02/23 09:19 Creatinine 0.8 mg/dL (0.5-0.9) 10/02/23 09:19 GFR Calculation 78.3 mL/min (90-130) L 10/02/23 09:19 Glucose 101 mg/dL (65-115) 10/02/23 09:19 Calculated Osmolality 288 mOsm/kg (285-295) 10/02/23 09:19 Calcium 8.4 mg/dL (8.5-10.5) L 10/02/23 09:19 Total Bilirubin 0.3 mg/dL (0.15-1.2) 10/02/23 09:19 AST 13 U/L (0-32) 10/02/23 09:19 ALT 15 U/L (0-33) 10/02/23 09:19 Alkaline Phosphatase 109 U/L (35-105) H 10/02/23 09:19 Total Protein 7.2 g/dL (6.6-8.7) 10/02/23 09:19 Albumin 4.1 g/dL (3.5-5.2) 10/02/23 09:19 Globulin 3.1 g/dL (1.3-4.6) 10/02/23 09:19 Urine Color Yellow (Yellow) 10/02/23 09:59 Urine Appearance Clear (CLEAR) 10/02/23 09:59 Urine pH 5 (5-7) 10/02/23 09:59 Ur Specific [place] 1.005 (1.005-1.030) 10/02/23 09:59 Urine Protein Neg (Negative) 10/02/23 09:59 Urine Glucose (UA) Norm (Normal) 10/02/23 09:59 Urine Ketones Negative (Negative) 10/02/23 09:59 Urine Blood Neg (Negative) 10/02/23 09:59 Urine Nitrate Negative (Negative) 10/02/23 09:59 Urine Bilirubin Neg (Negative) 10/02/23 09:59 Urine Urobilinogen Norm mg/dL (Negative) 10/02/23 09:59 Ur Leukocyte Esterase Trace (Negative) H 10/02/23 09:59 Urine RBC None /hpf (0-2) 10/02/23 09:59 Urine WBC 0-4 /hpf (0-5) H 10/02/23 09:59 Ur Squamous Epith Cells 0-4 /hpf (0-5) H 10/02/23 09:59 Amorphous Sediment Not Reportable 10/02/23 09:59 Urine Bacteria 1+ /hpf (NONE) H 10/02/23 09:59 No radiology studies performed this visit Discharge Plan Discharge Patient Disposition: Home Clinical Impression: Seizure, C. difficile colitis Condition: Stable Prescriptions: New vancomycin 125 mg capsule 125 mg PO QID 14 Days Qty: 56 0RF No Action ipratropium-albuterol 0.5 mg-3 mg(2.5 mg base)/3 mL solution for nebulization 3 ml inhalation Q4H PRN (Reason: wheezing) Qty: 90 3RF epinephrine 0.3 mg/0.3 mL auto-injector 0.3 mg IM Q4H PRN (Reason: Allergic Reaction) loratadine 10 mg tablet 10 mg PO DAILY Qty: 90 2RF clobetasol 0.05 % ointment 1 applic topical BID pantoprazole [Protonix] 40 mg tablet,delayed release (DR/EC) 40 mg PO BID 42 Days Qty: 84 1RF magnesium citrate Solution 300 ml PO DAILY PRN (Reason: constipation) Qty: 296 2RF Rx Instructions: take as directed for colonoscopy bisacodyl [Dulcolax (bisacodyl)] 5 mg tablet,delayed release (DR/EC) 5 mg PO DAILY Qty: 4 0RF Rx Instructions: take as directed for colonoscopy oxycodone 5 mg tablet 5 mg PO Q8H PRN (Reason: pain) 14 Days Qty: 40 0RF Rx Instructions: Can refill on or after 14 days budesonide [Pulmicort] 0.5 mg/2 mL suspension for nebulization 0.5 mg inhalation DAILY pimecrolimus [Elidel] 1 % cream 1 applic topical BID ciclopirox 0.77 % gel 1 applic topical BID potassium chloride 8 mEq capsule, extended release 8 meq PO DAILY Qty: 30 5RF Adbry 150 mg/mL syringe 300 mg SUBCUT Q14D Qty: 4 2RF Rx Instructions: 600mg divided in 4 sites on day 1. then 300mg divided in 2 sites every 2 weeks albuterol sulfate 90 mcg/actuation HFA aerosol inhaler 2 inh inhalation Q4H PRN (Reason: shortness of breath or wheezing) Qty: 8.5 0RF hydroxyzine HCl 25 mg tablet 25 mg PO TID Qty: 270 0RF Rx Instructions: Take 1 tab in the morning and 2 one hr before bedtime montelukast 10 mg Tablet 10 mg PO QPM ropinirole 1 mg tablet 1 mg PO BID amlodipine 2.5 mg tablet 2.5 mg PO DAILY furosemide 20 mg tablet 20 mg PO QAM ondansetron 4 mg tablet,disintegrating 4 mg PO Q8H PRN (Reason: nausea and vomiting) Qty: 14 0RF benzonatate 200 mg capsule 200 mg PO PRN triamcinolone acetonide 0.1 % Ointment 1 applic TOPICAL DAILY PRN (Reason: flare) cholecalciferol (vitamin D3) [Vitamin D3] 125 mcg (5,000 unit) Tablet 125 mcg PO DAILY Discharge Orders: Discharge ED (Routine); Ordered 10/02/23 Ordered By: Faheem Reid Referrals: Rusty Lane MD [Primary Care Provider] - Discharge Diet: Usual diet Discharge Activity: Increase activity as tolerated Patient Instructions: Opioid Safety, Pain Management Activity Restrictions/Additional Instructions: Thank you for choosing [facility] for your healthcare needs today. It is very important that you follow up as instructed or that you return to the Emergency Department should you have concerns or if your condition changes or worsens in any way. You were seen today after a possible seizure-like event after your colonoscopy. No significant abnormality noted in the lab evaluation. Screening of your stool done during colonoscopy was positive for C. difficile you are given a prescription above and follow-up with the surgeon. As to these possible seizure-like events recommend you continue to follow-up with Dr. Levy to complete the evaluation. Coding Level of Care Code ED Instructor Psychiatric Aide for Maxwell Baker
--- NOTE | 2023-10-02 10:05 | ECG_ITS ---
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 Measurements Intervals [place] Rate: 73 P: 62 HI: 149 QRS: 81 QRSD: 89 T: 69 QT: 381 QTc: 421 Interpretive Statements SINUS RHYTHM WITH SINUS ARRHYTHMIA Compared to ECG 06/13/2023 12:54:27 Sinus tachycardia no longer present Ventricular premature complex(es) no longer present Electronically Signed On 10-02-2023 16:40:10 CDT by Cheng Quiñones M.D. [email or web address]
[2023-10-02 10:18] LABS: Urine Color Yellow (Yellow)
[2023-10-02 10:19] LABS: Add Urine Microscopic? YES; Bilirubin Urine Neg (Negative); Blood Urine Neg (Negative); Glucose Urine UA Norm (Normal); Ketones Urine Negative (Negative); Leukocyte Esterase Urine Trace (Negative); Nitrate Urine Negative (Negative); Protein Urine Neg (Negative); Specific Gravity, Urine 1.005 (1.005-1.030); Urine Appearance Clear (CLEAR); Urobilinogen Urine Norm (Negative); pH Urine 5 (5-7)
[2023-10-02 10:20] LABS: Add Urine Culture? No; Bacteria Urine 1+ /hpf; Squamous Epithelial Cell Urine 0-4 /hpf (0-5); WBC Urine 0-4 /hpf (0-5)
== END 2023-10-02 11:21 | disposition home or self-care (01) ==
PROVIDERS: Emergency Provider Family Medicine; PCP Family Medicine Adult Medicine
DX: R56.9 Unspecified convulsions (principal); A04.72 Enterocolitis due to Clostridium difficile, not specified as recurrent; Z87.891 Personal history of nicotine dependence; J44.9 Chronic obstructive pulmonary disease, unspecified
CPT/HCPCS: 36415; 80053; 81001; 85025; 93005; 99284

== ENCOUNTER 2023-10-04 11:57 | Outpatient (CLI) | payer MEDICAID, SELFPAY ==
--- NOTE | 2023-10-04 12:05 | ECG_ITS ---
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
[2023-10-04 12:07] VITALS: BMI 40.5
[2023-10-04 12:37] VITALS: BP 131/59; PULSE 96
== END 2023-10-04 11:58 | disposition home or self-care (01) ==
PROVIDERS: PCP Family Medicine Adult Medicine; Visit Provider Internal Medicine Cardiovascular Disease
DX: R07.89 Other chest pain (principal); R06.02 Shortness of breath
CPT/HCPCS: 93017

== ENCOUNTER 2023-10-20 09:37 | Emergency (ER) | payer MEDICAID, SELFPAY ==
[2023-10-20 09:42] VITALS: BP 121/99; PULSE 100; RESP 20; TEMP 36.5; O2SAT 98
--- NOTE | 2023-10-20 09:55 | CTR_ITS ---
PROCEDURE INFORMATION: Exam: CT Abdomen And Pelvis With Contrast Exam date and time: 10/20/2023 10:53 AM Age: 42 years old Clinical indication: Abdominal pain; Prior surgery; Surgery date: 6+ months; Surgery type: Gallbladder, hysterectomy; Additional info: Abd pain TECHNIQUE: Imaging protocol: Computed tomography of the abdomen and pelvis with contrast. Radiation optimization: All CT scans at this facility use at least one of these dose optimization techniques: automated exposure control; mA and/or kV adjustment per patient size (includes targeted exams where dose is matched to clinical indication); or iterative reconstruction. Contrast material: [id number]; Contrast volume: 100 ml; Contrast route: INTRAVENOUS (IV); COMPARISON: CT abdomen pelvis w con* [id number] 08/02/2023 11:12 AM RADIATION DOSE METRICS: Total DLP (mGy-cm): 1115.36 FINDINGS: Lungs: 3-4 mm nodule is noted involving the right middle lobe unchanged when compared to prior exam. Liver: There is mild fatty infiltration of the liver. Small indeterminate low-density focus is noted involving the right lobe of the liver measuring 6-7 mm in size. This was not definitely present on prior exam. The liver is otherwise normal. Gallbladder and biliary ducts: There are surgical clips within the gallbladder fossa. Pancreas: Normal. No ductal dilation. Spleen: Normal. No splenomegaly. Adrenal glands: Normal. No mass. Kidneys and ureters: There are small benign-appearing renal cysts. Nonobstructing renal calculus is noted on the right. The kidneys are otherwise normal. Stomach and bowel: Unremarkable. No obstruction. No mucosal thickening. Appendix: No evidence of appendicitis. Intraperitoneal space: There is trace free fluid within the pelvis. No free air is identified. Vasculature: Unremarkable. No abdominal aortic aneurysm. Lymph nodes: Unremarkable. No enlarged lymph nodes. Urinary bladder: Unremarkable as visualized. Reproductive: The uterus is not definitely identified. Bones/joints: Unremarkable. No acute fracture. Soft tissues: There is a small fat filled periumbilical hernia. CT/CT abdomen pelvis w con* [id number] IMPRESSION: 1. Fatty infiltration of the liver. 2. 4 mm nodule right middle lobe. Previous recommendation was for six-month CT chest follow-up from date of prior exam which was 08/02/2023 3. Small indeterminate low-density lesion within the right lobe of the liver not present on prior exam. MRI of the liver with without IV contrast liver mass protocol potentially may add additional information. 4. Nephrolithiasis on the right. COMMENTS: Consistent with the [employer]'s Incidental Findings Committee white paper (J Am Casey Radiol 2018): Any incidental renal lesion less than 1 cm or classified as too small to characterize, or any incidental cystic renal lesion characterized as simple-appearing, is likely benign. No follow-up imaging is recommended for these lesions per consensus recommendations based on imaging criteria.
--- NOTE | 2023-10-20 10:00 | ED_ITS ---
HPI - Abdominal Pain 2 General: Chief Complaint: Abdominal Pain Stated Complaint: Blood in stool Time Seen by Provider: 10/20/23 09:53 History of Present Illness: 42-year-old female presents emergency ro om complaining of hematochezia. She feels like she has pressure in the rectal area. She recently underwent vaginal hysterectomy and subsequently had a colonoscopy was reported as essentially normal although she was found to have C. difficile. She recently finished antibiotics about 4 days ago. She had a fair amount of blood in the stool today she is thinks it is from hemorrhoids that have been oozing she has been using some [id number] hemorrhoid treatment with out significant improvement. Associated Symptoms: Reports hematochezia; Denies chills, dysuria and fever(s) Review of Systems 2 Const: Denies: fever(s) or chills Card: Denies: chest pain Resp: Denies: dyspnea GI: Reports: hematochezia; Denies: abdominal pain : Denies: dysuria, urinary frequency or urinary urgency Musc: Denies: neck pain or back pain Skin/Breast: Denies: rash PFSH ED 2 PFSH: Medical History POP-Q stage 2 cystocele Surgery 09/17/[address] Yousif Lung nodule seen on imaging study Dysequilibrium Bursitis of right shoulder Bilateral lower extremity edema Bilateral leg cramps BMI 40.0-44.9, adult Family history of brain aneurysm Family history of aneurysm Mixed urge and stress incontinence Anxiety and depression Bipolar 2 disorder Atopic dermatitis in adult Marijuana smoker Smoker Quit cigarettes in 2018, still Marijuana Asthma-COPD overlap syndrome Surgical History S/P vaginal hysterectomy (~09/17/23) vaginal hysterectomy with Right salpingo-oophorectomy with mid urethral sling Dr. Yousif. Left tube and ovary were not found therefore not removed. Benign pathology. Hx of colonoscopy 2007 Hx of breast reduction, elective S/P tonsillectomy H/O tubal ligation H/O laparoscopy 08/27/2018- Diagnostic laparoscopy, fulguration of endometriotic lesions and lysis of adhesions per Dr. Yousif at [facility] S/P cryotherapy of skin lesion for cervical dysplasia S/P cholecystectomy laparoscopic, 04/16/2018 Family History Father Anesthesia complication Heart disease Hyperlipidemia Hypertension Grandfather , Due to Aneurysm Diabetes maternal Aneurysm Grandmother Diabetes maternal Breast cancer maternal, diagnosed in her 40's Stroke paternal Thyroid disease maternal Daughter No problems noted. Family/Other Diabetes maternal uncle Ovarian cancer maternal aunt Bleeding disorder paternal Uterine cancer maternal great great aunt Mother Stroke Denies family history of Clotting disorder Physical Exam 2 Const: COMMON NORMALS: no acute distress GENERAL APPEARANCE: cooperative and comfortable ORIENTATION/CONSCIOUSNESS: Yes awake, Yes oriented to person, Yes oriented to place and Yes oriented to time HENMT: COMMON NORMALS: normocephalic, atraumatic and hearing grossly normal bilaterally HEAD & SCALP: normocephalic and atraumatic Resp: COMMON NORMALS: normal respiratory effort, No retractions, No use of accessory muscles and clear to auscultation bilaterally AUSCULTATION: clear to auscultation bilaterally Cardio: COMMON NORMALS: regular rate, regular rhythm and No murmurs present (Cardio) RATE: regular rate RHYTHM: regular rhythm GI: COMMON NORMALS: Soft to palpation and No hepatosplenomegaly present A USCULTATION: Yes normoactive bowel sounds PALPATION: Yes Soft to palpation, No Tenderness to palpation present (GI), No Guarding due to palpation present (GI) and Yes No hepatosplenomegaly present OTHER: Rectal exam noninflamed hemorrhoidal tags no active bleeding no fissures no laceration no abnormality Extremity: COMMON NORMALS: normal to inspection, capillary refill normal, no clubbing, cyanosis or edema, no calf tenderness and no pedal edema Neuro: SENSORIUM/ORIENTATION: Yes oriented to person, Yes oriented to place and Yes oriented to time Skin: COMMON NORMALS: no rashes or lesions noted GENERAL SKIN EXAM: no rashes or lesions noted Course 2 Vital Signs: Vital signs: Vital Signs Temperature 97.7 F 10/20/23 09:42 Pulse Rate 83 10/20/23 11:58 Respiratory Rate 20 H 10/20/23 09:42 Blood Pressure 121/99 10/20/23 09:42 Pulse Oximetry 96 10/20/23 11:58 Oxygen Delivery Me thod Room Air 10/20/23 11:58 MDM - Abdominal Pain Medical Decision Making Hemoglobin stable. Patient recently had colonoscopy which reviewed in the chart no significant findings noted. At this point continue the hemorrhoid treatment she may have some internal hemorrhoids although none are mentioned in the colonoscopy report. CT did not show signs of any abscess or perforation or diverticulitis. Patient stated that the stools have started to firm options of treatment with vancomycin for the C. difficile. Given she was recently treated and will likely have some residual toxin even after the treatment for months we did not repeat at this time since she is not having further diarrhea. Recommend she follow-up with her primary care doc and/or her surgeon within the next week. Lab Data 10/20/23 10:28 10/20/23 10:28 Labs/Radiology: Radiology Impressions Abdomen/Pelvis CT 10/20/23 09:55 IMPRESSION: 1. Fatty infiltration of the liver. 2. 4 mm nodule right middle lobe. Previous recommendation was for six-month CT chest follow-up from date of prior exam which was 08/02/2023 3. Small indeterminate low-density lesion within the right lobe of the liver not present on prior exam. MRI of the liver with without IV contrast liver mass protocol potentially may add additional information. 4. Nephrolithiasis on the right. COMMENTS: Consistent with the [employer]'s Incidental Findings Committee white paper (J Am Casey Radiol 2018): Any incidental renal lesion less than 1 cm or classified as too small to characterize, or any incidental cystic renal lesion characterized as simple-appearing, is likely benign. No follow-up imaging is recommended for these lesions per consensus recommendations based on imaging criteria. Laboratory Results WBC 8.87 10^3/uL (3.29-11.43) 10/20/23 10:28 RBC 4.73 10^6/uL (3.85-5.65) 10/20/23 10:28 Hgb 13.10 g/dL (11.27-16.99) 10/20/23 10:28 Hct 39.3 % (36-47) 10/20/23 10:28 MCV 83.1 fl (85-98) L 10/20/23 10:28 MCH 27.7 pg (27-33) 10/20/23 10:28 MCHC 33.3 g/dL (30-55) 10/20/23 10:28 RDW 12.0 % (12.1-15.1) L 10/20/23 10:28 Plt Count 349 10^3/cmm (157-399) 10/20/23 10:28 MPV 9.3 fL (7.4-10.4) 10/20/23 10:28 Neut % (Auto) 69.2 % 10/20/23 10:28 Lymph % (Auto) 21.8 % 10/20/23 10:28 Twiggs % (Auto) 6.9 % 10/20/23 10:28 Eos % (Auto) 0.9 % 10/20/23 10:28 Baso % (Auto) 0.7 % 10/20/23 10:28 Neut # (Auto) 6.15 10^3/uL (1.8-7.7) 10/20/23 10:28 Lymph # (Auto) 1.9 10^3/uL (0.8-4.8) 10/20/23 10:28 [place]gs # (Auto) 0.6 10^3/uL (0.2-0.9) 10/20/23 10:28 Eos # (Auto) 0.1 10^3/uL (0.0-0.8) 10/20/23 10:28 Baso # (Auto) 0.1 10^3/uL (0.0-0.1) 10/20/23 10:28 Nucleated RBC % (auto) 0 % 10/20/23 10: Nucleated RBCs # 0.0 /100WBC 10/20/23 10:28 PT 12.40 SECONDS (12.1-14.9) 10/20/23 10:28 INR 0.90 (0.8-1.2) 10/20/23 10:28 APTT 28.1 SECONDS (23.9-36.7) 10/20/23 10:28 Sodium 137 mmol/L (136-145) 10/20/23 10:28 Potassium 4.0 mmol/L (3.5-5.1) 10/20/23 10: Chloride 102 mmol/L (98-107) 10/20/23 10:28 Carbon Dioxide 22 mmol/L (22-29) 10/20/23 10:28 Anion Gap 17.0 (5-19) 10/20/23 10:28 BUN 11 mg/dL (6-20) 10/20/23 10:28 Creatinine 0.5 mg/dL (0.5-0.9) 10/20/23 10:28 GFR Calculation 134.7 mL/min (90-130) H 10/20/23 10:28 Glucose 93 mg/dL (65-115) 10/20/23 10:28 Calculated Osmolality 283 mOsm/kg (285-295) L 10/20/23 10:28 Calcium 9.0 mg/dL (8.5-10.5) 10/20/23 10:28 Total Bilirubin 0.2 mg/dL (0.15-1.2) 10/20/23 10:28 AST 16 U/L (0-32) 10/20/23 10:28 ALT 16 U/L (0-33) 10/20/23 10:28 Alkaline Phosphatase 90 U/L (35-105) 10/20/23 10:28 Total Protein 6.8 g/dL (6.6-8.7) 10/20/23 10:28 Albumin 3.9 g/dL (3.5-5.2) 10/20/23 10:28 Globulin 2.9 g/dL (1.3-4.6) 10/20/23 10:28 All radiology interpretation(s) finalized by discharge Discharge Plan Discharge Patient Disposition: Home Clinical Impression: Rectal bleeding Condition: Stable Prescriptions: New Anucort-HC 25 mg suppository 25 mg ID TID Qty: 24 0RF No Action ipratropium-albuterol 0.5 mg-3 mg(2.5 mg base)/3 mL solution for nebulization 3 ml inhalation Q4H PRN (Reason: wheezing) Qty: 90 3RF epinephrine 0.3 mg/0.3 mL auto-injector 0.3 mg IM Q4H PRN (Reason: Allergic Reaction) loratadine 10 mg tablet 10 mg PO DAILY Qty: 90 2RF clobetasol 0.05 % ointment 1 applic topical BID pantoprazole [Protonix] 40 mg tablet,delayed release (DR/EC) 40 mg PO BID 42 Days Qty: 84 1RF magnesium citrate Solution 300 ml PO DAILY PRN (Reason: constipation) Qty: 296 2RF Rx Instructions: take as directed for colonoscopy bisacodyl [Dulcolax (bisacodyl)] 5 mg tablet,delayed release (DR/EC) 5 mg PO DAILY Qty: 4 0RF Rx Instructions: take as directed for colonoscopy oxycodone 5 mg tablet 5 mg PO Q8H PRN (Reason: pain) 14 Days Qty: 40 0RF Rx Instructions: Can refill on or after 14 days budesonide [Pulmicort] 0.5 mg/2 mL suspension for nebulization 0.5 mg inhalation DAILY pimecrolimus [Elidel] 1 % cream 1 applic topical BID ciclopirox 0.77 % gel 1 applic topical BID potassium chloride 8 mEq capsule, extended release 8 meq PO DAILY Qty: 30 5RF Adbry 150 mg/mL syringe 300 mg SUBCUT Q14D Qty: 4 2RF Rx Instructions: 600mg divided in 4 sites on day 1. then 300mg divided in 2 sites every 2 weeks albuterol sulfate 90 mcg/actuation HFA aerosol inhaler 2 inh inhalation Q4H PRN (Reason: shortness of breath or wheezing) Qty: 8.5 0RF hydroxyzine HCl 25 mg tablet 25 mg PO TID Qty: 270 0RF Rx Instructions: Take 1 tab in the morning and 2 one hr before bedtime ropinirole 1 mg tablet 1 mg PO BID Qty: 60 2RF montelukast 10 mg Tablet 10 mg PO QPM amlodipine 2.5 mg tablet 2.5 mg PO DAILY furosemide 20 mg tablet 20 mg PO QAM ondansetron 4 mg tablet,disintegrating 4 mg PO Q8H PRN (Reason: nausea and vomiting) Qty: 14 0RF benzonatate 200 mg capsule 200 mg PO PRN triamcinolone acetonide 0.1 % Ointment 1 applic TOPICAL DAILY PRN (Reason: flare) cholecalciferol (vitamin D3) [Vitamin D3] 125 mcg (5,000 unit) Tablet 125 mcg PO DAILY Discharge Orders: Discharge ED (Routine); Ordered 10/20/23 Ordered By: Faheem Reid Referrals: Rusty Lane MD [Primary Care Provider] - Discharge Diet: Full LIquid Discharge Activity: Increase activity as tolerated Patient Instructions: Opioid Safety, Pain Management Activity Restrictions/Additional Instructions: Thank you for choosing [facility] for your healthcare needs today. It is very important that you follow up as instructed or that you return to the Emergency Department should you have concerns or if your condition changes or worsens in any way. You were seen today with complaint of rectal bleeding. On rectal exam there is no significant findings CT was negative and hemoglobin stable. Recommend you use the rectal suppositories and follow-up with your surgeon or primary care doctor in the next few days. I did review the colonoscopy that you had last month and there were no significant abnormalities found on that. Coding Level of Care Code ED [employer] for [employer]
[2023-10-20 10:34] LABS: Basophils # 0.1 10^3/uL (0.0-0.1); Basophils % 0.7 %; Eosinophils # 0.1 10^3/uL (0.0-0.8); Eosinophils % 0.9 %; Hematocrit 39.3 % (36-47); Lymphocytes # 1.9 10^3/uL (0.8-4.8); Lymphocytes % 21.8 %; Mean Corpuscular HGB Conc 33.3 g/dL (30-55); Mean Corpuscular Hemoglobin 27.7 pg (27-33); Mean Corpuscular Volume 83.1 fl (85-98); Mean Platelet Volume 9.3 fL (7.4-10.4); Monocytes # 0.6 10^3/uL (0.2-0.9); Monocytes % 6.9 %; Neutrophils # 6.15 10^3/uL (1.8-7.7); Neutrophils % 69.2 %; Nucleated Red Blood Cells % 0 %; Platelet Count 349 10^3/cmm (157-399); Red Blood Count 4.73 10^6/uL (3.85-5.65); White Blood Count 8.87 10^3/uL (3.29-11.43)
[2023-10-20 10:47] LABS: Partial Thromboplastin Time 28.1 SECONDS (23.9-36.7)
[2023-10-20 10:51] LABS: Alanine Aminotransferase 16 U/L (0-33); Albumin Level 3.9 g/dL (3.5-5.2); Alkaline Phosphatase 90 U/L (35-105); Aspartate Amino Transferase 16 U/L (0-32); Blood Urea Nitrogen 11 mg/dL (6-20); Carbon Dioxide 22 mmol/L (22-29); Chloride 102 mmol/L (98-107); Creatinine Clr Calc Pharmacy 185.7892; Globulin 2.9 g/dL (1.3-4.6); Glomerular Filtration Rate 134.7 mL/min (90-130); Glucose 93 mg/dL (65-115); Osmolality Calculated 283 mOsm/kg (285-295); Sodium 137 mmol/L (136-145); Total Bilirubin 0.2 mg/dL (0.15-1.2); Total Protein 6.8 g/dL (6.6-8.7)
[2023-10-20] MEDS: iohexol 350 mg/mL 500 mL Btl (per mL) IV (10:57)
[2023-10-20 11:58] VITALS: PULSE 83; O2SAT 96
== END 2023-10-20 12:02 | disposition home or self-care (01) ==
PROVIDERS: Emergency Provider Family Medicine; PCP Family Medicine Adult Medicine
DX: K62.5 Hemorrhage of anus and rectum (principal); J44.9 Chronic obstructive pulmonary disease, unspecified; Z87.891 Personal history of nicotine dependence
CPT/HCPCS: 36415; 74177; 80053; 85025; 85610; 85730; 99285; Q9967

== ENCOUNTER 2023-11-14 23:24 | Emergency (ER) | payer MEDICAID, SELFPAY ==
[2023-11-14 23:30] VITALS: BP 130/84; PULSE 97; RESP 16; TEMP 36.7; O2SAT 96; BMI 39.2
--- NOTE | 2023-11-15 00:05 | XRR_ITS ---
PROCEDURE INFORMATION: Exam: XR Chest Exam date and time: 11/15/2023 12:40 AM Age: 42 years old Clinical indication: Pain; Chest pressure; Additional info: Chest pain TECHNIQUE: Imaging protocol: Radiologic exam of the chest. Views: 1 view. COMPARISON: CT chest bakaril w/*[id number] 03/18/2023 8:15 PM FINDINGS: Lungs: No consolidation. Pleural spaces: No pleural effusion. No pneumothorax. Heart/Mediastinum: No cardiomegaly. Bones/joints: No acute findings. XR/XR chest 1V portable [id number] IMPRESSION: No acute chest findings.
--- NOTE | 2023-11-15 00:05 | ECG_ITS ---
[facility] Test Date: 2023-11-14 Pat Name: Liliam Fragoso Department: Room: Gender: Female [employer] Att[employer]: : 1980 Requested By: Best Chaudhary Order Number: [id number] Noé MD: Jadyn Donis M.D. Measurements Intervals [place] Rate: 102 P: 72 WA: 133 QRS: 75 QRSD: 84 T: 68 QT: 318 QTc: 415 Interpretive Statements SINUS TACHYCARDIA POSSIBLE LEFT ATRIAL ENLARGEMENT [-0.1mV P-WAVE IN V1/V2] ABNORMAL RHYTHM ECG Compared to ECG 10/02/2023 10:33:04 Sinus rhythm no longer present Sinus arrhythmia no longer present Electronically Signed On 11-15-2023 18:14:48 CDT by Jadyn Donis M.D. [email or web address]
--- NOTE | 2023-11-15 00:05 | CTR_ITS ---
PROCEDURE INFORMATION: Exam: CT Head Without Contrast Exam date and time: 11/15/2023 12:44 AM Age: 42 years old Clinical indication: Pain; Headache; Additional info: Head ache TECHNIQUE: Imaging protocol: Computed tomography of the head without contrast. Radiation optimization: All CT scans at this facility use at least one of these dose optimization techniques: automated exposure control; mA and/or kV adjustment per patient size (includes targeted exams where dose is matched to clinical indication); or iterative reconstruction. COMPARISON: CT head wo con* [id number] 03/18/2023 8:09 PM RADIATION DOSE METRICS: Total DLP (mGy-cm): 1085.8 FINDINGS: Brain: No hemorrhage. No mass effect or midline shift. No significant white matter disease. Cerebral ventricles: No ventriculomegaly. Paranasal sinuses: Visualized sinuses are unremarkable. No fluid levels. Mastoid air cells: Visualized mastoid air cells are well aerated. Bones: Unremarkable. No acute fracture. Soft tissues: Unremarkable. CT/CT head wo con* [id number] IMPRESSION: No acute intracranial findings.
--- NOTE | 2023-11-15 00:19 | W.ED.CHESTPA ---
HPI - Chest Pain General: Chief Complaint: Chest Pain Stated Complaint: CP,Headace Time Seen by Provider: 11/14/23 23:38 History of Present Illness: 42-year-old female who presents emerged part recommend chest pain and headache. She states that she developed chest pain about 3 hours ago and then developed a headache. Both have since improved but not completely resolved yet. She states that she has had many similar symptoms before in the past. She has with her headaches she gets vision changes and numbness of her face but this is again an ongoing recurrent chronic problem. She sees a neurologist for this and she states that she has been told that it is most likely secondary to a seizure disorder that they are still working up. She does not take any seizure medications. She did not have any tonic-clonic seizure activity tonight. Related Data Home Medications Medication Instructions Recorded Confirmed montelukast 10 mg tablet 10 mg PO QPM 09/11/19 11/04/23 budesonide 0.5 mg/2 mL suspension 0.5 mg inhalation DAILY 05/18/22 11/04/23 for nebulization (Pulmicort) epinephrine 0.3 mg/0.3 mL 0.3 mg IM Q4H PRN Allergic Reaction 09/14/22 11/04/23 injection, auto-injector pimecrolimus 1 % topical cream 1 applic topical BID 10/22/22 11/04/23 (Elidel) ciclopirox 0.77 % topical gel 1 applic topical BID 11/27/22 11/04/23 clobetasol 0.05 % topical ointment 1 applic topical BID 07/17/23 11/04/23 amlodipine 2.5 mg tablet 2.5 mg PO DAILY 08/02/23 11/04/23 furosemide 20 mg tablet 20 mg PO QAM 08/02/23 11/04/23 benzonatate 200 mg capsule 200 mg PO PRN cough 09/12/23 11/04/23 cholecalciferol (vitamin D3) 125 125 mcg PO DAILY 09/12/23 11/04/23 mcg (5,000 unit) tablet (Vitamin D3) triamcinolone acetonide 0.1 % 1 applic topical DAILY PRN flare 09/12/23 11/04/23 topical ointment Previous Rx's Medication Instructions Recorded ipratropium 0.5 mg-albuterol 3 mg 3 ml inhalation Q4H PRN wheezing 10/17/20 (2.5 mg base)/3 mL nebulization #90 mL soln tralokinumab-ldrm 150 mg/mL 300 mg (2 mL) SUBCUT Q14D #4 mL 06/26/22 subcutaneous syringe (Adbry) loratadine 10 mg tablet 10 mg PO DAILY #90 tabs 03/20/23 potassium chloride 8 mEq 8 meq PO DAILY #30 caps 06/05/23 capsule,extended release ondansetron 4 mg disintegrating 4 mg PO Q8H PRN nausea and 08/02/23 tablet vomiting #14 tabs bisacodyl 5 mg tablet,delayed 5 mg PO DAILY #4 tabs 08/19/23 release (Dulcolax (bisacodyl)) magnesium citrate 300 ml PO DAILY PRN constipation 08/19/23 #296 mL hydroxyzine HCl 25 mg tablet 25 mg PO TID anxiety #270 tabs 09/10/23 ropinirole 1 mg tablet 1 mg PO BID #60 tabs 10/08/23 hydrocortisone acetate 25 mg 25 mg NE TID #24 ea 10/20/23 rectal suppository (Anucort-HC) pantoprazole 40 mg tablet,delayed 40 mg PO ONCE 30 days #30 tabs 11/04/23 release (Protonix) albuterol sulfate 90 mcg/actuation 2 inh inhalation Q4H PRN shortness 11/05/23 aerosol inhaler of breath or wheezing #8.5 grams oxycodone 5 mg tablet 5 mg PO Q12H PRN pain 30 days #60 11/05/23 tabs Allergies Allergy/AdvReac Type Severity Reaction Status Date / Time acetaminophen Allergy ALGY-Anaphy Verified 11/04/23 11:31 laxis aspirin Allergy ALGY-Difficulty Verified 11/04/23 11:31 Breathing Bleach (Sodium Hypochlorite) Allergy asthma Verified 11/04/23 11:31 attack calamine Allergy ALGY-Difficulty Verified 11/04/23 11:31 Breathing nut - unspecified Allergy ALGY-Difficulty Verified 11/04/23 11:31 Swallowing Penicillins Allergy ALGY-Anaphy Verified 11/04/23 11:31 laxis shellfish derived Allergy ALGY-Swell Verified 11/04/23 11:31 Lip/Tongue/Throat sulfamethoxazole Allergy ALGY-Rash Verified 11/04/23 11:31 [From Bactrim] trimethoprim [From Bactrim] Allergy ALGY-Rash Verified 11/04/23 11:31 methotrexate AdvReac ADR-Diarrhe Verified 11/04/23 11:31 a chlorine Allergy hives Uncoded 11/04/23 11:31 [facility] ED [facility]: Medical History (Updated 11/15/23 @ 03:17 by Best Chaudhary MD) POP-Q stage 2 cystocele Surgery 09/17/[address] Yousif Lung nodule seen on imaging study Dysequilibrium Bursitis of right shoulder Bilateral lower extremity edema Bilateral leg cramps BMI 40.0-44.9, adult Family history of brain aneurysm Family history of aneurysm Mixed urge and stress incontinence Anxiety and depression Bipolar 2 disorder Atopic dermatitis in adult Marijuana smoker Smoker Quit cigarettes in 2018, still Marijuana Asthma-COPD overlap syndrome Surgical History S/P vaginal hysterectomy (~09/17/23) vaginal hysterectomy with Right salpingo-oophorectomy with mid urethral sling Dr. Yousif. Left tube and ovary were not found therefore not removed. Benign pathology. Hx of colonoscopy 2007 Hx of breast reduction, elective S/P tonsillectomy H/O tubal ligation H/O laparoscopy 08/27/2018- Diagnostic laparoscopy, fulguration of endometriotic lesions and lysis of adhesions per Dr. Yousif at [facility] S/P cryotherapy of skin lesion for cervical dysplasia S/P cholecystectomy laparoscopic, 04/16/2018 Family History Father Anesthesia complication Heart disease Hyperlipidemia Hypertension Grandfather , Due to Aneurysm Diabetes maternal Aneurysm Grandmother Diabetes maternal Breast cancer maternal, diagnosed in her 40's Stroke paternal Thyroid disease maternal Daughter No problems noted. Family/Other Diabetes maternal uncle Ovarian cancer maternal aunt Bleeding disorder paternal Uterine cancer maternal great great aunt Mother Stroke Denies family history of Clotting disorder Social History Smoking and tobacco/nicotine status: former use of tobacco/nicotine Physical Exam Const: COMMON NORMALS: no acute distress, average body habitus, no limitations, healthy appearing, alert and well nourished Neck/C-Spine: COMMON NORMALS: no JVD Resp: COMMON NORMALS: normal respiratory effort, No retractions, No use of accessory muscles, clear to auscultation bilaterally and percussion normal AUSCULTATION: clear to auscultation bilaterally PERCUSSION: percussion normal Cardio: COMMON NORMALS: no JVD, regular rate, regular rhythm, S1 normal heart sound present, S2 normal heart sound present, No gallops present (Cardio), No clicks present (Cardio), No murmurs present (Cardio), No rub (Cardio) and Peripheral pulses 2+ throughout RATE: regular rate RHYTHM: regular rhythm HEART SOUNDS: S1 normal heart sound present and S2 normal heart sound present PERIPHERAL PULSES: Peripheral pulses 2+ throughout Neuro: SENSORIUM/ORIENTATION: Yes alert Course Vital Signs: Vital signs: Vital Signs Temperature 98.0 F 11/14/23 23:30 Pulse Rate 88 11/15/23 00:34 Respiratory Rate 14 11/15/23 00:34 Blood Pressure 134/85 11/15/23 00:34 Pulse Oximetry 98 11/15/23 00:34 Oxygen Delivery Me thod Room Air 11/15/23 00:34 MDM - Chest Pain Medical Decision Making 42-year-old female who presents emerged part recommend chest pain and headache. She states that she developed chest pain about 3 hours ago and then developed a headache. Both have since improved but not completely resolved yet. She states that she has had many similar symptoms before in the past. She has with her headaches she gets vision changes and numbness of her face but this is again an ongoing recurrent chronic problem. She sees a neurologist for this and she states that she has been told that it is most likely secondary to a seizure disorder that they are still working up. She does not take any seizure medications. She did not have any tonic-clonic seizure activity tonight. Patient's EKG with nonspecific ST and T wave changes. No acute ischemic changes. No significant abnormality noted on labs or imaging. Head CT is negative. Chest x-ray is negative. Patient has negative troponin x 2. Patient's pain is since improved with treatment in the ER. Denies any indication of CVA, intracranial hemorrhage, or meningitis. Do not see an indication of ACS, PE, dissection, pneumothorax, infection, or other life-threatening illness. Discussed with patient findings on workup tonight and to follow-up with neurologist. Lab Data 11/15/23:20 11/15/23 00:20 Radiology Impressions Chest X-Ray 11/15/23 00:05 IMPRESSION: No acute chest findings. Head CT 11/15/23 00:05 IMPRESSION: No acute intracranial findings. Laboratory Results WBC 10.44 10^3/uL (3.29-11.43) 11/15/23 00:20 RBC 4.96 10^6/uL (3.85-5.65) 11/15/23 00:20 Hgb 13.80 g/dL (11.27-16.99) 11/15/23 00:20 Hct 42.5 % (36-47) 11/15/23 00:20 MCV 85.7 fl (85-98) 11/15/23 00:20 MCH 27.8 pg (27-33) 11/15/23 00:20 MCHC 32.5 g/dL (30-55) 11/15/23 00:20 RDW 12.4 % (12.1-15.1) 11/15/23 00:20 Plt Count 382 10^3/cmm (157-399) 11/15/23 00:20 MPV 9.5 fL (7.4-10.4) 11/15/23 00:20 Neut % (Auto) 67.6 % 11/15/23 00:20 Lymph % (Auto) 22.6 % 11/15/23 00:20 [place] % (Auto) 8.2 % 11/15/23 00:20 Eos % (Auto) 0.9 % 11/15/23 00:20 Baso % (Auto) 0.5 % 11/15/23 00:20 Neut # (Auto) 7.06 10^3/uL (1.8-7.7) 11/15/23 00:20 Lymph # (Auto) 2.4 10^3/uL (0.8-4.8) 11/15/23 00:20 [place] # (Auto) 0.9 10^3/uL (0.2-0.9) 11/15/23 00:20 Eos # (Auto) 0.1 10^3/uL (0.0-0.8) 11/15/23 00:20 Baso # (Auto) 0.1 10^3/uL (0.0-0.1) 11/15/23 00:20 Nucleated RBC % (auto) 0 % 11/15/23 00:20 Nucleated RBCs # 0.0 /100WBC 11/15/23 00:20 Sodium 139 mmol/L (136-145) 11/15/23 00:20 Potassium 4.0 mmol/L (3.5-5.1) 11/15/23 00:20 Chloride 100 mmol/L (98-107) 11/15/23 00:20 Carbon Dioxide 28 mmol/L (22-29) 11/15/23 00:20 Anion Gap 15.0 (5-19) 11/15/23 00:20 BUN 10 mg/dL (6-20) 11/15/23 00:20 Creatinine 0.8 mg/dL (0.5-0.9) 11/15/23 00:20 GFR Calculation 78.3 mL/min (90-130) L 11/15/23 00:20 Glucose 91 mg/dL (65-115) 11/15/23 00:20 Calculated Osmolality 287 mOsm/kg (285-295) 11/15/23 00:20 Calcium 9.9 mg/dL (8.5-10.5) 11/15/23 00:20 Total Bilirubin 0.2 mg/dL (0.15-1.2) 11/15/23 00:20 AST 13 U/L (0-32) 11/15/23 00:20 ALT 19 U/L (0-33) 11/15/23 00:20 Alkaline Phosphatase 104 U/L (35-105) 11/15/23 00:20 Troponin T Baseline < 6 ng/L (0-10) 11/15/23 00:20 Troponin T 120 Minute 6.00 ng/L (0-10) 11/15/23 02:21 Delta Troponin T 0.77749 ABS# (0-10) 11/15/23 02:21 Total Protein 7.2 g/dL (6.6-8.7) 11/15/23 00:20 Albumin 4.7 g/dL (3.5-5.2) 11/15/23 00:20 Globulin 2.5 g/dL (1.3-4.6) 11/15/23 00:20 All radiology interpretation(s) finalized by discharge Discharge Plan Discharge Patient Disposition: Home Clinical Impression: Headache, Atypical chest pain Condition: Stable Prescriptions: No Action ipratropium-albuterol 0.5 mg-3 mg(2.5 mg base)/3 mL solution for nebulization 3 ml inhalation Q4H PRN (Reason: wheezing) Qty: 90 3RF epinephrine 0.3 mg/0.3 mL auto-injector 0.3 mg IM Q4H PRN (Reason: Allergic Reaction) loratadine 10 mg tablet 10 mg PO DAILY Qty: 90 2RF clobetasol 0.05 % ointment 1 applic topical BID magnesium citrate Solution 300 ml PO DAILY PRN (Reason: constipation) Qty: 296 2RF Rx Instructions: take as directed for colonoscopy bisacodyl [Dulcolax (bisacodyl)] 5 mg tablet,delayed release (DR/EC) 5 mg PO DAILY Qty: 4 0RF Rx Instructions: take as directed for colonoscopy budesonide [Pulmicort] 0.5 mg/2 mL suspension for nebulization 0.5 mg inhalation DAILY pimecrolimus [Elidel] 1 % cream 1 applic topical BID ciclopirox 0.77 % gel 1 applic topical BID potassium chloride 8 mEq capsule, extended release 8 meq PO DAILY Qty: 30 5RF pantoprazole [Protonix] 40 mg tablet,delayed release (DR/EC) 40 mg PO ONCE 30 Days Qty: 30 11RF Adbry 150 mg/mL syringe 300 mg SUBCUT Q14D Qty: 4 2RF Rx Instructions: 600mg divided in 4 sites on day 1. then 300mg divided in 2 sites every 2 weeks hydroxyzine HCl 25 mg tablet 25 mg PO TID Qty: 270 0RF Rx Instructions: Take 1 tab in the morning and 2 one hr before bedtime ropinirole 1 mg tablet 1 mg PO BID Qty: 60 2RF oxycodone 5 mg tablet 5 mg PO Q12H PRN (Reason: pain) 30 Days Qty: 60 0RF Rx Instructions: Can refill on or after 30 days albuterol sulfate 90 mcg/actuation HFA aerosol inhaler 2 inh inhalation Q4H PRN (Reason: shortness of breath or wheezing) Qty: 8.5 0RF montelukast 10 mg Tablet 10 mg PO QPM amlodipine 2.5 mg tablet 2.5 mg PO DAILY furosemide 20 mg tablet 20 mg PO QAM ondansetron 4 mg tablet,disintegrating 4 mg PO Q8H PRN (Reason: nausea and vomiting) Qty: 14 0RF benzonatate 200 mg capsule 200 mg PO PRN triamcinolone acetonide 0.1 % Ointment 1 applic TOPICAL DAILY PRN (Reason: flare) cholecalciferol (vitamin D3) [Vitamin D3] 125 mcg (5,000 unit) Tablet 125 mcg PO DAILY Anucort-HC 25 mg suppository 25 mg NE TID Qty: 24 0RF Discharge Orders: Discharge ED (Routine); Ordered 11/15/23 Ordered By: Best Chaudhary Referrals: Rusty Lane MD [Primary Care Provider] - Patient Instructions: Opioid Safety, Pain Management Coding Level of Care Code ED Window [facility]er for Maxwell Baker
[2023-11-15 00:29] VITALS: BP 134/85; PULSE 88; RESP 18; O2SAT 98
[2023-11-15 00:34] VITALS: BP 134/85; PULSE 88; RESP 14; O2SAT 98
[2023-11-15 00:38] LABS: Basophils # 0.1 10^3/uL (0.0-0.1); Basophils % 0.5 %; Eosinophils # 0.1 10^3/uL (0.0-0.8); Eosinophils % 0.9 %; Hematocrit 42.5 % (36-47); Lymphocytes # 2.4 10^3/uL (0.8-4.8); Lymphocytes % 22.6 %; Mean Corpuscular HGB Conc 32.5 g/dL (30-55); Mean Corpuscular Hemoglobin 27.8 pg (27-33); Mean Corpuscular Volume 85.7 fl (85-98); Mean Platelet Volume 9.5 fL (7.4-10.4); Monocytes # 0.9 10^3/uL (0.2-0.9); Monocytes % 8.2 %; Neutrophils # 7.06 10^3/uL (1.8-7.7); Neutrophils % 67.6 %; Nucleated Red Blood Cells % 0 %; Platelet Count 382 10^3/cmm (157-399); Red Blood Count 4.96 10^6/uL (3.85-5.65); Red Cell Distribution Width 12.4 % (12.1-15.1); White Blood Count 10.44 10^3/uL (3.29-11.43)
[2023-11-15] MEDS: diphenhydrAMINE 50 mg/mL SDV 1mL 25 MG IVP (00:39)
[2023-11-15] MEDS: prochlorperazine 10 mg/2 mL Inj IVP (00:40)
[2023-11-15 00:57] LABS: Troponin(5th) Baseline < 6 ng/L (0-10)
[2023-11-15 00:59] LABS: Alanine Aminotransferase 19 U/L (0-33); Albumin Level 4.7 g/dL (3.5-5.2); Alkaline Phosphatase 104 U/L (35-105); Aspartate Amino Transferase 13 U/L (0-32); Blood Urea Nitrogen 10 mg/dL (6-20); Calcium 9.9 mg/dL (8.5-10.5); Carbon Dioxide 28 mmol/L (22-29); Chloride 100 mmol/L (98-107); Creatinine Clr Calc Pharmacy 114.0404; Globulin 2.5 g/dL (1.3-4.6); Glomerular Filtration Rate 78.3 mL/min (90-130); Glucose 91 mg/dL (65-115); Osmolality Calculated 287 mOsm/kg (285-295); Sodium 139 mmol/L (136-145); Total Bilirubin 0.2 mg/dL (0.15-1.2); Total Protein 7.2 g/dL (6.6-8.7)
[2023-11-15 02:49] LABS: Troponin 5 2HR Delta 0.00001 ABS# (0-10)
[2023-11-15 03:28] VITALS: BP 117/94; PULSE 85; RESP 18; O2SAT 98
[2023-11-15 03:29] VITALS: BP 117/94; PULSE 85; RESP 18; TEMP 36.7; O2SAT 98
== END 2023-11-15 03:30 | disposition home or self-care (01) ==
PROVIDERS: Emergency Provider Emergency Medicine; PCP Family Medicine Adult Medicine
DX: R07.89 Other chest pain (principal); R51.9 Headache, unspecified; Z87.891 Personal history of nicotine dependence; J44.9 Chronic obstructive pulmonary disease, unspecified
CPT/HCPCS: 36415; 70450; 71045; 80053; 84484; 85025; 93005; 96374; 96375; 99285; J0780; J1200

== ENCOUNTER → 2023-11-26 15:08 | Outpatient (BNVA) | payer MEDICAID, SELFPAY | PROVIDERS: PCP Family Medicine Adult Medicine; Visit Provider Orthopaedic Surgery | DX: M54.2 Cervicalgia (principal); M54.9 Dorsalgia, unspecified | CPT/HCPCS: 72110 ==

== ENCOUNTER → 2023-11-29 10:51 | Outpatient (BNVA) | payer MEDICAID, SELFPAY | PROVIDERS: PCP Family Medicine Adult Medicine; Visit Provider Registered Nurse Neonatal Intensive Care | DX: M25.572 Pain in left ankle and joints of left foot (principal) | CPT/HCPCS: 73610 ==

== ENCOUNTER 2023-12-05 15:29 | Outpatient (CLI) | payer MEDICAID, SELFPAY ==
--- NOTE | 2023-12-05 15:36 | XR_ITS ---
WS: [id number] Left foot, AP and lateral views, 12/05/2023 Clinical Data: left foot pain Comparison: None. Findings: No fractures or dislocations are seen. No bone destruction or erosion is noted. The joint spaces and soft tissues are normal. There is a small plantar spur. XR/XR foot LT 2V [id number] Impression: Negative left foot.
--- NOTE | 2023-12-05 15:36 | XR_ITS ---
WS: [id number] Right shoulder, 2 views, 12/05/2023 Clinical Data: right shoulder pain Comparison: Right shoulder, 03/18/2023 Findings: No fractures or dislocations are seen. The AC joint is normal. The adjacent right clavicle, right sca pula and ribs are normal. The soft tissues are unremarkable. XR/XR shoulder RT min 2V* [id number] Impression: Negative right shoulder.
--- NOTE | 2023-12-05 15:36 | XR_ITS ---
WS: [id number] Left leg including the tibia and fibula, AP and lateral views, 12/05/2023 Clinical Data: left leg pain Comparison: None. Findings: No fractures or dislocations are seen. The tibia and fibula are intact. The soft tissues are normal. XR/XR tibia fibula LT 2V [id number] Impression: Negative left leg.
== END 2023-12-05 15:30 | disposition home or self-care (01) ==
LOC: RAD 15:30
PROVIDERS: PCP Family Medicine Adult Medicine
DX: M75.51 Bursitis of right shoulder (principal); M79.672 Pain in left foot; M79.605 Pain in left leg
CPT/HCPCS: 73030; 73590; 73620

== ENCOUNTER 2023-12-18 06:44 | Outpatient (CLI) | payer MEDICAID, SELFPAY ==
--- NOTE | 2023-12-18 07:15 | MR_ITS ---
WS: [id number] MRI/MRCP OF THE ABDOMEN WITHOUT GADOLINIUM ENHANCEMENT TECHNIQUE: Coronal T2 Fase BH, Axial T2 Fase BH, Axial T2 FS BH, Zxial 3D Roa BH, Axial DWI BH, 2D MRCP Radial BH, 3D MRCP (Resp), and Axial 3D Dyn BH Post sequences. CLINICAL INFORMATION: liver mass protocol COMPARISON: Multiple prior CTs dating back to 2019. FINDINGS: Tiny low-attenuation lesion in the RIGHT hepatic lobe unchanged compared to CT abdomen pelvis 04/03/19 19. This was not well seen on the 08/02/2023 examination. This demonstrates T2 hyperintensity with enhancement on the portal venous and delayed. Differential c onsiderations include tiny hemangioma or flash FNH. This has a nonaggressive appearance Prior cholecystectomy. Portal vein and splenic vein are patent. Normal spleen. Normal GE junction. Ad renal glands are normal. A few tiny renal cysts. No other suspicious findings. MR/MR abdomen wo/w con* [id number] Impression: Benign-appearing tiny lesion in the RIGHT hepatic lobe appears stable compared to CT 2019.
[2023-12-18] MEDS: gadobenate dimeglumine 20 mL vial IV (07:48)
== END 2023-12-18 06:45 | disposition home or self-care (01) ==
LOC: RAD 06:45
PROVIDERS: PCP Family Medicine Adult Medicine; Visit Provider Surgery
DX: K76.9 Liver disease, unspecified (principal); Q61.02 Congenital multiple renal cysts; Z90.49 Acquired absence of other specified parts of digestive tract
CPT/HCPCS: 74183

== ENCOUNTER 2023-12-19 11:47 | Outpatient (RCR) | payer MEDICAID, SELFPAY | END 2024-01-16 23:59 | disposition home or self-care (01) | LOC: SPT 11:47 | PROVIDERS: PCP Family Medicine Adult Medicine; Visit Provider Orthopaedic Surgery | DX: M54.9 Dorsalgia, unspecified (principal); G89.29 Other chronic pain | CPT/HCPCS: 97110; 97162 ==

== ENCOUNTER 2023-12-24 11:11 | Outpatient (CLI) | payer MEDICAID, SELFPAY ==
[2023-12-24 12:18] LABS: C.Diff PCR (Lab) NEGATIVE (Negative)
== END 2023-12-24 11:12 | disposition home or self-care (01) ==
LOC: LAB 11:12
PROVIDERS: PCP Family Medicine Adult Medicine; Visit Provider Surgery
DX: R19.7 Diarrhea, unspecified (principal)
CPT/HCPCS: 87045; 87177; 87209; 87427; 87449; 87493

== ENCOUNTER 2024-01-17 06:00 | Outpatient (RCR) | payer MEDICAID, SELFPAY | END 2024-02-12 11:22 | disposition home or self-care (01) | LOC: SPT 06:00 | PROVIDERS: PCP Family Medicine Adult Medicine; Visit Provider Orthopaedic Surgery | DX: M54.50 Low back pain, unspecified (principal); G89.29 Other chronic pain | CPT/HCPCS: 97110 ==

== ENCOUNTER 2024-03-23 13:49 | Emergency (ER) | payer MEDICAID, SELFPAY ==
[2024-03-23 14:07] VITALS: BP 119/80; PULSE 98; RESP 18; TEMP 36.8; O2SAT 97; BMI 40.8
--- NOTE | 2024-03-23 15:49 | CTR_ITS ---
PROCEDURE INFORMATION: Exam: CT Head Without Contrast Exam date and time: 03/23/2024 4:47 PM Age: 43 years old Clinical indication: Pain; Headache TECHNIQUE: Imaging protocol: Computed tomography of the head without contrast. Radiation optimization: All CT scans at this facility use at least one of these dose optimization techniques: automated exposure control; mA and/or kV adjustment per patient size (includes targeted exams where dose is matched to clinical indication); or iterative reconstruction. COMPARISON: CT head wo con* [id number] 11/15/2023 12:44 AM RADIATION DOSE METRICS: Total DLP (mGy-cm): 977.28 FINDINGS: Brain: The brain is unremarkable. There is no mass effect or significant white matter disease. There is no acute intracranial hemorrhage. Cerebral ventricles: There is no significant ventricular dilation. The basal cisterns are unremarkable. Paranasal sinuses: The paranasal sinuses are clear. Mastoid air cells: The mastoid air cells are clear. Bones: The calvarium is intact. Soft tissues: The visible extracranial soft tissues are unremarkable. CT/CT head wo con* [id number] IMPRESSION: No acute intracranial abnormality.
--- NOTE | 2024-03-23 15:49 | XRR_ITS ---
PROCEDURE INFORMATION: Exam: XR Chest Exam date and time: 03/23/2024 3:53 PM Age: 43 years old Clinical indication: Condition or disease; Lung condition and disease; Copd; Shortness of breath; Patient HX: Flu symptons; Additional info: Copd with SOB TECHNIQUE: Imaging protocol: Radiologic exam of the chest. Views: 1 view. COMPARISON: CR XR chest 1V portable [id number] 11/15/2023 12:40 AM FINDINGS: Lungs: Lungs are clear. Pleural spaces: There is no pleural effusion or pneumothorax. Heart/Mediastinum: Cardiomediastinal contours are unremarkable. Bones/joints: Bones are unremarkable. XR/XR chest 1V portable [id number] IMPRESSION: No acute findings.
--- NOTE | 2024-03-23 15:54 | ED_ITS ---
HPI - General Adult 2 General: Chief complaint: Headache Stated complaint: v,sick for week, neck sore and stiff w/headache Time Seen by Provider: 03/23/24 15:37 History of Present Illness: Patient is a 43-year-old female history of COPD, asthma, bipolar disorder, anxiety, migraine headache who states that she has been sick off and on for little over 2 weeks. Patient states initially she had some respiratory issues such as cough and congestion. She states that was right before [place]. She states that the respiratory issues improved but then she developed what she describes as a stomach bug. She states that she had nausea, vomiting and diarrhea. She states probably 5 to 6 days of diarrhea which finally improved. She thought she was beginning to feel better but then the respiratory issues came back. Patient states she was coughing up a little bit of blood but that is resolved at this point. She is increased her DuoNeb treatments at home. She states doing it every 4 hours now which has helped a lot. She states feeling generally achy and tired. Patient also states history of migraine headaches and she has had a flareup of headache since the stomach bug. Patient states she thinks she might have been dehydrated from that and not drinking well since then. She does state that when she has migraine she feels nauseated so she has been eating and drinking well currently. Patient states pain in her neck. On exam the pain is in the left paraspinous muscle. Patient has no pain on the right side or midline. Patient states slightly increased discomfort with turning her head to the right side. Patient has no meningeal signs. Patient's had no fever. Associated symptoms: Deny chest pain, nausea or rash Related Data Home Medications Medication Instructions Recorded Confirmed montelukast 10 mg tablet 10 mg PO QPM 09/11/19 03/23/24 budesonide 0.5 mg/2 mL suspension 0.5 mg inhalation DAILY 05/18/22 03/23/24 for nebulization (Pulmicort) epinephrine 0.3 mg/0.3 mL 0.3 mg IM Q4H PRN Allergic Reaction 09/14/22 03/23/24 injection, auto-injector pimecrolimus 1 % topical cream 1 applic topical BID 10/22/22 03/23/24 (Elidel) ciclopirox 0.77 % topical gel 1 applic topical BID 11/27/22 03/23/24 clobetasol 0.05 % topical ointment 1 applic topical BID 07/17/23 03/23/24 cholecalciferol (vitamin D3) 125 125 mcg PO DAILY 09/12/23 03/23/24 mcg (5,000 unit) tablet (Vitamin D3) triamcinolone acetonide 0.1 % 1 applic topical DAILY PRN flare 09/12/23 03/23/24 topical ointment amlodipine 2.5 mg tablet 2.5 mg PO DAILY 03/23/24 03/23/24 ropinirole 1 mg tablet 1 mg PO BID 03/23/24 03/23/24 Previous Rx's Medication Instructions Recorded ipratropium 0.5 mg-albuterol 3 mg 3 ml inhalation Q4H PRN wheezing 10/17/20 (2.5 mg base)/3 mL nebulization #90 mL soln tralokinumab-ldrm 150 mg/mL 300 mg (2 mL) SUBCUT Q14D #4 mL 06/26/22 subcutaneous syringe (Adbry) pantoprazole 40 mg tablet,delayed 40 mg PO ONCE 30 days #30 tabs 11/04/23 release (Protonix) potassium chloride 8 mEq 8 meq PO DAILY #30 caps 11/26/23 capsule,extended release furosemide 20 mg tablet 20 mg PO QAM #30 tabs 12/05/23 loratadine 10 mg tablet 10 mg PO DAILY #90 tabs 12/05/23 hydroxyzine HCl 25 mg tablet See Rx Instructions .Route 12/25/23 .COMPLEX #270 tabs Night splint #1 ea 12/31/23 oxycodone 5 mg tablet 5 mg PO Q12H PRN pain 30 days #60 03/12/24 tabs doxycycline hyclate 100 mg capsule 100 mg PO BID 10 days #20 caps 03/23/24 ondansetron 4 mg disintegrating 4 mg PO Q8H 3 days #9 tabs 03/23/24 tablet Allergies Allergy/AdvReac Type Severity Reaction Status Date / Time acetaminophen Allergy ALGY-Anaphy Verified 03/23/24 14:17 laxis aspirin Allergy ALGY-Difficulty Verified 03/23/24 14:17 Breathing Bleach (Sodium Hypochlorite) Allergy asthma Verified 03/23/24 14:17 attack calamine Allergy ALGY-Difficulty Verified 03/23/24 14:17 Breathing nut - unspecified Allergy ALGY-Difficulty Verified 03/23/24 14:17 Swallowing Penicillins Allergy ALGY-Anaphy Verified 03/23/24 14:17 laxis shellfish derived Allergy ALGY-Swell Verified 03/23/24 14:17 Lip/Tongue/Throat sulfamethoxazole Allergy ALGY-Rash Verified 03/23/24 14:17 [From Bactrim] trimethoprim [From Bactrim] Allergy ALGY-Rash Verified 03/23/24 14:17 methotrexate AdvReac ADR-Diarrhe Verified 03/23/24 14:17 a chlorine Allergy hives Uncoded 03/23/24 14:17 Review of Systems 2 Const: Denies: fever(s) or body aches Eyes: Denies: change in vision or eye discomfort ENMT: Denies: throat pain or nasal congestion Card: Denies: chest pain or lightheadedness Resp: Denies: wheezing GI: Denies: abdominal pain or nausea : Denies: difficulty voiding or dysuria Musc: Denies: extremity pain Skin/Breast: Denies: rash or sores Neuro: Denies: weakness in extremities or sensory changes PFSH ED 2 PFSH: Medical History POP-Q stage 2 cystocele Surgery 09/17/[address] Yousif Lung nodule seen on imaging study Dysequilibrium Bursitis of right shoulder Bilateral lower extremity edema Bilateral leg cramps BMI 40.0-44.9, adult Family history of brain aneurysm Family history of aneurysm Mixed urge and stress incontinence Anxiety and depression Bipolar 2 disorder Atopic dermatitis in adult Marijuana smoker Smoker Quit cigarettes in 2018, still Marijuana Asthma-COPD overlap syndrome Surgical History S/P vaginal hysterectomy (~09/17/23) vaginal hysterectomy with Right salpingo-oophorectomy with mid urethral sling Dr. Yousif. Left tube and ovary were not found therefore not removed. Benign pathology. Hx of colonoscopy 2007 Hx of breast reduction, elective S/P tonsillectomy H/O tubal ligation H/O laparoscopy 08/27/2018- Diagnostic laparoscopy, fulguration of endometriotic lesions and lysis of adhesions per Dr. Yousif at [facility] S/P cryotherapy of skin lesion for cervical dysplasia S/P cholecystectomy laparoscopic, 04/16/2018 Family History Father Anesthesia complication Heart disease Hyperlipidemia Hypertension Grandfather , Due to Aneurysm Diabetes maternal Aneurysm Grandmother Diabetes maternal Breast cancer maternal, diagnosed in her 40's Stroke paternal Thyroid disease maternal Daughter No problems noted. Family/Other Diabetes maternal uncle Ovarian cancer maternal aunt Bleeding disorder paternal Uterine cancer maternal great great aunt Mother Stroke Denies family history of Clotting disorder Social History Smoking and tobacco/nicotine status: former use of tobacco/nicotine Alcohol intake: never Substance/Drug Use: current Substance/Drug use frequency: daily Physical Exam 2 Const: COMMON NORMALS: no acute distress, patient oriented x3 and alert G ENERAL APPEARANCE: cooperative HENMT: COMMON NORMALS: normocephalic and atraumatic HEAD & SCALP: n ormocephalic and atraumatic Eye: COMMON NORMALS: Equal, round and reactive pupils present and EOMs intact bilaterally PUPIL: Yes Equal, round and reactive pupils present Neck/C-Spine: COMMON NORMALS: full ROM and supple OTHER: Patient has some mild tenderness in the left paraspinous muscle. No midline tenderness, no pain on the right side. No meningeal signs. Full range of motion of the neck. Chest: COMMONS NORMALS: normal inspection of the chest Resp: COMMON NORMALS: normal respiratory effort and clear to auscultation bilaterally AUSCULTATION: clear to auscultation bilaterally Cardio: COMMON NORMALS: regular rate and regular rhythm RATE: regular rate RHYTHM: regular rhythm GI: COMMON NORMALS: Normal to inspection, nondistended, normoactive bowel sounds present and non-tender : COMMON NORMALS: Yes no CVA tenderness BLADDER/KIDNEY EXAM: Yes no CVA tenderness Back/Pelvis: COMMON NORMALS: no CVA tenderness and thoracic and lumbar spine normal to inspection Extremity: COMMON NORMALS: normal to inspection, full ROM and no pedal edema Neuro: COMMON NORMALS: patient oriented x3 and no focal motor deficits S ENSORIUM/ORIENTATION: Yes alert Psych: COMMON NORMALS: cooperative Skin: COMMON NORMALS: no rashes or lesions noted GENERAL SKIN EXAM: no rashes or lesions noted Course 2 Vital Signs: Vital signs: Vital Signs Temperature 98.2 F 03/23/24 14:07 Pulse Rate 99 03/23/24 16:16 Respiratory Rate 18 03/23/24 16:16 Blood Pressure 103/67 03/23/24 16:16 Pulse Oximetry 99 03/23/24 16:16 Oxygen Delivery Me thod Room Air 03/23/24 16:16 MDM - General Adult Medical Decision Making Patient had not been eating and drinking well for over a week and had had significant diarrhea around [place] time. Patient was given a liter of normal saline, Reglan, Benadryl and Decadron. Patient headache has resolved at this point. She states she feels substantially better and states she wonders if she might have been a little dehydrated. No current nausea. She is drinking fluid without issue. Her lab work does show a slight elevation of white blood cell count to 13,600. No other significant abnormalities noted in lab work. CT head was negative and chest x-ray was clear. Patient vitals normal and blood pressure normal. She actually improved her blood pressure with a liter of fluid. Again this makes me feel like she was mildly dehydrated. Patient's had no fever and neck pain was in the left paraspinous muscle. No midline pain, no meningeal signs or indication of infection. Patient has been ambulatory to the bathroom without issue. Discussed with her and she is comfortable going home at this time. With her history of COPD and asthma, will put her on a course of doxycycline and will also prescribe her Zofran. Have advised follow-up with primary care and have advised return precautions. Lab Data 03/23/24 16:00 03/23/24 16:00 Radiology Impressions Chest X-Ray 03/23/24 15:49 IMPRESSION: No acute findings. Head CT 03/23/24 15:49 IMPRESSION: No acute intracranial abnormality. Laboratory Results WBC 13.69 10^3/uL (3.29-11.43) H 03/23/24 16:00 RBC 4.94 10^6/uL (3.85-5.65) 03/23/24 16:00 Hgb 13.40 g/dL (11.27-16.99) 03/23/24 16:00 Hct 41.3 % (36-47) 03/23/24 16:00 MCV 83.6 fl (85-98) L 03/23/24 16:00 MCH 27.1 pg (27-33) 03/23/24 16:00 MCHC 32.4 g/dL (30-55) 03/23/24 16:00 RDW 12.9 % (12.1-15.1) 03/23/24 16:00 Plt Count 358 10^3/cmm (157-399) 03/23/24 16:00 MPV 9.5 fL (7.4-10.4) 03/23/24 16:00 Neut % (Auto) 83.0 % 03/23/24 16:00 Lymph % (Auto) 10.7 % 03/23/24 16:00 [place] % (Auto) 5.4 % 03/23/24 16:00 Eos % (Auto) 0.2 % 03/23/24 16:00 Baso % (Auto) 0.4 % 03/23/24 16:00 Neut # (Auto) 11.37 10^3/uL (1.8-7.7) H 03/23/24 16:00 Lymph # (Auto) 1.5 10^3/uL (0.8-4.8) 03/23/24 16:00 [place] # (Auto) 0.7 10^3/uL (0.2-0.9) 03/23/24 16:00 Eos # (Auto) 0.0 10^3/uL (0.0-0.8) 03/23/24 16:00 Baso # (Auto) 0.1 10^3/uL (0.0-0.1) 03/23/24 16:00 Nucleated RBC % (auto) 0 % 03/23/24 16:00 Nucleated RBCs # 0.0 /100WBC 03/23/24 16:00 Sodium 135 mmol/L (136-145) L 03/23/24 16:00 Potassium 4.0 mmol/L (3.5-5.1) 03/23/24 16:00 Chloride 102 mmol/L (98-107) 03/23/24 16:00 Carbon Dioxide 22 mmol/L (22-29) 03/23/24 16:00 Anion Gap 15.0 (5-19) 03/23/24 16:00 BUN 10 mg/dL (6-20) 03/23/24 16:00 Creatinine 0.6 mg/dL (0.5-0.9) 03/23/24 16:00 GFR Calculation 108.6 mL/min (90-130) 03/23/24 16:00 Glucose 97 mg/dL (65-115) 03/23/24 16:00 Calculated Osmolality 279 mOsm/kg (285-295) L 03/23/24 16:00 Calcium 9.4 mg/dL (8.5-10.5) 03/23/24 16:00 Magnesium 2.1 mg/dL (1.7-2.3) 03/23/24 16:00 Total Bilirubin 0.4 mg/dL (0.15-1.2) 03/23/24 16:00 AST 13 U/L (0-32) 03/23/24 16:00 ALT 13 U/L (0-33) 03/23/24 16:00 Alkaline Phosphatase 97 U/L (35-105) 03/23/24 16:00 Total Protein 7.6 g/dL (6.6-8.7) 03/23/24 16:00 Albumin 4.2 g/dL (3.5-5.2) 03/23/24 16:00 Globulin 3.4 g/dL (1.3-4.6) 03/23/24 16:00 All radiology interpretation(s) finalized by discharge Discharge Plan Discharge Patient Disposition: Home Clinical Impression: Acute dehydration, Migraine, Acute exacerbation of chronic obstructive pulmonary disease Condition: Stable Prescriptions: New doxycycline hyclate 100 mg capsule 100 mg PO BID 10 Days Qty: 20 0RF ondansetron 4 mg tablet,disintegrating 4 mg PO Q8H 3 Days Qty: 9 0RF No Action ipratropium-albuterol 0.5 mg-3 mg(2.5 mg base)/3 mL solution for nebulization 3 ml inhalation Q4H PRN (Reason: wheezing) Qty: 90 3RF epinephrine 0.3 mg/0.3 mL auto-injector 0.3 mg IM Q4H PRN (Reason: Allergic Reaction) clobetasol 0.05 % ointment 1 applic topical BID budesonide [Pulmicort] 0.5 mg/2 mL suspension for nebulization 0.5 mg inhalation DAILY pimecrolimus [Elidel] 1 % cream 1 applic topical BID ciclopirox 0.77 % gel 1 applic topical BID pantoprazole [Protonix] 40 mg tablet,delayed release (DR/EC) 40 mg PO ONCE 30 Days Qty: 30 11RF (DME) Night splint See Rx Instructions .Route .MEDSUPPLY Qty: 1 0RF Rx Instructions: As directed Adbry 150 mg/mL syringe 300 mg SUBCUT Q14D Qty: 4 2RF Rx Instructions: 600mg divided in 4 sites on day 1. then 300mg divided in 2 sites every 2 weeks potassium chloride 8 mEq capsule, extended release 8 meq PO DAILY Qty: 30 5RF furosemide 20 mg tablet 20 mg PO QAM Qty: 30 0RF loratadine 10 mg tablet 10 mg PO DAILY Qty: 90 2RF hydroxyzine HCl 25 mg tablet See Rx Instructions .ROUTE .COMPLEX Qty: 270 0RF Dose Instruction: TAKE ONE TABLET BY MOUTH IN THE MORNING AND TWO TABLETS BY MOUTH one hour BEFORE bedtime Rx Instructions: TAKE ONE TABLET BY MOUTH IN THE MORNING AND TWO TABLETS BY MOUTH one hour BEFORE bedtime oxycodone 5 mg tablet 5 mg PO Q12H PRN (Reason: pain) 30 Days Qty: 60 0RF Rx Instructions: Can refill on or after 30 days montelukast 10 mg Tablet 10 mg PO QPM triamcinolone acetonide 0.1 % Ointment 1 applic TOPICAL DAILY PRN (Reason: flare) cholecalciferol (vitamin D3) [Vitamin D3] 125 mcg (5,000 unit) Tablet 125 mcg PO DAILY ropinirole 1 mg tablet 1 mg PO BID amlodipine 2.5 mg tablet 2.5 mg PO DAILY Discharge Orders: Discharge ED (Routine); Ordered 03/23/24 Ordered By: Zander Dupree Referrals: Rusty Lane MD [Primary Care Provider] - Discharge Diet: Usual diet Discharge Activity: Resume usual activity Patient Instructions: Pain Management Activity Restrictions/Additional Instructions: Take medication as prescribed. You will complete the entire course of antibiotic therapy. Use nausea medicine to settle stomach so that you are able to drink fluid. Would recommend increasing fluid intake. Feel you are mildly dehydrated here and gave you 1 L of fluid which should help. Follow-up with your primary care physician. Return if any of your symptoms worsen. Coding Level of Care Code ED [employer]ator for Maxwell Baker
[2024-03-23] MEDS: metoclopramide 5 mg/mL SDV 2 mL 10 MG IVP (16:12)
[2024-03-23] MEDS: sodium chloride 0.9% 1,000 ML 999 ML IV (16:13)
[2024-03-23] MEDS: dexamethasone 10 mg/mL INJ IVP (16:14)
[2024-03-23] MEDS: diphenhydrAMINE 50 mg/mL SDV 1mL IVP (16:15)
[2024-03-23 16:16] VITALS: BP 103/67; PULSE 99; RESP 18; O2SAT 99
[2024-03-23 16:30] LABS: Basophils # 0.1 10^3/uL (0.0-0.1); Basophils % 0.4 %; Eosinophils % 0.2 %; Hematocrit 41.3 % (36-47); Lymphocytes # 1.5 10^3/uL (0.8-4.8); Lymphocytes % 10.7 %; Mean Corpuscular HGB Conc 32.4 g/dL (30-55); Mean Corpuscular Hemoglobin 27.1 pg (27-33); Mean Corpuscular Volume 83.6 fl (85-98); Mean Platelet Volume 9.5 fL (7.4-10.4); Monocytes # 0.7 10^3/uL (0.2-0.9); Monocytes % 5.4 %; Neutrophils # 11.37 10^3/uL (1.8-7.7); Nucleated Red Blood Cells % 0 %; Platelet Count 358 10^3/cmm (157-399); Red Blood Count 4.94 10^6/uL (3.85-5.65); Red Cell Distribution Width 12.9 % (12.1-15.1); White Blood Count 13.69 10^3/uL (3.29-11.43)
[2024-03-23 16:46] LABS: Alanine Aminotransferase 13 U/L (0-33); Albumin Level 4.2 g/dL (3.5-5.2); Alkaline Phosphatase 97 U/L (35-105); Aspartate Amino Transferase 13 U/L (0-32); Blood Urea Nitrogen 10 mg/dL (6-20); Calcium 9.4 mg/dL (8.5-10.5); Carbon Dioxide 22 mmol/L (22-29); Chloride 102 mmol/L (98-107); Creatinine Clr Calc Pharmacy 153.9135; Globulin 3.4 g/dL (1.3-4.6); Glomerular Filtration Rate 108.6 mL/min (90-130); Glucose 97 mg/dL (65-115); Magnesium 2.1 mg/dL (1.7-2.3); Osmolality Calculated 279 mOsm/kg (285-295); Sodium 135 mmol/L (136-145); Total Bilirubin 0.4 mg/dL (0.15-1.2); Total Protein 7.6 g/dL (6.6-8.7)
[2024-03-23 17:30] VITALS: BP 120/55; PULSE 85; RESP 18; O2SAT 96
[2024-03-23 17:43] LABS: Bilirubin Urine Negative (Negative); Blood Urine Negative (Negative); Glucose Urine UA Negative (Normal); Ketones Urine 1+ (Negative); Leukocyte Esterase Urine Negative (Negative); Nitrate Urine Negative (Negative); Protein Urine Negative (Negative); Specific Gravity, Urine 1.014 (1.005-1.030); Urine Appearance Clear (CLEAR); Urine Color Yellow (Yellow); Urobilinogen Urine 0.2 mg/dL (Negative); pH Urine 6.5 (5-7)
[2024-03-23 17:45] LABS: HCG Qualitative Urine. Negative (Negative)
[2024-03-23 17:48] LABS: Add Urine Microscopic? YES; Bacteria Urine None Seen /hpf; RBC Urine 0-2 /hpf (0-2); Squamous Epithelial Cell Urine 0-5 /hpf (0-5); WBC Urine 0-5 /hpf (0-5)
[2024-03-23 17:52] VITALS: BP 120/56; PULSE 98; O2SAT 99
== END 2024-03-23 17:54 | disposition home or self-care (01) ==
PROVIDERS: Emergency Provider Emergency Medicine; PCP Family Medicine Adult Medicine
DX: E86.0 Dehydration (principal); G43.909 Migraine, unspecified, not intractable, without status migrainosus; J44.1 Chronic obstructive pulmonary disease with (acute) exacerbation; Z87.891 Personal history of nicotine dependence
CPT/HCPCS: 12345; 70450; 71045; 80053; 81001; 81025; 83735; 85025; 96361; 96374; 96375; 99285; J1100; J1200; J2765; J7030

== ENCOUNTER → 2024-04-16 16:36 | Outpatient (BNVA) | payer MEDICAID, SELFPAY | PROVIDERS: PCP Family Medicine Adult Medicine; Referring Provider Psychiatry & Neurology Neurology; Visit Provider Obstetrics & Gynecology | DX: R45.86 Emotional lability (principal) | CPT/HCPCS: 83001 ==

== ENCOUNTER 2024-05-01 15:00 | Outpatient (CLI) | payer MEDICAID, SELFPAY ==
--- NOTE | 2024-05-01 15:15 | MR_ITS ---
WS: [id number] MRI LUMBAR SPINE NONCONTRAST HISTORY: M54.50 - Low back pain, unspecified COMPARISON: 01/20/2008 TECHNIQUE: Sagittal and axial multisequence imaging is submitted. C5-6: Disc osteophyte protrusion contacting and deforming the ventral cervical cord. L3 anterolisthesis by 2 mm. New since 2008. Minimal disc space desiccation at L3-4 and L4-5. No acute fracture. Conus terminates normally at L1-2 disc level. L1-L2: Mild facet joint arthritis and ligamentum flavum hypertrophy. No stenosis. L2-L3: Mild bilateral facet joint arthritis and ligamentum flavum hypertrophy. L3-L4: Mild annular disc bulging with moderate ligamentum flavum and facet arthritis. Disc encroachment upon the ventral thecal sac. Mild central, bilateral subarticular recess and foraminal stenosis. Mild progression since the prior study. L4-L5: Mild annular disc bulging with moderate ligamentum flavum and facet arthritis, RIGHT greater than LEFT. Mild disc encroachment upon the subarticular recesses. Mild subarticular recess and RIGHT foraminal stenosis. L5-S1: Mild disc bulging. RIGHT foraminal osteophyte without stenosis. Previously described central disc protrusion has resolved. Paravertebral soft tissues are negative. MR/MR lumbar spine wo con* [id number] IMPRESSION: 1. Since 2007 development of mild central, bilateral subarticular recess and f oraminal stenosis at L3-4. 2. L4-5: Mild bilateral subarticular recess encroachment and RIGHT foraminal s tenosis. 3. Interval resolution of the central disc protrusion at L5-S1. 4. L3 anterolisthesis by 2 mm.
== END 2024-05-01 15:01 | disposition home or self-care (01) ==
PROVIDERS: PCP Family Medicine; Visit Provider Orthopaedic Surgery
DX: M48.061 Spinal stenosis, lumbar region without neurogenic claudication (principal); G89.29 Other chronic pain; M79.604 Pain in right leg; M79.605 Pain in left leg; R93.7 Abnormal findings on diagnostic imaging of other parts of musculoskeletal system; M25.78 Osteophyte, vertebrae; M50.222 Other cervical disc displacement at C5-C6 level; M47.896 Other spondylosis, lumbar region; M51.369 Other intervertebral disc degeneration, lumbar region without mention of lumbar back pain or lower extremity pain; M51.379 Other intervertebral disc degeneration, lumbosacral region without mention of lumbar back pain or lower extremity pain
CPT/HCPCS: 72148

== ENCOUNTER 2024-05-05 11:58 | Emergency (ER) | payer MEDICAID, SELFPAY ==
[2024-05-05 12:15] VITALS: BP 102/68; PULSE 82; RESP 18; TEMP 36.6; O2SAT 98; BMI 35.6
--- NOTE | 2024-05-05 12:17 | ECG_ITS ---
[facility]24[facility]05 Pat Name: Liliam Fragoso Department: Room: Gender: Female Systems Spec: : 1980 Requested By: Jenny Gary Order Number: [id number] Noé MD: Saad Womack M.D. Measurements Intervals [place] Rate: 82 P: 72 MA: 151 QRS: 82 QRSD: 85 T: 74 QT: 366 QTc: 428 Interpretive Statements SINUS RHYTHM Compared to ECG 11/14/2023 23:23:40 Sinus tachycardia no longer present Electronically Signed On 05-07-2024 17:54:33 KEYING MACHINE OPERATOR by Saad Womack M.D. [email or web address]
--- NOTE | 2024-05-05 12:17 | XRR_ITS ---
PROCEDURE INFORMATION: Exam: XR Chest Exam date and time: 05/05/2024 12:28 PM Age: 43 years old Clinical indication: Shortness of breath; Additional info: SOB TECHNIQUE: Imaging protocol: Radiologic exam of the chest. Views: 1 view. COMPARISON: CR XR chest 1V portable [id number] 03/23/2024 3:53 PM FINDINGS: Lungs: Clear. No consolidation. Pleural spaces: No significant pleural effusion. No pneumothorax. Heart/Mediastinum: Within normal limits. No cardiomegaly. Bones/joints: Intact. Other findings: None. XR/XR chest 1V portable [id number] IMPRESSION: No radiographic evidence for acute cardiopulmonary disease.
[2024-05-05 12:52] LABS: Basophils % 0.3 %; Eosinophils # 0.1 10^3/uL (0.0-0.8); Eosinophils % 1.4 %; Hematocrit 39.2 % (36-47); Lymphocytes # 1.8 10^3/uL (0.8-4.8); Lymphocytes % 18.5 %; Mean Corpuscular HGB Conc 33.2 g/dL (30-55); Mean Corpuscular Volume 84.3 fl (85-98); Monocytes # 0.6 10^3/uL (0.2-0.9); Monocytes % 6.1 %; Neutrophils # 7.08 10^3/uL (1.8-7.7); Neutrophils % 73.3 %; Nucleated Red Blood Cells % 0 %; Platelet Count 355 10^3/cmm (157-399); Red Blood Count 4.65 10^6/uL (3.85-5.65); Red Cell Distribution Width 12.9 % (12.1-15.1); White Blood Count 9.67 10^3/uL (3.29-11.43)
[2024-05-05 13:16] LABS: Troponin(5th) Baseline < 6 ng/L (0-10)
[2024-05-05 13:27] VITALS: BP 126/76; PULSE 92; O2SAT 99
[2024-05-05 13:30] VITALS: BP 115/72; PULSE 92; O2SAT 100
[2024-05-05 13:34] LABS: Alanine Aminotransferase 15 U/L (0-33); Albumin Level 4.3 g/dL (3.5-5.2); Alkaline Phosphatase 108 U/L (35-105); Anion Gap 16.7 (5-19); Aspartate Amino Transferase 15 U/L (0-32); Blood Urea Nitrogen 10 mg/dL (6-20); Calcium 9.6 mg/dL (8.5-10.5); Carbon Dioxide 26 mmol/L (22-29); Chloride 100 mmol/L (98-107); Creatinine Clr Calc Pharmacy 122.5256; Globulin 2.5 g/dL (1.3-4.6); Glomerular Filtration Rate 90.9 mL/min (90-130); Glucose 113 mg/dL (65-115); Lipase 30 U/L (13-60); NT Pro B Type Natriuretic Pept < 36 pg/mL (0-125); Osmolality Calculated 288 mOsm/kg (285-295); Potassium 3.7 mmol/L (3.5-5.1); Sodium 139 mmol/L (136-145); Total Bilirubin 0.4 mg/dL (0.15-1.2); Total Protein 6.8 g/dL (6.6-8.7)
--- NOTE | 2024-05-05 13:38 | W.ED.CHESTPA ---
HPI - Chest Pain General: Chief Complaint: Chest Pain Stated Complaint: Chest Pain, SOB Time Seen by Provider: 05/05/24 13:06 Source: patient Mode of arrival: ambulatory Limitations: no limitations History of Present Illness: Patient is a 43-year-old female presents to ED today with complaint of chest pain, cough, congestion. Patient states she has intermittently been sick over the past few weeks. She feels like she gets better and then gets sick again. She is an every day smoker. She feels like her pain is worse with coughing and movement. She arrives in no acute distress with stable vital signs. No known cardiac history. No recent surgeries. No risk factors for PE. She states she has had recently sick contacts that she has 2 family members currently living with her that are ill with similar symptoms. States she has had pleurisy in the past this feels similar. No hemoptysis. MD complaint: chest pain Onset (ago): day(s) Timing of current episode: episodic Prior episodes: No Pain location: left chest Pain radiation: none Severity: mild Relieving factors: nothing Exacerbating factors: inspiration and movement Context: recent illness Associated symptoms: Deny abdominal pain, fever(s), palpitations, syncope or vomiting Treatment prior to arrival: none Risk Factors: Coronary artery disease risk factors: none Thoracic aortic dissection risk factors: none Related Data Home Medications ?Medication ?Instructions ?Recorded ?Confirmed montelukast 10 mg tablet 10 mg PO QPM 09/11/19 05/05/24 budesonide 0.5 mg/2 mL suspension 0.5 mg inhalation DAILY 05/18/22 05/05/24 for nebulization (Pulmicort) epinephrine 0.3 mg/0.3 mL 0.3 mg IM Q4H PRN Allergic Reaction 09/14/22 05/05/24 injection, auto-injector ropinirole 1 mg tablet 1 mg PO BID 03/23/24 05/05/24 Previous Rx's ?Medication ?Instructions ?Recorded ipratropium 0.5 mg-albuterol 3 mg 3 ml inhalation Q4H PRN wheezing 10/17/20 (2.5 mg base)/3 mL nebulization #90 mL soln tralokinumab-ldrm 150 mg/mL 300 mg (2 mL) SUBCUT Q14D #4 mL 06/26/22 subcutaneous syringe (Adbry) pantoprazole 40 mg tablet,delayed 40 mg PO ONCE 30 days #30 tabs 11/04/23 release (Protonix) potassium chloride 8 mEq 8 meq PO DAILY #30 caps 11/26/23 capsule,extended release furosemide 20 mg tablet 20 mg PO QAM #30 tabs 12/05/23 metoprolol tartrate 25 mg tablet 12.5 mg (1/2 x 25 mg) PO BID #30 03/24/24 tabs hydroxyzine HCl 25 mg tablet See Rx Instructions .Route 04/06/24 .COMPLEX #270 tabs oxycodone 5 mg tablet 5 mg PO Q12H PRN pain 30 days #60 04/14/24 tabs Allergies Allergy/AdvReac Type Severity Reaction Status Date / Time acetaminophen Allergy ALGY-Anaphy Verified 05/05/24 12:20 laxis aspirin Allergy ALGY-Difficulty Verified 05/05/24 12:20 Breathing Bleach (Sodium Hypochlorite) Allergy asthma Verified 05/05/24 12:20 attack calamine Allergy ALGY-Difficulty Verified 05/05/24 12:20 Breathing nut - unspecified Allergy ALGY-Difficulty Verified 05/05/24 12:20 Swallowing Penicillins Allergy ALGY-Anaphy Verified 05/05/24 12:20 laxis shellfish derived Allergy ALGY-Swell Verified 05/05/24 12:20 Lip/Tongue/Throat sulfamethoxazole (From Allergy ALGY-Rash Verified 05/05/24 12:20 Bactrim) trimethoprim (From Bactrim) Allergy ALGY-Rash Verified 05/05/24 12:20 methotrexate AdvReac ADR-Diarrhe Verified 05/05/24 12:20 a chlorine Allergy hives Uncoded 04/16/24 15:06 Review of Systems Const: Reports: chills; Denies: fever(s), body aches, fatigue or malaise ENMT: Reports: nasal congestion; Denies: throat pain or odynophagia Card: Reports: chest pain; Denies: palpitations, irregular heart rhythm, edema, swelling of feet/ankles, lightheadedness, syncope, pre-syncope, dyspnea on exertion, orthopnea, leg pain with exertion or acrocyanosis Resp: Reports: non-productive cough, pain on inspiration and chest congestion; Denies: wheezing GI: Denies: abdominal pain, vomiting or diarrhea Musc: Denies: neck pain, back pain, extremity pain, extremity swelling, joint swelling or joint redness Neuro: Denies: headache(s), numbness in extremities, weakness in extremities or sensory changes PFSH ED PFSH: Medical History POP-Q stage 2 cystocele Surgery 09/17/[address] Yousif Lung nodule seen on imaging study Dysequilibrium Bursitis of right shoulder Bilateral lower extremity edema Bilateral leg cramps BMI 40.0-44.9, adult Family history of brain aneurysm Family history of aneurysm Mixed urge and stress incontinence Anxiety and depression Bipolar 2 disorder Atopic dermatitis in adult Marijuana smoker Smoker Quit cigarettes in 2018, still Marijuana Asthma-COPD overlap syndrome Surgical History S/P vaginal hysterectomy (~09/17/23) vaginal hysterectomy with Right salpingo-oophorectomy with mid urethral sling Dr. Yousif. Left tube and ovary were not found therefore not removed. Benign pathology. Hx of colonoscopy 2007 Hx of breast reduction, elective S/P tonsillectomy H/O tubal ligation H/O laparoscopy 08/27/2018- Diagnostic laparoscopy, fulguration of endometriotic lesions and lysis of adhesions per Dr. Yousif at [facility] S/P cryotherapy of skin lesion for cervical dysplasia S/P cholecystectomy laparoscopic, 04/16/2018 Family History Father Anesthesia complication Heart disease Hyperlipidemia Hypertension Grandfather , Due to Aneurysm Diabetes maternal Aneurysm Grandmother Diabetes maternal Breast cancer maternal, diagnosed in her 40's Stroke paternal Thyroid disease maternal Daughter No problems noted. Family/Other Diabetes maternal uncle Ovarian cancer maternal aunt Bleeding disorder paternal Uterine cancer maternal great great aunt Mother Stroke Denies family history of Clotting disorder Social History Smoking and tobacco/nicotine status: former use of tobacco/nicotine Alcohol intake: never Substance/Drug Use: current Substance/Drug use frequency: daily Physical Exam Const: COMMON NORMALS: no acute distress, no limitations, alert and well nourished GENERAL APPEARANCE: cooperative NUTRITIONAL APPEARANCE: obese Chest: COMMONS NORMALS: normal inspection of the chest OTHER: TTP anterior L chest wall Resp: COMMON NORMALS: normal respiratory effort and clear to auscultation bilaterally AUSCULTATION: clear to auscultation bilaterally Cardio: COMMON NORMALS: regular rate and regular rhythm RATE: regular rate RHYTHM: regular rhythm GI: COMMON NORMALS: Normal to inspection, nondistended, normoactive bowel sounds present, Soft to palpation, non-tender, No hepatosplenomegaly present and no masses PALPATION: Yes Soft to palpation and Yes No hepatosplenomegaly present Extremity: COMMON NORMALS: no clubbing, cyanosis or edema, no calf tenderness and no pedal edema GENERAL: Yes normal exam except as noted Neuro: COMMON NORMALS: moves all extremities, no focal motor deficits and no sensory deficits noted SENSORIUM/ORIENTATION: Yes alert Course Vital Signs: Vital signs: Vital Signs Temperature 98 F 05/05/24 12:15 Pulse Rate 92 05/05/24 13:30 Respiratory Rate 18 05/05/24 12:15 Blood Pressure 115/72 05/05/24 13:30 Pulse Oximetry 100 05/05/24 13:30 Oxygen Delivery Me thod Room Air 05/05/24 13:30 MDM - Chest Pain Medical Decision Making Patient clinically appears no acute distress. Her vital signs are stable. Blood work here is completely unremarkable. She is in normal troponin. Normal BNP. CXR is unremarkable. Her baseline EKG is nonischemic. Repeat EKG showing no acute changes. She is slightly tachycardic on her second EKG although this was taken immediately after she had a long coughing episode. Nothing to suggest pulmonary emboli at this time. Symptoms most likely related to chest wall pain, pleurisy, or other nonemergent etiology. Patient will be allowed discharge. Return to ED precautions discussed. I did obtain COVID/flu/RSV swab. She will be contacted with any positive results. Medical Records I reviewed the patient's medical records. Lab Data I reviewed the patient's lab results. 05/05/24 12:36 05/05/24 12:36 Radiology Impressions Chest X-Ray 05/05/24 12:17 IMPRESSION: No radiographic evidence for acute cardiopulmonary disease. Laboratory Results WBC 9.67 10^3/uL (3.29-11.43) 05/05/24 12:36 RBC 4.65 10^6/uL (3.85-5.65) 05/05/24 12:36 Hgb 13.00 g/dL (11.27-16.99) 05/05/24 12:36 Hct 39.2 % (36-47) 05/05/24 12:36 MCV 84.3 fl (85-98) L 05/05/24 12:36 MCH 28.0 pg (27-33) 05/05/24 12:36 MCHC 33.2 g/dL (30-55) 05/05/24 12:36 RDW 12.9 % (12.1-15.1) 05/05/24 12:36 Plt Count 355 10^3/cmm (157-399) 05/05/24 12:36 MPV 9.0 fL (7.4-10.4) 05/05/24 12:36 Neut % (Auto) 73.3 % 05/05/24 12:36 Lymph % (Auto) 18.5 % 05/05/24 12:36 Grady % (Auto) 6.1 % 05/05/24 12:36 Eos % (Auto) 1.4 % 05/05/24 12:36 Baso % (Auto) 0.3 % 05/05/24 12:36 Neut # (Auto) 7.08 10^3/uL (1.8-7.7) 05/05/24 12:36 Lymph # (Auto) 1.8 10^3/uL (0.8-4.8) 05/05/24 12:36 Grady # (Auto) 0.6 10^3/uL (0.2-0.9) 05/05/24 12:36 Eos # (Auto) 0.1 10^3/uL (0.0-0.8) 05/05/24 12:36 Baso # (Auto) 0.0 10^3/uL (0.0-0.1) 05/05/24 12:36 Nucleated RBC % (auto) 0 % 05/05/24 12:36 Nucleated RBCs # 0.0 /100WBC 05/05/24 12:36 PT 12.90 SECONDS (12.1-14.9) 05/05/24 12:36 INR 0.90 (0.8-1.2) 05/05/24 12:36 Sodium 139 mmol/L (136-145) 05/05/24 12:36 Potassium 3.7 mmol/L (3.5-5.1) 05/05/24 12:36 Chloride 100 mmol/L (98-107) 05/05/24 12:36 Carbon Dioxide 26 mmol/L (22-29) 05/05/24 12:36 Anion Gap 16.7 (5-19) 05/05/24 12:36 BUN 10 mg/dL (6-20) 05/05/24 12:36 Creatinine 0.7 mg/dL (0.5-0.9) 05/05/24 12:36 GFR Calculation 90.9 mL/min (90-130) 05/05/24 12:36 Glucose 113 mg/dL (65-115) 05/05/24 12:36 Calculated Osmolality 288 mOsm/kg (285-295) 05/05/24 12:36 Calcium 9.6 mg/dL (8.5-10.5) 05/05/24 12:36 Total Bilirubin 0.4 mg/dL (0.15-1.2) 05/05/24 12:36 AST 15 U/L (0-32) 05/05/24 12:36 ALT 15 U/L (0-33) 05/05/24 12:36 Alkaline Phosphatase 108 U/L (35-105) H 05/05/24 12:36 Troponin T Baseline < 6 ng/L (0-10) 05/05/24 12:36 NT-Pro-B Natriuret Pep < 36 pg/mL (0-125) 05/05/24 12:36 Total Protein 6.8 g/dL (6.6-8.7) 05/05/24 12:36 Albumin 4.3 g/dL (3.5-5.2) 05/05/24 12:36 Globulin 2.5 g/dL (1.3-4.6) 05/05/24 12:36 Lipase 30 U/L (13-60) 05/05/24 12:36 All radiology interpretation(s) finalized by discharge Discharge Plan Discharge Patient Disposition: Home Clinical Impression: Upper respiratory tract infection Qualifiers: URI type: unspecified URI Qualified Code(s): J06.9 - Acute upper respiratory infection, unspecified Chest pain Qualifiers: Chest pain type: unspecified Qualified Code(s): R07.9 - Chest pain, unspecified Condition: Stable Prescriptions: No Action ipratropium-albuterol 0.5 mg-3 mg(2.5 mg base)/3 mL solution for nebulization 3 ml inhalation Q4H PRN (Reason: wheezing) Qty: 90 3RF epinephrine 0.3 mg/0.3 mL auto-injector 0.3 mg IM Q4H PRN (Reason: Allergic Reaction) budesonide [Pulmicort] 0.5 mg/2 mL suspension for nebulization 0.5 mg inhalation DAILY metoprolol tartrate 25 mg tablet 12.5 mg PO BID Qty: 30 5RF pantoprazole [Protonix] 40 mg tablet,delayed release (DR/EC) 40 mg PO ONCE 30 Days Qty: 30 11RF Adbry 150 mg/mL syringe 300 mg SUBCUT Q14D Qty: 4 2RF Rx Instructions: 600mg divided in 4 sites on day 1. then 300mg divided in 2 sites every 2 weeks potassium chloride 8 mEq capsule, extended release 8 meq PO DAILY Qty: 30 5RF furosemide 20 mg tablet 20 mg PO QAM Qty: 30 0RF hydroxyzine HCl 25 mg tablet See Rx Instructions .ROUTE .COMPLEX Qty: 270 0RF Dose Instruction: TAKE ONE TABLET BY MOUTH IN THE MORNING AND TWO TABLETS BY MOUTH one hour BEFORE bedtime Rx Instructions: TAKE ONE TABLET BY MOUTH IN THE MORNING AND TWO TABLETS BY MOUTH one hour BEFORE bedtime oxycodone 5 mg tablet 5 mg PO Q12H PRN (Reason: pain) 30 Days Qty: 60 0RF Rx Instructions: Can refill on or after 30 days montelukast 10 mg Tablet 10 mg PO QPM ropinirole 1 mg tablet 1 mg PO BID Discharge Orders: Discharge ED (Routine); Ordered 05/05/24 Ordered By: Day Sales Referrals: Alexys Mariano MD [Primary Care Provider] - Activity Restrictions/Additional Instructions: As we discussed, we spoke about several conservative therapies to help with your cough and congestion. You should be contacted with any positive results of your flu/COVID/RSV swab. Your chest x-ray was unremarkable. He can follow-up with primary care in 1 to 2 weeks if symptoms do not seem to be improving. You may return to the emergency department for worsening chest pain, shortness of breath, difficulty breathing, any other concerns you may have. 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
--- NOTE | 2024-05-05 14:17 | ECG_ITS ---
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
[2024-05-05 14:35] VITALS: BP 133/76; PULSE 92; O2SAT 100
[2024-05-05 14:36] LABS: Influenza A NEGATIVE (Negative); Influenza B NEGATIVE (Negative); Respiratory Syncytial Virus Ce NEGATIVE (Negative); SARS-CoV-2 PCR NEGATIVE (Negative)
== END 2024-05-05 14:36 | disposition home or self-care (01) ==
PROVIDERS: Emergency Medicine; Emergency Provider Physician Assistant; PCP Family Medicine
DX: J06.9 Acute upper respiratory infection, unspecified (principal); R07.9 Chest pain, unspecified; Z87.891 Personal history of nicotine dependence
CPT/HCPCS: 36415; 71045; 80053; 83690; 83880; 84484; 85025; 85610; 87637; 93005; 99285

== ENCOUNTER 2024-05-12 13:00 | Outpatient (CLI) | payer MEDICAID, SELFPAY ==
--- NOTE | 2024-05-12 13:11 | MM_ITS ---
WS: [id number] BILATERAL 3D TOMOSYNTHESIS DIGITAL SCREENING MAMMOGRAPHY WITH CAD CLINICAL INFORMATION: SCREENING HISTORY: Screening mammogram. No current complaints. History of breast reduction COMPARISON: 2023 TECHNIQUE: Bilateral CC and MLO views. FINDINGS: Scattered fibroglandular densities bilaterally. No suspicious focal mass, asymmetry, calcifications, or architectural distortion. No evidence of malignancy. MM/MM [facility] tomosynthesis [id number] IMPRESSION: DENSITY: There are scattered areas of fibroglandular density. BI-RADS: 1 - Negative. FOLLOW UP: 1 Year Follow-up Recommend return to annual screening mammography.
== END 2024-05-12 13:01 | disposition home or self-care (01) ==
PROVIDERS: PCP Family Medicine; Visit Provider Family Medicine
DX: Z12.31 Encounter for screening mammogram for malignant neoplasm of breast (principal); R92.323 Mammographic fibroglandular density, bilateral breasts
CPT/HCPCS: 77063; 77067

== ENCOUNTER → 2024-05-13 11:21 | Outpatient (BNVA) | payer MEDICAID, SELFPAY | PROVIDERS: PCP Family Medicine Adult Medicine; Visit Provider Obstetrics & Gynecology | DX: R10.2 Pelvic and perineal pain (principal); Z98.890 Other specified postprocedural states | CPT/HCPCS: 76830 ==

== ENCOUNTER 2024-06-04 09:31 | Outpatient (RCR) | payer MEDICAID, SELFPAY | END 2024-06-15 23:59 | disposition home or self-care (01) | LOC: SPT 09:31 | PROVIDERS: Visit Provider Orthopaedic Surgery | DX: M54.2 Cervicalgia (principal); G89.29 Other chronic pain | CPT/HCPCS: 97161 ==

== ENCOUNTER 2024-06-16 06:00 | Outpatient (RCR) | payer MEDICAID, SELFPAY | END 2024-07-15 23:59 | disposition home or self-care (01) | LOC: SPT 06:00 | PROVIDERS: PCP Family Medicine; Visit Provider Orthopaedic Surgery | DX: M54.2 Cervicalgia (principal); G89.29 Other chronic pain | CPT/HCPCS: 97110 ==

== ENCOUNTER → 2024-06-30 14:48 | Outpatient (BNVA) | payer MEDICAID, SELFPAY | PROVIDERS: PCP Family Medicine; Visit Provider Orthopaedic Surgery | DX: M54.2 Cervicalgia (principal) | CPT/HCPCS: 72050 ==

== ENCOUNTER 2024-07-10 13:42 | Outpatient (CLI) | payer MEDICAID, SELFPAY ==
--- NOTE | 2024-07-10 13:45 | MR_ITS ---
WS: [id number] MRI CERVICAL SPINE NONCONTRAST HISTORY: cervical pain, bilateral hand numbness. COMPARISON: None available. Technique: Multiplanar, multisequence noncontrast imaging of the cervical spine. Straightening and reversal of the normal cervical lordosis centered at C5-6. C5- 6 significant disc space narrowing with osteophytosis and a large central disc protrusion. Small vertebral body osteophytes at C7 also. There is very mild indistinctness noted in the cervical cord at the C5-6 level. Some of this may be artifact or a small amount of edema related to the disc protrusion. Craniocervical junction, C1 and C2 relationship, odontoid process and soft tissues are normal. C2-C3: Mild osteophytic ridging and disc bulging. C3-C4: Mild disc bulging and facet osteophytes. C4-C5: Mild facet arthritis. No stenosis. C5-C6: Large central disc protrusion asymmetrically extending to the LEFT. There is deformity and posterior displacement of the cervical cord and thecal sac. Moderate to severe RIGHT and severe LEFT foraminal stenosis due to disc osteophyte disease. C6-C7: Annular disc bulging with disc osteophyte disease encroaching upon the anterior thecal sac extending into the foramen. Moderate central and LEFT foraminal stenosis. Minimal RIGHT foraminal stenosis. C7-T1: Mild annular disc bulging. Paraspinal soft tissue are normal. MR/MR cervical spin wo con* [id number] IMPRESSION: 1. Advanced degenerative disc disease and osteophytosis at C5-6. 2. C5-6: Large central disc protrusion asymmetrically extending to the LEFT. D eformity and posterior displacement of the cervical cord. Severe central stenos is with moderate to severe bilateral foraminal stenosis, LEFT greater than RIGH T. 3. Slight haziness in the cervical cord at the C5-6 level. Early changes of co rd edema not excluded. 4. C6-7: Moderate central and LEFT foraminal stenosis. Due to disc and osteoph yte disease.
== END 2024-07-10 13:43 | disposition home or self-care (01) ==
PROVIDERS: PCP Family Medicine; Visit Provider Orthopaedic Surgery
DX: M48.02 Spinal stenosis, cervical region (principal); M50.322 Other cervical disc degeneration at C5-C6 level; M25.78 Osteophyte, vertebrae; M50.222 Other cervical disc displacement at C5-C6 level; R93.7 Abnormal findings on diagnostic imaging of other parts of musculoskeletal system; M50.31 Other cervical disc degeneration, high cervical region; M47.892 Other spondylosis, cervical region; M50.323 Other cervical disc degeneration at C6-C7 level; M50.33 Other cervical disc degeneration, cervicothoracic region
CPT/HCPCS: 72141

== ENCOUNTER 2024-07-16 05:00 | Outpatient (RCR) | payer MEDICAID, SELFPAY | END 2024-08-15 23:59 | disposition home or self-care (01) | LOC: SPT 05:00 | PROVIDERS: PCP Family Medicine; Visit Provider Orthopaedic Surgery | DX: M54.2 Cervicalgia (principal); G89.29 Other chronic pain | CPT/HCPCS: 97110 ==

== ENCOUNTER 2024-08-04 10:11 | Outpatient (CLI) | payer MEDICAID, SELFPAY ==
[2024-08-04 11:36] LABS: Basophils # 0.1 10^3/uL (0.0-0.1); Basophils % 0.7 %; Eosinophils # 0.2 10^3/uL (0.0-0.8); Eosinophils % 3.3 %; Lymphocytes # 1.7 10^3/uL (0.8-4.8); Lymphocytes % 23.7 %; Mean Corpuscular HGB Conc 32.5 g/dL (30-55); Mean Corpuscular Hemoglobin 27.8 pg (27-33); Mean Corpuscular Volume 85.7 fl (85-98); Mean Platelet Volume 8.8 fL (7.4-10.4); Monocytes # 0.6 10^3/uL (0.2-0.9); Neutrophils # 4.62 10^3/uL (1.8-7.7); Nucleated Red Blood Cells % 0 %; Platelet Count 350 10^3/cmm (157-399); Red Blood Count 4.67 10^6/uL (3.85-5.65); Red Cell Distribution Width 12.8 % (12.1-15.1); White Blood Count 7.22 10^3/uL (3.29-11.43)
[2024-08-04 11:38] LABS: Bilirubin Urine Negative (Negative); Blood Urine Negative (Negative); Glucose Urine UA Negative (Normal); Ketones Urine Negative (Negative); Leukocyte Esterase Urine Negative (Negative); Nitrate Urine Negative (Negative); Protein Urine Negative (Negative); Specific Gravity, Urine 1.021 (1.005-1.030); Urine Appearance Clear (CLEAR); Urine Color Yellow (Yellow); Urobilinogen Urine 0.2 mg/dL (Negative)
[2024-08-04 11:40] LABS: Add Urine Microscopic? YES; Bacteria Urine None Seen /hpf; Hyaline Casts Urine 0-4 /lpf; RBC Urine 0-2 /hpf (0-2); Squamous Epithelial Cell Urine 0-5 /hpf (0-5); WBC Urine 0-5 /hpf (0-5)
[2024-08-04 11:55] LABS: Alanine Aminotransferase 11 U/L (0-33); Albumin Level 3.9 g/dL (3.5-5.2); Alkaline Phosphatase 102 U/L (35-105); Anion Gap 12.4 (5-19); Aspartate Amino Transferase 11 U/L (0-32); Blood Urea Nitrogen 10 mg/dL (6-20); Calcium 8.8 mg/dL (8.5-10.5); Carbon Dioxide 27 mmol/L (22-29); Chloride 104 mmol/L (98-107); Globulin 3.5 g/dL (1.3-4.6); Glomerular Filtration Rate 90.9 mL/min (90-130); Glucose 82 mg/dL (65-115); Osmolality Calculated 288 mOsm/kg (285-295); Potassium 3.4 mmol/L (3.5-5.1); Sodium 140 mmol/L (136-145); Total Bilirubin 0.2 mg/dL (0.15-1.2); Total Protein 7.4 g/dL (6.6-8.7)
[2024-08-04 11:55] LABS: Add Urine Culture? No
== END 2024-08-04 10:12 | disposition home or self-care (01) ==
PROVIDERS: PCP Family Medicine; Visit Provider Orthopaedic Surgery
DX: M47.22 Other spondylosis with radiculopathy, cervical region (principal)
CPT/HCPCS: 36415; 80053; 81001; 85025

== ENCOUNTER 2024-08-05 08:05 | Day surgery (SDC) | payer MEDICAID, SELFPAY ==
[2024-08-05] VITALS (12 sets, daily range): BP systolic 110–144; BP diastolic 75–99; PULSE 75–96; RESP 15–18; TEMP 36.1–36.4; O2SAT 94–97; BMI 43.5
--- NOTE | 2024-08-05 08:28 | P.ANESASSM_ITS ---
Pre-Anesthetic Assessment Height/Weight: Height 5 ft 6 in Weight 270 lb O2 Del Method Room Air 08/05/24 08:19 Preop Diagnosis: Cervical stenosis with radiculopathy Operation Date: 08/05/24 09:40 Proposed Procedures p Anterior Cervical Discectomy & Fusion ACDF w/ Anterior Interbody Fusion w/ Cage w/ Instrumentation w/ Allograft w/ Navigation(Not Applicable) - Gunner Romeo, DO Was Beta Estefania taken within 24 hours: Yes Was Clonidine taken within 24 hours: N/A Last intake: Intake Last Liquid Date 08/04/24 Last Liquid Time 23:45 Last Solid Date 08/04/24 Last Solid Time 23:45 Social No alcohol and No tobacco Smokes marijuana Exam alert, oriented x 3 and regular rate & rhythm Airway Submandibular: within normal limits Cervical ROM: Other (Cervical spondylosis) Mallampati: Class II Dentition: full Anesthetic Plan ASA status: 3 Anesthesia: General Other: No prior issues with anesthesia NPO since yesterday evening Recovering drug user, clean for years History of hypertension on metoprolol History of GERD, controlled with Protonix Bipolar disorder Asthma?COPD. Quit smoking nicotine in 2018. Still smokes marijuana Labs 08/04/2024 reviewed and acceptable for procedure BMI 43 EKG sinus tachycardia with PVCs Plan for GETA Medications/Allergies Home Medications ?Medication ?Instructions ?Recorded ?Confirmed ?Last Taken ?Type tralokinumab-ldrm 150 mg/mL 300 mg (2 mL) SUBCUT Q14D #4 mL 06/26/22 08/04/24 07/17/24 Rx subcutaneous syringe (Adbry) epinephrine 0.3 mg/0.3 mL 0.3 mg IM Q4H PRN Allergic R eaction 09/14/22 08/04/24 Unknown History injection, auto-injector furosemide 20 mg tablet 20 mg PO QAM PRN edema #30 t abs 06/11/24 08/04/24 Unknown Rx metoprolol tartrate 25 mg tablet 12.5 mg (1/2 x 25 mg) PO BID #90 06/11/24 08/04/24 08/04/24 Rx tabs naloxone 4 mg/actuation nasal 4 mg intranasal Q3M PRN opioid 06/11/24 08/04/24 Unknown Rx spray (Narcan) overdose #2 ea pantoprazole 40 mg tablet,delayed 40 mg PO ONCE #90 ta bs 06/11/24 08/04/24 08/03/24 Rx release (Protonix) potassium chloride 8 mEq 8 meq PO DAILY #30 caps 05/1708/04/24 Unknown Rx capsule,extended release budesonide 0.5 mg/2 mL suspension 0.5 mg (2 mL) inhala tion DAILY #60 06/26/24 08/04/24 08/04/24 Rx for nebulization (Pulmicort) mL ipratropium 0.5 mg-albuterol 3 mg 3 ml inhalation Q4H PRN wheezing 06/26/24 08/04/24 08/04/24 Rx (2.5 mg base)/3 mL nebulization #90 mL soln montelukast 10 mg tablet 10 mg PO QPM #90 tabs 08/04/24 08/03/24 Rx oxycodone 5 mg tablet 5 mg PO Q12H PRN pain 30 day s #60 07/13/24 08/04/24 08/03/24 Rx tabs polyethylene glycol 3350 17 4 g PO DAILY 07/15/24 0508/03/24 History gram/dose oral powder (Miralax) ropinirole 2 mg tablet 2 mg PO BID #180 tabs 08/04/24 08/04/24 Rx gabapentin 300 mg capsule 300 mg PO DAILY #90 caps 08/04/24 08/04/24 Rx hydroxyzine HCl 25 mg tablet 25 mg PO DIRECTED 07/1708/04/24 08/04/24 History Allergies Allergy/AdvReac Type Severity Reaction Status Date / Time acetaminophen Allergy ALGY-Anaphy Verified 08/05/24 08:28 laxis aspirin Allergy ALGY-Difficulty Verified 08/05/24 08:28 Breathing Bleach (Sodium Hypochlorite) Allergy asthma Verified 08/05/24 08:28 attack calamine Allergy ALGY-Difficulty Verified 08/05/24 08:28 Breathing nut - unspecified Allergy ALGY-Difficulty Verified 08/05/24 08:28 Swallowing Penicillins Allergy ALGY-Anaphy Verified 08/05/24 08:28 laxis shellfish derived Allergy ALGY-Swell Verified 08/05/24 08:28 Lip/Tongue/Throat sulfamethoxazole (From Allergy ALGY-Rash Verified 08/05/24 08:28 Bactrim) trimethoprim (From Bactrim) Allergy ALGY-Rash Verified 08/05/24 08:28 methotrexate AdvReac ADR-Diarrhe Verified 08/05/24 08:28 a chlorine Allergy hives Uncoded 07/20/24 09:28 [facility] Anesthesia Medical History Psychiatric care Eczema POP-Q stage 2 cystocele Surgery 09/17/[address] Yousif Lung nodule seen on imaging study Dysequilibrium Bursitis of right shoulder Bilateral lower extremity edema Bilateral leg cramps BMI 40.0-44.9, adult Family history of brain aneurysm Family history of aneurysm Mixed urge and stress incontinence Anxiety and depression Bipolar 2 disorder Atopic dermatitis in adult Marijuana smoker Smoker Quit cigarettes in 2018, still Marijuana Asthma-COPD overlap syndrome Surgical History S/P vaginal hysterectomy (~09/17/23) vaginal hysterectomy with Right salpingo-oophorectomy with mid urethral sling Dr. Yousif. Left tube and ovary were not found therefore not removed. Benign pathology. Hx of colonoscopy 2007 Hx of breast reduction, elective S/P tonsillectomy H/O tubal ligation H/O laparoscopy 08/27/2018- Diagnostic laparoscopy, fulguration of endometriotic lesions and lysis of adhesions per Dr. Yousif at [facility] S/P cryotherapy of skin lesion for cervical dysplasia S/P cholecystectomy laparoscopic, 04/16/2018 Family History Father Anesthesia complication Heart disease Hyperlipidemia Hypertension Grandfather , Due to Aneurysm Diabetes maternal Aneurysm Grandmother Diabetes maternal Breast cancer maternal, diagnosed in her 40's Stroke paternal Thyroid disease maternal Daughter No problems noted. Family/Other Diabetes maternal uncle Ovarian cancer maternal aunt Bleeding disorder paternal Uterine cancer maternal great great aunt Mother Stroke Denies family history of Clotting disorder Social History Smoking and tobacco/nicotine status: former use of tobacco/nicotine Alcohol intake: never Substance/Drug Use: current Substance/Drug use frequency: daily Data Anesthesia Cardiac Studies: Echocardiogram 12/06/22 Cardiac Event Monitor 11/28/22
[2024-08-05] MEDS: sodium chloride 0.9% 1,000 ML 30 ML IV (08:42)
[2024-08-05] MEDS: scopolamine 1 mg PATCH 1 PATCH TRANSDERMA (08:45)
[2024-08-05] MEDS: famotidine 20 mg/2 mL INJ IVP (08:52)
[2024-08-05] MEDS: ondansetron 2 mg/ML SDV 2 mL 4 MG IVP (08:53)
--- NOTE | 2024-08-05 09:29 | W.PM.OPSUD ---
Surgery/Procedure H&P Update DATE OF PROCEDURE: August 05, 2024 DATE H&P PERFORMED: 07/30/24 H&P UPDATE INFORMATION: I have reviewed H&P completed within last 30 days, I have examined patient prior to procedure and No changes to prior documentation PREOP DIAGNOSIS: Cervical stenosis with radiculopathy PLANNED PROCEDURE: Operation Date: 08/05/24 09:40 Proposed Procedures p Anterior Cervical Discectomy & Fusion ACDF w/ Anterior Interbody Fusion w/ Cage w/ Instrumentation w/ Allograft w/ Navigation(Not Applicable) - Gunner Romeo DO
[2024-08-05] MEDS: clindamycin 900 MG/50 ML PREMIX 100 MG IV (09:59)
[2024-08-05] MEDS: lidocaine-epi 1% 20 mL INJ 10 ML INJECTION (10:42)
--- NOTE | 2024-08-05 11:34 | PM.OP ---
Operative Report Date of procedure: August 05, 2024 Pre-op diagnosis: Cervical stenosis with myelopathy Post-op diagnosis: same Procedure done: 1. Anterior diskectomy C5/6 2. Insertion of cage C5/6 3. Instrumentation with anterior plate from C5-C6 4. Use of allograft Surgeon: Gunner Romeo DO Estimated blood loss (mL): 10 Procedure: 1. Anterior diskectomy C5/6 2. Insertion of cage C5/6 3. Instrumentation with anterior plate from C5-C6 4. Use of allograft The patient was taken to the operating room, where he underwent general endotracheal anesthesia without complications. He was then positioned supine on the operating table, and all areas of impingement were well padded. The arms were carefully padded and tucked at his sides. A roll was placed between the shoulder blades.. An x-ray was done to determine the appropriate level for the skin incision. The entire neck was then sterilely prepped and draped in the usual fashion. Neuromonitoring was attached prior to prepping. A transverse skin incision was made and carried down to the platysma muscle. This was then split in line with its fibers. Blunt dissection was carried down medial to the carotid sheath and lateral to the trachea and esophagus until the anterior cervical spine was visualized. A needle was placed into a disc and an x-ray was done to determine its location. The longus colli muscles were then elevated bilaterally with the electrocautery unit. Self-retaining retractors were placed deep to the longus colli muscle. Attention was brought to the C5/6 level that was confirmed on x-ray. A caspar pin was placed into the C5 vertebrae and the C6 vertebrae. The disk space was then distracted. The microscope was then brought in. A radical anterior discectomies were performed at C5/6. This included complete removal of the anterior annulus, nucleus, and posterior annulus. The posterior longitudinal ligament was removed as were the posterior osteophytes. Foraminotomies were then accomplished bilaterally. This was done using a high speed ольга, kerrison rongeurs and curretes Once all of this was accomplished, the curved currette was used to check for any residual compression. The central canal was wide open as were the foramen. A high-speed bur was used to remove the cartilaginous endplates above and below the interspace. Bleeding cancellous bone was exposed. The disc space were measured and appropriate size cage were placed sterilely onto the field. Allograft graft was packed into the cages. The cage was then placed and there was good juxtaposition against the bleeding decorticated surfaces and good distraction of each interspace. The [place] pins were removed. Bone wax was used to prevent any bleeding from occurring at the pin sites. The appropriate size anterior cervical locking plate was chosen and bent into gentle lordosis. Two screws were then placed into each of the vertebral bodies at C5 and C6. There was excellent purchase. A final x-ray was done confirming good position of the hardware and Cages. The locking screws were then applied, also with excellent purchase. Following a final copious irrigation, there was good hemostasis and no dural leaks. The carotid pulse was strong. The wounds were then closed in layers using 2-0 Vicryl suture for the platysma muscle, 2-0 Vicryl suture for the subcutaneous tissue, and 4-0 monocryl suture in a subcuticular skin closure. Glue was placed followed by application of a sterile dressing. The drain was hooked to bulb suction. A soft collar was applied. The patient was then carefully returned to the supine position on his hospital bed where he was reversed and extubated and taken to the recovery room having tolerated the procedure well.
--- NOTE | 2024-08-05 12:10 | ANE.PACU2 ---
Inpatient post-anesthesia follow up: Airway intact: Yes Vital signs: Temperature 97.6 F Pulse Rate 96 Respiratory Rate 16 Blood Pressure 138/92 Pulse Oximetry 97 Oxygen Delivery Me thod Room Air Oxygen Flow Rate Fraction of Inspir ed Oxygen Hydration adequate: Yes Nausea and vomiting: No Pain level: 1 Mental status: Baseline
--- NOTE | 2024-08-05 14:06 | XR_ITS ---
WS: [id number] Cervical spine, C-arm fluoroscopy views, 08/05/2024 Clinical Data: OR PIC, ACDF Comparison: Cervical spine, 06/30/2024 Findings: Dr. Romeo performed an anterior cervical disc fusion. XR/XR cervical spine 3V* [id number] Impression: Anterior cervical disc fusion.
== END 2024-08-05 14:30 | disposition home or self-care (01) ==
PROVIDERS: PCP Family Medicine; Visit Provider Orthopaedic Surgery
PROC: 0RB30ZZ Excision of Cervical Vertebral Disc, Open Approach (ICD-10-PCS; CPT 22551; principal; 2024-08-05 09:20)
DX: M48.02 Spinal stenosis, cervical region (principal); G99.2 Myelopathy in diseases classified elsewhere; I10 Essential (primary) hypertension; K21.9 Gastro-esophageal reflux disease without esophagitis; J44.9 Chronic obstructive pulmonary disease, unspecified; Z87.891 Personal history of nicotine dependence; F12.90 Cannabis use, unspecified, uncomplicated; F31.9 Bipolar disorder, unspecified
CPT/HCPCS: 22551; 22853; 22845; 20930; 72040; 76000; C1713; C1763; C9359; J0330; J1100; J1200; J2250; J2405; J2704; J3010; J3490; J7030; J9999

== ENCOUNTER → 2024-08-20 08:55 | Outpatient (BNVA) | payer OTHER, SELFPAY | PROVIDERS: PCP Family Medicine; Visit Provider Psychiatry & Neurology Psychiatry | DX: F41.9 Anxiety disorder, unspecified (principal); F31.81 Bipolar II disorder | CPT/HCPCS: 80061; 83036 ==

== ENCOUNTER 2024-09-17 08:32 | Emergency (ER) | payer MEDICAID, SELFPAY ==
[2024-08-25 14:09] VITALS: BP 135/91; BMI 42.0
[2024-09-17 08:37] VITALS: BP 128/107; PULSE 93; RESP 19; TEMP 36.6; O2SAT 98; BMI 38.7
--- NOTE | 2024-09-17 08:37 | ECG_ITS ---
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 Measurements Intervals [place] Rate: 85 P: 59 MO: 147 QRS: 72 QRSD: 85 T: 57 QT: 343 QTc: 410 Interpretive Statements SINUS RHYTHM Compared to ECG 05/05/2024 14:10:07 Sinus tachycardia no longer present Ventricular premature complex(es) no longer present Electronically Signed On 09-17-2024 09:42:45 CDT by Saad Womack M.D. [email or web address]
--- NOTE | 2024-09-17 08:37 | XR_ITS ---
WS: [id number] XR chest 1V portable [id number] REASON FOR EXAM: dyspnea/cough FINDINGS: Chest is unchanged compared to 05/05/2024. Normal thoracic aorta and mediastinum. Normal heart size. Minimal calcified granulomatous disease bilaterally. No acute pulmonary parenchymal or pleural abnormality. Bony thorax intact without significant abnormality. XR/XR chest 1V portable [id number] IMPRESSION: Stable chest without acute abnormality.
--- NOTE | 2024-09-17 08:52 | W.ED.SOB ---
HPI - SOB/Dyspnea General: Chief Complaint: Shortness of Breath/Dyspnea Stated Complaint: FREDI upton Time Seen by Provider: 09/17/24 08:34 History of Present Illness: HPI Narrative: 43-year-old female was at Dr. Romeo's office when the Ortho clinic there is a concern about shortness of breath possible exposure to chemical or an asthma attack and the patient was directed to the emergency room. Patient had a coughing fit and felt like she was almost going to pass out. She states the retail center receptionist at the Ortho clinic was concerned that she had a seizure and she was directed here. Patient relates there is a concern of seizures for her in the past but she has not been placed on any medications. She has not had a full neurowork-up in regards to his seizures. Patient states that they are concerned she may have absence seizure's. Associated symptoms: Deny abdominal pain, chest pain or fever(s) Related Data Home Medications ?Medication ?Instructions ?Recorded ?Confirmed epinephrine 0.3 mg/0.3 mL 0.3 mg IM Q4H PRN Allergic Reaction 09/14/22 08/26/24 injection, auto-injector polyethylene glycol 3350 17 4 g PO DAILY 07/15/24 08/26/24 gram/dose oral powder (Miralax) hydroxyzine HCl 25 mg tablet 25 mg PO DIRECTED 08/04/24 08/26/24 loratadine 10 mg capsule 10 mg PO DAILY 08/20/24 08/26/24 Previous Rx's ?Medication ?Instructions ?Recorded tralokinumab-ldrm 150 mg/mL 300 mg (2 mL) SUBCUT Q14D #4 mL 06/26/22 subcutaneous syringe (Adbry) metoprolol tartrate 25 mg tablet 12.5 mg (1/2 x 25 mg) PO BID #90 06/11/24 tabs naloxone 4 mg/actuation nasal 4 mg intranasal Q3M PRN opioid 06/11/24 spray (Narcan) overdose #2 ea potassium chloride 8 mEq 8 meq PO DAILY #30 caps 06/11/24 capsule,extended release budesonide 0.5 mg/2 mL suspension 0.5 mg (2 mL) inhalation DAILY #60 06/26/24 for nebulization (Pulmicort) mL ipratropium 0.5 mg-albuterol 3 mg 3 ml inhalation Q4H PRN wheezing 06/26/24 (2.5 mg base)/3 mL nebulization #90 mL soln ropinirole 2 mg tablet 2 mg PO BID #180 tabs 07/15/24 gabapentin 300 mg capsule 300 mg PO DAILY #90 caps 07/30/24 trazodone 50 mg tablet 100 mg (2 x 50 mg) PO .HS PRN 08/26/24 insomnia #60 tabs montelukast 10 mg tablet 10 mg PO QPM #90 tabs 08/27/24 pantoprazole 40 mg tablet,delayed 40 mg PO ONCE #90 tabs 08/27/24 release (Protonix) Bone Growth Stimulator #1 ea 08/31/24 furosemide 20 mg tablet 20 mg PO QAM PRN edema #30 tabs 09/03/24 topiramate 100 mg tablet 100 mg PO BID #60 tabs 09/07/24 oxycodone 5 mg tablet 5 mg PO Q6H pain 7 days #28 tabs 09/15/24 albuterol sulfate 90 mcg/actuation 2 inh inhalation Q4H PRN shortness 09/17/24 aerosol inhaler of breath or wheezing #18 grams Allergies Allergy/AdvReac Type Severity Reaction Status Date / Time acetaminophen Allergy ALGY-Anaphy Verified 08/26/24 16:11 laxis adhesive Allergy ADR-Itching Verified 08/26/24 16:11 aspirin Allergy ALGY-Difficulty Verified 08/26/24 16:11 Breathing Bleach (Sodium Hypochlorite) Allergy asthma Verified 08/26/24 16:11 attack calamine Allergy ALGY-Difficulty Verified 08/26/24 16:11 Breathing nut - unspecified Allergy ALGY-Difficulty Verified 08/26/24 16:11 Swallowing Penicillins Allergy ALGY-Anaphy Verified 08/26/24 16:11 laxis shellfish derived Allergy ALGY-Swell Verified 08/26/24 16:11 Lip/Tongue/Throat sulfamethoxazole (From Allergy ALGY-Rash Verified 08/26/24 16:11 Bactrim) trimethoprim (From Bactrim) Allergy ALGY-Rash Verified 08/26/24 16:11 methotrexate AdvReac ADR-Diarrhe Verified 08/26/24 16:11 a chlorine Allergy hives Uncoded 08/26/24 16:11 steri strips Allergy ALGY-Redness Uncoded 08/26/24 16:11 of Skin Review of Systems Const: Denies: fever(s) or chills Card: Denies: chest pain Resp: Denies: dyspnea GI: Denies: abdominal pain : Denies: dysuria, urinary frequency or urinary urgency Musc: Denies: neck pain or back pain Skin/Breast: Denies: rash PFSH ED PFSH: Medical History Psychiatric care Eczema POP-Q stage 2 cystocele Surgery 09/17/[address] Yousif Lung nodule seen on imaging study Dysequilibrium Bursitis of right shoulder Bilateral lower extremity edema Bilateral leg cramps BMI 40.0-44.9, adult Family history of brain aneurysm Family history of aneurysm Mixed urge and stress incontinence Anxiety and depression Bipolar 2 disorder Atopic dermatitis in adult Marijuana smoker Smoker Quit cigarettes in 2018, still Marijuana Asthma-COPD overlap syndrome Surgical History S/P vaginal hysterectomy (~09/17/23) vaginal hysterectomy with Right salpingo-oophorectomy with mid urethral sling Dr. Yousif. Left tube and ovary were not found therefore not removed. Benign pathology. Hx of colonoscopy 2007 Hx of breast reduction, elective S/P tonsillectomy H/O tubal ligation H/O laparoscopy 08/27/2018- Diagnostic laparoscopy, fulguration of endometriotic lesions and lysis of adhesions per Dr. Yousif at [facility] S/P cryotherapy of skin lesion for cervical dysplasia S/P cholecystectomy laparoscopic, 04/16/2018 Family History Father Anesthesia complication Heart disease Hyperlipidemia Hypertension Grandfather , Due to Aneurysm Diabetes maternal Aneurysm Grandmother Diabetes maternal Breast cancer maternal, diagnosed in her 40's Stroke paternal Thyroid disease maternal Daughter No problems noted. Family/Other Diabetes maternal uncle Ovarian cancer maternal aunt Bleeding disorder paternal Uterine cancer maternal great great aunt Mother Stroke Denies family history of Clotting disorder Social History Smoking and tobacco/nicotine status: current every day tobacco/nicotine user Second hand smoke exposure: No Alcohol intake: never Substance/Drug Use: current Substance/Drug use frequency: Special occassions/opportunity only Adopted: No Lives independently: Yes Household members: none Housing: Apartment Marital status: Legally Number of children: 6 Number of grandchildren: 9 Highest education level completed: Some College, No Degree service: No Current occupational status: unemployed Current occupational exposures/hazards: No Pets and animals: Yes Leisure activites: reading and other Leisure activities details: crafts and some painting Sexually active: No Do you think of yourself as: Straight/Heterosexual Current gender identity: Female Yael/Pentecostalism: Wicca Special yael needs: No Agree to transfusion: Yes Physical Exam Const: GENERAL APPEARANCE: cooperative ORIENTATION/CONSCIOUSNESS: Yes awake, Yes oriented to person, Yes oriented to place and Yes oriented to time HENMT: COMMON NORMALS: normocephalic, atraumatic and hearing grossly normal bilaterally HEAD & SCALP: normocephalic and atraumatic Resp: COMMON NORMALS: normal respiratory effort, No retractions, No use of accessory muscles and clear to auscultation bilaterally AUSCULTATION: clear to auscultation bilaterally Cardio: COMMON NORMALS: regular rate, regular rhythm and No murmurs present (Cardio) RATE: regular rate RHYTHM: regular rhythm GI: COMMON NORMALS: Soft to palpation and No hepatosplenomegaly present AUSCULTATION: Yes normoactive bowel sounds PALPATION: Yes Soft to palpation, No Tenderness to palpation present (GI), No Guarding due to palpation present (GI) and Yes No hepatosplenomegaly present Extremity: COMMON NORMALS: normal to inspection, capillary refill normal, no clubbing, cyanosis or edema, no calf tenderness and no pedal edema Neuro: SENSORIUM/ORIENTATION: Yes oriented to person, Yes oriented to place and Yes oriented to time Skin: COMMON NORMALS: no rashes or lesions noted GENERAL SKIN EXAM: no rashes or lesions noted Course Vital Signs: Vital signs: Vital Signs Temperature 97.9 F 09/17/24 08:37 Pulse Rate 87 09/17/24 10:50 Respiratory Rate 17 09/17/24 10:50 Blood Pressure 120/62 09/17/24 10:50 Pulse Oximetry 96 09/17/24 10:50 Oxygen Delivery Me thod Room Air 09/17/24 08:37 MDM - SOB/Dyspnea Medical Decision Making Suspect she has near syncopal episode from the paroxysmal coughing fit triggered by noxious odors. From her description I did not really she had a seizure she is feeling fine when she first arrived and she maintained essentially normal status throughout. Will discharge patient home have her follow-up with neurology and Ortho. See your primary care doctor within the next week. Medical Records I reviewed the patient's medical records. Lab Data I reviewed the patient's lab results. 09/17/24 09:03 09/17/24 09:03 Labs/Radiology: Radiology Impressions Chest X-Ray 09/17/24 08:37 IMPRESSION: Stable chest without acute abnormality. Laboratory Results WBC 9.09 10^3/uL (3.29-11.43) 09/17/24 09:03 RBC 4.88 10^6/uL (3.85-5.65) 09/17/24 09:03 Hgb 13.30 g/dL (11.27-16.99) 09/17/24 09:03 Hct 41.9 % (36-47) 09/17/24 09:03 MCV 85.9 fl (85-98) 09/17/24 09:03 MCH 27.3 pg (27-33) 09/17/24 09:03 MCHC 31.7 g/dL (30-55) 09/17/24 09:03 RDW 13.1 % (12.1-15.1) 09/17/24 09:03 Plt Count 370 10^3/cmm (157-399) 09/17/24 09:03 MPV 9.4 fL (7.4-10.4) 09/17/24 09:03 Neut % (Auto) 74.3 % 09/17/24 09:03 Lymph % (Auto) 17.7 % 09/17/24 09:03 Falls % (Auto) 6.8 % 09/17/24 09:03 Eos % (Auto) 0.3 % 09/17/24 09:03 Baso % (Auto) 0.6 % 09/17/24 09:03 Neut # (Auto) 6.75 10^3/uL (1.8-7.7) 09/17/24 09:03 Lymph # (Auto) 1.6 10^3/uL (0.8-4.8) 09/17/24 09:03 Falls # (Auto) 0.6 10^3/uL (0.2-0.9) 09/17/24 09:03 Eos # (Auto) 0.0 10^3/uL (0.0-0.8) 09/17/24 09:03 Baso # (Auto) 0.1 10^3/uL (0.0-0.1) 09/17/24 09:03 Nucleated RBC % (auto) 0 % 09/17/24 09:03 Nucleated RBCs # 0.0 /100WBC 09/17/24 09:03 Sodium 140 mmol/L (136-145) 09/17/24 09:03 Potassium 4.3 mmol/L (3.5-5.1) 09/17/24 09:03 Chloride 107 mmol/L (98-107) 09/17/24 09:03 Carbon Dioxide 19 mmol/L (22-29) L 09/17/24 09:03 Anion Gap 18.3 (5-19) 09/17/24 09:03 BUN 14 mg/dL (6-20) 09/17/24 09:03 Creatinine 0.8 mg/dL (0.5-0.9) 09/17/24 09:03 GFR Calculation 77.9 mL/min (90-130) L 09/17/24 09:03 Glucose 115 mg/dL (65-115) 09/17/24 09:03 Calculated Osmolality 291 mOsm/kg (285-295) 09/17/24 09:03 Calcium 9.2 mg/dL (8.5-10.5) 09/17/24 09:03 Total Bilirubin 0.4 mg/dL (0.15-1.2) 09/17/24 09:03 AST 11 U/L (0-32) 09/17/24 09:03 ALT 13 U/L (0-33) 09/17/24 09:03 Alkaline Phosphatase 112 U/L (35-105) H 09/17/24 09:03 Total Protein 7.7 g/dL (6.6-8.7) 09/17/24 09:03 Albumin 4.2 g/dL (3.5-5.2) 09/17/24 09:03 Globulin 3.5 g/dL (1.3-4.6) 09/17/24 09:03 Urine Color Yellow (Yellow) 09/17/24 09:40 Urine Appearance Clear (CLEAR) 09/17/24 09:40 Urine pH 6.5 (5-7) 09/17/24 09:40 Ur Specific [place] 1.020 (1.005-1.030) 09/17/24 09:40 Urine Protein Trace (Negative) A 09/17/24 09:40 Urine Glucose (UA) Negative (Normal) 09/17/24 09:40 Urine Ketones 1+ (Negative) H 09/17/24 09:40 Urine Blood Negative (Negative) 09/17/24 09:40 Urine Nitrate Negative (Negative) 09/17/24 09:40 Urine Bilirubin Negative (Negative) 09/17/24 09:40 Urine Urobilinogen 0.2 mg/dL (Negative) 09/17/24 09:40 Ur Leukocyte Esterase Negative (Negative) 09/17/24 09:40 Urine RBC 0-2 /hpf (0-2) 09/17/24 09:40 Urine WBC 0-5 /hpf (0-5) 09/17/24 09:40 Ur Squamous Epith Cells 6-10 /hpf (0-5) 09/17/24 09:40 Amorphous Sediment Not Reportable 09/17/24 09:40 Urine Bacteria None seen /hpf (NONE) 09/17/24 09:40 Hyaline Casts 2.46 /lpf 09/17/24 09:40 All radiology interpretation(s) finalized by discharge Discharge Plan Discharge Patient Disposition: Home Clinical Impression: Asthma with exacerbation, Near syncope, Paroxysmal cough Condition: Stable Prescriptions: New albuterol sulfate 90 mcg/actuation HFA aerosol inhaler 2 inh INHALATION Q4H PRN (Reason: shortness of breath or wheezing) Qty: 18 0RF No Action epinephrine 0.3 mg/0.3 mL auto-injector 0.3 mg IM Q4H PRN (Reason: Allergic Reaction) metoprolol tartrate 25 mg tablet 12.5 mg PO BID Qty: 90 1RF potassium chloride 8 mEq capsule, extended release 8 meq PO DAILY Qty: 30 5RF Rx Instructions: only take when taking furosemide tablet on as needed basis naloxone [Narcan] 4 mg/actuation spray,non-aerosol 4 mg intranasal Q3M PRN (Reason: opioid overdose) Qty: 2 0RF Rx Instructions: spray 1 dose into ONE nostril; alternate nostrils w each dose until help arrives polyethylene glycol 3350 [Miralax] 17 gram/dose powder 4 g PO DAILY ropinirole 2 mg tablet 2 mg PO BID Qty: 180 1RF trazodone 50 mg tablet 100 mg PO .HS PRN (Reason: insomnia) Qty: 60 2RF loratadine 10 mg capsule 10 mg PO DAILY Adbry 150 mg/mL syringe 300 mg SUBCUT Q14D Qty: 4 2RF Rx Instructions: 600mg divided in 4 sites on day 1. then 300mg divided in 2 sites every 2 weeks ipratropium-albuterol 0.5 mg-3 mg(2.5 mg base)/3 mL solution for nebulization 3 ml inhalation Q4H PRN (Reason: wheezing) Qty: 90 3RF budesonide [Pulmicort] 0.5 mg/2 mL suspension for nebulization 0.5 mg inhalation DAILY Qty: 60 3RF gabapentin 300 mg capsule 300 mg PO DAILY Qty: 90 1RF pantoprazole [Protonix] 40 mg tablet,delayed release (DR/EC) 40 mg PO ONCE Qty: 90 1RF montelukast 10 mg tablet 10 mg PO QPM Qty: 90 0RF (DME) Bone Growth Stimulator See Rx Instructions .Route .MEDSUPPLY Qty: 1 0RF Rx Instructions: As directed furosemide 20 mg tablet 20 mg PO QAM PRN (Reason: edema) Qty: 30 2RF topiramate 100 mg tablet 100 mg PO BID Qty: 60 2RF oxycodone 5 mg tablet 5 mg PO Q6H 7 Days Qty: 28 0RF hydroxyzine HCl 25 mg tablet 25 mg PO DIRECTED Rx Instructions: TAKE ONE TABLET BY MOUTH IN THE MORNING AND TWO TABLETS BY MOUTH one hour BEFORE bedtime Discharge Orders: Discharge ED (Routine); Ordered 09/17/24 Ordered By: Faheem Reid Referrals: Alexys Mariano MD [Primary Care Provider, Family Practice] Discharge Diet: Usual diet Discharge Activity: Increase activity as tolerated Patient Instructions: Opioid Safety, Pain Management, Patient Portal & Felicia Instructions Activity Restrictions/Additional Instructions: Thank you for choosing [facility] for your healthcare needs today. It is very important that you follow up as instructed or that you return to the Emergency Department should you have concerns or if your condition changes or worsens in any way. You were seen in the emergency room after a near syncopal episode. Given your description of events suspect this was triggered by paroxysmal coughing fit and reaction to noxious stimuli (a chemical smell). Use albuterol as needed follow-up with orthopedics as planned. Print Language: Thai Coding Level of Care Code ED Staffing Executive for Maxwell Baker
[2024-09-17 09:29] LABS: Hematocrit 41.9 % (36-47); Hemoglobin 13.30 g/dL (11.27-16.99); Mean Corpuscular HGB Conc 31.7 g/dL (30-55); Mean Corpuscular Hemoglobin 27.3 pg (27-33); Mean Corpuscular Volume 85.9 fl (85-98); Nucleated Red Blood Cells % 0 %; Platelet Count 370 10^3/cmm (157-399); Red Blood Count 4.88 10^6/uL (3.85-5.65); White Blood Count 9.09 10^3/uL (3.29-11.43)
[2024-09-17 09:30] VITALS: BP 124/80; PULSE 84; RESP 18; O2SAT 98
[2024-09-17 09:44] LABS: Alanine Aminotransferase 13 U/L (0-33); Albumin Level 4.2 g/dL (3.5-5.2); Alkaline Phosphatase 112 U/L (35-105); Anion Gap 18.3 (5-19); Aspartate Amino Transferase 11 U/L (0-32); Blood Urea Nitrogen 14 mg/dL (6-20); Calcium 9.2 mg/dL (8.5-10.5); Carbon Dioxide 19 mmol/L (22-29); Chloride 107 mmol/L (98-107); Creatinine Clr Calc Pharmacy 112.0935; Globulin 3.5 g/dL (1.3-4.6); Glucose 115 mg/dL (65-115); Osmolality Calculated 291 mOsm/kg (285-295); Potassium 4.3 mmol/L (3.5-5.1); Sodium 140 mmol/L (136-145); Total Protein 7.7 g/dL (6.6-8.7)
[2024-09-17 09:58] LABS: Glucose Urine UA Negative (Normal); Nitrate Urine Negative (Negative); Specific Gravity, Urine 1.020 (1.005-1.030)
[2024-09-17 10:00] VITALS: BP 123/73; PULSE 85; RESP 21; O2SAT 98
[2024-09-17 10:01] LABS: Add Urine Microscopic? YES
[2024-09-17 10:22] LABS: UA Slide Review UA Slide Review Perf
[2024-09-17 10:50] VITALS: BP 120/62; PULSE 87; RESP 17; O2SAT 96
== END 2024-09-17 10:55 | disposition home or self-care (01) ==
PROVIDERS: Emergency Provider Family Medicine; PCP Family Medicine
DX: J45.901 Unspecified asthma with (acute) exacerbation (principal); R55 Syncope and collapse; A37.00 Whooping cough due to Bordetella pertussis without pneumonia; Z72.0 Tobacco use
CPT/HCPCS: 36415; 71045; 80053; 81001; 85025; 93005; 99285

== ENCOUNTER 2024-09-18 22:23 | Emergency (ER) | payer MEDICAID, SELFPAY ==
[2024-08-25 14:09] VITALS: BP 135/91; BMI 42.0
[2024-09-18 22:45] VITALS: BP 150/94; PULSE 97; RESP 18; TEMP 36.9; O2SAT 99; BMI 40.3
[2024-09-18 23:35] LABS: Hematocrit 43.1 % (36-47); Hemoglobin 14.10 g/dL (11.27-16.99); Mean Corpuscular HGB Conc 32.7 g/dL (30-55); Mean Corpuscular Hemoglobin 27.9 pg (27-33); Mean Corpuscular Volume 85.2 fl (85-98); Nucleated Red Blood Cells % 0 %; Platelet Count 415 10^3/cmm (157-399); Red Blood Count 5.06 10^6/uL (3.85-5.65); White Blood Count 12.52 10^3/uL (3.29-11.43)
--- NOTE | 2024-09-18 23:47 | CTR_ITS ---
PROCEDURE INFORMATION: Exam: CT Head Without Contrast Exam date and time: 09/19/2024 12:12 AM Age: 43 years old Clinical indication: Pain; Headache; C/O PRATER TECHNIQUE: Imaging protocol: Computed tomography of the head without contrast. Radiation optimization: All CT scans at this facility use at least one of these dose optimization techniques: automated exposure control; mA and/or kV adjustment per patient size (includes targeted exams where dose is matched to clinical indication); or iterative reconstruction. COMPARISON: CT head wo con* [id number] 03/23/2024 4:47 PM RADIATION DOSE METRICS: Total DLP (mGy-cm): 1022.96 FINDINGS: Brain: Normal. No hemorrhage. Unremarkable white matter. No mass effect. Cerebral ventricles: No ventriculomegaly. Paranasal sinuses: Visualized sinuses are unremarkable. No fluid levels. Mastoid air cells: Visualized mastoid air cells are well aerated. Bones: Unremarkable. No acute fracture. Soft tissues: Unremarkable. CT/CT head wo con* [id number] IMPRESSION: No acute intracranial abnormality.
--- NOTE | 2024-09-18 23:50 | W.ED.HA ---
HPI - Headache General: Chief Complaint: Headache Stated Complaint: n/v and possible cdiff Time Seen by Provider: 09/18/24 23:31 History of Present Illness: Patient presents to the emergency department with complaint of a headache and nausea and vomiting. States headache seems to be positional. She also has vertigo. She states that worsens with moving around and turning her head to the left. She also states that whenever she vomits she gets numbness and tingling around her face as well as bilateral hands and feet. Related Data Home Medications ?Medication ?Instructions ?Recorded ?Confirmed epinephrine 0.3 mg/0.3 mL 0.3 mg IM Q4H PRN Allergic Reaction 09/14/22 08/26/24 injection, auto-injector polyethylene glycol 3350 17 4 g PO DAILY 07/15/24 08/26/24 gram/dose oral powder (Miralax) hydroxyzine HCl 25 mg tablet 25 mg PO DIRECTED 08/04/24 08/26/24 loratadine 10 mg capsule 10 mg PO DAILY 08/20/24 08/26/24 Previous Rx's ?Medication ?Instructions ?Recorded tralokinumab-ldrm 150 mg/mL 300 mg (2 mL) SUBCUT Q14D #4 mL 06/26/22 subcutaneous syringe (Adbry) metoprolol tartrate 25 mg tablet 12.5 mg (1/2 x 25 mg) PO BID #90 06/11/24 tabs naloxone 4 mg/actuation nasal 4 mg intranasal Q3M PRN opioid 06/11/24 spray (Narcan) overdose #2 ea potassium chloride 8 mEq 8 meq PO DAILY #30 caps 06/11/24 capsule,extended release budesonide 0.5 mg/2 mL suspension 0.5 mg (2 mL) inhalation DAILY #60 06/26/24 for nebulization (Pulmicort) mL ipratropium 0.5 mg-albuterol 3 mg 3 ml inhalation Q4H PRN wheezing 06/26/24 (2.5 mg base)/3 mL nebulization #90 mL soln ropinirole 2 mg tablet 2 mg PO BID #180 tabs 07/15/24 gabapentin 300 mg capsule 300 mg PO DAILY #90 caps 07/30/24 trazodone 50 mg tablet 100 mg (2 x 50 mg) PO .HS PRN 08/26/24 insomnia #60 tabs montelukast 10 mg tablet 10 mg PO QPM #90 tabs 08/27/24 pantoprazole 40 mg tablet,delayed 40 mg PO ONCE #90 tabs 08/27/24 release (Protonix) Bone Growth Stimulator #1 ea 08/31/24 furosemide 20 mg tablet 20 mg PO QAM PRN edema #30 tabs 09/03/24 topiramate 100 mg tablet 100 mg PO BID #60 tabs 09/07/24 oxycodone 5 mg tablet 5 mg PO Q6H pain 7 days #28 tabs 09/15/24 albuterol sulfate 90 mcg/actuation 2 inh inhalation Q4H PRN shortness 09/17/24 aerosol inhaler of breath or wheezing #18 grams meclizine 25 mg tablet 25 mg PO BID PRN dizziness #20 tabs 09/19/24 ondansetron 4 mg disintegrating 4 mg PO TID 5 days #15 tabs 09/19/24 tablet Allergies Allergy/AdvReac Type Severity Reaction Status Date / Time acetaminophen Allergy ALGY-Anaphy Verified 08/26/24 16:11 laxis adhesive Allergy ADR-Itching Verified 08/26/24 16:11 aspirin Allergy ALGY-Difficulty Verified 08/26/24 16:11 Breathing Bleach (Sodium Hypochlorite) Allergy asthma Verified 08/26/24 16:11 attack calamine Allergy ALGY-Difficulty Verified 08/26/24 16:11 Breathing celery Allergy mouth Verified 09/18/24 22:52 numbness nut - unspecified Allergy ALGY-Difficulty Verified 08/26/24 16:11 Swallowing Penicillins Allergy ALGY-Anaphy Verified 08/26/24 16:11 laxis shellfish derived Allergy ALGY-Swell Verified 08/26/24 16:11 Lip/Tongue/Throat sulfamethoxazole (From Allergy ALGY-Rash Verified 08/26/24 16:11 Bactrim) trimethoprim (From Bactrim) Allergy ALGY-Rash Verified 08/26/24 16:11 methotrexate AdvReac ADR-Diarrhe Verified 08/26/24 16:11 a chlorine Allergy hives Uncoded 08/26/24 16:11 steri strips Allergy ALGY-Redness Uncoded 08/26/24 16:11 of Skin PFS ED PFSH: Medical History Psychiatric care Eczema POP-Q stage 2 cystocele Surgery 09/17/[address] Yousif Lung nodule seen on imaging study Dysequilibrium Bursitis of right shoulder Bilateral lower extremity edema Bilateral leg cramps BMI 40.0-44.9, adult Family history of brain aneurysm Family history of aneurysm Mixed urge and stress incontinence Anxiety and depression Bipolar 2 disorder Atopic dermatitis in adult Marijuana smoker Smoker Quit cigarettes in 2018, still Marijuana Asthma-COPD overlap syndrome Surgical History S/P vaginal hysterectomy (~09/17/23) vaginal hysterectomy with Right salpingo-oophorectomy with mid urethral sling Dr. Yousif. Left tube and ovary were not found therefore not removed. Benign pathology. Hx of colonoscopy 2007 Hx of breast reduction, elective S/P tonsillectomy H/O tubal ligation H/O laparoscopy 08/27/2018- Diagnostic laparoscopy, fulguration of endometriotic lesions and lysis of adhesions per Dr. Yousif at [facility] S/P cryotherapy of skin lesion for cervical dysplasia S/P cholecystectomy laparoscopic, 04/16/2018 Family History Father Anesthesia complication Heart disease Hyperlipidemia Hypertension Grandfather , Due to Aneurysm Diabetes maternal Aneurysm Grandmother Diabetes maternal Breast cancer maternal, diagnosed in her 40's Stroke paternal Thyroid disease maternal Daughter No problems noted. Family/Other Diabetes maternal uncle Ovarian cancer maternal aunt Bleeding disorder paternal Uterine cancer maternal great great aunt Mother Stroke Denies family history of Clotting disorder Social History Smoking and tobacco/nicotine status: current every day tobacco/nicotine user Second hand smoke exposure: No Alcohol intake: never Substance/Drug Use: current Substance/Drug use frequency: Special occassions/opportunity only Adopted: No Lives independently: Yes Household members: none Housing: Apartment Marital status: Legally Number of children: 6 Number of grandchildren: 9 Highest education level completed: Some College, No Degree service: No Current occupational status: unemployed Current occupational exposures/hazards: No Pets and animals: Yes Leisure activites: reading and other Leisure activities details: crafts and some painting Sexually active: No Do you think of yourself as: Straight/Heterosexual Current gender identity: Female Yael/Hindu: Wicca Special yael needs: No Agree to transfusion: Yes Physical Exam Neck/C-Spine: COMMON NORMALS: no JVD Resp: COMMON NORMALS: No retractions, No use of accessory muscles, clear to auscultation bilaterally and percussion normal AUSCULTATION: clear to auscultation bilaterally PERCUSSION: percussion normal OTHER: Mild tachypnea Cardio: COMMON NORMALS: no JVD, regular rate, regular rhythm, S1 normal heart sound present, S2 normal heart sound present, No gallops present (Cardio), No clicks present (Cardio), No murmurs present (Cardio), No rub (Cardio) and Peripheral pulses 2+ throughout RATE: regular rate RHYTHM: regular rhythm HEART SOUNDS: S1 normal heart sound present and S2 normal heart sound present PERIPHERAL PULSES: Peripheral pulses 2+ throughout GI: COMMON NORMALS: Normal to inspection, nondistended, normoactive bowel sounds present, Soft to palpation, No hepatosplenomegaly present, no masses and no bruits PALPATION: Yes Soft to palpation and Yes No hepatosplenomegaly present OTHER: Diffuse abdominal tenderness Psych: OTHER: Appears anxious and mildly hyperventilating. Shaky. Course Vital Signs: Vital signs: Vital Signs Temperature 98.5 F 09/18/24 22:45 Pulse Rate 97 09/18/24 22:45 Respiratory Rate 18 09/18/24 22:45 Blood Pressure 150/94 09/18/24 22:45 Pulse Oximetry 99 09/18/24 22:45 Oxygen Delivery Me thod Room Air 09/18/24 22:45 MDM - Headache Medical Decision Making Patient presents with multiple complaints. She has had a headache with vertigo and nausea and vomiting. She also has numbness of the face and bilateral hands and feet. She likely has a headache with benign positional vertigo. She has some anxiety and is obviously trembling and has hyperventilation although she states that she does not feel anxious. Patient given Ativan and Toradol Compazine and Benadryl. States she is feeling better. No significant abnormality noted on labs or imaging. Head CT is negative. Patient has no other neurodeficits that would be concerning for CVA. As patient's numbness is bilateral is most likely secondary to hyperventilation syndrome. Patient given pain medication and will [facility] Zo[facility]an. Lab Data 09/18/24 23:11 09/18/24 23:[address] 09/18/24 23:47 IMPRESSION: No acute intracranial abnormality. Abdomen/Pelvis CT 09/18/24 23:53 IMPRESSION: Colon is decompressed which is nonspecific but can be seen with early colitis. No other acute abnormality identified. Normal appendix is confirmed and although there are intrarenal stones on the right, there is no evidence of renal obstruction. Pyelonephritis is not excluded without intravenous contrast. Laboratory Results WBC 12.52 10^3/uL (3.29-11.43) H 09/18/24 23:11 RBC 5.06 10^6/uL (3.85-5.65) 09/18/24 23:11 Hgb 14.10 g/dL (11.27-16.99) 09/18/24 23:11 Hct 43.1 % (36-47) 09/18/24 23:11 MCV 85.2 fl (85-98) 09/18/24 23:11 MCH 27.9 pg (27-33) 09/18/24 23:11 MCHC 32.7 g/dL (30-55) 09/18/24 23:11 RDW 13.1 % (12.1-15.1) 09/18/24 23:11 Plt Count 415 10^3/cmm (157-399) H 09/18/24 23:11 MPV 9.3 fL (7.4-10.4) 09/18/24 23:11 Neut % (Auto) 82.5 % 09/18/24 23:11 Lymph % (Auto) 11.0 % 09/18/24 23:11 [place] % (Auto) 5.7 % 09/18/24 23:11 Eos % (Auto) 0.2 % 09/18/24 23:11 Baso % (Auto) 0.4 % 09/18/24 23:11 Neut # (Auto) 10.32 10^3/uL (1.8-7.7) H 09/18/24 23:11 Lymph # (Auto) 1.4 10^3/uL (0.8-4.8) 09/18/24 23:11 [place] # (Auto) 0.7 10^3/uL (0.2-0.9) 09/18/24 23:11 Eos # (Auto) 0.0 10^3/uL (0.0-0.8) 09/18/24 23:11 Baso # (Auto) 0.1 10^3/uL (0.0-0.1) 09/18/24 23:11 Nucleated RBC % (auto) 0 % 09/18/24 23:11 Nucleated RBCs # 0.0 /100WBC 09/18/24 23:11 Sodium 138 mmol/L (136-145) 09/18/24 23:11 Potassium 3.8 mmol/L (3.5-5.1) 09/18/24 23:11 Chloride 104 mmol/L (98-107) 09/18/24 23:11 Carbon Dioxide 20 mmol/L (22-29) L 09/18/24 23:11 Anion Gap 17.8 (5-19) 09/18/24 23:11 BUN 10 mg/dL (6-20) 09/18/24 23:11 Creatinine 0.7 mg/dL (0.5-0.9) 09/18/24 23:11 GFR Calculation 90.9 mL/min (90-130) 09/18/24 23:11 Glucose 116 mg/dL (65-115) H 09/18/24 23:11 Calculated Osmolality 286 mOsm/kg (285-295) 09/18/24 23:11 Calcium 9.7 mg/dL (8.5-10.5) 09/18/24 23:11 Total Bilirubin 0.5 mg/dL (0.15-1.2) 09/18/24 23:11 AST 12 U/L (0-32) 09/18/24 23:11 ALT 12 U/L (0-33) 09/18/24 23:11 Alkaline Phosphatase 117 U/L (35-105) H 09/18/24 23:11 Total Protein 8.3 g/dL (6.6-8.7) 09/18/24 23:11 Albumin 4.5 g/dL (3.5-5.2) 09/18/24 23:11 Globulin 3.8 g/dL (1.3-4.6) 09/18/24 23:11 Urine Color Yellow (Yellow) 09/19/24 01:20 Urine Appearance Cloudy (CLEAR) A 09/19/24 01:20 Urine pH 5.5 (5-7) 09/19/24 01:20 Ur Specific [place] 1.025 (1.005-1.030) 09/19/24 01:20 Urine Protein 1+ (Negative) A 09/19/24 01:20 Urine Glucose (UA) Negative (Normal) 09/19/24 01:20 Urine Ketones 1+ (Negative) H 09/19/24 01:20 Urine Blood Negative (Negative) 09/19/24 01:20 Urine Nitrate Negative (Negative) 09/19/24 01:20 Urine Bilirubin Negative (Negative) 09/19/24 01:20 Urine Urobilinogen 1.0 mg/dL (Negative) 09/19/24 01:20 Ur Leukocyte Esterase Negative (Negative) 09/19/24 01:20 Amorphous Sediment Not Reportable 09/19/24 01:20 All radiology interpretation(s) finalized by discharge Discharge Plan Discharge Patient Disposition: Home Clinical Impression: Headache, BPV (benign positional vertigo), Nausea & vomiting Condition: Stable Prescriptions: New ondansetron 4 mg tablet,disintegrating 4 mg PO TID 5 Days Qty: 15 0RF meclizine 25 mg tablet 25 mg PO BID PRN (Reason: dizziness) Qty: 20 0RF No Action epinephrine 0.3 mg/0.3 mL auto-injector 0.3 mg IM Q4H PRN (Reason: Allergic Reaction) metoprolol tartrate 25 mg tablet 12.5 mg PO BID Qty: 90 1RF potassium chloride 8 mEq capsule, extended release 8 meq PO DAILY Qty: 30 5RF Rx Instructions: only take when taking furosemide tablet on as needed basis naloxone [Narcan] 4 mg/actuation spray,non-aerosol 4 mg intranasal Q3M PRN (Reason: opioid overdose) Qty: 2 0RF Rx Instructions: spray 1 dose into ONE nostril; alternate nostrils w each dose until help arrives polyethylene glycol 3350 [Miralax] 17 gram/dose powder 4 g PO DAILY ropinirole 2 mg tablet 2 mg PO BID Qty: 180 1RF trazodone 50 mg tablet 100 mg PO .HS PRN (Reason: insomnia) Qty: 60 2RF loratadine 10 mg capsule 10 mg PO DAILY Adbry 150 mg/mL syringe 300 mg SUBCUT Q14D Qty: 4 2RF Rx Instructions: 600mg divided in 4 sites on day 1. then 300mg divided in 2 sites every 2 weeks ipratropium-albuterol 0.5 mg-3 mg(2.5 mg base)/3 mL solution for nebulization 3 ml inhalation Q4H PRN (Reason: wheezing) Qty: 90 3RF budesonide [Pulmicort] 0.5 mg/2 mL suspension for nebulization 0.5 mg inhalation DAILY Qty: 60 3RF gabapentin 300 mg capsule 300 mg PO DAILY Qty: 90 1RF pantoprazole [Protonix] 40 mg tablet,delayed release (DR/EC) 40 mg PO ONCE Qty: 90 1RF montelukast 10 mg tablet 10 mg PO QPM Qty: 90 0RF (DME) Bone Growth Stimulator See Rx Instructions .Route .MEDSUPPLY Qty: 1 0RF Rx Instructions: As directed furosemide 20 mg tablet 20 mg PO QAM PRN (Reason: edema) Qty: 30 2RF topiramate 100 mg tablet 100 mg PO BID Qty: 60 2RF oxycodone 5 mg tablet 5 mg PO Q6H 7 Days Qty: 28 0RF hydroxyzine HCl 25 mg tablet 25 mg PO DIRECTED Rx Instructions: TAKE ONE TABLET BY MOUTH IN THE MORNING AND TWO TABLETS BY MOUTH one hour BEFORE bedtime albuterol sulfate 90 mcg/actuation HFA aerosol inhaler 2 inh INHALATION Q4H PRN (Reason: shortness of breath or wheezing) Qty: 18 0RF Discharge Orders: Discharge ED (Routine); Ordered 09/19/24 Ordered By: Best Chaudhary Referrals: Alexys Mariano MD [Primary Care Provider, Family Practice] Discharge Diet: Advance as tolerated Patient Instructions: Opioid Safety, Pain Management, Patient Portal & Felicia Instructions Print Language: Romanian Coding Level of Care Code ED [employer]eder for Maxwell Baker
[2024-09-18 23:53] LABS: Alanine Aminotransferase 12 U/L (0-33); Albumin Level 4.5 g/dL (3.5-5.2); Alkaline Phosphatase 117 U/L (35-105); Anion Gap 17.8 (5-19); Aspartate Amino Transferase 12 U/L (0-32); Blood Urea Nitrogen 10 mg/dL (6-20); Calcium 9.7 mg/dL (8.5-10.5); Carbon Dioxide 20 mmol/L (22-29); Chloride 104 mmol/L (98-107); Creatinine Clr Calc Pharmacy 131.0444; Globulin 3.8 g/dL (1.3-4.6); Glucose 116 mg/dL (65-115); Osmolality Calculated 286 mOsm/kg (285-295); Potassium 3.8 mmol/L (3.5-5.1); Sodium 138 mmol/L (136-145); Total Protein 8.3 g/dL (6.6-8.7)
--- NOTE | 2024-09-18 23:53 | CTR_ITS ---
PROCEDURE INFORMATION: Exam: CT Abdomen And Pelvis Without Contrast Exam date and time: 09/19/2024 12:15 AM Age: 43 years old Clinical indication: Abdominal pain; Generalized; Prior surgery; Surgery date: 6+ months; Surgery type: Gb. Hysterectomy; C/O diffuse abd pain; Additional info: Diffuse tenderness TECHNIQUE: Imaging protocol: Computed tomography of the abdomen and pelvis without contrast. Radiation optimization: All CT scans at this facility use at least one of these dose optimization techniques: automated exposure control; mA and/or kV adjustment per patient size (includes targeted exams where dose is matched to clinical indication); or iterative reconstruction. COMPARISON: MR abdomen wo/w con* [id number] 12/18/2023 7:14 AM RADIATION DOSE METRICS: Total DLP (mGy-cm): 1113.12 FINDINGS: Lungs: Clear basilar lung parenchyma. Pleural spaces: No pleural fluid. Heart: Normal heart size. Liver: Normal configuration. Homogeneous parenchyma. Gallbladder and biliary ducts: Prior cholecystectomy. No biliary tree dilation or high-density retained stones appreciated. Pancreas: No pancreatic edema. Spleen: Normal. No splenomegaly. Adrenal glands: Normal configuration. Kidneys and ureters: Right intrarenal stones. No ureteral stones. No significant renal contour deformity. Stomach and bowel: Postprandial stomach. Normal caliber small bowel. Decompressed colon without visible edema. Appendix: Normal appendix is confirmed. Intraperitoneal space: No free air. No significant fluid collection. Vasculature: Normal caliber arterial structures. Lymph nodes: No enlarged lymph nodes. Urinary bladder: Unremarkable as visualized. Reproductive: Prior hysterectomy. No evidence of vaginal cuff or adnexal mass. Bones/joints: Mild lower lumbar facet arthropathy. Mild bilateral sacroiliac osteoarthritis. No fracture or destructive lesion. Soft tissues: Rectus diastasis noted. Small fat containing umbilical hernia. CT/CT abdomen pelvis wo con [id number] IMPRESSION: Colon is decompressed which is nonspecific but can be seen with early colitis. No other acute abnormality identified. Normal appendix is confirmed and although there are intrarenal stones on the right, there is no evidence of renal obstruction. Pyelonephritis is not excluded without intravenous contrast.
[2024-09-19] MEDS: diphenhydrAMINE 50 mg/mL SDV 1mL 25 MG IVP (00:33)
[2024-09-19 01:35] LABS: Glucose Urine UA Negative (Normal); Nitrate Urine Negative (Negative); Specific Gravity, Urine 1.025 (1.005-1.030)
[2024-09-19 01:40] LABS: Add Urine Microscopic? YES
[2024-09-19 01:45] VITALS: BP 150/93; PULSE 107; RESP 17; O2SAT 98
[2024-09-19 01:51] VITALS: RESP 17; O2SAT 97
[2024-09-19] MEDS: morphine 4 mg/mL SDV 1 mL IVP (01:51)
[2024-09-19] MEDS: ondansetron 2 mg/ML SDV 2 mL 4 MG IVP (01:52)
[2024-09-19 03:29] VITALS: BP 150/93; PULSE 91; RESP 18; O2SAT 96
== END 2024-09-19 03:33 | disposition home or self-care (01) ==
PROVIDERS: Emergency Provider Emergency Medicine; PCP Family Medicine
DX: R51.9 Headache, unspecified (principal); H81.10 Benign paroxysmal vertigo, unspecified ear; R11.2 Nausea with vomiting, unspecified; Z72.0 Tobacco use
CPT/HCPCS: 36415; 70450; 74176; 80053; 81001; 85025; 96374; 96375; 99285; J0780; J1200; J1885; J2270; J2405; J9999

== ENCOUNTER → 2024-09-22 08:40 | Outpatient (BNVA) | payer OTHER, SELFPAY ==
[2024-08-25 14:09] VITALS: BP 135/91; BMI 42.0
== END ==
PROVIDERS: PCP Family Medicine; Visit Provider Orthopaedic Surgery
DX: Z98.890 Other specified postprocedural states (principal); Z98.1 Arthrodesis status
CPT/HCPCS: 72040

== ENCOUNTER 2024-10-07 06:45 | Outpatient (CLI) | payer MEDICAID, SELFPAY ==
[2024-08-25 14:09] VITALS: BP 135/91; BMI 42.0
--- NOTE | 2024-10-07 07:15 | MR_ITS ---
WS: [id number] MRI CERVICAL SPINE NONCONTRAST TECHNIQUE: Sagittal T1, T2 and STIR imaging. Axial T2, gradient, and fiesta imaging. CLINICAL INFORMATION: neck pain COMPARISON: 07/10/2024 FINDINGS: Straightening of the normal cervical lordosis. Postoperative changes ACDF C5-6 with interbody fusion graft new compared to previous. C2-C3: Normal. C3-C4: Mild facet arthropathy. Mild LEFT foraminal narrowing. C4-C5: No significant disc bulging. Mild endplate ridging. Mild RIGHT foraminal narrowing. C5-C6: Postoperative changes ACDF. Mild LEFT greater than RIGHT bony foraminal narrowing. Spinal canal is patent. Spinal canal has been decompressed compared to previous. C6-C7: Disc osteophyte complex with endplate ridging eccentric to the LEFT. Slight indentation of the LEFT ventral cervical cord. This is stable since previous. Mild central canal stenosis. Mild LEFT greater than RIGHT bony foraminal narrowing. C7-T1: Mild LEFT and no significant RIGHT foraminal narrowing. Spinal canal is patent. MR/MR cervical spin wo con* [id number] IMPRESSION: 1. Straightening of the normal cervical lordosis. 2. Postoperative changes ACDF C5-6 new from previous with decompression of the spinal canal. 3. Mild central canal stenosis C6-7 is unchanged with disc osteophyte complex and slight indentation on the LEFT ventral cervical cord. Mild LEFT foraminal n arrowing at this level. 4. No other significant interval changes.
== END 2024-10-07 06:46 | disposition home or self-care (01) ==
LOC: RAD 06:45
PROVIDERS: PCP Family Medicine; Visit Provider Orthopaedic Surgery
DX: M48.02 Spinal stenosis, cervical region (principal); M47.812 Spondylosis without myelopathy or radiculopathy, cervical region; M25.78 Osteophyte, vertebrae; Z98.1 Arthrodesis status
CPT/HCPCS: 72141

== ENCOUNTER 2024-12-08 16:10 | Outpatient (CLI) | payer MEDICAID, SELFPAY ==
[2024-08-25 14:09] VITALS: BP 135/91; BMI 42.0
--- NOTE | 2024-12-08 16:17 | CT_ITS ---
WS: [id number] CT chest wo con [id number] HISTORY: lung nodule TECHNIQUE: Axial imaging performed through the thorax. Coronal and sagittal reformats are submitted. All CT scans at [facility] use at least one of these dose optimization techniques: automated exposure control; mA and/or kV adjustment per patient size (includes targeted exams where dose is matched to clinical indication); or iterative reconstruction. CONTRAST: None DLP: 698.32 mGy.cm COMPARISON: 03/18/2023, 09/19/2024, 10/20/2023, 11/13/2020 Lungs and central airway: 5 mm noncalcified nodule RIGHT middle lobe. There is an additional 2 mm peripheral nodule LEFT lower lobe. No mass. No endobronchial lesions. Pleura: Normal. No pleural effusion. Heart and pericardium: Normal size heart with no pericardial effusion. Mediastinum and doris: No mediastinum or hilar adenopathy. Vessels: Normal size aortic and pulmonary artery. No coronary artery calcifications. Chest wall and lower neck: No soft tissue masses. Upper abdomen: Prior cholecystectomy. No adrenal mass. Osseous structures: No destructive process. CT/CT chest wo con [id number] IMPRESSION: 1. 5 mm RIGHT middle lobe and 2 mm LEFT lower lobe pulmonary nodules. Stable s negrito 11/13/2020. No additional follow-up necessary. 2. Otherwise lungs are clear. No pneumonia. 3. No mediastinal or hilar adenopathy. 4. Prior cholecystectomy.
== END 2024-12-08 16:11 | disposition home or self-care (01) ==
LOC: RAD 16:10
PROVIDERS: PCP Family Medicine; Visit Provider Internal Medicine
DX: R91.1 Solitary pulmonary nodule (principal); R91.8 Other nonspecific abnormal finding of lung field; Z90.49 Acquired absence of other specified parts of digestive tract
CPT/HCPCS: 71250

== ENCOUNTER 2024-12-22 10:40 | Outpatient (CLI) | payer MEDICAID, SELFPAY ==
[2024-08-25 14:09] VITALS: BP 135/91; BMI 42.0
--- NOTE | 2024-12-22 10:47 | XR_ITS ---
WS: [id number] Skull series, 4 views, 12/22/2024 Clinical Data: bony abnormality forehead, depression Comparison: None. Findings: No skull fractures are seen. The sella turcica is normal. The cranial vault shows no bony abnormalities. There are no abnormal intracranial calcifications. The sinuses appear clear. The orbits are nonremarkable. The mandible and maxilla are intact. A portion of an anterior cervical disc fusion is visible at C5. XR/XR skull min 4V* [id number] Impression: Negative skull series.
== END 2024-12-22 10:41 | disposition home or self-care (01) ==
LOC: RAD 10:44
PROVIDERS: PCP Family Medicine; Visit Provider Family Medicine
DX: Q79.9 Congenital malformation of musculoskeletal system, unspecified (principal); M43.22 Fusion of spine, cervical region
CPT/HCPCS: 70260

== ENCOUNTER 2025-01-05 12:41 | Outpatient (CLI) | payer MEDICAID, SELFPAY ==
[2024-08-25 14:09] VITALS: BP 135/91; BMI 42.0
== END 2025-01-05 12:42 | disposition home or self-care (01) ==
LOC: SLEEP 01-06 12:41
PROVIDERS: PCP Family Medicine; Referring Provider Family Medicine; Visit Provider Family Medicine
DX: G47.30 Sleep apnea, unspecified (principal)
CPT/HCPCS: G0399

== ENCOUNTER → 2025-01-12 10:18 | Outpatient (BNVA) | payer MEDICAID, SELFPAY ==
[2024-08-25 14:09] VITALS: BP 135/91; BMI 42.0
== END ==
PROVIDERS: PCP Family Medicine; Visit Provider Orthopaedic Surgery
DX: Z47.89 Encounter for other orthopedic aftercare (principal); Z98.1 Arthrodesis status; M25.50 Pain in unspecified joint
CPT/HCPCS: 72040; 99213

== ENCOUNTER → 2025-01-18 14:39 | Outpatient (BNVA) | payer MEDICAID, SELFPAY ==
[2024-08-25 14:09] VITALS: BP 135/91; BMI 42.0
== END ==
PROVIDERS: PCP Family Medicine; Visit Provider Family Medicine
DX: R60.9 Edema, unspecified (principal)
CPT/HCPCS: 80053

== ENCOUNTER 2025-01-21 08:35 | Outpatient (CLI) | payer MEDICAID, SELFPAY ==
[2024-08-25 14:09] VITALS: BP 135/91; BMI 42.0
--- NOTE | 2025-01-21 08:30 | USR_ITS ---
PROCEDURE INFORMATION: Exam: US Pelvis, Complete, Non-Obstetric Exam date and time: 01/21/2025 8:48 AM Age: 44 years old Clinical indication: Pelvic pain; Prior surgery; Surgery date: 6+ months; Surgery type: Hysterectomy; Additional info: R10.22 - pelvic and perineal pain left side, S/P hysterectomy and right salpingo-oophorectomy TECHNIQUE: Imaging protocol: Transabdominal pelvic nonobstetric ultrasound. Complete exam. Real time ultrasound with image documentation. COMPARISON: US transvaginal [id number] 05/13/2024 11:26 AM FINDINGS: Uterus: Uterus is surgically absent. Right ovary/adnexa: Ovary is surgically absent. No adnexal mass. Left ovary/adnexa: Left ovary measures 2.6 x 2.9 x 2.6 cm (10 mL). Anechoic structure in the left ovary measures 2.2 x 1.5 x 1.6 cm. Normal blood flow. Intraperitoneal space: No intraperitoneal fluid. Urinary bladder: Limited assessment is grossly unremarkable. US/US pelv w/transvag [id number] IMPRESSION: 1. No acute findings. 2. Status post hysterectomy and right salpingo-oophorectomy. 3. Dominant follicle in the left ovary.
== END 2025-01-21 08:36 | disposition home or self-care (01) ==
LOC: RAD 08:35
PROVIDERS: PCP Family Medicine; Visit Provider Nurse Practitioner Women's Health
DX: R10.22 Pelvic and perineal pain left side (principal); Z90.710 Acquired absence of both cervix and uterus; Z90.721 Acquired absence of ovaries, unilateral; N83.02 Follicular cyst of left ovary
CPT/HCPCS: 76830; 76856

== ENCOUNTER 2025-02-21 17:07 | Emergency (ER) | payer MEDICAID, SELFPAY ==
[2024-08-25 14:09] VITALS: BP 135/91; BMI 42.0
[2025-02-21] VITALS (7 sets, daily range): BP systolic 98–127; BP diastolic 56–98; PULSE 84–105; RESP 16–19; TEMP 36.6–36.8; O2SAT 95–98; BMI 47.2
--- NOTE | 2025-02-21 17:00 | CTR_ITS ---
PROCEDURE INFORMATION: Exam: CT Head Without Contrast Exam date and time: 02/21/2025 5:08 PM Age: 44 years old Clinical indication: Stroke-like symptoms; Headache and speech disturbance; Additional info: Symptoms of acute stroke TECHNIQUE: Imaging protocol: Computed tomography of the head without contrast. Radiation optimization: All CT scans at this facility use at least one of these dose optimization techniques: automated exposure control; mA and/or kV adjustment per patient size (includes targeted exams where dose is matched to clinical indication); or iterative reconstruction. Other technique: STROKE PROTOCOL was implemented. COMPARISON: CT head wo con* [id number] 09/19/2024 12:12 AM RADIATION DOSE METRICS: Total DLP (mGy-cm): 1075.28 FINDINGS: Brain: Normal. No hemorrhage. Unremarkable white matter. No mass effect. Cerebral ventricles: No ventriculomegaly. Paranasal sinuses: Visualized sinuses are unremarkable. No fluid levels. Mastoid air cells: Visualized mastoid air cells are well aerated. Bones: Unremarkable. No acute fracture. Soft tissues: Unremarkable. CT/CT head thrombolytic [id number] IMPRESSION: No large territorial infarct or intracranial bleed. ASSESSMENT: ASPECTS ([place] Stroke Program Early CT Score) is 10.
--- NOTE | 2025-02-21 17:00 | ECG_ITS ---
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 Measurements Intervals [place] Rate: 93 P: 56 [place]: 160 QRS: 75 QRSD: 89 T: 56 QT: 353 QTc: 439 Interpretive Statements SINUS RHYTHM Compared to ECG 09/17/2024 09:39:30 No significant changes Electronically Signed On 02-24-2025 22:23:45 [employer] by Chris Ortiz M.D. [id number]
--- NOTE | 2025-02-21 17:16 | W.ED.NEUROSD ---
Documented by User: Elvi Gonzalez MD 02/21/25 17:45 HPI - Neuro Symptoms/Deficit General: Chief Complaint: Neuro Symptoms/Deficit Stated Complaint: STROKE ALERT Time Seen by Provider: 02/21/25 17:14 History of Present Illness: 44-year-old female with a history of disequilibrium, morbid obesity, family history of a brain aneurysm, bipolar disorder, asthma, anxiety and depression, seizure disorder who presents to the emergency room with strokelike symptoms. Just about an hour before she arrived she was having a bowel movement and developed a severe headache and right sided weakness. EMS said she had right facial droop with right arm and leg weakness when they arrived but it is resolved by the time she gets here. She had slurred speech which has also resolved. She now has a stutter and a tremor. She is complaining of a headache still Related Data Home Medications ?Medication ?Instructions ?Recorded ?Confirmed epinephrine 0.3 mg/0.3 mL 0.3 mg IM Q4H PRN Allergic Reaction 09/14/22 02/17/25 injection, auto-injector polyethylene glycol 3350 17 4 g PO DAILY 07/15/24 02/17/25 gram/dose oral powder (Miralax) hydroxyzine HCl 25 mg tablet 25 mg PO DIRECTED 08/04/24 02/17/25 albuterol 90 mcg-budesonide 80 2 inh inhalation QID PRN 12/04/24 02/17/25 mcg/actuation HFA aerosol inhaler (Airsupra) Previous Rx's ?Medication ?Instructions ?Recorded tralokinumab-ldrm 150 mg/mL 300 mg (2 mL) SUBCUT Q14D #4 mL 06/26/22 subcutaneous syringe (Adbry) metoprolol tartrate 25 mg tablet 12.5 mg (1/2 x 25 mg) PO BID #90 06/11/24 tabs naloxone 4 mg/actuation nasal 4 mg intranasal Q3M PRN opioid 06/11/24 spray (Narcan) overdose #2 ea ropinirole 2 mg tablet 2 mg PO BID #180 tabs 07/15/24 pantoprazole 40 mg tablet,delayed 40 mg PO ONCE #90 tabs 08/27/24 release (Protonix) Bone Growth Stimulator #1 ea 08/31/24 albuterol sulfate 90 mcg/actuation 2 inh inhalation Q4H PRN shortness 09/17/24 aerosol inhaler of breath or wheezing #18 grams montelukast 10 mg tablet 10 mg PO QPM #90 tabs 09/28/24 budesonide 0.5 mg/2 mL suspension 0.5 mg (2 mL) inhalation DAILY #60 11/10/24 for nebulization (Pulmicort) mL amitriptyline 25 mg tablet 25 mg PO .HS #30 tabs 11/24/24 topiramate 100 mg tablet 100 mg PO BID #60 tabs 11/24/24 meclizine 25 mg tablet 25 mg PO BID PRN dizziness #20 tabs 12/04/24 potassium chloride 8 mEq 8 meq PO DAILY #30 caps 12/08/24 capsule,extended release loratadine 10 mg capsule 10 mg PO DAILY #90 caps 12/17/24 ipratropium 0.5 mg-albuterol 3 mg 3 ml inhalation Q4H PRN wheezing 01/27/25 (2.5 mg base)/3 mL nebulization #90 mL soln oxycodone 5 mg tablet 5 mg PO BID PRN pain (scale score 02/02/25 7-10) 14 days #28 tabs gabapentin 300 mg capsule 300 mg PO DAILY #90 caps 02/08/25 Allergies Allergy/AdvReac Type Severity Reaction Status Date / Time acetaminophen Allergy ALGY-Anaphy Verified 02/17/25 13:40 laxis adhesive Allergy ADR-Itching Verified 02/17/25 13:40 aspirin Allergy ALGY-Difficulty Verified 02/17/25 13:40 Breathing Bleach (Sodium Hypochlorite) Allergy asthma Verified 02/17/25 13:40 attack calamine Allergy ALGY-Difficulty Verified 02/17/25 13:40 Breathing celery Allergy mouth Verified 02/17/25 13:40 numbness nut - unspecified Allergy ALGY-Difficulty Verified 02/17/25 13:40 Swallowing Penicillins Allergy ALGY-Anaphy Verified 02/17/25 13:40 laxis shellfish derived Allergy ALGY-Swell Verified 02/17/25 13:40 Lip/Tongue/Throat sulfamethoxazole (From Allergy ALGY-Rash Verified 02/17/25 13:40 Bactrim) trimethoprim (From Bactrim) Allergy ALGY-Rash Verified 02/17/25 13:40 methotrexate AdvReac ADR-Diarrhe Verified 02/17/25 13:40 a chlorine Allergy hives Uncoded 02/17/25 13:40 steri strips Allergy ALGY-Redness Uncoded 02/17/25 13:40 of Skin Review of Systems Narrative: Constitutional symptoms: Negative except as documented in HPI. Skin symptoms: Negative except as documented in HPI. Eye symptoms: Negative except as documented in HPI. ENMT symptoms: Negative except as documented in HPI. Respiratory symptoms: Negative except as documented in HPI. Cardiovascular symptoms: Negative except as documented in HPI. Gastrointestinal symptoms: Negative except as documented in HPI. Genitourinary symptoms: Negative except as documented in HPI. Musculoskeletal symptoms: Negative except as documented in HPI. Neurologic symptoms: Negative except as documented in HPI. Psychiatric symptoms: Negative except as documented in HPI. Endocrine symptoms: Negative except as documented in HPI. PFSH ED PFSH: Medical History (Updated 02/21/25 @ 20:36 by Brian Riddle DO) Psychiatric care Eczema POP-Q stage 2 cystocele Surgery 09/17/[address] Yousif Lung nodule seen on imaging study Dysequilibrium Bursitis of right shoulder Bilateral lower extremity edema Bilateral leg cramps BMI 40.0-44.9, adult Family history of brain aneurysm Family history of aneurysm Mixed urge and stress incontinence Anxiety and depression Bipolar 2 disorder Atopic dermatitis in adult Marijuana smoker Smoker Quit cigarettes in 2018, still Marijuana Asthma-COPD overlap syndrome Surgical History S/P vaginal hysterectomy (~09/17/23) vaginal hysterectomy with Right salpingo-oophorectomy with mid urethral sling Dr. Yousif. Left tube and ovary were not found therefore not removed. Benign pathology. Hx of colonoscopy 2007 Hx of breast reduction, elective S/P tonsillectomy H/O tubal ligation H/O laparoscopy 08/27/2018- Diagnostic laparoscopy, fulguration of endometriotic lesions and lysis of adhesions per Dr. Yousif at [facility] S/P cryotherapy of skin lesion for cervical dysplasia S/P cholecystectomy laparoscopic, 04/16/2018 Family History Father Anesthesia complication Heart disease Hyperlipidemia Hypertension Grandfather , Due to Aneurysm Diabetes maternal Aneurysm Grandmother Diabetes maternal Breast cancer maternal, diagnosed in her 40's Stroke paternal Thyroid disease maternal Daughter No problems noted. Family/Other Diabetes maternal uncle Ovarian cancer maternal aunt Bleeding disorder paternal Uterine cancer maternal great great aunt Mother Stroke Denies family history of Clotting disorder Social History Smoking and tobacco/nicotine status: former use of tobacco/nicotine Second hand smoke exposure: No Alcohol intake: never Substance/Drug Use: current Substance/Drug use frequency: Special occassions/opportunity only Adopted: No Lives independently: Yes Household members: none Housing: Apartment Marital status: Legally Number of children: 6 Number of grandchildren: 9 Highest education level completed: Some College, No Degree service: No Current occupational status: unemployed Current occupational exposures/hazards: No Pets and animals: Yes Leisure activites: reading and other Leisure activities details: crafts and some painting Sexually active: No Do you think of yourself as: Straight/Heterosexual Current gender identity: Female Yael/Yazdanism: Wicca Special yael needs: No Agree to transfusion: Yes Physical Exam Narrative: EXAM NARRATIVE: General: Alert, no acute distress. Skin: Warm, dry. Head: Normocephalic, atraumatic. Neck: Supple, trachea midline. Eye: Extraocular movements are intact. Ears, nose, mouth and throat: mucosa moist. Cardiovascular: Regular, Normal peripheral perfusion. Respiratory: Lungs are clear to auscultation, respirations are non-labored, breath sounds are equal, Symmetrical chest wall expansion. Gastrointestinal: Soft, Nontender, Non distended Musculoskeletal: Normal ROM, no deformity. Neurological: Alert and oriented, No focal neurological deficit observed. No facial droop. No focal arm or leg weakness. No vision loss. She has a tremor but is coarse in all of her extremities. Also sort of stutter or tremor to her speaking. Psychiatric: Cooperative Course Vital Signs: Vital signs: Vital Signs Temperature 98.2 F 02/21/25 21:11 Pulse Rate 84 02/21/25 21:11 Respiratory Rate 17 02/21/25 21:11 Blood Pressure 107/98 02/21/25 21:11 Pulse Oximetry 96 02/21/25 21:11 Oxygen Delivery Me thod Room Air 02/21/25 20:50 MDM - Neuro Symptoms/Deficit Medical Decision Making Medical decision making Patient's reason for coming to the emergency room: Strokelike symptoms Social determinants: Patient is unemployed I reviewed the patient's medical record. 44-year-old female with a history of hypertension, disequilibrium, morbid obesity, family history of a brain aneurysm, bipolar disorder, asthma, anxiety and depression, seizure disorder I reviewed the patient's current home meds No anticoagulation. Alternate historians: None Differential diagnosis for patient with focal neurologic deficit(s) includes but not limited to and based on the above HPI, review of systems and physical exam: ischemic stroke, hemorrhagic stroke and embolic stroke secondary to atrial fibrillation), TIA, Wilkinson's palsy, metabolic encephalopathy with previous stroke. Orders placed to evaluate differential diagnosis based on the above differential, HPI and physical exam 1620: Last known well time 1710: My exam was performed in the CT scanner room. At this time all focal neurologic symptoms had resolved. She now has a universal tremor on all 4 extremities and a stuttering type tremulous talk. No facial droop at [facility]. 1712: NIH Stroke Scale/Score (NIHSS) from [employer] on 02/21/2025 All calculations should be rechecked by clinician prior to use * RESULT SUMMARY: 0 points NIH Stroke Scale INPUTS: 1A: Level of consciousness ?> 0 = Alert; keenly responsive 1B: Ask month and age ?> 0 = Both questions right 1C: 'Blink eyes' & 'squeeze hands' ?> 0 = Performs both tasks 2: Horizontal extraocular movements ?> 0 = Normal 3: Visual johnson ?> 0 = No visual loss 4: Facial palsy ?> 0 = Normal symmetry 5A: Left arm motor drift ?> 0 = No drift for 10 seconds 5B: Right arm motor drift ?> 0 = No drift for 10 seconds 6A: Left leg motor drift ?> 0 = No drift for 5 seconds 6B: Right leg motor drift ?> 0 = No drift for 5 seconds 7: Limb Ataxia ?> 0 = No ataxia 8: Sensation ?> 0 = Normal; no sensory loss 9: Language/aphasia ?> 0 = Normal; no aphasia 10: Dysarthria ?> 0 = Normal 11: Extinction/inattention ?> 0 = No abnormality 1718: I spoke with Dr. Pablo who is on-call for neurology. Discussed the patient and she agrees she does not qualify for tenecteplase at this time. 1721: I spoke with radiologist about the head CT. This was read as negative. CT head: No acute intracranial process. No intracranial hemorrhage, no evidence of infarct. No evidence of acute fracture. This was reviewed and interpreted by myself the emergency room physician. I also reviewed the radiology report. EKG: Normal sinus rhythm, No ST-T changes, no ectopy, normal FL & QRS intervals, This was reviewed and interpreted by myself the ER physician at 1742 time 1740. Rate 93. Patient care transitioned to Dr. Riddle at shift change. Lab Data 02/21/25 17:21 02/21/25 17:[address] 02/21/25 17:00 IMPRESSION: No large territorial infarct or intracranial bleed. ASSESSMENT: ASPECTS ([place] Stroke Program Early CT Score) is 10. ADDENDUM: 02/21/25 1722 THIS REPORT CONTAINS FINDINGS THAT MAY BE CRITICAL TO PATIENT CARE. The findings were verbally communicated via telephone conference with ELVI GONZALEZ at 5:21 PM [employer] on 02/21/2025. The findings were acknowledged and understood. Head/Neck CTA 02/21/25 17:22 IMPRESSION: No large vessel stenosis or occlusion. IMPRESSION: No significant arterial stenosis. REFERENCES: NASCET CRITERIA. The degree of stenosis in the cervical segment of the internal carotid artery is based on NASCET criteria. Normal is no stenosis. Mild is less than 50% stenosis. Moderate is 50-69% stenosis. Severe is 70% to 99% stenosis. Total occlusion is no detectable patent lumen. Laboratory Results WBC 11.28 10^3/uL (3.29-11.43) 02/21/25 17:21 RBC 5.10 10^6/uL (3.85-5.65) 02/21/25 17:21 Hgb 14.10 g/dL (11.27-16.99) 02/21/25 17:21 Hct 44.2 % (36-47) 02/21/25 17:21 MCV 86.7 fl (85-98) 02/21/25 17:21 MCH 27.6 pg (27-33) 02/21/25 17: MCHC 31.9 g/dL (30-55) 02/21/25 17:21 RDW 12.7 % (12.1-15.1) 02/21/25 17:21 Plt Count 361 10^3/cmm (157-399) 02/21/25 17:21 MPV 10.8 fL (7.4-10.4) H 02/21/25 17:21 Neut % (Auto) 68.2 % 02/21/25 17:21 Lymph % (Auto) 22.2 % 02/21/25 17:21 [place] % (Auto) 7.7 % 02/21/25 17:21 Eos % (Auto) 1.1 % 02/21/25 17:21 Baso % (Auto) 0.4 % 02/21/25 17:21 Neut # (Auto) 7.70 10^3/uL (1.8-7.7) 02/21/25 17:21 Lymph # (Auto) 2.5 10^3/uL (0.8-4.8) 02/21/25 17:21 [place] # (Auto) 0.9 10^3/uL (0.2-0.9) 02/21/25 17:21 Eos # (Auto) 0.1 10^3/uL (0.0-0.8) 02/21/25 17:21 Baso # (Auto) 0.1 10^3/uL (0.0-0.1) 02/21/25 17:21 Nucleated RBC % (auto) 0 % 02/21/25 17:21 Nucleated RBCs # 0.0 /100WBC 02/21/25 17:21 PT 13.00 SECONDS (12.1-14.9) 02/21/25 17:45 INR 0.92 (0.8-1.2) 02/21/25 17:45 APTT 28.6 SECONDS (23.9-36.7) 02/21/25 17:45 Sodium 135 mmol/L (136-145) L 02/21/25 17:45 Potassium 4.0 mmol/L (3.5-5.1) 02/21/25 17:45 Chloride 102 mmol/L (98-107) 02/21/25 17:45 Carbon Dioxide 22 mmol/L (22-29) 02/21/25 17:45 Anion Gap 14.8 (5-19) 02/21/25 17:45 BUN 14 mg/dL (6-20) 02/21/25 17:45 Creatinine 0.8 mg/dL (0.5-0.9) 02/21/25 17:45 GFR Calculation 77.6 mL/min (90-130) L 02/21/25 17:45 Glucose 93 mg/dL (65-115) 02/21/25 17:45 POC Glucose 89 mg/dL (70-110) 02/21/25 17:17 Calculated Osmolality 280 mOsm/kg (285-295) L 02/21/25 17:45 Calcium 8.5 mg/dL (8.5-10.5) 02/21/25 17:45 Total Bilirubin 0.2 mg/dL (0.15-1.2) 02/21/25 17:45 AST 15 U/L (0-32) 02/21/25 17:45 ALT 8 U/L (0-33) 02/21/25 17:45 Alkaline Phosphatase 98 U/L (35-105) 02/21/25 17:45 Total Protein 6.4 g/dL (6.6-8.7) L 02/21/25 17:45 Albumin 3.6 g/dL (3.5-5.2) 02/21/25 17:45 Globulin 2.8 g/dL (1.3-4.6) 02/21/25 17:45 Urine Color Yellow (Yellow) 02/21/25 20:14 Urine Appearance Clear (CLEAR) 02/21/25 20:14 Urine pH 6.0 (5-7) 02/21/25 20:14 Ur Specific [place] 1.058 (1.005-1.030) H 02/21/25 20:14 Urine Protein Negative (Negative) 02/21/25 20:14 Urine Glucose (UA) Negative (Normal) 02/21/25 20:14 Urine Ketones Negative (Negative) 02/21/25 20:14 Urine Blood Negative (Negative) 02/21/25 20:14 Urine Nitrate Negative (Negative) 02/21/25 20:14 Urine Bilirubin Negative (Negative) 02/21/25 20:14 Urine Urobilinogen 0.2 mg/dL (Negative) 02/21/25 20:14 Ur Leukocyte Esterase Negative (Negative) 02/21/25 20:14 Urine RBC 0-2 /hpf (0-2) 02/21/25 20:14 Urine WBC 0-5 /hpf (0-5) 02/21/25 20:14 Ur Squamous Epith Cells 0-5 /hpf (0-5) 02/21/25 20:14 Amorphous Sediment Not Reportable 02/21/25 20:14 Urine Bacteria None seen /hpf (NONE) 02/21/25 20:14 Hyaline Casts 0-4 /lpf H 02/21/25 20:14 Urine Opiates Screen Negative ng/mL (Negative) 02/21/25 20:14 Ur Barbiturates Screen Negative ng/mL (Negative) 02/21/25 20:14 Ur Phencyclidine Scrn Negative ng/mL (Negative) 02/21/25 20:14 Ur Amphetamines Screen Negative ng/mL (Negative) 02/21/25 20:14 U Benzodiazepines Scrn Negative ng/mL (Negative) 02/21/25 20:14 Urine Cocaine Screen Negative ng/mL (Negative) 02/21/25 20:14 U Marijuana (THC) Screen Positive ng/mL (Negative) H 02/21/25 20:14 Discharge Plan Discharge Patient Disposition: Home Clinical Impression: Complicated migraine Condition: Stable Prescriptions: No Action epinephrine 0.3 mg/0.3 mL auto-injector 0.3 mg IM Q4H PRN (Reason: Allergic Reaction) metoprolol tartrate 25 mg tablet 12.5 mg PO BID Qty: 90 1RF naloxone [Narcan] 4 mg/actuation spray,non-aerosol 4 mg intranasal Q3M PRN (Reason: opioid overdose) Qty: 2 0RF Rx Instructions: spray 1 dose into ONE nostril; alternate nostrils w each dose until help arrives polyethylene glycol 3350 [Miralax] 17 gram/dose powder 4 g PO DAILY ropinirole 2 mg tablet 2 mg PO BID Qty: 180 1RF amitriptyline 25 mg tablet 25 mg PO .HS Qty: 30 2RF topiramate 100 mg tablet 100 mg PO BID Qty: 60 2RF bupivacaine (PF) 0.25 % (2.5 mg/mL) solution 3 ml intra-articular ONCE Qty: 1 0RF lidocaine (PF) 20 mg/mL (2 %) solution 60 mg intra-articular ROUTINE Qty: 20 0RF montelukast 10 mg tablet 10 mg PO QPM Qty: 90 1RF Airsupra 90-80 mcg/actuation HFA aerosol inhaler 2 inh inhalation QID PRN meclizine 25 mg tablet 25 mg PO BID PRN (Reason: dizziness) Qty: 20 2RF Adbry 150 mg/mL syringe 300 mg SUBCUT Q14D Qty: 4 2RF Rx Instructions: 600mg divided in 4 sites on day 1. then 300mg divided in 2 sites every 2 weeks pantoprazole [Protonix] 40 mg tablet,delayed release (DR/EC) 40 mg PO ONCE Qty: 90 1RF (DME) Bone Growth Stimulator See Rx Instructions .Route .MEDSUPPLY Qty: 1 0RF Rx Instructions: As directed budesonide [Pulmicort] 0.5 mg/2 mL suspension for nebulization 0.5 mg inhalation DAILY Qty: 60 3RF potassium chloride 8 mEq capsule, extended release 8 meq PO DAILY Qty: 30 5RF Rx Instructions: only take when taking furosemide tablet on as needed basis loratadine 10 mg capsule 10 mg PO DAILY Qty: 90 0RF ipratropium-albuterol 0.5 mg-3 mg(2.5 mg base)/3 mL solution for nebulization 3 ml inhalation Q4H PRN (Reason: wheezing) Qty: 90 3RF oxycodone 5 mg tablet 5 mg PO BID PRN (Reason: pain (scale score 7-10)) 14 Days Qty: 28 0RF Rx Instructions: ONLY USE FOR SEVERE PAIN gabapentin 300 mg capsule 300 mg PO DAILY Qty: 90 1RF hydroxyzine HCl 25 mg tablet 25 mg PO DIRECTED Rx Instructions: TAKE ONE TABLET BY MOUTH IN THE MORNING AND TWO TABLETS BY MOUTH one hour BEFORE bedtime albuterol sulfate 90 mcg/actuation HFA aerosol inhaler 2 inh INHALATION Q4H PRN (Reason: shortness of breath or wheezing) Qty: 18 0RF Discharge Orders: Discharge ED (Routine); Ordered 02/21/25 Ordered By: Brian Riddle Referrals: Alexys Mariano MD [Primary Care Provider, Family Practice] - 1-3 days Patient Instructions: Migraine Headache (ED), Opioid Safety, Pain Management, Patient Portal & Felicia Instructions Activity Restrictions/Additional Instructions: Return for any return of symptoms. Call your doctor on Saturday for follow-up appointment Print Language: Citizen Of [place] Coding Level of Care Code ED Sports Psychologist for Chg Fwd Documented by User: Brian Riddle, 02/21/25 22:17 HPI - Neuro Symptoms/Deficit General: Chief Complaint: Neuro Symptoms/Deficit Stated Complaint: STROKE ALERT Time Seen by Provider: 02/21/25 17:14 Related Data Home Medications ?Medication ?Instructions ?Recorded ?Confirmed epinephrine 0.3 mg/0.3 mL 0.3 mg IM Q4H PRN Allergic Reaction 09/14/22 02/17/25 injection, auto-injector polyethylene glycol 3350 17 4 g PO DAILY 07/15/24 02/17/25 gram/dose oral powder (Miralax) hydroxyzine HCl 25 mg tablet 25 mg PO DIRECTED 08/04/24 02/17/25 albuterol 90 mcg-budesonide 80 2 inh inhalation QID PRN 12/04/24 02/17/25 mcg/actuation HFA aerosol inhaler (Airsupra) Previous Rx's ?Medication ?Instructions ?Recorded tralokinumab-ldrm 150 mg/mL 300 mg (2 mL) SUBCUT Q14D #4 mL 06/26/22 subcutaneous syringe (Adbry) metoprolol tartrate 25 mg tablet 12.5 mg (1/2 x 25 mg) PO BID #90 06/11/24 tabs naloxone 4 mg/actuation nasal 4 mg intranasal Q3M PRN opioid 06/11/24 spray (Narcan) overdose #2 ea ropinirole 2 mg tablet 2 mg PO BID #180 tabs 07/15/24 pantoprazole 40 mg tablet,delayed 40 mg PO ONCE #90 tabs 08/27/24 release (Protonix) Bone Growth Stimulator #1 ea 08/31/24 albuterol sulfate 90 mcg/actuation 2 inh inhalation Q4H PRN shortness 09/17/24 aerosol inhaler of breath or wheezing #18 grams montelukast 10 mg tablet 10 mg PO QPM #90 tabs 09/28/24 budesonide 0.5 mg/2 mL suspension 0.5 mg (2 mL) inhalation DAILY #60 11/10/24 for nebulization (Pulmicort) mL amitriptyline 25 mg tablet 25 mg PO .HS #30 tabs 11/24/24 topiramate 100 mg tablet 100 mg PO BID #60 tabs 11/24/24 meclizine 25 mg tablet 25 mg PO BID PRN dizziness #20 tabs 12/04/24 potassium chloride 8 mEq 8 meq PO DAILY #30 caps 12/08/24 capsule,extended release loratadine 10 mg capsule 10 mg PO DAILY #90 caps 12/17/24 ipratropium 0.5 mg-albuterol 3 mg 3 ml inhalation Q4H PRN wheezing 01/27/25 (2.5 mg base)/3 mL nebulization #90 mL soln oxycodone 5 mg tablet 5 mg PO BID PRN pain (scale score 02/02/25 7-10) 14 days #28 tabs gabapentin 300 mg capsule 300 mg PO DAILY #90 caps 02/08/25 Allergies Allergy/AdvReac Type Severity Reaction Status Date / Time acetaminophen Allergy ALGY-Anaphy Verified 02/17/25 13:40 laxis adhesive Allergy ADR-Itching Verified 02/17/25 13:40 aspirin Allergy ALGY-Difficulty Verified 02/17/25 13:40 Breathing Bleach (Sodium Hypochlorite) Allergy asthma Verified 02/17/25 13:40 attack calamine Allergy ALGY-Difficulty Verified 02/17/25 13:40 Breathing celery Allergy mouth Verified 02/17/25 13:40 numbness nut - unspecified Allergy ALGY-Difficulty Verified 02/17/25 13:40 Swallowing Penicillins Allergy ALGY-Anaphy Verified 02/17/25 13:40 laxis shellfish derived Allergy ALGY-Swell Verified 02/17/25 13:40 Lip/Tongue/Throat sulfamethoxazole (From Allergy ALGY-Rash Verified 02/17/25 13:40 Bactrim) trimethoprim (From Bactrim) Allergy ALGY-Rash Verified 02/17/25 13:40 methotrexate AdvReac ADR-Diarrhe Verified 02/17/25 13:40 a chlorine Allergy hives Uncoded 02/17/25 13:40 steri strips Allergy ALGY-Redness Uncoded 02/17/25 13:40 of Skin PFSH ED PFSH: Medical History (Updated 02/21/25 @ 20:36 by Brian Riddle, ) Psychiatric care Eczema POP-Q stage 2 cystocele Surgery 09/17/[address] Yousif Lung nodule seen on imaging study Dysequilibrium Bursitis of right shoulder Bilateral lower extremity edema Bilateral leg cramps BMI 40.0-44.9, adult Family history of brain aneurysm Family history of aneurysm Mixed urge and stress incontinence Anxiety and depression Bipolar 2 disorder Atopic dermatitis in adult Marijuana smoker Smoker Quit cigarettes in 2018, still Marijuana Asthma-COPD overlap syndrome Surgical History S/P vaginal hysterectomy (~09/17/23) vaginal hysterectomy with Right salpingo-oophorectomy with mid urethral sling Dr. Yousif. Left tube and ovary were not found therefore not removed. Benign pathology. Hx of colonoscopy 2007 Hx of breast reduction, elective S/P tonsillectomy H/O tubal ligation H/O laparoscopy 08/27/2018- Diagnostic laparoscopy, fulguration of endometriotic lesions and lysis of adhesions per Dr. Yousif at [facility] S/P cryotherapy of skin lesion for cervical dysplasia S/P cholecystectomy laparoscopic, 04/16/2018 Family History Father Anesthesia complication Heart disease Hyperlipidemia Hypertension Grandfather , Due to Aneurysm Diabetes maternal Aneurysm Grandmother Diabetes maternal Breast cancer maternal, diagnosed in her 40's Stroke paternal Thyroid disease maternal Daughter No problems noted. Family/Other Diabetes maternal uncle Ovarian cancer maternal aunt Bleeding disorder paternal Uterine cancer maternal great great aunt Mother Stroke Denies family history of Clotting disorder Social History Smoking and tobacco/nicotine status: former use of tobacco/nicotine Second hand smoke exposure: No Alcohol intake: never Substance/Drug Use: current Substance/Drug use frequency: Special occassions/opportunity only Adopted: No Lives independently: Yes Household members: none Housing: Apartment Marital status: Legally Number of children: 6 Number of grandchildren: 9 Highest education level completed: Some College, No Degree service: No Current occupational status: unemployed Current occupational exposures/hazards: No Pets and animals: Yes Leisure activites: reading and other Leisure activities details: crafts and some painting Sexually active: No Do you think of yourself as: Straight/Heterosexual Current gender identity: Female Yael/Yazdanism: Wicca Special yael needs: No Agree to transfusion: Yes Course Vital Signs: Vital signs: Vital Signs Temperature 98.2 F 02/21/25 21:11 Pulse Rate 84 02/21/25 21:11 Respiratory Rate 17 02/21/25 21:11 Blood Pressure 107/98 02/21/25 21:11 Pulse Oximetry 96 02/21/25 21:11 Oxygen Delivery Me thod Room Air 02/21/25 20:50 MDM - Neuro Symptoms/Deficit Medical Decision Making Medical decision making Patient's reason for coming to the emergency room: Strokelike symptoms Social determinants: Patient is unemployed I reviewed the patient's medical record. 44-year-old female with a history of hypertension, disequilibrium, morbid obesity, family history of a brain aneurysm, bipolar disorder, asthma, anxiety and depression, seizure disorder I reviewed the patient's current home meds No anticoagulation. Alternate historians: None Differential diagnosis for patient with focal neurologic deficit(s) includes but not limited to and based on the above HPI, review of systems and physical exam: ischemic stroke, hemorrhagic stroke and embolic stroke secondary to atrial fibrillation), TIA, Wilkinson's palsy, metabolic encephalopathy with previous stroke. Orders placed to evaluate differential diagnosis based on the above differential, HPI and physical exam 1620: Last known well time 0: My exam was performed in the CT scanner room. At this time all focal neurologic symptoms had resolved. She now has a universal tremor on all 4 extremities and a stuttering type tremulous talk. No facial droop at [employer]. 1712: NIH Stroke Scale/Score (NIHSS) from [email or web address] on 02/21/2025 All calculations should be rechecked by clinician prior to use * RESULT SUMMARY: 0 points NIH Stroke Scale INPUTS: 1A: Level of consciousness ?> 0 = Alert; keenly responsive 1B: Ask month and age ?> 0 = Both questions right 1C: 'Blink eyes' & 'squeeze hands' ?> 0 = Performs both tasks 2: Horizontal extraocular movements ?> 0 = Normal 3: Visual johnson ?> 0 = No visual loss 4: Facial palsy ?> 0 = Normal symmetry 5A: Left arm motor drift ?> 0 = No drift for 10 seconds 5B: Right arm motor drift ?> 0 = No drift for 10 seconds 6A: Left leg motor drift ?> 0 = No drift for 5 seconds 6B: Right leg motor drift ?> 0 = No drift for 5 seconds 7: Limb Ataxia ?> 0 = No ataxia 8: Sensation ?> 0 = Normal; no sensory loss 9: Language/aphasia ?> 0 = Normal; no aphasia 10: Dysarthria ?> 0 = Normal 11: Extinction/inattention ?> 0 = No abnormality 1718: I spoke with Dr. Pablo who is on-call for neurology. Discussed the patient and she agrees she does not qualify for tenecteplase at this time. 1721: I spoke with radiologist about the head CT. This was read as negative. CT head: No acute intracranial process. No intracranial hemorrhage, no evidence of infarct. No evidence of acute fracture. This was reviewed and interpreted by myself the emergency room physician. I also reviewed the radiology report. EKG: Normal sinus rhythm, No ST-T changes, no ectopy, normal FL & QRS intervals, This was reviewed and interpreted by myself the ER physician at 1742 time 1740. Rate 93. Patient care transitioned to Dr. Riddle at shift change. Care transitioned to me. CTA is also negative for any stenosis or occlusion. Laboratory shows a normal CBC. Normal BMP. Drug screen positive for marijuana only. Her headache is improved significantly. Symptoms are resolved. She has walked in the emergency department with minimal help. She usually uses a walker. She is supposed to have an appointment with neurology for follow-up. This was scheduled previously. She stable for discharge. Lab Data 02/21/25 17:21 02/21/25 17:[address] 02/21/25 17:00 IMPRESSION: No large territorial infarct or intracranial bleed. ASSESSMENT: ASPECTS ([place] Stroke Program Early CT Score) is 10. ADDENDUM: 02/21/25 1722 THIS REPORT CONTAINS FINDINGS THAT MAY BE CRITICAL TO PATIENT CARE. The findings were verbally communicated via telephone conference with ELVI GONZALEZ at 5:21 PM BATHING SUIT MAKER on 02/21/2025. The findings were acknowledged and understood. Head/Neck CTA 02/21/25 17:22 IMPRESSION: No large vessel stenosis or occlusion. IMPRESSION: No significant arterial stenosis. REFERENCES: NASCET CRITERIA. The degree of stenosis in the cervical segment of the internal carotid artery is based on NASCET criteria. Normal is no stenosis. Mild is less than 50% stenosis. Moderate is 50-69% stenosis. Severe is 70% to 99% stenosis. Total occlusion is no detectable patent lumen. Laboratory Results WBC 11.28 10^3/uL (3.29-11.43) 02/21/25 17:21 RBC 5.10 10^6/uL (3.85-5.65) 02/21/25 17:21 Hgb 14.10 g/dL (11.27-16.99) 02/21/25 17:21 Hct 44.2 % (36-47) 02/21/25 17:21 MCV 86.7 fl (85-98) 02/21/25 17:21 MCH 27.6 pg (27-33) 02/21/25 17: MCHC 31.9 g/dL (30-55) 02/21/25 17:21 RDW 12.7 % (12.1-15.1) 02/21/25 17:21 Plt Count 361 10^3/cmm (157-399) 02/21/25 17:21 MPV 10.8 fL (7.4-10.4) H 02/21/25 17:21 Neut % (Auto) 68.2 % 02/21/25 17:21 Lymph % (Auto) 22.2 % 02/21/25 17:21 [place] % (Auto) 7.7 % 02/21/25 17:21 Eos % (Auto) 1.1 % 02/21/25 17:21 Baso % (Auto) 0.4 % 02/21/25 17:21 Neut # (Auto) 7.70 10^3/uL (1.8-7.7) 02/21/25 17:21 Lymph # (Auto) 2.5 10^3/uL (0.8-4.8) 02/21/25 17:21 [place] # (Auto) 0.9 10^3/uL (0.2-0.9) 02/21/25 17:21 Eos # (Auto) 0.1 10^3/uL (0.0-0.8) 02/21/25 17:21 Baso # (Auto) 0.1 10^3/uL (0.0-0.1) 02/21/25 17:21 Nucleated RBC % (auto) 0 % 02/21/25 17:21 Nucleated RBCs # 0.0 /100WBC 02/21/25 17:21 PT 13.00 SECONDS (12.1-14.9) 02/21/25 17:45 INR 0.92 (0.8-1.2) 02/21/25 17:45 APTT 28.6 SECONDS (23.9-36.7) 02/21/25 17:45 Sodium 135 mmol/L (136-145) L 02/21/25 17:45 Potassium 4.0 mmol/L (3.5-5.1) 02/21/25 17:45 Chloride 102 mmol/L (98-107) 02/21/25 17:45 Carbon Dioxide 22 mmol/L (22-29) 02/21/25 17:45 Anion Gap 14.8 (5-19) 02/21/25 17:45 BUN 14 mg/dL (6-20) 02/21/25 17:45 Creatinine 0.8 mg/dL (0.5-0.9) 02/21/25 17:45 GFR Calculation 77.6 mL/min (90-130) L 02/21/25 17:45 Glucose 93 mg/dL (65-115) 02/21/25 17:45 POC Glucose 89 mg/dL (70-110) 02/21/25 17:17 Calculated Osmolality 280 mOsm/kg (285-295) L 02/21/25 17:45 Calcium 8.5 mg/dL (8.5-10.5) 02/21/25 17:45 Total Bilirubin 0.2 mg/dL (0.15-1.2) 02/21/25 17:45 AST 15 U/L (0-32) 02/21/25 17:45 ALT 8 U/L (0-33) 02/21/25 17:45 Alkaline Phosphatase 98 U/L (35-105) 02/21/25 17:45 Total Protein 6.4 g/dL (6.6-8.7) L 02/21/25 17:45 Albumin 3.6 g/dL (3.5-5.2) 02/21/25 17:45 Globulin 2.8 g/dL (1.3-4.6) 02/21/25 17:45 Urine Color Yellow (Yellow) 02/21/25 20:14 Urine Appearance Clear (CLEAR) 02/21/25 20:14 Urine pH 6.0 (5-7) 02/21/25 20:14 Ur Specific [place] 1.058 (1.005-1.030) H 02/21/25 20:14 Urine Protein Negative (Negative) 02/21/25 20:14 Urine Glucose (UA) Negative (Normal) 02/21/25 20:14 Urine Ketones Negative (Negative) 02/21/25 20:14 Urine Blood Negative (Negative) 02/21/25 20:14 Urine Nitrate Negative (Negative) 02/21/25 20:14 Urine Bilirubin Negative (Negative) 02/21/25 20:14 Urine Urobilinogen 0.2 mg/dL (Negative) 02/21/25 20:14 Ur Leukocyte Esterase Negative (Negative) 02/21/25 20:14 Urine RBC 0-2 /hpf (0-2) 02/21/25 20:14 Urine WBC 0-5 /hpf (0-5) 02/21/25 20:14 Ur Squamous Epith Cells 0-5 /hpf (0-5) 02/21/25 20:14 Amorphous Sediment Not Reportable 02/21/25 20:14 Urine Bacteria None seen /hpf (NONE) 02/21/25 20:14 Hyaline Casts 0-4 /lpf H 02/21/25 20:14 Urine Opiates Screen Negative ng/mL (Negative) 02/21/25 20:14 Ur Barbiturates Screen Negative ng/mL (Negative) 02/21/25 20:14 Ur Phencyclidine Scrn Negative ng/mL (Negative) 02/21/25 20:14 Ur Amphetamines Screen Negative ng/mL (Negative) 02/21/25 20:14 U Benzodiazepines Scrn Negative ng/mL (Negative) 02/21/25 20:14 Urine Cocaine Screen Negative ng/mL (Negative) 02/21/25 20:14 U Marijuana (THC) Screen Positive ng/mL (Negative) H 02/21/25 20:14 All radiology interpretation(s) finalized by discharge Discharge Plan Discharge Patient Disposition: Home Clinical Impression: Complicated migraine Condition: Stable Prescriptions: No Action epinephrine 0.3 mg/0.3 mL auto-injector 0.3 mg IM Q4H PRN (Reason: Allergic Reaction) metoprolol tartrate 25 mg tablet 12.5 mg PO BID Qty: 90 1RF naloxone [Narcan] 4 mg/actuation spray,non-aerosol 4 mg intranasal Q3M PRN (Reason: opioid overdose) Qty: 2 0RF Rx Instructions: spray 1 dose into ONE nostril; alternate nostrils w each dose until help arrives polyethylene glycol 3350 [Miralax] 17 gram/dose powder 4 g PO DAILY ropinirole 2 mg tablet 2 mg PO BID Qty: 180 1RF amitriptyline 25 mg tablet 25 mg PO .HS Qty: 30 2RF topiramate 100 mg tablet 100 mg PO BID Qty: 60 2RF bupivacaine (PF) 0.25 % (2.5 mg/mL) solution 3 ml intra-articular ONCE Qty: 1 0RF lidocaine (PF) 20 mg/mL (2 %) solution 60 mg intra-articular ROUTINE Qty: 20 0RF montelukast 10 mg tablet 10 mg PO QPM Qty: 90 1RF Airsupra 90-80 mcg/actuation HFA aerosol inhaler 2 inh inhalation QID PRN meclizine 25 mg tablet 25 mg PO BID PRN (Reason: dizziness) Qty: 20 2RF Adbry 150 mg/mL syringe 300 mg SUBCUT Q14D Qty: 4 2RF Rx Instructions: 600mg divided in 4 sites on day 1. then 300mg divided in 2 sites every 2 weeks pantoprazole [Protonix] 40 mg tablet,delayed release (DR/EC) 40 mg PO ONCE Qty: 90 1RF (DME) Bone Growth Stimulator See Rx Instructions .Route .MEDSUPPLY Qty: 1 0RF Rx Instructions: As directed budesonide [Pulmicort] 0.5 mg/2 mL suspension for nebulization 0.5 mg inhalation DAILY Qty: 60 3RF potassium chloride 8 mEq capsule, extended release 8 meq PO DAILY Qty: 30 5RF Rx Instructions: only take when taking furosemide tablet on as needed basis loratadine 10 mg capsule 10 mg PO DAILY Qty: 90 0RF ipratropium-albuterol 0.5 mg-3 mg(2.5 mg base)/3 mL solution for nebulization 3 ml inhalation Q4H PRN (Reason: wheezing) Qty: 90 3RF oxycodone 5 mg tablet 5 mg PO BID PRN (Reason: pain (scale score 7-10)) 14 Days Qty: 28 0RF Rx Instructions: ONLY USE FOR SEVERE PAIN gabapentin 300 mg capsule 300 mg PO DAILY Qty: 90 1RF hydroxyzine HCl 25 mg tablet 25 mg PO DIRECTED Rx Instructions: TAKE ONE TABLET BY MOUTH IN THE MORNING AND TWO TABLETS BY MOUTH one hour BEFORE bedtime albuterol sulfate 90 mcg/actuation HFA aerosol inhaler 2 inh INHALATION Q4H PRN (Reason: shortness of breath or wheezing) Qty: 18 0RF Discharge Orders: Discharge ED (Routine); Ordered 02/21/25 Ordered By: Brian Riddle Referrals: Alexys Mariano MD [Primary Care Provider, Family Practice] - 1-3 days Patient Instructions: Migraine Headache (ED), Opioid Safety, Pain Management, Patient Portal & Felicia Instructions Activity Restrictions/Additional Instructions: Return for any return of symptoms. Call your doctor on Saturday for follow-up appointment Print Language: Citizen Of [place] Coding Level of Care Code ED Sports Psychologist for Maxwell Baker
--- NOTE | 2025-02-21 17:22 | CTR_ITS ---
PROCEDURE INFORMATION: Exam: CTA Head With Contrast, Arteriography Exam date and time: 02/21/2025 5:27 PM Age: 44 years old Clinical indication: Pain; Speech disturbance; Headache; Additional info: Possible stroke TECHNIQUE: Imaging protocol: Computed tomographic angiography of the head with contrast. Exam focused on the arteries. 3D rendering (Not supervised by radiologist): MIP and/or 3D reconstructed images were created by the technologist. Radiation optimization: All CT scans at this facility use at least one of these dose optimization techniques: automated exposure control; mA and/or kV adjustment per patient size (includes targeted exams where dose is matched to clinical indication); or iterative reconstruction. Contrast material: OMNI 350; Contrast volume: 100 ml; Contrast route: INTRAVENOUS (IV); COMPARISON: MR angio head wo con [id number] 11/08/2022 7:06 AM RADIATION DOSE METRICS: Total DLP (mGy-cm): 539.49 FINDINGS: ANTERIOR CIRCULATION: Right internal carotid artery: Intracranial segment is patent with no significant stenosis. No aneurysm. Right middle cerebral artery: No occlusion or significant stenosis. No aneurysm. Right anterior cerebral artery: No occlusion or significant stenosis. No aneurysm. Left internal carotid artery: Intracranial segment is patent with no significant stenosis. No aneurysm. Left middle cerebral artery: No occlusion or significant stenosis. No aneurysm. Left anterior cerebral artery: No occlusion or significant stenosis. No aneurysm. POSTERIOR CIRCULATION: Right vertebral artery: No occlusion or significant stenosis. No aneurysm. Left vertebral artery: No occlusion or significant stenosis. No aneurysm. Basilar artery: No occlusion or significant stenosis. No aneurysm. Right posterior cerebral artery: No occlusion or significant stenosis. No aneurysm. Left posterior cerebral artery: No occlusion or significant stenosis. No aneurysm. Brain: No definite mass, mass effect, or midline shift. Cerebral ventricles: No ventriculomegaly. Bones/joints: Unremarkable. No acute fracture. Soft tissues: Unremarkable. PROCEDURE INFORMATION: Exam: CTA Neck With Contrast Exam date and time: 02/21/2025 5:27 PM Age: 44 years old Clinical indication: Pain; Speech disturbance; Headache; Additional info: Possible stroke TECHNIQUE: Imaging protocol: Computed tomographic angiography of the neck with contrast. Exam focused on the cervical segments of the vasculature. 3D rendering (Not supervised by radiologist): MIP and/or 3D reconstructed images were created by the technologist. Radiation optimization: All CT scans at this facility use at least one of these dose optimization techniques: automated exposure control; mA and/or kV adjustment per patient size (includes targeted exams where dose is matched to clinical indication); or iterative reconstruction. Contrast material: OMNI 350; Contrast volume: 100 ml; Contrast route: INTRAVENOUS (IV); COMPARISON: MR cervical spin wo con* [id number] 10/07/2024 7:15 AM RADIATION DOSE METRICS: Total DLP (mGy-cm): 539.49 FINDINGS: Right common carotid artery: No stenosis. No dissection or occlusion. Right internal carotid artery: No stenosis of the extracranial segment. No dissection or occlusion. Right external carotid artery: No occlusion or stenosis of the origin. Left common carotid artery: No stenosis. No dissection or occlusion. Left internal carotid artery: No stenosis of the extracranial segment. No dissection or occlusion. Left external carotid artery: No occlusion or stenosis of the origin. Right vertebral artery: No stenosis. No dissection or occlusion. Left vertebral artery: No stenosis. No dissection or occlusion. Soft tissues: Normal. No significant soft tissue swelling. Bones/joints: Post ACDF at C5-C6. The cervical spine demonstrates moderate degenerative changes at multiple levels. CT/CT angio headneck* [id number] IMPRESSION: No large vessel stenosis or occlusion. IMPRESSION: No significant arterial stenosis. REFERENCES: NASCET CRITERIA. The degree of stenosis in the cervical segment of the internal carotid artery is based on NASCET criteria. Normal is no stenosis. Mild is less than 50% stenosis. Moderate is 50-69% stenosis. Severe is 70% to 99% stenosis. Total occlusion is no detectable patent lumen.
[2025-02-21 17:26] LABS: Hematocrit 44.2 % (36-47); Hemoglobin 14.10 g/dL (11.27-16.99); Mean Corpuscular HGB Conc 31.9 g/dL (30-55); Mean Corpuscular Hemoglobin 27.6 pg (27-33); Mean Corpuscular Volume 86.7 fl (85-98); Nucleated Red Blood Cells % 0 %; Platelet Count 361 10^3/cmm (157-399); Red Blood Count 5.10 10^6/uL (3.85-5.65); White Blood Count 11.28 10^3/uL (3.29-11.43)
[2025-02-21] MEDS: iohexol 350 mg/mL 500 mL Btl (per mL) IV (17:31)
[2025-02-21 18:02] LABS: INR 0.92 (0.8-1.2); Prothrombin Time 13.00 SECONDS (12.1-14.9)
[2025-02-21 18:04] LABS: Partial Thromboplastin Time 28.6 SECONDS (23.9-36.7)
[2025-02-21 18:08] LABS: Alanine Aminotransferase 8 U/L (0-33); Albumin Level 3.6 g/dL (3.5-5.2); Alkaline Phosphatase 98 U/L (35-105); Aspartate Amino Transferase 15 U/L (0-32); Chloride 102 mmol/L (98-107); Glucose 93 mg/dL (65-115); Potassium 4.0 mmol/L (3.5-5.1)
[2025-02-21 18:16] LABS: Anion Gap 14.8 (5-19); Blood Urea Nitrogen 14 mg/dL (6-20); Calcium 8.5 mg/dL (8.5-10.5); Carbon Dioxide 22 mmol/L (22-29); Globulin 2.8 g/dL (1.3-4.6); Osmolality Calculated 280 mOsm/kg (285-295); Sodium 135 mmol/L (136-145); Total Protein 6.4 g/dL (6.6-8.7)
[2025-02-21] MEDS: metoclopramide 5 mg/mL SDV 2 mL 10 MG IVP (20:02)
[2025-02-21 20:23] LABS: Glucose Urine UA Negative (Normal); Nitrate Urine Negative (Negative)
[2025-02-21 20:28] LABS: Add Urine Microscopic? YES
[2025-02-21 20:30] LABS: PCP Screen Urine Negative (Negative)
[2025-02-21 20:32] LABS: Specific Gravity, Urine 1.058 (1.005-1.030)
== END 2025-02-21 21:13 | disposition home or self-care (01) ==
PROVIDERS: Emergency Medicine; Emergency Provider Emergency Medicine; PCP Family Medicine
DX: G43.109 Migraine with aura, not intractable, without status migrainosus (principal); Z87.891 Personal history of nicotine dependence
CPT/HCPCS: 36415; 36416; 70450; 70496; 70498; 80053; 80306; 81001; 82962; 85025; 85610; 85730; 93005; 96374; 96375; 99285; J1885; J2765; J3490

== ENCOUNTER 2025-03-05 11:52 | Outpatient (CLI) | payer MEDICAID, SELFPAY ==
[2024-08-25 14:09] VITALS: BP 135/91; BMI 42.0
--- NOTE | 2025-03-05 | ECG_ITS ---
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 Baseline heart rate was 92 beats per minute. Baseline blood pressure was 136/87 millimeters of mercury. Target heart rate was 175 beats per minute. Maximum heart rate achieved was 153, which was 87 % of the target heart rate. Maximum blood pressure was 156/87 millimeters of mercury. Total exercise time was 3 minutes. Maximum METs achieved was 4.6, maximum VO2 was 16.1. The reason for ending the test was completion of the protocol. The patient complained of during the stress test, which then resolved at the end of the test. ELECTROCARDIOGRAM: BASELINE: Showed sinus rhythm, normal axis, no significant ST-T changes at the baseline noted. EXERCISE: At the peak exercise level, no significant ST-T changes suggestive of ischemia noted. RECOVERY: During the recovery period, heart rate dropped appropriately. No significant ST-T changes in the recovery suggestive of ischemia noted. CONCLUSION: 1. Exercise capacity poor. 2. Heart rate response was tachycardic. 3. Blood pressure response was appropriate. 4. Symptoms not suggestive of ischemia. 5. Electrocardiogram portion of the stress test was not suggestive of ischemia. 6. Please note that specificity and sensitivity of the test due to under achievements of METS and poor exercise capacity will be of low yield. Electronically Signed On 03-18-2025 17:18:19 MATLAB DEVELOPER by RACQUEL ZENG [id number]
[2025-03-05 11:55] VITALS: BMI 42.7
[2025-03-05 12:23] VITALS: BP 149/65; PULSE 104
== END 2025-03-05 11:53 | disposition home or self-care (01) ==
LOC: CDL 11:53
PROVIDERS: PCP Family Medicine; Visit Provider Nurse Practitioner Family
DX: R07.9 Chest pain, unspecified (principal); R93.1 Abnormal findings on diagnostic imaging of heart and coronary circulation
CPT/HCPCS: 93017